=== PATIENT | male | born 1935 | race Caucasian/White ===

== ENCOUNTER 2018-06-04 13:01 | Inpatient (IN) | payer BC, MEDICARE ==
[2018-06-04] MEDS ORDERED: NITROGLYCERIN OINT 1 INCH/GM PACKET TOPICAL STA (13:36)
[2018-06-04] MEDS ORDERED: ASPIRIN 81 MG PO STA (13:36)
--- NOTE | 2018-06-04 13:40 | ED ---
General Adult HPI - General Chief complaint: Shortness of Breath Stated complaint: ANAHI Time Seen by Provider: 06/04/18 13:05 Source: EMS, RN notes reviewed Mode of arrival: EMS Limitations: no limitations - History of Present Illness Initial comments: This is an 83-year-old male who presents to the emergency department with past medical history significant for heart failure. According to the he got up today to go to bathroom and he was in severe respiratory distress at home. She called EMS. Patient is not a very good historian and he states he was having a little bit of shortness of breath. According to EMS he was sent in the low 80s until he put him on oxygen. Patient denied having chest pain away stated he never mentioned anything about chest pain. states he hasn't had any recent fever chills. states when he was short of breath this morning he did start coughing nonstop. Patient currently denies any headache patient denies any abdominal pain there's been no recent history of vomiting or diarrhea. There's been no recent history of trauma. Patient does also have a history of atrial fibrillation is on Coumadin. Patient denies any chest pain - Related Data Home Medications Medication Instructions Recorded Confirmed Aspirin 81 mg PO DAILY 12/09/13 06/04/18 Atenolol [Tenormin] 12.5 mg PO BID 12/09/13 06/04/18 Digoxin [Lanoxin] 125 mcg PO QAM 12/09/13 06/04/18 Finasteride [Proscar] 5 mg PO HS 12/09/13 06/04/18 Furosemide [Lasix] 20 mg PO QAM 12/09/13 06/04/18 Lisinopril [Zestril] 10 mg PO HS 12/09/13 06/04/18 Pravastatin Sodium [Pravachol] 40 mg PO HS 12/09/13 06/04/18 Ranitidine HCl [Zantac] 150 mg PO QAM 12/09/13 06/04/18 Warfarin [Coumadin] 2.5 mg PO SUWESA 12/09/13 06/04/18 Multivitamins, Thera [Multivitamin 1 tab PO DAILY 06/04/18 06/04/18 (formulary)] Warfarin [Coumadin] 1.25 mg PO MOTUTHFR 01/01/19 01/01/19 Allergies Allergy/AdvReac Type Severity Reaction Status Date / Time No Known Allergies Allergy Verified 06/04/18 13:22 Review of Systems ROS Statement: Those systems with pertinent positive or pertinent negative responses have been documented in the HPI. ROS Other: All systems not noted in ROS Statement are negative. Past Medical History Past Medical History: Heart Failure, CVA/TIA, GERD/Reflux, Hyperlipidemia, Hypertension, Osteoarthritis (OA), Prostate Disorder, Sleep Apnea/CPAP/BIPAP Additional Past Medical History / Comment(s): CHF RESOLVED POST VALVE REPLACEMENT. CPAP @ 8 L. HIATAL HERNIA. History of Any Multi-Drug Resistant Organisms: None Reported Past Surgical History: Cardiac Valve Replacement, Coronary Bypass/CABG, Heart Catheterization, Tonsillectomy Additional Past Surgical History / Comment(s): LEFT CATARACT. Past Anesthesia/Blood Transfusion Reactions: No Reported Reaction Past Psychological History: No Psychological Hx Reported Smoking Status: Former smoker Past Alcohol Use History: Occasional Past Drug Use History: None Reported - Past Family History Mother Family Medical History: Cancer General Exam - General Exam Comments Initial Comments: GENERAL: Patient is well-developed and well-nourished. Patient is nontoxic and well- hydrated and is in mild distress. ENT: Neck is soft and supple. No significant lymphadenopathy is noted. Oropharynx is clear. Moist mucous membranes. Neck has full range of motion without eliciting any pain. EYES: The sclera were anicteric and conjunctiva were pink and moist. Extraocular movements were intact and pupils were equal round and reactive to light. Eyelids were unremarkable. PULMONARY: Unlabored respirations. Good breath sounds bilaterally. No audible rales rhonchi or wheezing was noted. CARDIOVASCULAR: Patient is a regular heartbeat. ABDOMEN: Soft and nontender with normal bowel sounds. No palpable organomegaly was noted. There is no palpable pulsatile mass. SKIN: Skin is clear with no lesions or rashes and otherwise unremarkable. NEUROLOGIC: Patient is alert and oriented x3. Cranial nerves II through XII are grossly intact. Motor and sensory are also intact. Normal speech, volume and content. Symmetrical smile. MUSCULOSKELETAL: Normal extremities with adequate strength and full range of motion. 1+ edema bilaterally LYMPHATICS: No significant lymphadenopathy is noted PSYCHIATRIC: Normal psychiatric evaluation. Limitations: no limitations Course Vital Signs 06/04/18 13:03 Temperature 98.0 F Pulse Rate 61 Respiratory 20 Rate Blood Pressure 102/60 O2 Sat by Pulse 89 L Oximetry Medical Decision Making - Medical Decision Making EKG shows atrial fibrillation 73 bpm QRS 114 QT interval 396 QTC is 436 per patient's EKG shows ST segment depression from V2 to V6. No recent old EKG was available. Chest x-ray shows acute pulmonary edema. I gave the patient Lasix. Spoke with Dr. Hankins she agreed to admit the patient admitted the patient I wrote admitting orders I continued the Nitropaste and Lasix on the floor. Patient also had a high potassium I repeated the potassium and mention this to Dr. Hankins. Patient also had some renal insufficiency as well. - Lab Data Result diagrams: 06/04/18 13:29 06/04/18 13:29 Lab Results 06/04/18 06/04/18 06/04/18 Range/Units 13:29 13:29 13:29 WBC 7.3 (3.8-10.6) k/uL RBC 3.77 L (4.30-5.90) m/uL Hgb 12.1 L (13.0-17.5) gm/dL Hct 39.4 (39.0-53.0) % MCV 104.3 H (80.0-100.0) fL MCH 32.0 (25.0-35.0) pg MCHC 30.7 L (31.0-37.0) g/dL RDW 13.7 (11.5-15.5) % Plt Count 181 (150-450) k/uL Neutrophils % 86 % Lymphocytes % 4 % Monocytes % 6 % Eosinophils % 2 % Basophils % 0 % Neutrophils # 6.3 (1.3-7.7) k/uL Lymphocytes # 0.3 L (1.0-4.8) k/uL Monocytes # 0.5 (0-1.0) k/uL Eosinophils # 0.1 (0-0.7) k/uL Basophils # 0.0 (0-0.2) k/uL Macrocytosis Slight PT (9.0-12.0) sec INR (<1.2) APTT (22.0-30.0) sec D-Dimer (<0.60) mg/L FEU Sodium 135 L (137-145) mmol/L Potassium 6.0 H (3.5-5.1) mmol/L Chloride 103 (98-107) mmol/L Carbon Dioxide 20 L (22-30) mmol/L Anion Gap 12 mmol/L BUN 34 H (9-20) mg/dL Creatinine 1.82 H (0.66-1.25) mg/dL Est GFR (CKD-EPI)AfAm 39 (>60 ml/min/1.73 sqM) Est GFR (CKD-EPI)NonAf 33 (>60 ml/min/1.73 sqM) Glucose 176 H (74-99) mg/dL Calcium 9.1 (8.4-10.2) mg/dL Magnesium 2.1 (1.6-2.3) mg/dL Total Bilirubin 1.3 (0.2-1.3) mg/dL AST 35 (17-59) U/L ALT 23 (21-72) U/L Alkaline Phosphatase 99 (38-126) U/L Total Creatine Kinase 45 L (55-170) U/L CK-MB (CK-2) 1.5 (0.0-2.4) ng/mL CK-MB (CK-2) Rel Index 3.3 Troponin I 0.081 H* (0.000-0.034) ng/mL NT-Pro-B Natriuret Pep pg/mL Total Protein 7.1 (6.3-8.2) g/dL Albumin 3.7 (3.5-5.0) g/dL 06/04/18 06/04/18 Range/Units 13:29 13:29 WBC (3.8-10.6) k/uL RBC (4.30-5.90) m/uL Hgb (13.0-17.5) gm/dL Hct (39.0-53.0) % MCV (80.0-100.0) fL MCH (25.0-35.0) pg MCHC (31.0-37.0) g/dL RDW (11.5-15.5) % Plt Count (150-450) k/uL Neutrophils % % Lymphocytes % % Monocytes % % Eosinophils % % Basophils % % Neutrophils # (1.3-7.7) k/uL Lymphocytes # (1.0-4.8) k/uL Monocytes # (0-1.0) k/uL Eosinophils # (0-0.7) k/uL Basophils # (0-0.2) k/uL Macrocytosis PT 38.4 H (9.0-12.0) sec INR 4.0 H (<1.2) APTT 37.4 H (22.0-30.0) sec D-Dimer 1.80 H (<0.60) mg/L FEU Sodium (137-145) mmol/L Potassium (3.5-5.1) mmol/L Chloride (98-107) mmol/L Carbon Dioxide (22-30) mmol/L Anion Gap mmol/L BUN (9-20) mg/dL Creatinine (0.66-1.25) mg/dL Est GFR (CKD-EPI)AfAm (>60 ml/min/1.73 sqM) Est GFR (CKD-EPI)NonAf (>60 ml/min/1.73 sqM) Glucose (74-99) mg/dL Calcium (8.4-10.2) mg/dL Magnesium (1.6-2.3) mg/dL Total Bilirubin (0.2-1.3) mg/dL AST (17-59) U/L ALT (21-72) U/L Alkaline Phosphatase (38-126) U/L Total Creatine Kinase (55-170) U/L CK-MB (CK-2) (0.0-2.4) ng/mL CK-MB (CK-2) Rel Index Troponin I (0.000-0.034) ng/mL NT-Pro-B Natriuret Pep 62735 pg/mL Total Protein (6.3-8.2) g/dL Albumin (3.5-5.0) g/dL Critical Care Time Critical Care Time: Yes Total Critical Care Time: 35 Disposition Clinical Impression: Acute pulmonary edema, Hyperkalemia, Renal insufficiency Disposition: ADMITTED IP TO THIS HOSP Referrals: Vamshi Leiva MD [Primary Care Provider] - 1-2 days Time of Disposition: 15:17
[2018-06-04 13:55] LABS: Albumin 3.7 g/dL (3.5-5.0); Calcium 9.1 mg/dL (8.4-10.2); Magnesium 2.1 mg/dL (1.6-2.3); Total Bilirubin 1.3 mg/dL (0.2-1.3); Total Protein 7.1 g/dL (6.3-8.2)
--- NOTE | 2018-06-04 13:55 | XR ---
EXAMINATION TYPE: XR chest 2V DATE OF EXAM: 06/04/2018 COMPARISON: 07/26/2012 HISTORY: Difficulty breathing TECHNIQUE: Frontal and lateral views of the chest are obtained. FINDINGS: New focal opacities are seen in the left perihilar region, retrocardiac airspace, and righ t costophrenic angle. There is interval enlargement of the cardiac silhouette with postoperative khanna ges of the mediastinum. Mild interstitial prominence is seen throughout. Trace pleural effusions are also noted. Mild multilevel degenerative changes of the spine are seen. No sizable pneumothorax. IMPRESSION: New bilateral multifocal opacities may represent confluent pulmonary edema or multifocal pneumonia. Additionally there is interval increase in size of the cardiac silhouette in comparison t o the prior and echocardiogram should be considered to evaluate for pericardial effusion. Trace pleur al effusions and mild pulmonary vascular prominence suggest an additional degree of decompensated con gestive heart failure.
[2018-06-04 13:56] LABS: Basophils % (A) 0 %; Eosinophils # (A) 0.1 k/uL (0-0.7); Eosinophils % (A) 2 %; HCT 39.4 % (39.0-53.0); HGB 12.1 gm/dL (13.0-17.5); Lymphocytes # (A) 0.3 k/uL (1.0-4.8); Lymphocytes % (A) 4 %; MCHC 30.7 g/dL (31.0-37.0); MCV 104.3 fL (80.0-100.0); Macrocytosis Slight; Monocytes # (A) 0.5 k/uL (0-1.0); Monocytes % (A) 6 %; Neutrophils # (A) 6.3 k/uL (1.3-7.7); Neutrophils % (A) 86 %; Platelet Count 181 k/uL (150-450); RBC 3.77 m/uL (4.30-5.90); RDW 13.7 % (11.5-15.5); WBC 7.3 k/uL (3.8-10.6)
[2018-06-04 14:20] LABS: Creatine Kinase MB 1.5 ng/mL (0.0-2.4)
[2018-06-04 14:28] LABS: Troponin I 0.081 ng/mL (0.000-0.034)
[2018-06-04 14:29] LABS: Partial Thromboplastin Time 37.4 sec (22.0-30.0); Prothrombin Time 38.4 sec (9.0-12.0)
[2018-06-04 14:37] LABS: D-Dimer 1.8 mg/L FEU (<0.60)
[2018-06-04] MEDS ORDERED: FUROSEMIDE 10 MG/ML 4 ML VIAL IV STA (14:42)
[2018-06-04] MEDS ORDERED: ASPIRIN 325 MG TAB PO STA (15:17)
[2018-06-04] MEDS ORDERED: FUROSEMIDE 10 MG/ML 4 ML VIAL IV SCH (15:30)
[2018-06-04] MEDS ORDERED: ACETAMINOPHEN TAB 325 MG TAB PO PRN (16:52)
[2018-06-04] MEDS ORDERED: ONDANSETRON 4 MG/2 ML VIAL IVP PRN (16:52)
[2018-06-04] MEDS ORDERED: NALOXONE 0.4 MG/ML 1 ML VIAL IV PRN (16:52)
[2018-06-04] MEDS ORDERED: HYDROcodone/APAP 5-325MG 1 EACH TAB PO PRN (16:52)
[2018-06-04] MEDS ORDERED: MELATONIN 3 MG TABLET PO PRN (16:52)
--- NOTE | 2018-06-04 16:59 | P.HPIM ---
History of Present Illness H&P Date: 06/04/18 Chief Complaint: constipation and shortness of breath Patient is an 83-year-old male for history hypertension, dyslipidemia , BPH, and mitral valve replacement who presented to the ER with complaints of constipation for 2 days or shortness of breath. In the ER he underwent an extensive evaluation. His initial vital signs were slightly hypoxic with an O2 sat of 89% on room air. Initial laboratory analysis showed a supratherapeutic INR at 4. Hemoglobin 12.1. D-dimer 1.8. Potassium 6. Creatinine of 1.82. Elevated glucose of 176. Elevated troponin of 0.081 with an elevated BNP of 14, 000. Chest x-ray showed bilateral interstitial infiltrates with pleural effusion and enlarged cardiac silhouette. He was given a dose of Lasix in the ER and his potassium was reordered. He was given Nitropaste. Patient seen and examined at bedside in the emergency department. Patient does not want to answer questions and asked his to tell the story. He complains of constipation for the last 2 days. Today he went to get up to try to have a bowel movement. On his way back from the bathroom he became short of breath. They were concerned about her shortness of breath and constipation he proceeded to the ER. It took him quite a long time to recover from shortness of breath. He has a chronic nonproductive cough which has been stable. He does been clearing his throat it seems to produce some phlegm. He denies any chest pain, palpitation, lightheadedness, or dizziness. He has not been having any belly pain. He denies any difficulty starting or stopping his urinary stream. He denies any dysuria or urinary frequency. No recent colds, fevers, flus. He has not missed any medications or had any changes in his medications. He saw Dr. Tsang filling mixer 1 month ago. His last echocardiogram was approximately one year ago at the cardiology office. He has a history of congestive heart failure prior to his mitral valve replacement but has not had any issues since 1990 per his . He also follows with Dr. Cartagena for pulmonary. He has otherwise been in his normal state of health. He denies any recent weakness,numbness, HE, blurry vision, or light headedness. Review of Systems Pertinent positives and negatives as discussed in HPI, a complete review of systems was performed and all other systems are negative. Past Medical History Past Medical History: Heart Failure, CVA/TIA, GERD/Reflux, Hyperlipidemia, Hypertension, Osteoarthritis (OA), Prostate Disorder, Sleep Apnea/CPAP/BIPAP Additional Past Medical History / Comment(s): CHF RESOLVED POST VALVE REPLACEMENT. CPAP @ 8 L. HIATAL HERNIA. Hx of melenoma. BPH. Irregular heart beat. TIA. History of Any Multi-Drug Resistant Organisms: None Reported Past Surgical History: Cardiac Valve Replacement, Coronary Bypass/CABG, Heart Catheterization, Tonsillectomy Additional Past Surgical History / Comment(s): LEFT CATARACT. 2 vessel bypass with mitral valve repair 1990. Melenoma removal. Past Anesthesia/Blood Transfusion Reactions: No Reported Reaction Past Psychological History: No Psychological Hx Reported Smoking Status: Former smoker Past Alcohol Use History: Daily Past Drug Use History: None Reported Additional History: Lives with . Uses a cane. Has 2 drinks daily. - Past Family History Mother Family Medical History: Cancer Additional Family Medical History / Comment(s): from bone cancer, no hx of cardiac disease Father Family Medical History: Cancer Additional Family Medical History / Comment(s): unknown type of cancer Medications and Allergies Home Medications Medication Instructions Recorded Confirmed Type Aspirin 81 mg PO DAILY 12/09/13 06/04/18 History Atenolol [Tenormin] 12.5 mg PO BID 12/09/13 06/04/18 History Digoxin [Lanoxin] 125 mcg PO QAM 12/09/13 06/04/18 History Finasteride [Proscar] 5 mg PO 12/09/13 06/04/18 History Furosemide [Lasix] 20 mg PO QAM 12/09/13 06/04/18 History Lisinopril [Zestril] 10 mg PO 12/09/13 06/04/18 History Pravastatin Sodium [Pravachol] 40 mg PO 12/09/13 06/04/18 History Ranitidine HCl [Zantac] 150 mg PO QAM 12/09/13 06/04/18 History Warfarin [Coumadin] 2.5 mg PO SUWESA 12/09/13 06/04/18 History Multivitamins, Thera [Multivitamin 1 tab PO DAILY 06/04/18 06/04/18 History (formulary)] Warfarin [Coumadin] 1.25 mg PO MOTUTHFR 06/04/18 06/04/18 History Allergies Allergy/AdvReac Type Severity Reaction Status Date / Time No Known Allergies Allergy Verified 06/04/18 13:22 Physical Exam Osteopathic Statement: *. No significant issues noted on an osteopathic structural exam other than those noted in the History and Physical/Consult. Vitals: Vital Signs Temp Pulse Resp BP Pulse Ox 06/04/18 15:30 98.7 F 79 33 H 144/91 98 06/04/18 15:00 102 H 21 132/79 98 06/04/18 14:30 85 19 125/66 99 06/04/18 14:00 76 24 118/51 97 06/04/18 13:03 98.0 F 61 20 102/60 89 L Intake and Output 06/04/18 06/04/18 06/04/18 06:59 14:59 22:59 Other: Weight 83.915 kg General: non toxic, mild distress, appears at stated age, normal weight Derm: no unusual rashes/lesions multiple ecchymoses, warm, dry Head: atraumatic, normocephalic, symmetric Eyes: EOMI, no lid lag, anicteric sclera, pupils equal round reactive to light ENT: Nose and ears atraumatic, no thrush, no pharyngeal erythema Neck: No thyromegaly, no cervical lymphadenopathy, trachea midline, supple Mouth: no lip lesion, mucus membranes dry Cardiovascular: S1S2 reg with murmur, positive posterior tibial pulse bilateral , 3+ edema, capillary refill less than 2 seconds Lungs: rhonchi bilateral bases, no rhonchi, no rales , no accessory muscle use Abdominal: soft, nontender to palpation, no guarding, no appreciable organomegaly, normal bowel sounds Ext: no gross muscle atrophy, muscle strength 5 out of 5 in all 4 extremities grossly, no contractures, Neuro: CN II-XI grossly intact, light touch intact all 4 extremities, finger to nose within normal limits, Psych: Alert, oriented, flat affect Results CBC & Chem 7: 06/04/18 13:29 06/04/18 13:29 Labs: Abnormal Lab Results - Last 24 Hours (Table) 06/04/18 06/04/18 06/04/18 Range/Units 13:29 13:29 13:29 RBC 3.77 L (4.30-5.90) m/uL Hgb 12.1 L (13.0-17.5) gm/dL MCV 104.3 H (80.0-100.0) fL MCHC 30.7 L (31.0-37.0) g/dL Lymphocytes # 0.3 L (1.0-4.8) k/uL PT (9.0-12.0) sec INR (<1.2) APTT (22.0-30.0) sec D-Dimer (<0.60) mg/L FEU Sodium 135 L (137-145) mmol/L Potassium 6.0 H (3.5-5.1) mmol/L Carbon Dioxide 20 L (22-30) mmol/L BUN 34 H (9-20) mg/dL Creatinine 1.82 H (0.66-1.25) mg/dL Glucose 176 H (74-99) mg/dL Total Creatine Kinase 45 L (55-170) U/L Troponin I 0.081 H* (0.000-0.034) ng/mL 06/04/18 Range/Units 13:29 RBC (4.30-5.90) m/uL Hgb (13.0-17.5) gm/dL MCV (80.0-100.0) fL MCHC (31.0-37.0) g/dL Lymphocytes # (1.0-4.8) k/uL PT 38.4 H (9.0-12.0) sec INR 4.0 H (<1.2) APTT 37.4 H (22.0-30.0) sec D-Dimer 1.80 H (<0.60) mg/L FEU Sodium (137-145) mmol/L Potassium (3.5-5.1) mmol/L Carbon Dioxide (22-30) mmol/L BUN (9-20) mg/dL Creatinine (0.66-1.25) mg/dL Glucose (74-99) mg/dL Total Creatine Kinase (55-170) U/L Troponin I (0.000-0.034) ng/mL Chest x-ray: report reviewed, image reviewed (b/l infiltrates greater on left, enlarged heart) Thrombosis Risk Factor Assmnt - DVT/VTE Prophylaxis DVT/VTE Prophylaxis: Pharmacologic Prophylaxis ordered Assessment and Plan Assessment: Acute exacerbation of CHF, unknown EF - Cardio consult - Lasix - Atenolol, hold lisinopril due to ISMAEL - Tele - strict I and O daily weights - echo Hyperkalemia with ISMAEL and non anion gap metabolic acidosis - bladder scan to rule out retention - await repeat stat potassium - hold lisinopril - ? cardiorenal syndrome lasix IVP - Repeat K+ in 2 hours - tele - nephrology consult if no improvement in AM - repeat BMP in AM - Avoid additional nephrotoxic agents - renal ultrasound - bladder scan 330 Elevated troponin - trend troponin, maybe due to ISMAEL - no heparin at this time with possible percardial effusion and no signs of chest pain - ASA - Consult cardio - on BB and nitro Constipation - Enema A fib with supratherapeutic INR - tele, digoxin on hold X 1 check digoxin level - hold coumadin - INR in AM Elevated d-dimer GOld criteria and likely due to ISMAEL and CHF HTN, controlled - hold ACEI due to ISMAEL - resume BB HLD - statin JAGRUTI -CPAP The patient is admitted with an anticipated greater than 2 midnight stay for evaluation of . Surrogate decision-maker: CODE STATUS:Full DVT prophylaxis: INR elevated Discussed with: Patient, nursing, Family, Dr. Mazariegos Anticipated discharge date: 2-[address]: home with home health and tele health A total of 75 minutes was spent on the care of this complex patient more than 50 % of the time was spent in counseling and care coordination.
[2018-06-04 17:27] LABS: Digoxin 0.9 ng/mL; Potassium 5.2 mmol/L (3.5-5.1)
[2018-06-04] MEDS: NITROGLYCERIN OINT 1 INCH/GM PACKET TOPICAL SCH ×2 (19:43→23:05)
[2018-06-04] MEDS ORDERED: ATENOLOL 12.5 MG TAB PO SCH (21:00)
[2018-06-04 22:34] LABS: Glucose,Whole Blood 145 mg/dL (75-99)
[2018-06-04] MEDS: FINASTERIDE 5 MG TAB PO SCH (23:02)
[2018-06-04] MEDS: PRAVASTATIN SODIUM 40 MG TAB PO SCH (23:02)
[2018-06-05 02:31] LABS: HCT 35.6 % (39.0-53.0); HGB 11.7 gm/dL (13.0-17.5); MCH 33.9 pg (25.0-35.0); MCV 102.7 fL (80.0-100.0); Macrocytosis Slight; Mean Platelet Volume 8.6; Platelet Count 156 k/uL (150-450); RBC 3.46 m/uL (4.30-5.90); RDW 13.7 % (11.5-15.5); WBC 16.7 k/uL (3.8-10.6)
[2018-06-05 02:36] LABS: INR 3.2 (<1.2)
[2018-06-05 02:40] LABS: Calcium 8.9 mg/dL (8.4-10.2); Magnesium 2.2 mg/dL (1.6-2.3); Potassium 5.3 mmol/L (3.5-5.1)
[2018-06-05] MEDS: FUROSEMIDE 10 MG/ML 4 ML VIAL IV SCH ×2 (06:01→17:17)
[2018-06-05] MEDS: FAMOTIDINE 20 MG TAB PO SCH (08:50)
[2018-06-05] MEDS: NITROGLYCERIN OINT 1 INCH/GM PACKET TOPICAL SCH ×3 (08:50→21:02)
--- NOTE | 2018-06-05 09:06 | P.CRDCN ---
History of Present Illness History of present illness: This is Dr. Mazariegos dictating a consult on this patient The patient was interviewed and examined by me IMPRESSION / ASSESSMENT: Non-Q wave myocardial infarction Congestive heart failure acute on chronic Valvular heart disease Chronic kidney disease PLAN: 2-D echo and Doppler study Will discuss further management with his primary cardiology is Dr. Rodriguez HPI Patient presenting with shortness of breath or hypoxia Elevated INR of 4.0 Constipation Initial troponin was mildly abnormal BNP was elevated 14,000 he was given Lasix in the ER ROS: No fever chills or rigors, no cough, phlegm or expectoration, no nausea, vomiting or diarrhea, no hematuria, dysuria, no musculoskeletal complaints, no strokes or seizures, no skin lesions. EXAMINATION: Afebrile 98.5F pulse rate 50 blood pressure 105/54 mmHg REVIEW OF LABS, ECG & MEDICAL DATA twelve-lead ECG shows sinus rhythm with ST depression V2-V6 Hyperkalemic Initial INR 4.0 BUN 13 and creatinine 2.04 Troponins 0.08, 6.4 and 6.97 LDL 56 Hemoglobin 11.7 Past Medical History Past Medical History: Heart Failure, CVA/TIA, GERD/Reflux, Hyperlipidemia, Hypertension, Osteoarthritis (OA), Prostate Disorder, Sleep Apnea/CPAP/BIPAP Additional Past Medical History / Comment(s): CHF RESOLVED POST VALVE REPLACEMENT. CPAP @ 8 L. HIATAL HERNIA. Hx of melenoma. BPH. Irregular heart beat. TIA. History of Any Multi-Drug Resistant Organisms: None Reported Past Surgical History: Cardiac Valve Replacement, Coronary Bypass/CABG, Heart Catheterization, Tonsillectomy Additional Past Surgical History / Comment(s): LEFT CATARACT. 2 vessel bypass with mitral valve repair 1990. Melenoma removal. Past Anesthesia/Blood Transfusion Reactions: No Reported Reaction Past Psychological History: No Psychological Hx Reported Smoking Status: Former smoker Past Alcohol Use History: Daily Past Drug Use History: None Reported - Past Family History Mother Family Medical History: Cancer Additional Family Medical History / Comment(s): from bone cancer, no hx of cardiac disease Father Family Medical History: Cancer Additional Family Medical History / Comment(s): unknown type of cancer Medications and Allergies Home Medications Medication Instructions Recorded Confirmed Type Aspirin 81 mg PO DAILY 12/09/13 06/04/18 History Atenolol [Tenormin] 12.5 mg PO BID 12/09/13 06/04/18 History Digoxin [Lanoxin] 125 mcg PO QAM 12/09/13 06/04/18 History Finasteride [Proscar] 5 mg PO HS 12/09/13 06/04/18 History Furosemide [Lasix] 20 mg PO QAM 12/09/13 06/04/18 History Lisinopril [Zestril] 10 mg PO HS 12/09/13 06/04/18 History Pravastatin Sodium [Pravachol] 40 mg PO HS 12/09/13 06/04/18 History Ranitidine HCl [Zantac] 150 mg PO QAM 12/09/13 06/04/18 History Warfarin [Coumadin] 2.5 mg PO SUWESA 12/09/13 06/04/18 History Multivitamins, Thera [Multivitamin 1 tab PO DAILY 06/04/18 06/04/18 History (formulary)] Warfarin [Coumadin] 1.25 mg PO MOTUTHFR 06/04/18 06/04/18 History Allergies Allergy/AdvReac Type Severity Reaction Status Date / Time No Known Allergies Allergy Verified 06/04/18 13:22 Physical Exam Vitals: Vital Signs Temp Pulse Pulse Resp BP BP Pulse Ox 06/05/18 04:00 98.5 F 49 L 15 105/54 92 L 06/05/18 00:00 98.5 F 55 L 15 126/69 94 L 06/04/18 22:05 127/73 06/04/18 22:00 65 20 98/85 95 06/04/18 21:00 71 20 121/62 95 06/04/18 20:30 66 20 125/66 95 06/04/18 20:00 67 24 133/63 93 L 06/04/18 19:30 71 20 139/92 97 06/04/18 19:00 66 20 117/90 06/04/18 18:30 61 21 126/92 06/04/18 17:30 87 20 125/68 97 06/04/18 17:00 75 24 120/65 94 L 06/04/18 16:30 80 22 116/65 93 L 06/04/18 16:00 87 16 125/81 94 L 06/04/18 15:35 98.3 F 125/69 06/04/18 15:30 98.7 F 79 33 H 144/91 98 06/04/18 15:00 102 H 21 132/79 98 06/04/18 14:30 85 19 125/66 99 06/04/18 14:00 76 24 118/51 97 06/04/18 13:03 98.0 F 61 20 102/60 89 L Intake and Output 06/04/18 06/05/18 06/05/18 22:59 06:59 14:59 Intake Total 400 Output Total 600 Balance -200 Intake: Oral 400 Output: Urine 600 Other: Voiding Method Bedpan Weight 78.2 kg Results 06/05/18 02:12 06/05/18 02:12 Cardiac Enzymes 06/04/18 06/04/18 06/04/18 Range/Units 13:29 13:29 22:00 AST 35 (17-59) U/L CK-MB (CK-2) 1.5 (0.0-2.4) ng/mL Troponin I 0.081 H* 6.400 H* (0.000-0.034) ng/mL 06/05/18 Range/Units 02:12 AST (17-59) U/L CK-MB (CK-2) (0.0-2.4) ng/mL Troponin I 6.970 H* (0.000-0.034) ng/mL Coagulation 06/04/18 06/05/18 Range/Units 13:29 02:12 PT 38.4 H 31.0 H (9.0-12.0) sec APTT 37.4 H (22.0-30.0) sec Lipids 06/05/18 Range/Units 02:12 Triglycerides 49 (<150) mg/dL Cholesterol 108 (<200) mg/dL HDL Cholesterol 42 (40-60) mg/dL CBC 06/04/18 06/05/18 Range/Units 13:29 02:12 WBC 7.3 16.7 H (3.8-10.6) k/uL RBC 3.77 L 3.46 L (4.30-5.90) m/uL Hgb 12.1 L 11.7 L (13.0-17.5) gm/dL Hct 39.4 35.6 L (39.0-53.0) % Plt Count 181 156 (150-450) k/uL Comprehensive Metabolic Panel 01/06/2206/04/18 06/05/18 Range/Units 13:29 16:57 02:12 Sodium 135 L 134 L 135 L (137-145) mmol/L Potassium 6.0 H 5.2 H 5.3 H (3.5-5.1) mmol/L Chloride 103 103 102 (98-107) mmol/L Carbon Dioxide 20 L 21 L 23 (22-30) mmol/L BUN 34 H 38 H 39 H (9-20) mg/dL Creatinine 1.82 H 1.93 H 2.04 H (0.66-1.25) mg/dL Glucose 176 H 132 H 140 H (74-99) mg/dL Calcium 9.1 9.0 8.9 (8.4-10.2) mg/dL AST 35 (17-59) U/L ALT 23 (21-72) U/L Alkaline Phosphatase 99 (38-126) U/L Total Protein 7.1 (6.3-8.2) g/dL Albumin 3.7 (3.5-5.0) g/dL Current Medications Generic Name Dose Route Start Last Admin Trade Name Freq PRN Reason Stop Dose Admin Acetaminophen 650 mg 06/04/18 16:52 Tylenol Tab PO Q6HR PRN Mild Pain or Fever > 100.5 Hydrocodone Bitart/Acetaminophen 1 each 06/04/18 16:52 Sunland 5-325 PO Q4HR PRN Moderate Pain Aspirin 325 mg 06/05/18 12:00 Aspirin PO DAILY BRIDGET Atenolol 12.5 mg 06/04/18 21:00 06/04/18 23:02 Tenormin PO 12.5 mg BID BRIDGET Administration Docusate Sodium 100 mg 06/04/18 16:52 Colace PO BID PRN Constipation Famotidine 20 mg 06/05/18 09:00 Pepcid PO QAM BRIDGET Finasteride 5 mg 06/04/18 21:00 06/04/18 23:02 Proscar PO 5 mg HS BRIDGET Administration Furosemide 40 mg 06/05/18 06:00 06/05/18 06:01 Lasix IV 40 mg Q12H BRIDGET Administration Melatonin 3 mg 06/04/18 16:52 Melatonin PO HS PRN Insomnia Naloxone HCl 0.2 mg 06/04/18 16:52 Narcan IV Q2M PRN Opioid Reversal Nitroglycerin 1 inch 06/04/18 18:00 06/04/18 23:05 Nitro-Bid Oint TOPICAL 1 inch QID BRIDGET Administration Ondansetron HCl 4 mg 06/04/18 16:52 Zofran IVP Q8HR PRN Nausea And Vomiting Pravastatin Sodium 40 mg 06/04/18 21:00 06/04/18 23:02 Pravachol PO 40 mg HS BRIDGET Administration Intake and Output 06/04/18 06/05/18 06/05/18 22:59 06:59 14:59 Intake Total 400 Output Total 600 Balance -200 Intake: Oral 400 Output: Urine 600 Other: Voiding Method Bedpan Weight 78.2 kg 06/05/18 02:12 06/05/18 02:12
--- NOTE | 2018-06-05 09:42 | XR ---
EXAMINATION TYPE: XR chest 1V portable DATE OF EXAM: 06/05/2018 COMPARISON: 06/04/2018 HISTORY: Cough TECHNIQUE: Single frontal view of the chest is obtained. FINDINGS: Bilateral consolidation and small effusion. Diffuse interstitial pattern. Cardiomegaly see n. Postsurgical changes. Atherosclerotic change aorta. No pneumothorax. Diffuse osteopenia and arthro sandra of the shoulders. IMPRESSION: 1. Bilateral consolidation and pleural effusion. Underlying CHF and pneumonia in the differential [place] gnosis. No significant interval change.
[2018-06-05] MEDS: AZITHROMYCIN 500 MG in SODIUM CHLORIDE 0.9% 250 ML IVPB SCH (11:02)
--- NOTE | 2018-06-05 11:40 | P.CNPUL ---
History of Present Illness Consult date: 06/05/18 Requesting physician: Anat Hankins Reason for consult: dyspnea Chief complaint: Shortness of breath History of present illness: This is an 83-year-old white male with history of multiple medical problems including chronic atrial fibrillation, systolic congestive heart failure, prior mitral valve replacement, obstructive sleep apnea for which she normally sees Dr. Catragena. Patient presented to the ER yesterday with 2 days history of increased shortness of breath. Cough, nonproductive, no fever no chills no hemoptysis and no chest pain. His chest x-ray was consistent with interstitial edema. His BNP level was elevated. Troponin was elevated and it is on the rise , patient was admitted, started on diuretics, he was also started empirically on antibiotics, and this consult was initiated. Presently the patient denies shortness of breath, he is on few liters nasal cannula. Denies any chest pain, denies palpitations, no headache no blurred vision no dizziness. No nausea no vomiting no abdominal pain. No melena no hematemesis no dysuria and no frequency no urgency. Again his past medical history is most significant for mitral valve replacement, history of melanoma, chronic atrial fibrillation, TIA , hypertension, and obstructive sleep apnea syndrome. Review of Systems 14 point review of systems were obtained, please refer to pertinent positives in HPI, otherwise remaining systems are negative. Past Medical History Past Medical History: Heart Failure, CVA/TIA, GERD/Reflux, Hyperlipidemia, Hypertension, Osteoarthritis (OA), Prostate Disorder, Sleep Apnea/CPAP/BIPAP Additional Past Medical History / Comment(s): CHF RESOLVED POST VALVE REPLACEMENT. CPAP @ 8 L. HIATAL HERNIA. Hx of melenoma. BPH. Irregular heart beat. TIA. History of Any Multi-Drug Resistant Organisms: None Reported Past Surgical History: Cardiac Valve Replacement, Coronary Bypass/CABG, Heart Catheterization, Tonsillectomy Additional Past Surgical History / Comment(s): LEFT CATARACT. 2 vessel bypass with mitral valve repair 1990. Melenoma removal. Past Anesthesia/Blood Transfusion Reactions: No Reported Reaction Past Psychological History: No Psychological Hx Reported Smoking Status: Former smoker Past Alcohol Use History: Daily Past Drug Use History: None Reported - Past Family History Mother Family Medical History: Cancer Additional Family Medical History / Comment(s): from bone cancer, no hx of cardiac disease Father Family Medical History: Cancer Additional Family Medical History / Comment(s): unknown type of cancer Medications and Allergies Home Medications Medication Instructions Recorded Confirmed Type Aspirin 81 mg PO DAILY 12/09/13 06/04/18 History Atenolol [Tenormin] 12.5 mg PO BID 12/09/13 06/04/18 History Digoxin [Lanoxin] 125 mcg PO QAM 12/09/13 06/04/18 History Finasteride [Proscar] 5 mg PO HS 12/09/13 06/04/18 History Furosemide [Lasix] 20 mg PO QAM 12/09/13 06/04/18 History Lisinopril [Zestril] 10 mg PO HS 12/09/13 06/04/18 History Pravastatin Sodium [Pravachol] 40 mg PO HS 12/09/13 06/04/18 History Ranitidine HCl [Zantac] 150 mg PO QAM 12/09/13 06/04/18 History Warfarin [Coumadin] 2.5 mg PO SUWESA 12/09/13 06/04/18 History Multivitamins, Thera [Multivitamin 1 tab PO DAILY 06/04/18 06/04/18 History (formulary)] Warfarin [Coumadin] 1.25 mg PO MOTUTHFR 06/04/18 06/04/18 History Allergies Allergy/AdvReac Type Severity Reaction Status Date / Time No Known Allergies Allergy Verified 06/04/18 13:22 Physical Exam Vitals: Vital Signs Temp Pulse Pulse Resp BP BP Pulse Ox 06/05/18 08:00 97.9 F 60 20 132/74 90 L 06/05/18 04:00 98.5 F 49 L 15 105/54 92 L 06/05/18 00:00 98.5 F 55 L 15 126/69 94 L 06/04/18 22:05 127/73 06/04/18 22:00 65 20 98/85 95 06/04/18 21:00 71 20 121/62 95 06/04/18 20:30 66 20 125/66 95 06/04/18 20:00 67 24 133/63 93 L 06/04/18 19:30 71 20 139/92 97 06/04/18 19:00 66 20 117/90 06/04/18 18:30 61 21 126/92 06/04/18 17:30 87 20 125/68 97 06/04/18 17:00 75 24 120/65 94 L 06/04/18 16:30 80 22 116/65 93 L 06/04/18 16:00 87 16 125/81 94 L 06/04/18 15:35 98.3 F 125/69 06/04/18 15:30 98.7 F 79 33 H 144/91 98 06/04/18 15:00 102 H 21 132/79 98 06/04/18 14:30 85 19 125/66 99 06/04/18 14:00 76 24 118/51 97 06/04/18 13:03 98.0 F 61 20 102/60 89 L Intake and Output 06/04/18 06/05/18 06/05/18 22:59 06:59 14:59 Intake Total 400 Output Total 600 Balance -200 Intake: Oral 400 Output: Urine 600 Other: Voiding Method Bedpan Urinal Weight 78.2 kg Physical Exam: Revealed 83-year-old white male, pleasant, in no distress. Head: Atraumatic, normocephalic. HEENT:[Neck is supple.] [No neck masses.] [No thyromegaly.] [ Positive JVD.] PERRLA, EOMI, no icterus noted. Chest: [Bilateral rhonchi at the bases, no wheezes. Symmetrical chest expansion. No chest wall tenderness..] Cardiac Exam: [Irregular rhythm Normal S1 and S2, no S3 gallop, 2/6 systolic murmur thought the precordium.] Abdomen: [Soft, nontender, no megaly, no rebound, no guarding, normal bowel sounds.] Extremities: [No clubbing, 3+ bipedal edema, no cyanosis.] Neurological Exam: [No focal neurologic deficit.] Alert oriented 3, no gross focal deficit. Lymphatics: No lymphadenopathy. Psychiatric: Normal mood, affect and mental status examination. Results - Laboratory Findings CBC and BMP: 06/05/18 02:12 06/05/18 02:12 PT/INR, D-dimer PT 31.0 sec (9.0-12.0) H 06/05/18 02:12 INR 3.2 (<1.2) H 06/05/18 02:12 D-Dimer 1.80 mg/L FEU (<0.60) H 06/04/18 13:29 Abnormal lab findings: Abnormal Labs 06/04/18 06/04/18 06/04/18 13:29 13:29 13:29 WBC RBC 3.77 L Hgb 12.1 L Hct MCV 104.3 H MCHC 30.7 L Lymphocytes # 0.3 L PT INR APTT D-Dimer Sodium 135 L Potassium 6.0 H Carbon Dioxide 20 L BUN 34 H Creatinine 1.82 H Glucose 176 H POC Glucose (mg/dL) Total Creatine Kinase 45 L Troponin I 0.081 H* 06/04/18 06/04/18 06/04/18 13:29 16:57 22:00 WBC RBC Hgb Hct MCV MCHC Lymphocytes # PT 38.4 H INR 4.0 H APTT 37.4 H D-Dimer 1.80 H Sodium 134 L Potassium 5.2 H Carbon Dioxide 21 L BUN 38 H Creatinine 1.93 H Glucose 132 H POC Glucose (mg/dL) Total Creatine Kinase Troponin I 6.400 H* 06/04/18 06/05/18 06/05/18 22:21 02:12 02:12 WBC 16.7 H RBC 3.46 L Hgb 11.7 L Hct 35.6 L MCV 102.7 H MCHC Lymphocytes # PT INR APTT D-Dimer Sodium Potassium Carbon Dioxide BUN Creatinine Glucose POC Glucose (mg/dL) 145 H Total Creatine Kinase Troponin I 6.970 H* 06/05/18 06/05/18 02:12 02:12 WBC RBC Hgb Hct MCV MCHC Lymphocytes # PT 31.0 H INR 3.2 H APTT D-Dimer Sodium 135 L Potassium 5.3 H Carbon Dioxide BUN 39 H Creatinine 2.04 H Glucose 140 H POC Glucose (mg/dL) Total Creatine Kinase Troponin I - Diagnostic Findings Chest x-ray: image reviewed (Consistent with congestive heart failure/ interstitial edema. Possibility of underlying infiltrates is not entirely ruled out, but felt to be less likely clinically.) Assessment and Plan Assessment: Impression: 1 acute on chronic systolic congestive heart failure. 2 acute non-ST elevation myocardial infarction. 3 acute kidney injury, possibly acute tubular necrosis or cardiorenal in nature. With hyperkalemia. 4 chronic atrial fibrillation and supratherapeutic INR. 5 benign essential hypertension 6 history of obstructive sleep apnea being followed by Dr. Cartagena on outpatient basis. Patient will bring his own CPAP and will be used while inpatient. 7 history of valvular heart disease, previous mitral valve replacement. Recommendation: Reviewed all the present medications, reviewed his chest x-ray, reviewed his EKG, reviewed his elevated troponin, reviewed the cardiology consultation, and I felt at this point not much changed to be added, continue diuretics, continue atenolol, continue aspirin, adjust Coumadin to a therapeutic INR. Patient may require cardiac intervention. However considering his renal status, that may be a major issue. This will be decided upon by cardiology on the case. The possibility of underlying infiltrate on the chest x-ray is not entirely ruled out, but again felt to be less likely based on the clinical presentation. Patient is empirically on antibiotics, those can be discontinued if cultures remain negative, and if the patient improves with diuresis. We'll continue to follow while in the intensive care unit. Time with Patient: Greater than 30
[2018-06-05] MEDS ORDERED: ASPIRIN 325 MG TAB PO SCH (12:00)
--- NOTE | 2018-06-05 12:17 | ECHOF ---
Referral Reason:preform early Pericardial effusion MEASUREMENTS -------- HEIGHT: 170.2 cm WEIGHT: 78.0 kg BP: 105/54 RVIDd: 3.5 cm (< 3.3) IVSd: 1.4 cm (0.6 - 1.1) LVIDd: 6.3 cm (3.9 - 5.3) LVPWd: 2.0 cm (0.6 - 1.1) IVSs: 1.8 cm LVIDs: 5.7 cm LVPWs: 1.7 cm LAESV Index (A-L): 147.88 ml/m Ao Diam: 4.2 cm (2.0 - 3.7) AV Cusp: 2.6 cm (1.5 - 2.6) LA Diam: 7.0 cm (2.7 - 3.8) MV EXCURSION: 12.364 mm (> 18.000) MV EF SLOPE: 26 mm/s (70 - 150) EPSS: 0.4 cm MV E Wes: 2.13 m/s MV DecT: 153 ms MV A Wes: 0.63 m/s MV E/A Ratio: 3.41 RAP: 5.00 mmHg RVSP: 39.29 mmHg FINDINGS -------- Undetermined rhythm. This was a technically adequate study. The left ventricular size is normal. There is mild concentric left ventricular hypertrophy. Overa ll left ventricular systolic function is severely impaired with, an EF < 20%. The right ventricle is normal in size. The left atrium is markedly dilated. LA is severely dilated >40 ml/m2 The right atrium is moderately enlarged. The aortic valve is trileaflet, and appears structurally normal. No aortic stenosis or regurgitation. Mild mitral regurgitation is present. The peak and mean MV gradients are 21.58mmHg 5.09mmHg as coleen sured by doppler. Mechanical MV. [id number] tricuspid regurgitation present. There is mild pulmonary hypertension. The right ventricular systolic pressure, as measured by Doppler, is 39.29mmHg. Trace/mild (physiologic) pulmonic regurgitation. The aortic root size is normal. There is no pericardial effusion. CONCLUSIONS -------- 1. The left ventricular size is normal. 2. There is mild concentric left ventricular hypertrophy. 3. Overall left ventricular systolic function is severely impaired with, an EF < 20%. 4. The right ventricle is normal in size. 5. The left atrium is markedly dilated. 6. LA is severely dilated >40 ml/m2 7. The right atrium is moderately enlarged. 8. The aortic valve is trileaflet, and appears structurally normal. No aortic stenosis or regurgitati on. 9. Mild mitral regurgitation is present. 10. The peak and mean MV gradients are 21.58mmHg 5.09mmHg as measured by doppler. 11. Mechanical MV. 12. Smyo-he-bhboveyk tricuspid regurgitation present. 13. There is mild pulmonary hypertension. 14. The right ventricular systolic pressure, as measured by Doppler, is 39.29mmHg. 15. Trace/mild (physiologic) pulmonic regurgitation. 16. The aortic root size is normal. 17. There is no pericardial effusion. NUT ROASTER HELPER: Sammie Garcia RDCS
--- NOTE | 2018-06-05 13:59 | P.PN ---
Subjective Progress Note Date: 06/05/18 Principal diagnosis: shortness of breath Patient is an 83-year-old male for history hypertension, dyslipidemia , BPH, and mitral valve replacement who presented to the ER with complaints of constipation for 2 days or shortness of breath. In the ER he underwent an extensive evaluation. His initial vital signs were slightly hypoxic with an O2 sat of 89% on room air. Initial laboratory analysis showed a supratherapeutic INR at 4. Hemoglobin 12.1. D-dimer 1.8. Potassium 6. Creatinine of 1.82. Elevated glucose of 176. Elevated troponin of 0.081 with an elevated BNP of 14, 000. Chest x-ray showed bilateral interstitial infiltrates with pleural effusion and enlarged cardiac silhouette. He was given a dose of Lasix in the ER and his potassium was reordered. He was given Nitropaste. Potassium improved with Lasix dosing. His troponin went up consistent with a non-ST segment elevated myocardial infarction. He had a bowel movement after enema. He was not initially placed on heparin drip due to supratherapeutic INR and possibility of pericardial effusion secondary to cardiomegaly detected on chest x-ray. Overnight on 06/04 he did develop some transient hypotension and bradycardia. Patient seen and examined at bedside. He states that his breathing is much improved today. No chest pain. No nausea or vomiting. No abdominal pain. Had several bowel movements. He has discussed with cardiology the fact that he had a heart attack. All questions answered best by ability. Case discussed with nursing at bedside. Objective - Vital Signs Vital signs: Vital Signs Temp 97.9 F 06/05/18 08:00 Pulse 60 06/05/18 08:00 Resp 20 06/05/18 08:00 BP 132/74 06/05/18 08:00 Pulse Ox 90 L 06/05/18 08:00 Intake & Output 06/04/18 06/05/18 06/05/18 18:59 06:59 18:59 Intake Total 400 Output Total 600 Balance -200 Weight 78.2 kg 78.2 kg Intake: Oral 400 Output: Urine 600 Other: Voiding Method Bedpan - Exam General: Appearing, no distress, appears at stated age Derm: warm, dry Head: atraumatic, normocephalic, symmetric Eyes: EOMI, no lid lag, anicteric sclera Mouth: no lip lesion, mucus membranes moist Cardiovascular: S2 with murmur, positive posterior tibial pulse bilateral, Lungs: Crackles bilateral bases, no rhonchi, no rales , no accessory muscle use Abdominal: soft, nontender to palpation, no guarding, no appreciable organomegaly Ext: no gross muscle atrophy, plus edema, no contractures Neuro: CN II-XI grossly intact, no focal neuro deficits Psych: Alert, oriented, appropriate affect - Labs CBC & Chem 7: 06/05/18 02:12 06/05/18 02:12 Labs: Abnormal Lab Results - Last 24 Hours (Table) 06/04/18 06/04/18 06/04/18 Range/Units 13:29 13:29 13:29 WBC (3.8-10.6) k/uL RBC 3.77 L (4.30-5.90) m/uL Hgb 12.1 L (13.0-17.5) gm/dL Hct (39.0-53.0) % MCV 104.3 H (80.0-100.0) fL MCHC 30.7 L (31.0-37.0) g/dL Lymphocytes # 0.3 L (1.0-4.8) k/uL PT (9.0-12.0) sec INR (<1.2) APTT (22.0-30.0) sec D-Dimer (<0.60) mg/L FEU Sodium 135 L (137-145) mmol/L Potassium 6.0 H (3.5-5.1) mmol/L Carbon Dioxide 20 L (22-30) mmol/L BUN 34 H (9-20) mg/dL Creatinine 1.82 H (0.66-1.25) mg/dL Glucose 176 H (74-99) mg/dL POC Glucose (mg/dL) (75-99) mg/dL Total Creatine Kinase 45 L (55-170) U/L Troponin I 0.081 H* (0.000-0.034) ng/mL 06/04/18 06/04/18 06/04/18 Range/Units 13:29 16:57 22:00 WBC (3.8-10.6) k/uL RBC (4.30-5.90) m/uL Hgb (13.0-17.5) gm/dL Hct (39.0-53.0) % MCV (80.0-100.0) fL MCHC (31.0-37.0) g/dL Lymphocytes # (1.0-4.8) k/uL PT 38.4 H (9.0-12.0) sec INR 4.0 H (<1.2) APTT 37.4 H (22.0-30.0) sec D-Dimer 1.80 H (<0.60) mg/L FEU Sodium 134 L (137-145) mmol/L Potassium 5.2 H (3.5-5.1) mmol/L Carbon Dioxide 21 L (22-30) mmol/L BUN 38 H (9-20) mg/dL Creatinine 1.93 H (0.66-1.25) mg/dL Glucose 132 H (74-99) mg/dL POC Glucose (mg/dL) (75-99) mg/dL Total Creatine Kinase (55-170) U/L Troponin I 6.400 H* (0.000-0.034) ng/mL 06/04/18 06/05/18 06/05/18 Range/Units 22:21 02:12 02:12 WBC 16.7 H (3.8-10.6) k/uL RBC 3.46 L (4.30-5.90) m/uL Hgb 11.7 L (13.0-17.5) gm/dL Hct 35.6 L (39.0-53.0) % MCV 102.7 H (80.0-100.0) fL MCHC (31.0-37.0) g/dL Lymphocytes # (1.0-4.8) k/uL PT (9.0-12.0) sec INR (<1.2) APTT (22.0-30.0) sec D-Dimer (<0.60) mg/L FEU Sodium (137-145) mmol/L Potassium (3.5-5.1) mmol/L Carbon Dioxide (22-30) mmol/L BUN (9-20) mg/dL Creatinine (0.66-1.25) mg/dL Glucose (74-99) mg/dL POC Glucose (mg/dL) 145 H (75-99) mg/dL Total Creatine Kinase (55-170) U/L Troponin I 6.970 H* (0.000-0.034) ng/mL 06/05/18 06/05/18 Range/Units 02:12 02:12 WBC (3.8-10.6) k/uL RBC (4.30-5.90) m/uL Hgb (13.0-17.5) gm/dL Hct (39.0-53.0) % MCV (80.0-100.0) fL MCHC (31.0-37.0) g/dL Lymphocytes # (1.0-4.8) k/uL PT 31.0 H (9.0-12.0) sec INR 3.2 H (<1.2) APTT (22.0-30.0) sec D-Dimer (<0.60) mg/L FEU Sodium 135 L (137-145) mmol/L Potassium 5.3 H (3.5-5.1) mmol/L Carbon Dioxide (22-30) mmol/L BUN 39 H (9-20) mg/dL Creatinine 2.04 H (0.66-1.25) mg/dL Glucose 140 H (74-99) mg/dL POC Glucose (mg/dL) (75-99) mg/dL Total Creatine Kinase (55-170) U/L Troponin I (0.000-0.034) ng/mL Assessment and Plan Assessment: Acute exacerbation of CHF, EF less than 20% - Cardio recs appreciated - Lasix - Atenolol held today due to hypotension and bradycardia, hold lisinopril due to ISMAEL - Tele - strict I and O daily weights - echo consistent with systolic cardiomyopathy, mechanical mitral valve, and moderate tricuspid regurgitation - Possible cath in a.m. NSTEMI - ASA -Cardio recs, possible In a.m. -Hold beta lucy secondary to bradycardia and hypotension -Nitro as needed -No heparin drip at this point in time secondary to therapeutic INR which was supratherapeutic yesterday Hyperkalemia with ISMAEL and non anion gap metabolic acidosis - hold lisinopril - ? cardiorenal syndrome lasix IVP - nephrology consult - repeat BMP in AM - Avoid additional nephrotoxic agents - renal ultrasound Possible PNA - infiltrates more likely due to CHF butrocpehin and zithromax empirically - check procalcitonin - sputum culture - pulm consult - repeat CXR A fib with supratherapeutic INR - tele, resume digoxin - hold coumadin - INR in AM Elevated d-dimer - likely due to ISMAEL, NTSEMI and CHF HTN, controlled - hold ACEI due to ISMAEL - resume BB HLD - statin JAGRUTI -CPAP Constipation, resolved DVT prophylaxis: INR elevated Discussed with: Patient, nursing, Dr. Mazariegos Anticipated discharge date: 3-[address]: home with home health and tele health A total of 35 minutes was spent on the care of this complex patient more than 50 % of the time was spent in counseling and care coordination.
[2018-06-05 14:54] LABS: Appearance,Urine Clear (Clear); Bilirubin,Urine Negative (Negative); Blood,Urine Negative (Negative); Color,Urine Yellow; Glucose,Urine (UA) Negative (Negative); Ketones,Urine Negative (Negative); Leukocyte Esterase,Urine Negative (Negative); Nitrite,Urine Negative (Negative); Protein,Urine Negative (Negative); Specific Gravity,Urine 1.008 (1.001-1.035); Urobilinogen,Urine <2.0 mg/dL (<2.0)
[2018-06-05] MEDS ORDERED: PHYTONADIONE ORAL 5 MG/5 ML ORAL.SYRG PO STA (16:17)
[2018-06-05] MEDS: PRAVASTATIN SODIUM 40 MG TAB PO SCH (21:02)
[2018-06-05] MEDS: FINASTERIDE 5 MG TAB PO SCH (21:02)
[2018-06-06] MEDS: FUROSEMIDE 10 MG/ML 4 ML VIAL IV SCH ×2 (05:48→15:28)
[2018-06-06 06:09] LABS: HCT 33.1 % (39.0-53.0); HGB 10.8 gm/dL (13.0-17.5); MCH 33.4 pg (25.0-35.0); MCHC 32.5 g/dL (31.0-37.0); Macrocytosis Slight; Mean Platelet Volume 7.9; Platelet Count 150 k/uL (150-450); RBC 3.22 m/uL (4.30-5.90); RDW 13.6 % (11.5-15.5); WBC 9.4 k/uL (3.8-10.6)
[2018-06-06 06:17] LABS: INR 1.6 (<1.2); Prothrombin Time 16.3 sec (9.0-12.0)
[2018-06-06 06:24] LABS: Calcium 8.5 mg/dL (8.4-10.2); Magnesium 2.2 mg/dL (1.6-2.3); Potassium 4.1 mmol/L (3.5-5.1)
[2018-06-06] MEDS: FAMOTIDINE 20 MG TAB PO SCH (08:44)
[2018-06-06] MEDS: DIGOXIN 125 MCG TAB PO SCH (08:44)
[2018-06-06] MEDS: ASPIRIN 81 MG PO SCH (08:44)
[2018-06-06] MEDS: NITROGLYCERIN OINT 1 INCH/GM PACKET TOPICAL SCH ×3 (08:45→22:20)
[2018-06-06] MEDS: AZITHROMYCIN 500 MG in SODIUM CHLORIDE 0.9% 250 ML IVPB SCH (08:45)
--- NOTE | 2018-06-06 09:15 | XR ---
EXAMINATION TYPE: XR chest 1V portable DATE OF EXAM: 06/06/2018 HISTORY: Shortness of breath. COMPARISON: June 05, 2018 TECHNIQUE: Single view of the chest is submitted. FINDINGS: Demonstrated are scattered senescent parenchymal change. There is cardiomegaly with pulmonary venous congestion and small effusions overall unchanged from genaro or study. Hilar and mediastinal structures are within normal limits. Degenerative changes are seen of the dorsal spine. IMPRESSION: 1. Stable features of congestive failure.
--- NOTE | 2018-06-06 10:36 | P.PN ---
Subjective Progress Note Date: 06/06/18 Principal diagnosis: Acute non-ST elevation myocardial infarction and acute on chronic systolic congestive heart failure This is an 83-year-old white male with history of multiple medical problems including chronic atrial fibrillation, systolic congestive heart failure, prior mitral valve replacement, obstructive sleep apnea for which she normally sees Dr. Cartagena. Patient presented to the ER yesterday with 2 days history of increased shortness of breath. Cough, nonproductive, no fever no chills no hemoptysis and no chest pain. His chest x-ray was consistent with interstitial edema. His BNP level was elevated. Troponin was elevated and it is on the rise , patient was admitted, started on diuretics, he was also started empirically on antibiotics, and this consult was initiated. Presently the patient denies shortness of breath, he is on few liters nasal cannula. Denies any chest pain, denies palpitations, no headache no blurred vision no dizziness. No nausea no vomiting no abdominal pain. No melena no hematemesis no dysuria and no frequency no urgency. Again his past medical history is most significant for mitral valve replacement, history of melanoma, chronic atrial fibrillation, TIA , hypertension, and obstructive sleep apnea syndrome. Patient was reevaluated today on 06/06/2018, patient seems to be doing better, breathing easier, although his chest x-ray continues to show evidence of mild interstitial edema. Denies any chest pain, no cough no wheezing, no fever, no chills, and no palpitations. Still in the ICU, and the weatherization administrator is considering cardiac catheterization on this patient, however because of his renal functioning that seems to be a major issue. Chest x-ray was reviewed, and it shows evidence of mild interstitial edema. Labs normal CBC WBC count is 9.4 hemoglobin is 10.8 INR is 1.6, may have to restart Coumadin or at least placed on heparin for now if cardiac catheterization is being considered to be done tomorrow. However that decision will be made by cardiology when they are round on him today. His INR yesterday was 3.2. Electrolytes are normal, BUN is up to 47 creatinine is slightly down from 2.04 yesterday to 1.91 today. His last troponin yesterday was 6.97. Pro-calcitonin was noted to be a bit elevated , hence the possibility of underlying infiltrate in addition to his interstitial edema is likely, and the patient will be empirically on antibiotics. Has been receiving Zithromax and Rocephin since admission. Objective - Vital Signs Vital signs: Vital Signs Temp 98.2 F 06/06/18 08:00 Pulse 68 06/06/18 08:00 Resp 27 H 06/06/18 09:00 BP 92/66 06/06/18 09:00 Pulse Ox 95 06/06/18 08:00 Intake & Output 06/05/18 06/06/18 06/06/18 18:59 06:59 18:59 Output Total 125 775 300 Balance -125 -775 -300 Weight 77.8 kg Output: Urine 125 775 300 Other: Voiding Method Urinal Urinal Urinal # Voids 1 # Bowel Movements 1 - Exam Physical Exam: Revealed 83-year-old white male asymptomatic, on few liters nasal cannula. In no distress. Head: Atraumatic, normocephalic. HEENT:[Neck is supple.] [No neck masses.] [No thyromegaly.] [No JVD.] Chest: [Minimal crackles at the bases, rhonchi noted, no wheezes, no chest wall tenderness. Cardiac Exam: [Irregular irregular rhythm Normal S1 and S2, no S3 gallop, 2/6 systolic murmur throughout the precordium, Abdomen: [Soft, nontender, no megaly, no rebound, no guarding, normal bowel sounds.] Extremities: [No clubbing, no edema, no cyanosis.] Neurological Exam: [No focal neurologic deficit. Psychiatric: Normal mood affect and mental status examination. Lymphatics: No lymphadenopathy.] - Labs CBC & Chem 7: 06/06/18 05:43 06/06/18 05:43 Labs: Abnormal Lab Results - Last 24 Hours (Table) 06/05/18 06/06/18 06/06/18 Range/Units 15:06 05:43 05:43 RBC 3.22 L (4.30-5.90) m/uL Hgb 10.8 L (13.0-17.5) gm/dL Hct 33.1 L (39.0-53.0) % MCV 103.0 H (80.0-100.0) fL PT 16.3 H (9.0-12.0) sec INR 1.6 H (<1.2) BUN (9-20) mg/dL Creatinine (0.66-1.25) mg/dL Procalcitonin 2.00 H (0.02-0.09) ng/mL 06/06/18 Range/Units 05:43 RBC (4.30-5.90) m/uL Hgb (13.0-17.5) gm/dL Hct (39.0-53.0) % MCV (80.0-100.0) fL PT (9.0-12.0) sec INR (<1.2) BUN 47 H (9-20) mg/dL Creatinine 1.91 H (0.66-1.25) mg/dL Procalcitonin (0.02-0.09) ng/mL Microbiology - Last 24 Hours (Table) 06/04/18 13:29 Blood Culture - Preliminary Blood No Growth after 24 hours Assessment and Plan Assessment: Impression: 1 acute on chronic systolic congestive heart failure. 2 acute non-ST elevation myocardial infarction. 3 acute kidney injury, possibly acute tubular necrosis or cardiorenal in nature. With hyperkalemia. 4 chronic atrial fibrillation and supratherapeutic INR. 5 benign essential hypertension 6 history of obstructive sleep apnea being followed by Dr. Cartagena on outpatient basis. Patient will bring his own CPAP and will be used while inpatient. 7 history of valvular heart disease, previous mitral valve replacement. 8 elevated pro calcitonin, and abnormal chest x-ray consistent with congestive heart failure, however considering the elevated pro calcitonin, it is best to continue empiric antibiotics, as there may be a component of community-acquired pneumonia. The clinical presentation is mostly a clear-cut cardiac presentation. Recommendation: Continue present treatment plan including antibiotics, diuretics , bronchodilators, anticoagulation therapy and that is to be decided upon by cardiology whether to switch the patient to heparin. Continue to monitor his renal profile daily, daily chest x-rays, at this point in time, I believe the patient could be transferred to a monitor bed on selective, continue CPAP, patient is to use his device at night because of his underlying obstructive sleep apnea syndrome. Prognosis remains poor and guarded, patient has many complex issues as noted above, and all are being addressed accordingly. We'll continue to follow. Time with Patient: Less than 30
[2018-06-06] MEDS ORDERED: HEPARIN SODIUM,PORCINE 5,000 UNIT/ML 1 ML VIAL IV ONE (12:06)
[2018-06-06] MEDS ORDERED: HEPARIN SODIUM,PORCINE 5,000 UNIT/ML 1 ML VIAL IV PRN (12:06)
[2018-06-06] MEDS: HEPARIN SOD,PORK IN 0.45% NACL 25,000 UNIT in 0.45% NACL 1 250ML.BAG IV SCH (13:20)
--- NOTE | 2018-06-06 13:25 | P.NPCON ---
History of Present Illness - Reason for Consult acute renal failure - History of Present Illness Reason for consultation: Acute kidney injury History of present illness: Patient is a 83-year-old male seen in consultation for acute kidney injury. Patient's creatinine in June 2015 was 1.17. This admission his creatinine has been in the range of 1.8-2. Patient presented to the hospital with dyspnea. Chest x-ray was suggestive of fluid overload. Patient has history of systolic CHF with ejection fraction of less than 20% with mild to moderate tricuspid regurgitation. He is currently maintained on Lasix 40 mg IV twice daily. He is nonoliguric. Urine output 125 mL per hour. No hematuria or dysuria. Potential cardiac catheterization tomorrow. No history of diabetes. Denies use of NSAIDs. Urinalysis is benign. 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 Dyspnea improved since admission. Hemodynamically stable. Vital signs are stable. General: The patient appeared well nourished and normally developed. HEENT: Head exam is unremarkable. Neck is without jugular venous distension. LUNGS: Breath sounds decreased. HEART: Rate and Rhythm are regular. First and second heart sounds normal. No murmurs, rubs or gallops. ABDOMEN: Abdominal exam reveals normal bowel sounds. Non-tender and non- distended. No evidence of peritonitis. EXTREMITITES: No clubbing, cyanosis, or edema. Past Medical History Past Medical History: Heart Failure, CVA/TIA, GERD/Reflux, Hyperlipidemia, Hypertension, Osteoarthritis (OA), Prostate Disorder, Sleep Apnea/CPAP/BIPAP Additional Past Medical History / Comment(s): CHF RESOLVED POST VALVE REPLACEMENT. CPAP @ 8 L. HIATAL HERNIA. Hx of melenoma. BPH. Irregular heart beat. TIA. History of Any Multi-Drug Resistant Organisms: None Reported Past Surgical History: Cardiac Valve Replacement, Coronary Bypass/CABG, Heart Catheterization, Tonsillectomy Additional Past Surgical History / Comment(s): LEFT CATARACT. 2 vessel bypass with mitral valve repair 1990. Melenoma removal. Past Anesthesia/Blood Transfusion Reactions: No Reported Reaction Past Psychological History: No Psychological Hx Reported Smoking Status: Former smoker Past Alcohol Use History: Daily Past Drug Use History: None Reported - Past Family History Mother Family Medical History: Cancer Additional Family Medical History / Comment(s): from bone cancer, no hx of cardiac disease Father Family Medical History: Cancer Additional Family Medical History / Comment(s): unknown type of cancer Medications and Allergies Home Medications Medication Instructions Recorded Confirmed Type Aspirin 81 mg PO DAILY 12/09/13 06/04/18 History Atenolol [Tenormin] 12.5 mg PO BID 12/09/13 06/04/18 History Digoxin [Lanoxin] 125 mcg PO QAM 12/09/13 06/04/18 History Finasteride [Proscar] 5 mg PO HS 12/09/13 06/04/18 History Furosemide [Lasix] 20 mg PO QAM 12/09/13 06/04/18 History Lisinopril [Zestril] 10 mg PO HS 12/09/13 06/04/18 History Pravastatin Sodium [Pravachol] 40 mg PO HS 12/09/13 06/04/18 History Ranitidine HCl [Zantac] 150 mg PO QAM 12/09/13 06/04/18 History Warfarin [Coumadin] 2.5 mg PO SUWESA 12/09/13 06/04/18 History Multivitamins, Thera [Multivitamin 1 tab PO DAILY 06/04/18 06/04/18 History (formulary)] Warfarin [Coumadin] 1.25 mg PO MOTUTHFR 06/04/18 06/04/18 History Allergies Allergy/AdvReac Type Severity Reaction Status Date / Time No Known Allergies Allergy Verified 06/04/18 13:22 Physical Exam Vitals: Vital Signs Temp Pulse Pulse Pulse Resp BP BP 06/06/18 11:24 97.8 F 60 15 06/06/18 09:00 27 H 92/66 06/06/18 08:00 98.2 F 86 68 16 92/66 06/06/18 07:00 70 22 110/60 06/06/18 04:00 98.2 F 55 L 12 110/60 06/06/18 00:00 98.2 F 79 18 140/88 06/05/18 20:00 97.4 F L 56 L 16 121/66 06/05/18 15:27 98.1 F 56 L 20 96/47 Pulse Ox 06/06/18 11:24 97 06/06/18 09:00 06/06/18 08:00 95 06/06/18 07:00 06/06/18 04:00 95 06/06/18 00:00 92 L 06/05/18 20:00 06/05/18 15:27 93 L Intake and Output 06/05/18 06/06/18 06/06/18 22:59 06:59 14:59 Output Total 400 375 300 Balance -400 -375 -300 Output: Urine 400 375 300 Other: Voiding Method Urinal Urinal Urinal # Voids 1 # Bowel Movements 1 Weight 77.8 kg 77.8 kg Results - Lab Results Most recent lab results Calcium 8.5 mg/dL (8.4-10.2) 06/06/18 05:43 Magnesium 2.2 mg/dL (1.6-2.3) 06/06/18 05:43 06/06/18 05:43 06/06/18 05:43 Assessment and Plan Plan: Assessment: 1. Nonoliguric acute kidney injury mostly prerenal secondary to cardiorenal syndrome. Renal function better today with creatinine of 1.91. Urinalysis is benign. 2. Systolic CHF with ejection fraction of less than 20% with mild to moderate tricuspid regurgitation. 3. Acute hypoxic respiratory failure secondary to volume overload. Plan: Maintain Lasix 40 mg IV twice daily. Check renal ultrasound. Avoid nephrotoxins. Potential cardiac catheterization tomorrow. I discussed with the patient at risk of developing contrast-induced nephropathy postcatheterization and worsening renal failure. Patient understands. Avoid aggressive IV hydration as patient is hypervolemic. Continue to monitor renal function and urine output closely. Thank you for the consultation. I will continue to follow the patient with you during his hospital stay.
[2018-06-06] MEDS ORDERED: ALPRAZolam 0.5 MG TAB PO PRN (13:54)
[2018-06-06] MEDS ORDERED: ASPIRIN 325 MG TAB PO STA (13:54)
[2018-06-06] MEDS ORDERED: ATORVASTATIN 80 MG TAB PO STA (13:54)
[2018-06-06] MEDS ORDERED: SODIUM CHLORIDE 0.9% 1,000 ML in EMPTY BAG 1 BAG IV ONE (13:54)
[2018-06-06] MEDS ORDERED: NITROGLYCERIN SL TABS 0.4 MG TAB SUBLINGUAL PRN (13:54)
[2018-06-06] MEDS ORDERED: ALPRAZolam 0.25 MG TAB PO PRN (13:54)
--- NOTE | 2018-06-06 14:29 | US ---
EXAMINATION TYPE: US kidneys/renal and bladder DATE OF EXAM: 06/06/2018 COMPARISON: NONE CLINICAL HISTORY: bertram. ICU patient EXAM MEASUREMENTS: Right Kidney: 10.4 x 4.2 x 5.1 cm Left Kidney: 10.2 x 5.6 x 5.2 cm Right Kidney: No hydronephrosis or masses seen. Loss of corticomedullary differentiation Left Kidney: No hydronephrosis or masses seen. Loss of corticomedullary differentiation Bladder: wnl as visualized Bilateral Jets seen: No There is no evidence for hydronephrosis at this point in time. No nephrolithiasis is seen. No meliza s are identified. The urinary bladder is anechoic. IMPRESSION: 1. No hydronephrosis nor nephrolithiasis. There is decrease in cortical medullary differentiation sug gesting early sonographic sequela of medical renal disease. 2. Nodular prostate gland creates impression upon the urinary bladder.
--- NOTE | 2018-06-06 16:29 | P.PN ---
Subjective Mr. Madsen's resting comfortably in bed. No chest discomfort no breathing trouble Vitals are stable Respirations 14-16, pulse rate 62 Blood pressure 9206 6 mmHg afebrile Breath sounds are reduced bilaterally Heart sounds systolic murmur mechanical S1 Severe LV dysfunction ejection fraction less than 20% severe left atrial enlargement Mechanical mitral valve with a peak gradient of 20 mmHg and mean gradient of 5 mmHg Right ventricular systolic pressure between 35 and 40 mmHg The patient has had abnormal cardiac enzymes consistent with non-Q-wave myocardial infarction Suggest IV heparin Coronary angiography tomorrow Final impression Mechanical mitral valve prosthesis, valvular heart disease Severe LV dysfunction Congestive heart failure acute and chronic Non-Q-wave myocardial infarction Objective - Vital Signs Vital signs: Vital Signs Temp 97.8 F 06/06/18 12:00 Pulse 62 06/06/18 13:00 Resp 15 06/06/18 13:00 BP 92/66 06/06/18 12:00 Pulse Ox 96 06/06/18 13:00 Intake & Output 06/05/18 06/06/18 06/06/18 18:59 06:59 18:59 Output Total 125 775 525 Balance -125 -775 -525 Weight 77.8 kg 77.8 kg Output: Urine 125 775 525 Other: Voiding Method Urinal Urinal Urinal # Voids 1 # Bowel Movements 1 - Labs CBC & Chem 7: 06/06/18 05:43 06/06/18 05:43 Labs: Abnormal Lab Results - Last 24 Hours (Table) 06/05/18 06/06/18 06/06/18 Range/Units 15:06 05:43 05:43 RBC 3.22 L (4.30-5.90) m/uL Hgb 10.8 L (13.0-17.5) gm/dL Hct 33.1 L (39.0-53.0) % MCV 103.0 H (80.0-100.0) fL PT 16.3 H (9.0-12.0) sec INR 1.6 H (<1.2) BUN (9-20) mg/dL Creatinine (0.66-1.25) mg/dL Procalcitonin 2.00 H (0.02-0.09) ng/mL 06/06/18 Range/Units 05:43 RBC (4.30-5.90) m/uL Hgb (13.0-17.5) gm/dL Hct (39.0-53.0) % MCV (80.0-100.0) fL PT (9.0-12.0) sec INR (<1.2) BUN 47 H (9-20) mg/dL Creatinine 1.91 H (0.66-1.25) mg/dL Procalcitonin (0.02-0.09) ng/mL Microbiology - Last 24 Hours (Table) 06/04/18 13:29 Blood Culture - Preliminary Blood No Growth after 48 hours
--- NOTE | 2018-06-06 17:20 | P.PN ---
Subjective Progress Note Date: 06/06/18 (delayed charting seen at 0815) Principal diagnosis: shortness of breath Patient is an 83-year-old male for history hypertension, dyslipidemia , BPH, and mitral valve replacement who presented to the ER with complaints of constipation for 2 days or shortness of breath. In the ER he underwent an extensive evaluation. His initial vital signs were slightly hypoxic with an O2 sat of 89% on room air. Initial laboratory analysis showed a supratherapeutic INR at 4. Hemoglobin 12.1. D-dimer 1.8. Potassium 6. Creatinine of 1.82. Elevated glucose of 176. Elevated troponin of 0.081 with an elevated BNP of 14, 000. Chest x-ray showed bilateral interstitial infiltrates with pleural effusion and enlarged cardiac silhouette. He was given a dose of Lasix in the ER and his potassium was reordered. He was given Nitropaste. Potassium improved with Lasix dosing. His troponin went up consistent with a non-ST segment elevated myocardial infarction. He had a bowel movement after enema. He was not initially placed on heparin drip due to supratherapeutic INR and possibility of pericardial effusion secondary to cardiomegaly detected on chest x-ray. Overnight on 06/04 he did develop some transient hypotension and bradycardia. Echocardiogram gram obtained which showed an ejection fraction of less than 20%. Patient seen and examined at bedside. Feeling better. Breathing is improving every day. No chest pain. No nausea, vomiting, or diarrhea. Discussed at length results of his echocardiogram, additional medications needed, and continued follow-up with cardiology as well as recommendations for cardiac catheterization. Offered to call family however patient declined. Objective - Vital Signs Vital signs: Vital Signs Temp 97.8 F 06/06/18 12:00 Pulse 62 06/06/18 13:00 Resp 15 06/06/18 13:00 BP 92/66 06/06/18 12:00 Pulse Ox 96 06/06/18 13:00 Intake & Output 06/05/18 06/06/18 06/06/18 18:59 06:59 18:59 Output Total 125 775 525 Balance -125 -775 -525 Weight 77.8 kg 77.8 kg Output: Urine 125 775 525 Other: Voiding Method Urinal Urinal Urinal # Voids 1 # Bowel Movements 1 - Exam General: Non toxic appearing, no distress, appears at stated age Derm: warm, dry Head: atraumatic, normocephalic, symmetric Eyes: EOMI, no lid lag, anicteric sclera Mouth: no lip lesion, mucus membranes moist Cardiovascular: S1S2 with murmur, positive posterior tibial pulse bilateral, Lungs: decreased bs bilateral bases, no rhonchi, no rales , no accessory muscle use Abdominal: soft, nontender to palpation, no guarding, no appreciable organomegaly Ext: no gross muscle atrophy, 1+ plus edema, no contractures Neuro: CN II-XI grossly intact, no focal neuro deficits Psych: Alert, oriented, appropriate affect - Labs CBC & Chem 7: 06/06/18 05:43 06/06/18 05:43 Labs: Abnormal Lab Results - Last 24 Hours (Table) 06/05/18 06/06/18 06/06/18 Range/Units 15:06 05:43 05:43 RBC 3.22 L (4.30-5.90) m/uL Hgb 10.8 L (13.0-17.5) gm/dL Hct 33.1 L (39.0-53.0) % MCV 103.0 H (80.0-100.0) fL PT 16.3 H (9.0-12.0) sec INR 1.6 H (<1.2) BUN (9-20) mg/dL Creatinine (0.66-1.25) mg/dL Procalcitonin 2.00 H (0.02-0.09) ng/mL 06/06/18 Range/Units 05:43 RBC (4.30-5.90) m/uL Hgb (13.0-17.5) gm/dL Hct (39.0-53.0) % MCV (80.0-100.0) fL PT (9.0-12.0) sec INR (<1.2) BUN 47 H (9-20) mg/dL Creatinine 1.91 H (0.66-1.25) mg/dL Procalcitonin (0.02-0.09) ng/mL Microbiology - Last 24 Hours (Table) 06/04/18 13:29 Blood Culture - Preliminary Blood No Growth after 48 hours Assessment and Plan Assessment: Acute exacerbation of CHF, EF less than 20% - Cardio recs appreciated - Lasix - Atenolol held again today due to hypotension and bradycardia, hold lisinopril due to ISMAEL - Tele - strict I and O daily weights - echo consistent with systolic cardiomyopathy, mechanical mitral valve, and moderate tricuspid regurgitation - Possible cath in a.m., ? need for AICD NSTEMI - ASA, statin -Cardio recs appreciated Cath in AM -Hold beta lucy secondary to bradycardia and hypotension -Nitro as needed - cardio recs regarding heparin with INR now less than 2 ISMAEL - hold lisinopril - ? cardiorenal syndrome lasix IVP - nephrology recs appreciated, awaiting renal US - repeat BMP in AM - Avoid additional nephrotoxic agents Possible PNA - infiltrates more likely due to CHF but rocpehin and zithromax empirically -Pro calcitonin is at 2. Typically a true infection procalcitonin is greater than 2. This is borderline and will continue Rocephin and Zithromax for a total of 5 days for possible community-acquired pneumonia. - sputum culture- unable to obtain - pulm recs appreciated - repeat CXR A fib with subtherapeutic INR - tele, digoxin - hold coumadin - INR in AM Elevated d-dimer - likely due to ISMAEL, NTSEMI and CHF HTN, controlled - hold ACEI due to ISMAEL - resume BB Macrocytic anemia - check B12 Folate - follow CBC HLD - statin JAGRUTI -CPAP Constipation, resolved Hyperkalemia, resolved non anion gap metabolic acidosis, resolved DVT prophylaxis: INR elevated Discussed with: Patient, nursing, Dr. Mazariegos Anticipated discharge date: 2-[address]: home with home health and tele health A total of 35 minutes was spent on the care of this complex patient more than 50 % of the time was spent in counseling and care coordination.
[2018-06-06] MEDS ORDERED: SODIUM CHLORIDE 0.9% 1,000 ML IV SCH (18:00)
[2018-06-06 20:47] LABS: Glucose,Whole Blood 130 mg/dL (75-99)
[2018-06-06] MEDS: PRAVASTATIN SODIUM 40 MG TAB PO SCH (22:19)
[2018-06-06] MEDS: FINASTERIDE 5 MG TAB PO SCH (22:19)
[2018-06-07 05:20] LABS: Basophils % (A) 0 %; Eosinophils # (A) 0.4 k/uL (0-0.7); Eosinophils % (A) 5 %; HCT 35.7 % (39.0-53.0); HGB 11.4 gm/dL (13.0-17.5); Lymphocytes # (A) 0.5 k/uL (1.0-4.8); Lymphocytes % (A) 7 %; MCH 33.5 pg (25.0-35.0); MCV 104.9 fL (80.0-100.0); Macrocytosis Slight; Mean Platelet Volume 7.7; Monocytes # (A) 0.7 k/uL (0-1.0); Monocytes % (A) 10 %; Neutrophils # (A) 5.3 k/uL (1.3-7.7); Neutrophils % (A) 74 %; Platelet Count 166 k/uL (150-450); RDW 13.7 % (11.5-15.5); WBC 7.1 k/uL (3.8-10.6)
[2018-06-07] MEDS: FUROSEMIDE 10 MG/ML 4 ML VIAL IV SCH ×2 (05:20→17:18)
[2018-06-07 05:29] LABS: Calcium 8.6 mg/dL (8.4-10.2); Potassium 4.4 mmol/L (3.5-5.1)
[2018-06-07 05:37] LABS: INR 1.1 (<1.2); Partial Thromboplastin Time 48.5 sec (22.0-30.0)
[2018-06-07 07:05] LABS: Glucose,Whole Blood 93 mg/dL (75-99)
[2018-06-07] MEDS: ASPIRIN 81 MG PO SCH (08:24)
[2018-06-07] MEDS: DIGOXIN 125 MCG TAB PO SCH (08:24)
[2018-06-07] MEDS: NITROGLYCERIN OINT 1 INCH/GM PACKET TOPICAL SCH ×3 (08:24→21:00)
[2018-06-07] MEDS: FAMOTIDINE 20 MG TAB PO SCH (08:24)
[2018-06-07] MEDS: AZITHROMYCIN 500 MG TAB PO SCH (08:24)
--- NOTE | 2018-06-07 10:27 | P.PN ---
Subjective Patient is seen in follow-up for acute kidney injury. Creatinine was 1.91 yesterday and is down to 1.49 today. Patient presented to the hospital with dyspnea and hypoxic respiratory failure. He is making a Lasix 40 mg IV twice daily and is diuresing well. He has systolic CHF with ejection fraction of less than 20%. He is scheduled for cardiac catheterization today. He was started on IV fluids last night. Vital signs are stable. General: The patient appeared well nourished and normally developed. HEENT: Head exam is unremarkable. Neck is without jugular venous distension. LUNGS: Lungs are clear to auscultation and percussion. Breath sounds decreased. HEART: Rate and Rhythm are regular. First and second heart sounds normal. No murmurs, rubs or gallops. ABDOMEN: Abdominal exam reveals normal bowel sounds. Non-tender and non- distended. No evidence of peritonitis. EXTREMITITES: No clubbing, cyanosis, or edema. Objective - Vital Signs Vital signs: Vital Signs Temp 98.1 F 06/07/18 04:00 Pulse 70 06/07/18 04:00 Resp 13 06/07/18 04:00 BP 116/77 06/07/18 04:00 Pulse Ox 96 06/07/18 04:00 Intake & Output 06/06/18 06/07/18 06/07/18 18:59 06:59 18:59 Intake Total 150 164.83 Output Total 525 100 Balance -525 50 164.83 Weight 77.8 kg 76.7 kg Intake: IV 150 Sodium Chloride 0.9% 1, 150 000 ml @ 50 mls/hr IV . Q20H [facility] Rx#:[id number] Intake, IV Titration 164.83 Amount Heparin Sod,Pork in 0.45% 164.83 NaCl 25,000 unit In 0.45 % NaCl 1 250ml.bag @ 12 UNITS/KG/HR 9.33 mls/hr IV .Q24H [facility] Rx#: [id number] Output: Urine 525 100 Other: Voiding Method Urinal Urinal # Voids 3 - Labs CBC & Chem 7: 06/07/18 04:41 06/07/18 04:41 Labs: Abnormal Lab Results - Last 24 Hours (Table) 06/06/18 06/06/18 06/07/18 Range/Units 20:02 20:35 04:41 RBC (4.30-5.90) m/uL Hgb (13.0-17.5) gm/dL Hct (39.0-53.0) % MCV (80.0-100.0) fL Lymphocytes # (1.0-4.8) k/uL APTT 51.8 H 48.5 H (22.0-30.0) sec Chloride (98-107) mmol/L BUN (9-20) mg/dL Creatinine (0.66-1.25) mg/dL Glucose (74-99) mg/dL POC Glucose (mg/dL) 130 H (75-99) mg/dL 06/07/18 06/07/18 Range/Units 04:41 04:41 RBC 3.40 L (4.30-5.90) m/uL Hgb 11.4 L (13.0-17.5) gm/dL Hct 35.7 L (39.0-53.0) % MCV 104.9 H (80.0-100.0) fL Lymphocytes # 0.5 L (1.0-4.8) k/uL APTT (22.0-30.0) sec Chloride 109 H (98-107) mmol/L BUN 40 H (9-20) mg/dL Creatinine 1.49 H (0.66-1.25) mg/dL Glucose 108 H (74-99) mg/dL POC Glucose (mg/dL) (75-99) mg/dL Microbiology - Last 24 Hours (Table) 06/04/18 13:29 Blood Culture - Preliminary Blood No Growth after 48 hours Assessment and Plan Plan: Assessment: 1. Nonoliguric acute kidney injury mostly prerenal secondary to cardiorenal syndrome. Renal function better today with creatinine at 1.49. Urinalysis is benign. No hydronephrosis noted on renal ultrasound. 2. Systolic CHF with ejection fraction of less than 20% with mild to moderate tricuspid regurgitation. 3. Acute hypoxic respiratory failure secondary to volume overload. Plan: Maintain Lasix 40 mg IV twice daily. Dose was held this morning due to cardiac catheterization. Hep-Lock IV fluids 6 hours after cardiac catheterization. Avoid nephrotoxins. Cardiac catheterization today. I discussed with the patient at risk of developing contrast-induced nephropathy postcatheterization and worsening renal failure. Patient understands. Avoid aggressive IV hydration as patient is hypervolemic. Continue to monitor renal function and urine output closely.
[2018-06-07] MEDS ORDERED: fentaNYL (PF) 50 MCG/ML 2 ML AMP IVP ONE (11:41)
[2018-06-07] MEDS ORDERED: MIDAZOLAM 2 MG/2 ML VIAL IVP ONE (11:41)
[2018-06-07] MEDS ORDERED: IV FLUID CONTINUATION 700 ML IV ONE (11:42)
--- NOTE | 2018-06-07 11:44 | P.PN ---
Subjective Progress Note Date: 06/07/18 Principal diagnosis: Acute non-ST elevation myocardial infarction and acute on chronic systolic congestive heart failure This is an 83-year-old white male with history of multiple medical problems including chronic atrial fibrillation, systolic congestive heart failure, prior mitral valve replacement, obstructive sleep apnea for which she normally sees Dr. Cartagena. Patient presented to the ER yesterday with 2 days history of increased shortness of breath. Cough, nonproductive, no fever no chills no hemoptysis and no chest pain. His chest x-ray was consistent with interstitial edema. His BNP level was elevated. Troponin was elevated and it is on the rise , patient was admitted, started on diuretics, he was also started empirically on antibiotics, and this consult was initiated. Presently the patient denies shortness of breath, he is on few liters nasal cannula. Denies any chest pain, denies palpitations, no headache no blurred vision no dizziness. No nausea no vomiting no abdominal pain. No melena no hematemesis no dysuria and no frequency no urgency. Again his past medical history is most significant for mitral valve replacement, history of melanoma, chronic atrial fibrillation, TIA , hypertension, and obstructive sleep apnea syndrome. Patient was reevaluated today on 06/06/2018, patient seems to be doing better, breathing easier, although his chest x-ray continues to show evidence of mild interstitial edema. Denies any chest pain, no cough no wheezing, no fever, no chills, and no palpitations. Still in the ICU, and the emergency communications dispatcher is considering cardiac catheterization on this patient, however because of his renal functioning that seems to be a major issue. Chest x-ray was reviewed, and it shows evidence of mild interstitial edema. Labs normal CBC WBC count is 9.4 hemoglobin is 10.8 INR is 1.6, may have to restart Coumadin or at least placed on heparin for now if cardiac catheterization is being considered to be done tomorrow. However that decision will be made by cardiology when they are round on him today. His INR yesterday was 3.2. Electrolytes are normal, BUN is up to 47 creatinine is slightly down from 2.04 yesterday to 1.91 today. His last troponin yesterday was 6.97. Pro-calcitonin was noted to be a bit elevated , hence the possibility of underlying infiltrate in addition to his interstitial edema is likely, and the patient will be empirically on antibiotics. Has been receiving Zithromax and Rocephin since admission. Reevaluated today on , continues to do relatively well, renal functioning seems to be improving, it was 1.91 yesterday, and it is 1.49 today. Patient denies any cough no wheezing no shortness of breath, feeling better, continues to receive Lasix daily for what seems to be interstitial edema and congestive heart failure. Patient was noted to have very poor LV function, ejection fraction was noted to be 20%. Supposedly his scheduled for cardiac catheterization today. Pulmonary-hernandez the patient is doing better than expected considering his presentation with pulmonary edema. Chest x-ray was not done today. But it was reviewed from yesterday Objective - Vital Signs Vital signs: Vital Signs Temp 97.6 F 06/07/18 08:00 Pulse 67 06/07/18 10:00 Resp 14 06/07/18 10:00 BP 106/62 06/07/18 10:00 Pulse Ox 93 L 06/07/18 10:00 Intake & Output 06/06/18 06/07/18 06/07/18 18:59 06:59 18:59 Intake Total 150 664.83 Output Total 525 100 250 Balance -525 50 414.83 Weight 77.8 kg 76.7 kg Intake: IV 150 200 Sodium Chloride 0.9% 1, 150 200 000 ml @ 50 mls/hr IV . Q20H [facility] Rx#:[id number] Intake, IV Titration 164.83 Amount Heparin Sod,Pork in 0.45% 164.83 NaCl 25,000 unit In 0.45 % NaCl 1 250ml.bag @ 12 UNITS/KG/HR 9.33 mls/hr IV .Q24H [facility] Rx#: [id number] Oral 300 Output: Urine 525 100 250 Other: Voiding Method Urinal Urinal Urinal # Voids 3 - Exam Physical Exam: Revealed 83-year-old white male asymptomatic, on 2 L nasal cannula Head: Atraumatic, normocephalic. HEENT:[Neck is supple.] [No neck masses.] [No thyromegaly.] [No JVD.] No icterus, moist mucous membranes noted. Chest: [Minimal crackles at the bases, rhonchi noted, no wheezes, no chest wall tenderness. Cardiac Exam: [Irregular irregular rhythm Normal S1 and S2, no S3 gallop, 2/6 systolic murmur throughout the precordium, Abdomen: [Soft, nontender, no megaly, no rebound, no guarding, normal bowel sounds.] Extremities: [No clubbing, no edema, no cyanosis.] Neurological Exam: [No focal neurologic deficit. Psychiatric: Normal mood affect and mental status examination. Lymphatics: No lymphadenopathy.] - Labs CBC & Chem 7: 06/07/18 04:41 06/07/18 04:41 Labs: Abnormal Lab Results - Last 24 Hours (Table) 06/06/18 06/06/18 06/07/18 Range/Units 20:02 20:35 04:41 RBC (4.30-5.90) m/uL Hgb (13.0-17.5) gm/dL Hct (39.0-53.0) % MCV (80.0-100.0) fL Lymphocytes # (1.0-4.8) k/uL APTT 51.8 H 48.5 H (22.0-30.0) sec Chloride (98-107) mmol/L BUN (9-20) mg/dL Creatinine (0.66-1.25) mg/dL Glucose (74-99) mg/dL POC Glucose (mg/dL) 130 H (75-99) mg/dL 06/07/18 06/07/18 Range/Units 04:41 04:41 RBC 3.40 L (4.30-5.90) m/uL Hgb 11.4 L (13.0-17.5) gm/dL Hct 35.7 L (39.0-53.0) % MCV 104.9 H (80.0-100.0) fL Lymphocytes # 0.5 L (1.0-4.8) k/uL APTT (22.0-30.0) sec Chloride 109 H (98-107) mmol/L BUN 40 H (9-20) mg/dL Creatinine 1.49 H (0.66-1.25) mg/dL Glucose 108 H (74-99) mg/dL POC Glucose (mg/dL) (75-99) mg/dL Microbiology - Last 24 Hours (Table) 06/04/18 13:29 Blood Culture - Preliminary Blood No Growth after 48 hours Assessment and Plan Assessment: Impression: 1 acute on chronic systolic congestive heart failure. 2 acute non-ST elevation myocardial infarction. 3 acute kidney injury, possibly acute tubular necrosis or cardiorenal in nature. With hyperkalemia. Improving, his creatinine today is significantly improved compared to the last few days. 4 chronic atrial fibrillation and supratherapeutic INR. 5 benign essential hypertension 6 history of obstructive sleep apnea being followed by Dr. Cartagena on outpatient basis. Patient will bring his own CPAP and will be used while inpatient. 7 history of valvular heart disease, previous mitral valve replacement. 8 elevated pro calcitonin, and abnormal chest x-ray consistent with congestive heart failure, however considering the elevated pro calcitonin, it is best to continue empiric antibiotics, as there may be a component of community-acquired pneumonia. The clinical presentation is mostly a clear-cut cardiac presentation. Recommendation: Continue antibiotics, diuretics, bronchodilators, anticoagulation therapy is presently on hold, patient is going for cardiac catheterization possibly today. No chest x-ray was done, but will repeat chest x-ray in a.m. Continue CPAP for obstructive sleep apnea, based on the findings on the cardiac catheterization today, further recommendations will follow. In the meantime patient remains as an overflow from selective. Once a bed becomes available on the cardiac floor, patient could be transferred back to the bed. Patient was updated on his labs, updated on his overall clinical status, continues to have multiple complex issues as noted above. Time with Patient: Less than 30
[2018-06-07 11:47] LABS: Folate, Serum >24.0 ng/mL
[2018-06-07] MEDS ORDERED: IOPAMIDOL-370 125ML BTL INJ ONE (12:02)
[2018-06-07] MEDS ORDERED: IOPAMIDOL-370 50ML BTL INJ ONE (12:16)
--- NOTE | 2018-06-07 13:01 | CC ---
CARDIAC CATHETERIZATION REPORT Mr. Madsen is an 83-year-old gentleman who is status post mitral valve replacement, coronary artery bypass surgery. The patient came to the hospital with acute respiratory distress. Patient was in heart failure. Patient's troponin went up to 6 and the patient had an non-Q-wave CA. Patient had severely impaired left ventricular systolic function. The patient was diuresed and his creatinine had remained stable in the range of 1.49 and 1.8 and in view of that, the patient was advised cardiac catheterization for definitive diagnosis. PROCEDURE: The right groin was prepped and draped in the usual manner and the right femoral artery was entered using Seldinger technique and the micropuncture needle. Selective coronary angiography and selective injection of the venous graft and the PATEL was made. The left ventricular pressures were obtained. The sheath was removed and good hemostasis was achieved with the use of manual compression. HEMODYNAMICS: The left ventricular end-diastolic pressure is 14 to 16 mmHg prior to angiography. No significant gradient is noted across the aortic valve. [facility]IVE CORONARY ANGIOGRAPHY: Left main coronary artery is mildly diseased. Right at the ostial LAD has an 80% lesion and subsequently mid LAD is 100% occluded. There are 2 good size diagonal branches which are proximally diffusely diseased with long diffuse stenosis of about 80% to 90%. There is ostial stenosis of circumflex coronary artery and there is a long segment of diffuse disease with multiple areas of 70% to 80% stenosis. The graft to the obtuse marginal branch is blocked. Right coronary artery is also calcified and mid RCA has 80% to 85% stenosis. Saphenous vein graft to the obtuse marginal branch is occluded. PATEL graft to the LAD is patent with good filling of the distal LAD noted. IMPRESSION: The above films were reviewed with Dr. Mariscal. We will consider doing a stent to the RCA. The patient has diffuse disease in the diagonal branch and as well as the circumflex coronary artery there is a long diffuse stenosis which are not amenable which is very high risk for any kind of intervention. Patient's overall long-term prognosis is guarded. MMODL / IJN: [id number] /
[2018-06-07] MEDS ORDERED: RX INFO: IV CONTRAST WAS GIVEN 1 EACH MISC MISCELLANE PRN (13:23)
[2018-06-07] MEDS: MULTIVITAMINS, THERA 1 EACH TAB PO SCH (13:47)
[2018-06-07] MEDS: HEPARIN SOD,PORK IN 0.45% NACL 25,000 UNIT in 0.45% NACL 1 250ML.BAG IV SCH (13:47)
[2018-06-07] MEDS: SODIUM CHLORIDE 0.9% 1,000 ML IV SCH (13:55)
[2018-06-07] MEDS ORDERED: HEPARIN SOD,PORK IN 0.45% NACL 25,000 UNIT in 0.45% NACL 1 250ML.BAG IV SCH (14:00)
--- NOTE | 2018-06-07 16:10 | P.PN ---
Subjective Progress Note Date: 06/07/18 (delayed charting patient seen at 0800 ) Principal diagnosis: shortness of breath Patient is an 83-year-old male for history hypertension, dyslipidemia , BPH, and mitral valve replacement who presented to the ER with complaints of constipation for 2 days or shortness of breath. In the ER he underwent an extensive evaluation. His initial vital signs were slightly hypoxic with an O2 sat of 89% on room air. Initial laboratory analysis showed a supratherapeutic INR at 4. Hemoglobin 12.1. D-dimer 1.8. Potassium 6. Creatinine of 1.82. Elevated glucose of 176. Elevated troponin of 0.081 with an elevated BNP of 14, 000. Chest x-ray showed bilateral interstitial infiltrates with pleural effusion and enlarged cardiac silhouette. He was given a dose of Lasix in the ER and his potassium was reordered. He was given Nitropaste. Potassium improved with Lasix dosing. His troponin went up consistent with a non-ST segment elevated myocardial infarction. He had a bowel movement after enema. He was not initially placed on heparin drip due to supratherapeutic INR and possibility of pericardial effusion secondary to cardiomegaly detected on chest x-ray. Overnight on 06/04 he did develop some transient hypotension and bradycardia. Echocardiogram gram obtained which showed an ejection fraction of less than 20%. Plan is for cath today. Patient seen and examined at bedside. No shortness of breath. No chest pain. Feeling tired. No nausea, no vomiting, no constipation. Objective - Vital Signs Vital signs: Vital Signs Temp 97.6 F 06/07/18 08:00 Pulse 67 06/07/18 10:00 Resp 16 06/07/18 13:23 BP 106/62 06/07/18 10:00 Pulse Ox 93 L 06/07/18 10:00 Intake & Output 06/06/18 06/07/18 06/07/18 18:59 06:59 18:59 Intake Total 150 764.83 Output Total 525 100 250 Balance -525 50 514.83 Weight 77.8 kg 76.7 kg Intake: IV 150 300 Sodium Chloride 0.9% 1, 150 200 000 ml @ 50 mls/hr IV . Q20H [facility] Rx#:[id number] Intake, IV Titration 164.83 Amount Heparin Sod,Pork in 0.45% 164.83 NaCl 25,000 unit In 0.45 % NaCl 1 250ml.bag @ 12 UNITS/KG/HR 9.33 mls/hr IV .Q24H [facility] Rx#: [id number] Oral 300 Output: Urine 525 100 250 Other: Voiding Method Urinal Urinal Urinal # Voids 3 - Exam General: Non toxic appearing, no distress, appears at stated age Derm: warm, dry Head: atraumatic, normocephalic, symmetric Eyes: EOMI, no lid lag, anicteric sclera Mouth: no lip lesion, mucus membranes moist Cardiovascular: S1S2 with murmur with mid systolic click, positive posterior tibial pulse bilateral, Lungs: decreased bs bilateral bases, no rhonchi, no rales , no accessory muscle use Abdominal: soft, nontender to palpation, no guarding, no appreciable organomegaly Ext: no gross muscle atrophy, trace plus edema, no contractures Neuro: CN II-XI grossly intact, no focal neuro deficits Psych: Alert, oriented, appropriate affect - Labs CBC & Chem 7: 06/07/18 04:41 06/07/18 04:41 Labs: Abnormal Lab Results - Last 24 Hours (Table) 06/06/18 06/06/18 06/07/18 Range/Units 20:02 20:35 04:41 RBC (4.30-5.90) m/uL Hgb (13.0-17.5) gm/dL Hct (39.0-53.0) % MCV (80.0-100.0) fL Lymphocytes # (1.0-4.8) k/uL APTT 51.8 H 48.5 H (22.0-30.0) sec Chloride (98-107) mmol/L BUN (9-20) mg/dL Creatinine (0.66-1.25) mg/dL Glucose (74-99) mg/dL POC Glucose (mg/dL) 130 H (75-99) mg/dL 06/07/18 06/07/18 Range/Units 04:41 04:41 RBC 3.40 L (4.30-5.90) m/uL Hgb 11.4 L (13.0-17.5) gm/dL Hct 35.7 L (39.0-53.0) % MCV 104.9 H (80.0-100.0) fL Lymphocytes # 0.5 L (1.0-4.8) k/uL APTT (22.0-30.0) sec Chloride 109 H (98-107) mmol/L BUN 40 H (9-20) mg/dL Creatinine 1.49 H (0.66-1.25) mg/dL Glucose 108 H (74-99) mg/dL POC Glucose (mg/dL) (75-99) mg/dL Microbiology - Last 24 Hours (Table) 06/04/18 13:29 Blood Culture - Preliminary Blood No Growth after 48 hours Assessment and Plan Assessment: Acute exacerbation of CHF, EF less than 20% - Cardio recs appreciated - Lasix - Atenolol held again today due to hypotension and bradycardia, hold lisinopril due to ISMAEL and cath today if Cr stable in AM will resume - Tele - strict I and O daily weights - echo consistent with systolic cardiomyopathy, mechanical mitral valve, and moderate tricuspid regurgitation -Cath today ? need for AICD NSTEMI - ASA, statin -Cardio recs appreciated cath today -Hold beta lucy secondary to bradycardia and hypotension -Nitro as needed -Heparin gtt on hold for cath, resume coumadin when okay with cardio ISMAEL - hold lisinopril - IVP lasix - nephrology recs appreciated, renal US with medical renal disease - repeat BMP in AM - Avoid additional nephrotoxic agents- no lisnopril today with recent cath Possible PNA - infiltrates more likely due to CHF but rocpehin and zithromax empirically X 5 days - Procalcitonin is at 2. Typically a true infection procalcitonin is greater than 2. This is borderline and will continue Rocephin and Zithromax for a total of 5 days for possible community-acquired pneumonia. - sputum culture- unable to obtain - pulm recs appreciated - repeat CXR A fib with subtherapeutic INR - tele, digoxin - hold coumadin - INR in AM, heparin gtt Elevated d-dimer - likely due to ISMAEL, NTSEMI and CHF HTN, controlled - hold ACEI due to ISMAEL - resume BB Macrocytic anemia - B12 Folate normal, TSH as out patient will be inaccurate due to acute stress. - follow CBC HLD - statin JAGRUTI -CPAP Constipation, resolved Hyperkalemia, resolved non anion gap metabolic acidosis, resolved DVT prophylaxis: INR elevated Discussed with: Patient, nursing Anticipated discharge date: 2-[address]: home with home health A total of 25 minutes was spent on the care of this complex patient more than 50 % of the time was spent in counseling and care coordination.
[2018-06-07 16:54] LABS: Glucose,Whole Blood 107 mg/dL (75-99)
[2018-06-07] MEDS: PRAVASTATIN SODIUM 40 MG TAB PO SCH (21:00)
[2018-06-07] MEDS ORDERED: LISINOPRIL 10 MG TAB PO SCH (21:00)
[2018-06-07] MEDS: FINASTERIDE 5 MG TAB PO SCH (21:00)
[2018-06-08] MEDS: HEPARIN SODIUM,PORCINE 5,000 UNIT/ML 1 ML VIAL IV PRN ×2 (00:46→08:24)
[2018-06-08 07:17] LABS: Basophils % (A) 1 %; Eosinophils # (A) 0.4 k/uL (0-0.7); Eosinophils % (A) 6 %; HCT 39.2 % (39.0-53.0); HGB 11.9 gm/dL (13.0-17.5); Hypochromasia Slight; Lymphocytes # (A) 0.8 k/uL (1.0-4.8); Lymphocytes % (A) 12 %; MCH 32.2 pg (25.0-35.0); MCHC 30.3 g/dL (31.0-37.0); MCV 106.4 fL (80.0-100.0); Macrocytosis Moderate; Mean Platelet Volume 7.2; Monocytes # (A) 0.6 k/uL (0-1.0); Monocytes % (A) 10 %; Neutrophils # (A) 4.1 k/uL (1.3-7.7); Neutrophils % (A) 67 %; Platelet Count 177 k/uL (150-450); RBC 3.68 m/uL (4.30-5.90); RDW 13.7 % (11.5-15.5); WBC 6.1 k/uL (3.8-10.6)
[2018-06-08 07:29] LABS: Calcium 8.8 mg/dL (8.4-10.2); Potassium 4.6 mmol/L (3.5-5.1)
[2018-06-08 07:33] LABS: INR 1.1 (<1.2); Partial Thromboplastin Time 29.1 sec (22.0-30.0); Prothrombin Time 11.3 sec (9.0-12.0)
[2018-06-08] MEDS: HEPARIN SOD,PORK IN 0.45% NACL 25,000 UNIT in 0.45% NACL 1 250ML.BAG IV SCH ×2 (08:14→17:43)
[2018-06-08] MEDS: DIGOXIN 125 MCG TAB PO SCH (08:24)
[2018-06-08] MEDS: FAMOTIDINE 20 MG TAB PO SCH (08:24)
[2018-06-08] MEDS: NITROGLYCERIN OINT 1 INCH/GM PACKET TOPICAL SCH ×3 (08:24→21:10)
[2018-06-08] MEDS: ASPIRIN 81 MG PO SCH (08:24)
[2018-06-08] MEDS: AZITHROMYCIN 500 MG TAB PO SCH (08:24)
[2018-06-08] MEDS: SODIUM CHLORIDE 0.9% 1,000 ML IV SCH (08:26)
[2018-06-08] MEDS ORDERED: FUROSEMIDE 20 MG TAB PO SCH (09:00)
--- NOTE | 2018-06-08 11:19 | P.PN ---
Subjective Progress Note Date: 06/08/18 Principal diagnosis: This is an 83-year-old male seen in consultation because of acute kidney injury secondary to congestive heart failure. He is being diuresed and is feeling better his creatinine is improving his shortness of breath is better. He is in atrial fibrillation. He is known with prior mitral valve replacement, obstructive sleep apnea congestive heart failure, ejection fraction of 20%.. He is being treated for possible pneumonia Objective - Vital Signs Vital signs: Vital Signs Temp 98.2 F 06/08/18 04:00 Pulse 67 06/08/18 04:00 Resp 13 06/08/18 04:00 BP 135/76 06/08/18 04:00 Pulse Ox 96 06/08/18 04:00 Intake & Output 06/07/18 06/08/18 06/08/18 18:59 06:59 18:59 Intake Total 1264.83 539.867 Output Total 450 975 Balance 814.83 -435.133 Weight 76 kg Intake: IV 500 Sodium Chloride 0.9% 1, 400 000 ml @ 50 mls/hr IV . Q20H [facility] Rx#:[id number] Intake, IV Titration 164.83 59.867 Amount Heparin Sod,Pork in 0.45% 164.83 NaCl 25,000 unit In 0.45 % NaCl 1 250ml.bag @ 12 UNITS/KG/HR 9.33 mls/hr IV .Q24H [facility] Rx#: [id number] Heparin Sod,Pork in 0.45% 59.867 NaCl 25,000 unit In 0.45 % NaCl 1 250ml.bag @ 800 UNIT/HR 8 mls/hr IV .Q24H [facility] Rx#:[id number] Oral 600 480 Output: Urine 450 975 Other: Voiding Method Urinal Urinal # Voids 4 On examination he is feeling somewhat cold otherwise awake alert oriented. HEENT exam no JVP neck is supple no facial asymmetry Lungs are clear to auscultation with some occasional coarse crackle at bases. Good air entry bilaterally Heart sounds are unremarkable except for atrial fibrillation confirmed on the monitor Abdomen soft nontender Extremity exam was trace edema Neurologically awake alert oriented but generalized weakness. - Labs CBC & Chem 7: 06/08/18 07:01 06/08/18 07:01 Labs: Abnormal Lab Results - Last 24 Hours (Table) 06/07/18 06/07/18 06/07/18 Range/Units 16:42 19:23 23:55 RBC (4.30-5.90) m/uL Hgb (13.0-17.5) gm/dL MCV (80.0-100.0) fL MCHC (31.0-37.0) g/dL Lymphocytes # (1.0-4.8) k/uL APTT 33.3 H 39.5 H (22.0-30.0) sec BUN (9-20) mg/dL Creatinine (0.66-1.25) mg/dL POC Glucose (mg/dL) 107 H (75-99) mg/dL 06/08/18 06/08/18 Range/Units 07:01 07:01 RBC 3.68 L (4.30-5.90) m/uL Hgb 11.9 L (13.0-17.5) gm/dL MCV 106.4 H (80.0-100.0) fL MCHC 30.3 L (31.0-37.0) g/dL Lymphocytes # 0.8 L (1.0-4.8) k/uL APTT (22.0-30.0) sec BUN 31 H (9-20) mg/dL Creatinine 1.27 H (0.66-1.25) mg/dL POC Glucose (mg/dL) (75-99) mg/dL Microbiology - Last 24 Hours (Table) 06/04/18 13:29 Blood Culture - Preliminary Blood No Growth after 72 hours Assessment and Plan Assessment: Impression 1. Acute kidney injury secondary to prerenal from cardiorenal syndrome and improving with Lasix. Creatinine peaked at 2.04 and is down to 1.27 this morning. 2. Status post cardiac catheterization 06/07/2018, 80% lesion ostial LAD and 100% mid LAD, may need a stent 3. History of obstructive sleep apnea and possible COPD. 3. Cardiomyopathy ejection fraction 20%. 4. Pneumonia being treated with antibiotics. Recommendation. 1. Discontinue IV fluid as he is 24 hours post cardiac catheterization. 2. We will watch him off of diuretics for right now as there may be a repeat cardiac cath for stent placement. 3. Monitor labs.
[2018-06-08] MEDS: MULTIVITAMINS, THERA 1 EACH TAB PO SCH (12:40)
--- NOTE | 2018-06-08 15:23 | P.PN ---
Subjective Progress Note Date: 06/08/18 (delayed charting seen at 0810) Principal diagnosis: shortness of breath Patient is an 83-year-old male for history hypertension, dyslipidemia , BPH, and mitral valve replacement who presented to the ER with complaints of constipation for 2 days or shortness of breath. In the ER he underwent an extensive evaluation. His initial vital signs were slightly hypoxic with an O2 sat of 89% on room air. Initial laboratory analysis showed a supratherapeutic INR at 4. Hemoglobin 12.1. D-dimer 1.8. Potassium 6. Creatinine of 1.82. Elevated glucose of 176. Elevated troponin of 0.081 with an elevated BNP of 14, 000. Chest x-ray showed bilateral interstitial infiltrates with pleural effusion and enlarged cardiac silhouette. He was given a dose of Lasix in the ER and his potassium was reordered. He was given Nitropaste. Potassium improved with Lasix dosing. His troponin went up consistent with a non-ST segment elevated myocardial infarction. He had a bowel movement after enema. He was not initially placed on heparin drip due to supratherapeutic INR and possibility of pericardial effusion secondary to cardiomegaly detected on chest x-ray. Overnight on 06/04 he did develop some transient hypotension and bradycardia. Echocardiogram gram obtained which showed an ejection fraction of less than 20%. Cath was performed on 06/07 and showed patent bypass grafts but occlusion of the RCA. Plan is for staged intervention. His renal function did improve throughout hospitalization with optimization of his volume status. Patient seen and examined at bedside. States he feels well. Has been getting out of bed. No groin pain. No chest pain or shortness of breath. Eating well. No constipation. Objective - Vital Signs Vital signs: Vital Signs Temp 98.7 F 06/08/18 12:00 Pulse 65 06/08/18 12:00 Resp 18 06/08/18 12:00 BP 138/63 06/08/18 12:00 Pulse Ox 97 06/08/18 12:00 Intake & Output 06/07/18 06/08/18 06/08/18 18:59 06:59 18:59 Intake Total 1264.83 539.867 Output Total 450 975 Balance 814.83 -435.133 Weight 76 kg Intake: IV 500 Sodium Chloride 0.9% 1, 400 000 ml @ 50 mls/hr IV . Q20H [facility] Rx#:[id number] Intake, IV Titration 164.83 59.867 Amount Heparin Sod,Pork in 0.45% 164.83 NaCl 25,000 unit In 0.45 % NaCl 1 250ml.bag @ 12 UNITS/KG/HR 9.33 mls/hr IV .Q24H [facility] Rx#: [id number] Heparin Sod,Pork in 0.45% 59.867 NaCl 25,000 unit In 0.45 % NaCl 1 250ml.bag @ 800 UNIT/HR 8 mls/hr IV .Q24H [facility] Rx#:[id number] Oral 600 480 Output: Urine 450 975 Other: Voiding Method Urinal Urinal Urinal # Voids 4 3 - Exam General: Non toxic appearing, no distress, appears at stated age Derm: warm, dry Head: atraumatic, normocephalic, symmetric Eyes: EOMI, no lid lag, anicteric sclera Mouth: no lip lesion, mucus membranes moist Cardiovascular: S1S2 with murmur with mid systolic click, positive posterior tibial pulse bilateral, Lungs: decreased bs bilateral bases, no rhonchi, no rales , no accessory muscle use Abdominal: soft, nontender to palpation, no guarding, no appreciable organomegaly Ext: no gross muscle atrophy, trace edema, no contractures Neuro: CN II-XI grossly intact, no focal neuro deficits Psych: Alert, oriented, appropriate affect - Labs CBC & Chem 7: 06/08/18 07:01 06/08/18 07:01 Labs: Abnormal Lab Results - Last 24 Hours (Table) 06/07/18 06/07/18 06/07/18 Range/Units 16:42 19:23 23:55 RBC (4.30-5.90) m/uL Hgb (13.0-17.5) gm/dL MCV (80.0-100.0) fL MCHC (31.0-37.0) g/dL Lymphocytes # (1.0-4.8) k/uL APTT 33.3 H 39.5 H (22.0-30.0) sec BUN (9-20) mg/dL Creatinine (0.66-1.25) mg/dL POC Glucose (mg/dL) 107 H (75-99) mg/dL 0106/08/18 06/08/18 Range/Units 07:01 07:01 14:13 RBC 3.68 L (4.30-5.90) m/uL Hgb 11.9 L (13.0-17.5) gm/dL MCV 106.4 H (80.0-100.0) fL MCHC 30.3 L (31.0-37.0) g/dL Lymphocytes # 0.8 L (1.0-4.8) k/uL APTT 65.1 H (22.0-30.0) sec BUN 31 H (9-20) mg/dL Creatinine 1.27 H (0.66-1.25) mg/dL POC Glucose (mg/dL) (75-99) mg/dL Microbiology - Last 24 Hours (Table) 06/04/18 13:29 Blood Culture - Preliminary Blood No Growth after 72 hours Assessment and Plan Assessment: Acute exacerbation of CHF, EF less than 20% - Cardio recs appreciated - Lasix PO - No betablocker due to bradycardia, hold lisinopril due to ISMAEL and repeat cath planned for intervention - Tele - strict I and O daily weights - echo consistent with systolic cardiomyopathy, mechanical mitral valve, and moderate tricuspid regurgitation - ? need for AICD NSTEMI - ASA, statin -Cardio recs appreciated -Hold beta lucy secondary to bradycardia and hypotension -Nitro as needed -Heparin gtt, will need to bridge coumadin with mechanical mitral valve, plan is for cath for stent in near future will not resume Coumadin at this time. ISMAEL - hold lisinopril - Lasix PO - nephrology recs appreciated, renal US with medical renal disease - repeat BMP in AM - Avoid additional nephrotoxic agents Possible PNA - infiltrates more likely due to CHF but rocpehin and zithromax empirically X 5 days will complete 06/09 - Procalcitonin is at 2. Typically a true infection procalcitonin is greater than 2. This is borderline and will continue Rocephin and Zithromax for a total of 5 days for possible community-acquired pneumonia. - sputum culture- unable to obtain - pulm recs appreciated - repeat CXR A fib with subtherapeutic INR - tele, digoxin - hold coumadin - heparin gtt with repeat cath HTN, controlled - hold ACEI due to ISMAEL - resume BB Macrocytic anemia - B12 Folate normal, TSH as out patient will be inaccurate due to acute stress. - follow CBC HLD - statin JAGRUTI -CPAP Constipation, resolved Hyperkalemia, resolved non anion gap metabolic acidosis, resolved DVT prophylaxis: INR elevated Discussed with: Patient, nursing Anticipated discharge date: 2-[address]: home with home health A total of 25 minutes was spent on the care of this complex patient more than 50 % of the time was spent in counseling and care coordination.
[2018-06-08] MEDS: FINASTERIDE 5 MG TAB PO SCH (21:10)
[2018-06-08] MEDS: PRAVASTATIN SODIUM 40 MG TAB PO SCH (21:10)
[2018-06-09 05:15] LABS: Basophils % (A) 1 %; Eosinophils # (A) 0.3 k/uL (0-0.7); Eosinophils % (A) 7 %; HCT 35.5 % (39.0-53.0); HGB 11.2 gm/dL (13.0-17.5); Hypochromasia Slight; Lymphocytes # (A) 0.7 k/uL (1.0-4.8); Lymphocytes % (A) 13 %; MCH 32.8 pg (25.0-35.0); MCHC 31.5 g/dL (31.0-37.0); Macrocytosis Slight; Mean Platelet Volume 7.7; Monocytes # (A) 0.6 k/uL (0-1.0); Monocytes % (A) 12 %; Neutrophils # (A) 3.3 k/uL (1.3-7.7); Neutrophils % (A) 63 %; Platelet Count 149 k/uL (150-450); RBC 3.41 m/uL (4.30-5.90); RDW 13.4 % (11.5-15.5); WBC 5.2 k/uL (3.8-10.6)
[2018-06-09 05:24] LABS: Calcium 8.5 mg/dL (8.4-10.2); Potassium 4.3 mmol/L (3.5-5.1)
--- NOTE | 2018-06-09 07:02 | XR ---
EXAMINATION TYPE: XR chest 1V DATE OF EXAM: 06/09/2018 HISTORY: CHF. REFERENCE: Previous study dated 06/06/2018. FINDINGS: There is multichamber cardiac enlargement. There is vascular congestion and pulmonary edema . There are small, bilateral effusions. There is confluent bibasilar airspace disease which may repre sent confluent edema or atelectasis. IMPRESSION: WORSENING CHANGES OF CONGESTIVE HEART FAILURE.
[2018-06-09] MEDS ORDERED: FUROSEMIDE 10 MG/ML 4 ML VIAL IV STA (07:56)
--- NOTE | 2018-06-09 08:20 | P.PN ---
Subjective Progress Note Date: 06/09/18 Principal diagnosis: This is an 83-year-old male seen in consultation because of acute kidney injury secondary to congestive heart failure. He is being diuresed and is feeling better his creatinine is improving as well as his shortness of breath is better. He is in atrial fibrillation. He denies any fever chills he has a mild cough denies any shortness of breath. No nausea vomiting diarrhea. Good appetite He is known with prior mitral valve replacement, obstructive sleep apnea congestive heart failure, ejection fraction of 20%.. He is being treated for possible pneumonia Objective - Vital Signs Vital signs: Vital Signs Temp 98.7 F 06/09/18 04:00 Pulse 71 06/09/18 04:00 Resp 22 06/09/18 04:00 BP 127/76 06/09/18 04:00 Pulse Ox 97 06/09/18 04:00 Intake & Output 06/08/18 06/09/18 06/09/18 18:59 06:59 18:59 Intake Total 236.488 Output Total 125 125 Balance 111.488 -125 Weight 78.7 kg Intake: Intake, IV Titration 86.488 Amount Heparin Sod,Pork in 0.45% 86.488 NaCl 25,000 unit In 0.45 % NaCl 1 250ml.bag @ 12 UNIT/KG/HR 9.12 mls/hr IV .Q24H [facility] Rx#:[id number] Oral 150 Output: Urine 125 125 Other: Voiding Method Urinal Urinal # Voids 3 1 On examination he is feeling somewhat cold otherwise awake alert oriented. HEENT exam no JVP neck is supple no facial asymmetry Lungs are clear to auscultation with some occasional coarse crackle at bases, improved since yesterday. Good air entry bilaterally Heart sounds are unremarkable except for atrial fibrillation confirmed on the monitor Abdomen soft nontender Extremity exam was trace edema Neurologically awake alert oriented but generalized weakness. - Labs CBC & Chem 7: 06/09/18 04:34 06/09/18 04:34 Labs: Abnormal Lab Results - Last 24 Hours (Table) 06/08/18 06/09/18 06/09/18 Range/Units 14:13 04:34 04:34 RBC 3.41 L (4.30-5.90) m/uL Hgb 11.2 L (13.0-17.5) gm/dL Hct 35.5 L (39.0-53.0) % MCV 104.0 H (80.0-100.0) fL Plt Count 149 L (150-450) k/uL Lymphocytes # 0.7 L (1.0-4.8) k/uL APTT 65.1 H (22.0-30.0) sec Chloride 108 H (98-107) mmol/L BUN 30 H (9-20) mg/dL Creatinine 1.27 H (0.66-1.25) mg/dL 06/09/18 Range/Units 05:01 RBC (4.30-5.90) m/uL Hgb (13.0-17.5) gm/dL Hct (39.0-53.0) % MCV (80.0-100.0) fL Plt Count (150-450) k/uL Lymphocytes # (1.0-4.8) k/uL APTT 55.4 H (22.0-30.0) sec Chloride (98-107) mmol/L BUN (9-20) mg/dL Creatinine (0.66-1.25) mg/dL Microbiology - Last 24 Hours (Table) 06/08/18 03:30 Gram Stain - Preliminary Sputum 06/04/18 13:29 Blood Culture - Preliminary Blood No Growth after 96 hours Assessment and Plan Assessment: Impression 1. Acute kidney injury secondary to prerenal from cardiorenal syndrome and improving with Lasix. Creatinine peaked at 2.04 and is down to 1.27 this morning. 2. Status post cardiac catheterization 06/07/2018, 80% lesion ostial LAD and 100% mid LAD, may need a stent 3. History of obstructive sleep apnea and possible COPD. 3. Cardiomyopathy ejection fraction 20%. 4. Pneumonia being treated with antibiotics. Chest x-ray shows some improvement Recommendation. 1. Resume Lasix, 20 mg by mouth daily 2. If he is going for repeat cardiac cath for stenting we will resume his IV fluids and hold his Lasix. 3. Monitor labs.
[2018-06-09] MEDS: DIGOXIN 125 MCG TAB PO SCH (08:47)
[2018-06-09] MEDS: AZITHROMYCIN 500 MG TAB PO SCH (08:47)
[2018-06-09] MEDS: NITROGLYCERIN OINT 1 INCH/GM PACKET TOPICAL SCH ×3 (08:47→23:11)
[2018-06-09] MEDS: FAMOTIDINE 20 MG TAB PO SCH (08:47)
[2018-06-09] MEDS ORDERED: FUROSEMIDE 40 MG TAB PO SCH (09:00)
[2018-06-09] MEDS: ASPIRIN 81 MG PO SCH (09:02)
[2018-06-09] MEDS: CARVEDILOL 3.125 MG TAB PO SCH ×2 (09:02→16:58)
[2018-06-09] MEDS: DOCUSATE 100 MG CAP PO PRN (09:07)
--- NOTE | 2018-06-09 13:03 | P.PN ---
Subjective Progress Note Date: 06/09/18 Principal diagnosis: shortness of breath Patient is an 83-year-old male for history hypertension, dyslipidemia , BPH, and mitral valve replacement who presented to the ER with complaints of constipation for 2 days or shortness of breath. In the ER he underwent an extensive evaluation. His initial vital signs were slightly hypoxic with an O2 sat of 89% on room air. Initial laboratory analysis showed a supratherapeutic INR at 4. Hemoglobin 12.1. D-dimer 1.8. Potassium 6. Creatinine of 1.82. Elevated glucose of 176. Elevated troponin of 0.081 with an elevated BNP of 14, 000. Chest x-ray showed bilateral interstitial infiltrates with pleural effusion and enlarged cardiac silhouette. He was given a dose of Lasix in the ER and his potassium was reordered. He was given Nitropaste. Potassium improved with Lasix dosing. His troponin went up consistent with a non-ST segment elevated myocardial infarction. He had a bowel movement after enema. He was not initially placed on heparin drip due to supratherapeutic INR and possibility of pericardial effusion secondary to cardiomegaly detected on chest x-ray. Overnight on 06/04 he did develop some transient hypotension and bradycardia. Echocardiogram gram obtained which showed an ejection fraction of less than 20%. Cath was performed on 06/07 and showed patent bypass grafts but occlusion of the RCA. Plan is for staged intervention. His renal function did improve throughout hospitalization with optimization of his volume status. On the morning of 06/09 his chest x-ray showed worsening fluid. His BP was stable and HR had remained greater than 60. His was given 1 additional dose of IV lasix and was started on coreg. Anticipate cath on 06/10. Patient seen and examined at bedside. + constipation no BM yesterday, no chest pain, no shortness of breath, no nausea, no abd pain. All questions answered. Objective - Vital Signs Vital signs: Vital Signs Temp 98.3 F 06/09/18 08:00 Pulse 70 06/09/18 08:00 Resp 14 06/09/18 08:00 BP 116/78 06/09/18 08:00 Pulse Ox 95 06/09/18 08:00 Intake & Output 06/08/18 06/09/18 06/09/18 18:59 06:59 18:59 Intake Total 236.488 Output Total 125 125 175 Balance 111.488 -125 -175 Weight 78.7 kg Intake: Intake, IV Titration 86.488 Amount Heparin Sod,Pork in 0.45% 86.488 NaCl 25,000 unit In 0.45 % NaCl 1 250ml.bag @ 12 UNIT/KG/HR 9.12 mls/hr IV .Q24H [facility] Rx#:[id number] Oral 150 Output: Urine 125 125 175 Other: Voiding Method Urinal Urinal # Voids 3 1 - Exam General: Non toxic appearing, no distress, appears at stated age Derm: warm, dry Head: atraumatic, normocephalic, symmetric Eyes: EOMI, no lid lag, anicteric sclera Mouth: no lip lesion, mucus membranes moist Cardiovascular: S1S2 with murmur with mid systolic click, positive posterior tibial pulse bilateral, Lungs: crackels bilateral bases, no rhonchi, no rales , no accessory muscle use Abdominal: soft, nontender to palpation, no guarding, no appreciable organomegaly Ext: no gross muscle atrophy, trace edema, no contractures Neuro: CN II-XI grossly intact, no focal neuro deficits Psych: Alert, oriented, appropriate affect - Labs CBC & Chem 7: 06/09/18 04:34 06/09/18 04:34 Labs: Abnormal Lab Results - Last 24 Hours (Table) 06/08/18 06/09/18 06/09/18 Range/Units 14:13 04:34 04:34 RBC 3.41 L (4.30-5.90) m/uL Hgb 11.2 L (13.0-17.5) gm/dL Hct 35.5 L (39.0-53.0) % MCV 104.0 H (80.0-100.0) fL Plt Count 149 L (150-450) k/uL Lymphocytes # 0.7 L (1.0-4.8) k/uL APTT 65.1 H (22.0-30.0) sec Chloride 108 H (98-107) mmol/L BUN 30 H (9-20) mg/dL Creatinine 1.27 H (0.66-1.25) mg/dL 06/09/18 Range/Units 05:01 RBC (4.30-5.90) m/uL Hgb (13.0-17.5) gm/dL Hct (39.0-53.0) % MCV (80.0-100.0) fL Plt Count (150-450) k/uL Lymphocytes # (1.0-4.8) k/uL APTT 55.4 H (22.0-30.0) sec Chloride (98-107) mmol/L BUN (9-20) mg/dL Creatinine (0.66-1.25) mg/dL Microbiology - Last 24 Hours (Table) 06/08/18 03:30 Gram Stain - Preliminary Sputum 06/04/18 13:29 Blood Culture - Preliminary Blood No Growth after 96 hours Assessment and Plan Assessment: Acute exacerbation of CHF, EF less than 20% - Cardio recs appreciated - Lasix IVP X 1 today, hold tomorrow with possible cath - coreg today, hold lisinopril due to ISMAEL and repeat cath planned for intervention - Tele - strict I and O daily weights - echo consistent with systolic cardiomyopathy, mechanical mitral valve, and moderate tricuspid regurgitation - ? need for AICD NSTEMI - blockage to RCA - ASA, statin -Cardio recs appreciated -Hold beta lucy secondary to bradycardia and hypotension -Nitro as needed -Heparin gtt, will need to bridge coumadin with mechanical mitral valve, plan is for cath for stent in near future will not resume Coumadin at this time. ISMAEL - hold lisinopril - Lasix ICP X 1 today - nephrology recs appreciated, renal US with medical renal disease - repeat BMP in AM - Avoid additional nephrotoxic agents A fib with subtherapeutic INR - tele, digoxin - hold coumadin - heparin gtt with repeat cath, will need to bridge coumadin with mechanical mitral valve HTN, controlled - hold ACEI due to ISMEAL - resume BB Macrocytic anemia - B12 Folate normal, TSH as out patient will be inaccurate due to acute stress. - follow CBC HLD - statin JAGRUTI -CPAP Possible PNA, improved - infiltrates more likely due to CHF but rocpehin and zithromax empirically X 5 days will completed 06/09 - Procalcitonin is at 2. Typically a true infection procalcitonin is greater than 2. This is borderline and will continue Rocephin and Zithromax for a total of 5 days for possible community-acquired pneumonia. - sputum culture- unable to obtain - pulm recs appreciated Constipation, resolved Hyperkalemia, resolved non anion gap metabolic acidosis, resolved DVT prophylaxis: INR elevated Discussed with: Patient, nursing Anticipated discharge date: 1-[address]: home with home health A total of 25 minutes was spent on the care of this complex patient more than 50 % of the time was spent in counseling and care coordination.
[2018-06-09] MEDS: MULTIVITAMINS, THERA 1 EACH TAB PO SCH (16:54)
[2018-06-09] MEDS: PRAVASTATIN SODIUM 40 MG TAB PO SCH (23:11)
[2018-06-09] MEDS: FINASTERIDE 5 MG TAB PO SCH (23:11)
[2018-06-10 04:49] LABS: Basophils % (A) 1 %; Eosinophils # (A) 0.4 k/uL (0-0.7); Eosinophils % (A) 8 %; HCT 37.9 % (39.0-53.0); HGB 11.8 gm/dL (13.0-17.5); Hypochromasia Slight; Lymphocytes # (A) 0.8 k/uL (1.0-4.8); Lymphocytes % (A) 14 %; MCH 32.9 pg (25.0-35.0); MCHC 31.1 g/dL (31.0-37.0); MCV 105.7 fL (80.0-100.0); Macrocytosis Moderate; Mean Platelet Volume 7.7; Monocytes # (A) 0.6 k/uL (0-1.0); Monocytes % (A) 11 %; Neutrophils # (A) 3.5 k/uL (1.3-7.7); Neutrophils % (A) 63 %; Platelet Count 157 k/uL (150-450); RBC 3.58 m/uL (4.30-5.90); RDW 13.5 % (11.5-15.5); WBC 5.5 k/uL (3.8-10.6)
[2018-06-10 07:46] LABS: Calcium 8.8 mg/dL (8.4-10.2); Potassium 4.5 mmol/L (3.5-5.1)
[2018-06-10] MEDS: CARVEDILOL 3.125 MG TAB PO SCH ×2 (08:10→18:25)
[2018-06-10] MEDS: FUROSEMIDE 20 MG TAB PO SCH (08:10)
[2018-06-10] MEDS: FAMOTIDINE 20 MG TAB PO SCH (08:10)
[2018-06-10] MEDS: NITROGLYCERIN OINT 1 INCH/GM PACKET TOPICAL SCH ×3 (08:10→21:36)
[2018-06-10] MEDS: DIGOXIN 125 MCG TAB PO SCH (08:10)
[2018-06-10] MEDS: ASPIRIN 81 MG PO SCH (08:15)
[2018-06-10] MEDS ORDERED: ASPIRIN 325 MG TAB PO STA (08:19)
[2018-06-10] MEDS ORDERED: ALPRAZolam 0.5 MG TAB PO PRN (08:19)
[2018-06-10] MEDS ORDERED: ALPRAZolam 0.25 MG TAB PO PRN (08:19)
[2018-06-10] MEDS ORDERED: ATORVASTATIN 80 MG TAB PO STA (08:19)
[2018-06-10] MEDS ORDERED: SODIUM CHLORIDE 0.9% 1,000 ML in EMPTY BAG 1 BAG IV ONE (08:19)
[2018-06-10] MEDS ORDERED: NITROGLYCERIN SL TABS 0.4 MG TAB SUBLINGUAL PRN (08:19)
--- NOTE | 2018-06-10 08:20 | XR ---
EXAMINATION TYPE: XR chest 1V portable DATE OF EXAM: 06/10/2018 COMPARISON: Prior chest x-ray 06/09/2018 HISTORY: Abnormal chest x-ray TECHNIQUE: Single frontal view of the chest is obtained. FINDINGS: Patient is rotated. Patient is post median sternotomy and there are overlying cardiac lead s. Heart remains enlarged. Interstitium is increased, central vascularity is prominent. Hemidiaphragm s are obscured. Bilateral perihilar airspace disease noted. No evident pneumothorax. Aorta is dense. IMPRESSION: Correlate for congestive heart failure. Pneumonia not excluded. Follow-up recommended.
[2018-06-10] MEDS: MULTIVITAMINS, THERA 1 EACH TAB PO SCH (12:30)
[2018-06-10] MEDS: HEPARIN SOD,PORK IN 0.45% NACL 25,000 UNIT in 0.45% NACL 1 250ML.BAG IV SCH (13:55)
--- NOTE | 2018-06-10 16:07 | PN ---
PROGRESS NOTE DATE OF SERVICE: 06/08/2018 This patient is admitted with non-Q-wave myocardial infarction, congestive heart failure, possible pneumonia. Patient underwent cardiac catheterization yesterday which showed significant triple-vessel disease. Saphenous vein graft to the obtuse marginal branch was blocked. The patient has a significant disease in the right coronary artery. In view of the patient's underlying renal condition, the patient will be continued on hydration and we will consider stent to the RCA on Sunday. Patient is stable. Denies any respiratory distress. The patient's blood pressure is 116/73 mmHg. First and second heart sounds are heard. Lungs are fairly clear to auscultation and percussion. Abdomen is soft. The patient's creatinine remains 1.32. Chest x-ray does not show any evidence of significant failure. The patient will be continued on IV heparin and would be scheduled for a stent to the RCA on Sunday. MMODL / ROMINAN: [id number] /
--- NOTE | 2018-06-10 16:07 | PN ---
PROGRESS NOTE DATE OF SERVICE: 06/09/2018 This patient is status post recent cardiac catheterization. Patient is sitting comfortably in the chair. Denies any orthopnea or PND. The patient's vital signs and lab tests reviewed. Creatinine is 1.27. First and second heart sounds are heard. Lungs are clear to auscultation and percussion. The patient is scheduled to undergo stent tomorrow. Heparin will be discontinued tomorrow morning. We will continue IV fluids at 50 mL/hour. The patient is taking Lasix 20 mg daily. MMODL / IJN: [id number] /
--- NOTE | 2018-06-10 16:52 | PN ---
PROGRESS NOTE Patient is seen for followup for acute kidney injury. His renal function has improved significantly. Creatinine is down to 1.18 from 1.9 and 2 mg/dL previously. Patient denies any significant complaints. He is maintained on a small dose of oral Lasix. Patient has had a [id number] MO. He is status post cardiac catheterization on 06/07/2018. He is scheduled for stent placement today. He has had good urine output. On examination, blood pressure this morning was 134/76. He is afebrile. EXAMINATION OF THE HEART: S1, S2. EXAMINATION OF LUNGS: Bilateral breath sounds are heard. ABDOMEN: Soft, non-tender. Examination of lower extremities shows no significant edema. Labs show sodium 138, potassium 4.5, chloride 108, BUN 27, serum creatinine 1.18, hemoglobin 11.8 g/dL. ASSESSMENT: 1. Acute kidney injury, nonoliguric, mainly cardiorenal and associated with congestive heart failure, currently improved. Continue with the small dose of loop diuretics. 2. Status post [id number] myocardial infarction, scheduled for repeat cardiac catheterization and stent placement today. 3. History of obstructive sleep apnea. 4. Congestive heart failure, ejection fraction about 20%, acute on top of chronic, mainly systolic. 5. Cardiomyopathy, discomfort 20%. 6. Pneumonia, maintained on antibiotics. PLAN: Continue with current dose of Lasix. Repeat labs in a.m. Avoid nephrotoxic agents post cardiac catheterization. MMODL / IJN: [id number] /
[2018-06-10] MEDS: FINASTERIDE 5 MG TAB PO SCH (20:38)
[2018-06-10] MEDS: PRAVASTATIN SODIUM 40 MG TAB PO SCH (20:38)
--- NOTE | 2018-06-10 23:41 | PN ---
PROGRESS NOTE DATE OF SERVICE: 06/10/2018. PRESENTING COMPLAINT: Tired. INTERVAL HISTORY: The patient remains in the ICU, presented with shortness of breath. The patient was hypoxic on presentation. The patient ruled in for myocardial infarction. The 2D echo did show EF of less than 20%. Cardiac cath done on June 07 showed occlusion of RCA. Plan is for staged intervention. The patient does feel weak and tired, has been on IV Lasix. Does feel tired and run down, lying in bed. REVIEW OF SYSTEMS: Done for constitutional, cardiovascular, GI, pulmonary; relevant findings as above. CURRENT MEDICATIONS: Reviewed, that include: 1. Aspirin. 2. Coreg 3.125 twice a day. 3. Digoxin. 4. Pepcid. 5. Proscar. 6. Switched to p.o. Lasix today. 7. IV heparin. 8. Nitroglycerin paste. 9. Pravachol. PHYSICAL EXAMINATION: Temperature 97.8, pulse 54, respiratory rate 18, blood pressure 134/85, pulse ox 95% on 4 L. GENERAL APPEARANCE: Lying in bed, tired, awake. EYES: Pupils equal. Conjunctivae pale. HEENT: External appearance of nose and ears normal. Oral cavity normal. NECK: JVD unable to assess. Mass not palpable. Respiratory effort normal. LUNGS: Decreased breath sounds. CARDIOVASCULAR: 1st and 2nd heart sounds normal. No edema. ABDOMEN: Soft, nontender. Liver and spleen not palpable. PSYCHIATRY: Alert and oriented x3. Mood and affect normal. INVESTIGATIONS: White count 5.5, hemoglobin 11.8, potassium 4.5, BUN 27, creatinine 1.18. Cardiac cath results noted. Abdominal ultrasound suggestive of medical renal disease. The 2D echocardiogram showed EF less than 20%. ASSESSMENT: 1. Acute on chronic congestive heart failure exacerbation from systolic dysfunction from underlying coronary artery disease. 2. Acute non-ST elevation myocardial infarction. 3. Coronary artery disease with significant blockage to right coronary artery. 4. Acute kidney injury, possibly combination of acute tubular necrosis and prerenal, with significant improvement. 5. Possibly chronic kidney disease, stage 2, probably nephrosclerosis. 6. Atrial fibrillation. 7. Essential hypertension. 8. Hyperlipidemia. 9. Obstructive sleep apnea, uses CPAP machine. PLAN: Continue medication and treatment plan. Remains on IV heparin. Awaiting a cardiac catheterization tomorrow. Care was discussed with the patient. Questions were answered. MMODL / IJN: [id number] /
[2018-06-11 05:15] LABS: Basophils % (A) 1 %; Eosinophils # (A) 0.4 k/uL (0-0.7); Eosinophils % (A) 7 %; Hypochromasia Slight; Lymphocytes # (A) 0.7 k/uL (1.0-4.8); Lymphocytes % (A) 12 %; MCH 33.3 pg (25.0-35.0); MCHC 31.6 g/dL (31.0-37.0); MCV 105.1 fL (80.0-100.0); Macrocytosis Moderate; Mean Platelet Volume 7.5; Monocytes # (A) 0.7 k/uL (0-1.0); Monocytes % (A) 11 %; Neutrophils # (A) 4.2 k/uL (1.3-7.7); Neutrophils % (A) 68 %; Platelet Count 140 k/uL (150-450); RBC 3.62 m/uL (4.30-5.90); RDW 13.5 % (11.5-15.5); WBC 6.1 k/uL (3.8-10.6)
[2018-06-11 05:22] LABS: INR 1.1 (<1.2); Partial Thromboplastin Time 24.2 sec (22.0-30.0); Prothrombin Time 11.4 sec (9.0-12.0)
[2018-06-11 05:32] LABS: Calcium 8.8 mg/dL (8.4-10.2)
[2018-06-11] MEDS ORDERED: ATORVASTATIN 80 MG TAB PO STA (07:55)
[2018-06-11] MEDS: DIGOXIN 125 MCG TAB PO SCH (08:03)
[2018-06-11] MEDS: CARVEDILOL 3.125 MG TAB PO SCH ×2 (08:04→17:03)
[2018-06-11] MEDS: NITROGLYCERIN OINT 1 INCH/GM PACKET TOPICAL SCH ×3 (08:04→21:02)
[2018-06-11] MEDS: FAMOTIDINE 20 MG TAB PO SCH (08:04)
[2018-06-11] MEDS: ASPIRIN 81 MG PO SCH (08:04)
--- NOTE | 2018-06-11 08:16 | XR ---
EXAMINATION TYPE: XR chest 1V portable DATE OF EXAM: 06/11/2018 COMPARISON: Prior chest x-ray 06/10/2018 HISTORY: Abnormal chest x-ray, ICU management TECHNIQUE: Single frontal view of the chest is obtained. FINDINGS: Interval obscured left hemidiaphragm. Heart remains enlarged, bilateral airspace disease i s again noted. There is blunting of the costophrenic angles. Aorta is dense. Patient is post median s ternotomy. IMPRESSION: Correlate for congestive heart failure with pleural effusions. Pneumonia not excluded.
[2018-06-11] MEDS ORDERED: LIDOCAINE 1% INJ 10MG/ML (20 ML MDV) ONE (08:41)
[2018-06-11] MEDS ORDERED: SODIUM CHLORIDE 0.9% 1,000 ML IV ONE (08:50)
[2018-06-11] MEDS ORDERED: MIDAZOLAM 2 MG/2 ML VIAL IV ONE (08:50)
[2018-06-11] MEDS ORDERED: LIDOCAINE 1% INJ 10MG/ML (20 ML MDV) SQ ONE (08:55)
[2018-06-11] MEDS ORDERED: fentaNYL (PF) 50 MCG/ML 2 ML AMP IV ONE (08:56)
[2018-06-11] MEDS ORDERED: BIVALIRUDIN BOLUS 250 MG/50 ML IV ONE (09:00)
[2018-06-11] MEDS ORDERED: BIVALIRUDIN 250 MG in SODIUM CHLORIDE 0.9% 50 ML IV ONE (09:01)
[2018-06-11] MEDS ORDERED: fentaNYL (PF) 50 MCG/ML 2 ML AMP ONE (09:03)
[2018-06-11] MEDS ORDERED: FUROSEMIDE 10 MG/ML 4 ML VIAL ONE (09:05)
[2018-06-11] MEDS ORDERED: FUROSEMIDE 10 MG/ML 4 ML VIAL IV ONE (09:08)
[2018-06-11] MEDS ORDERED: NITROGLYCERIN 1000MCG/10ML SYRINGE IV ONE (09:18)
[2018-06-11] MEDS ORDERED: niCARdipine Syringe (1,000 mcg/10 mL) IV ONE (09:18)
[2018-06-11] MEDS ORDERED: CLOPIDOGREL 75 MG TAB ONE (09:21)
[2018-06-11] MEDS ORDERED: CLOPIDOGREL 75 MG TAB PO ONE (09:26)
[2018-06-11] MEDS ORDERED: RX INFO: IV CONTRAST WAS GIVEN 1 EACH MISC MISCELLANE PRN (09:37)
[2018-06-11] MEDS ORDERED: ZOLPIDEM 5 MG TAB PO PRN (09:37)
[2018-06-11] MEDS ORDERED: MAG HYDROX/AL HYDROX/SIMETH 30 ML CUP PO PRN (09:37)
[2018-06-11] MEDS ORDERED: NITROGLYCERIN SL TABS 0.4 MG TAB SUBLINGUAL PRN (09:37)
[2018-06-11] MEDS ORDERED: ATROPINE SULFATE 0.1 MG/ML 10ML SYRINGE IV PRN (09:37)
[2018-06-11] MEDS ORDERED: IOPAMIDOL-370 125ML BTL INJ ONE (09:39)
[2018-06-11] MEDS ORDERED: SODIUM CHLORIDE 0.9% 1,000 ML IV SCH (09:45)
--- NOTE | 2018-06-11 10:51 | PTCA ---
PERCUTANEOUSTRANS CORORONARY ANGIOGRAPHY DATE OF SERVICE: June 11, 2018 PERFORMING PHYSICIAN: Delano Mariscal MD, press operator printing. PROCEDURE PERFORMED: 1. Placement of a transvenous temporary pacemaker from the right groin approach. 2. An atherectomy of the mid right coronary artery using the orbital atherectomy device from [facility] 3. Successful stenting of the mid right coronary artery using 3.5 x 28 mm Xience drug- eluting stent with an excellent angiographic result and reduction of stenosis from 80% to 0%. INDICATION: This is a pleasant 83-year-old gentleman who presented to the hospital a few days ago with chest discomfort and ruled out for acute non ST elevation myocardial infarction. He underwent heart catheterization by Dr. Rodriguez and was found to have critical disease involving the mid right coronary artery. The LAD was protected by . The RCA was unprotected. Because of that, he was scheduled to undergo an atherectomy and stenting of the right coronary artery. The RCA was extremely calcified. APPROACH: Right common femoral artery and right common femoral vein. COMPLICATION: None. LEVEL OF SEDATION: Moderate with sedation length of 40 minutes. PROCEDURE DESCRIPTION: After obtaining informed consent, the patient was brought to the cardiac labor specialist. After that, I did access the right common femoral vein using micropuncture technique and a micropuncture wire passed easily then I placed a 6-Wolof sheath in the right common femoral vein. After that, I did place a transvenous temporary pacemaker under fluoroscopy guidance in the apex of the left ventricle where I did a backup heart rate of 60 and amp of 5. After that anticoagulation was initiated using Angiomax. Subsequently I did engage the RCA using JR4 guide. I did wire the RCA using the ViperWire. After that I did atherectomy of the RCA using the orbital atherectomy device from [facility] where I did 2 runs of low speed. After that I did balloon angioplasty using 3.5 x 12 mm balloon before I deployed a 3.5 x 28 mm Xience drug-eluting stent where the stent was positioned under fluoroscopy guidance and deployed under 14 atmospheres for 20 seconds. The following angiogram showed good angiographic results with reduction of stenosis from 80% to 0% and the procedure was completed without any complication. POSTPROCEDURE MANAGEMENT: 1. Dual antiplatelet therapy. 2. Risk factor modification. 3. Follow up with the patient. MMODL / IJN: [id number] /
--- NOTE | 2018-06-11 11:14 | LTR ---
DATE OF SERVICE: 06/11/2018 RE: Krish Madsen. Dear / Cali: Mr. Krish Madsen underwent successful stenting of the right coronary artery with good angiographic results and without any complication. Thank you for allowing us to participate in his care and please do not hesitate to call if you have any question or concern. Sincerely, Izzy Kaur. KODY / SUSAN: [id number] /
[2018-06-11] MEDS: FUROSEMIDE 20 MG TAB PO SCH (13:37)
[2018-06-11] MEDS: HEPARIN SOD,PORK IN 0.45% NACL 25,000 UNIT in 0.45% NACL 1 250ML.BAG IV SCH ×2 (13:42→17:29)
--- NOTE | 2018-06-11 15:39 | PN ---
PROGRESS NOTE The patient is seen for followup for acute kidney injury. His renal function is stable. Patient is status post cardiac catheterization and stenting of the RCA. The patient also had a temporary pacemaker placed. He continues to have good urine output. His serum creatinine is at 1.2 from 1.1 yesterday. The patient is maintained on IV fluids. PHYSICAL EXAMINATION: This morning, blood pressure was 123/70, heart rate of 62 per minute patient is afebrile. Examination of the heart S1, S2. Examination of the lungs bilateral breath sounds are heard. Abdomen is soft, nontender. Examination of lower extremity shows no edema. LOCKSTITCH FRONT EDGE TAPE SEWER exam is grossly intact. LABS: Show sodium 137, potassium 5.0, chloride 108, BUN 26, serum creatinine 1.2, hemoglobin 12.0 g/dL. ASSESSMENT: 1. Acute kidney injury, nonoliguric, mainly cardiorenal improved since admission. Serum creatinine is slightly higher today. We will continue to monitor. Continue with IV fluids. 2. Status post non ST elevation myocardial infarction status post repeat cardiac catheterization yesterday and coronary stent placement in the RCA. 3. Cardiomyopathy, ejection fraction 20%. 4. Pneumonia maintained on antibiotics. 5. Congestive heart failure, systolic, acute on top of chronic. PLAN: Continue with IV fluids. Repeat labs in a.m. and avoid nephrotoxic agents. MMODL / IJN: [id number] /
[2018-06-11] MEDS ORDERED: HEPARIN SODIUM,PORCINE 5,000 UNIT/ML 1 ML VIAL IV PRN (16:39)
[2018-06-11] MEDS: MULTIVITAMINS, THERA 1 EACH TAB PO SCH (17:02)
[2018-06-11] MEDS: WARFARIN 5 MG TAB PO SCH (17:14)
[2018-06-11 17:59] LABS: INR 1.2 (<1.2); Partial Thromboplastin Time 40.5 sec (22.0-30.0); Prothrombin Time 12.2 sec (9.0-12.0)
[2018-06-11 18:15] LABS: Basophils % (A) 0 %; Eosinophils # (A) 0.3 k/uL (0-0.7); Eosinophils % (A) 6 %; HCT 37.6 % (39.0-53.0); HGB 11.9 gm/dL (13.0-17.5); Hypochromasia Slight; Lymphocytes # (A) 0.7 k/uL (1.0-4.8); Lymphocytes % (A) 13 %; MCH 33.1 pg (25.0-35.0); MCHC 31.6 g/dL (31.0-37.0); MCV 104.5 fL (80.0-100.0); Macrocytosis Slight; Mean Platelet Volume 8.2; Monocytes # (A) 0.6 k/uL (0-1.0); Monocytes % (A) 11 %; Neutrophils # (A) 3.5 k/uL (1.3-7.7); Neutrophils % (A) 67 %; Platelet Count 142 k/uL (150-450); RDW 13.5 % (11.5-15.5); WBC 5.2 k/uL (3.8-10.6)
[2018-06-11] MEDS: FINASTERIDE 5 MG TAB PO SCH (20:17)
[2018-06-11] MEDS: PRAVASTATIN SODIUM 40 MG TAB PO SCH (20:17)
--- NOTE | 2018-06-12 03:13 | PN ---
PROGRESS NOTE DATE OF SERVICE: June 11, 2018. PRESENTING COMPLAINT: Tired. INTERVAL HISTORY: The patient in the ICU was hypoxic on presentation ruled in for an acute HI ,showed an EF less than 20%. Initial catheterization was done on June 07, 2018. Today patient underwent a cardiac catheterization atherectomy followed by stent placement into the RCA. Sitting up in a chair, stable. No new issues. REVIEW OF SYSTEMS: Done for constitutional, cardiovascular, GI, pulmonary and relevant findings as above. CURRENT MEDICATIONS: Reviewed that include IV heparin. PHYSICAL EXAMINATION: VITAL SIGNS: Temperature 98.1, pulse 64, respirations 16, blood pressure 139/80, pulse ox 97% on 3 L. GENERAL APPEARANCE: Sitting up in a chair, awake. EYES: Pupils equal. Conjunctivae normal. NECK: JVD not raised. Mass not palpable. RESPIRATORY: Effort normal. LUNGS: Decreased breath sounds. CARDIOVASCULAR: 1st and 2nd sounds normal. No edema. ABDOMEN: Soft, nontender. Liver and spleen not palpable. PSYCHIATRY: Alert and oriented x3. Mood and affect normal. INVESTIGATIONS: White count 5.2, hemoglobin 11.9. ASSESSMENT: 1. Acute on chronic congestive heart failure exacerbation from systolic dysfunction, ejection fraction 20% from underlying coronary artery disease, now stabilized. 2. Acute non-ST elevation myocardial infarction, POA. 3. Coronary artery disease with successful atherectomy and stenting to the RCA today. 4. Acute kidney injury, possibly combination of acute tubular necrosis and prerenal with improvement. 5. Chronic kidney disease stage 2 probably nephrosclerosis. 6. Atrial fibrillation. 7. Essential hypertension. 8. Hyperlipidemia. 9. Obstructive sleep apnea uses CPAP machine. 10.IV heparin monitoring. PLAN: Continue current medication and treatment plan. Patient will be switched over to no anticoagulations when okay with Cardiology. Follow closely. MMODL / IJN: [id number] /
[2018-06-12 05:42] LABS: Basophils % (A) 1 %; Eosinophils # (A) 0.4 k/uL (0-0.7); Eosinophils % (A) 6 %; HCT 35.2 % (39.0-53.0); HGB 11.5 gm/dL (13.0-17.5); Hypochromasia Slight; Lymphocytes # (A) 0.9 k/uL (1.0-4.8); Lymphocytes % (A) 13 %; MCH 34.4 pg (25.0-35.0); MCHC 32.6 g/dL (31.0-37.0); MCV 105.4 fL (80.0-100.0); Macrocytosis Moderate; Monocytes # (A) 0.7 k/uL (0-1.0); Monocytes % (A) 10 %; Neutrophils # (A) 4.6 k/uL (1.3-7.7); Neutrophils % (A) 68 %; Platelet Count 153 k/uL (150-450); RBC 3.34 m/uL (4.30-5.90); RDW 13.4 % (11.5-15.5); WBC 6.8 k/uL (3.8-10.6)
[2018-06-12 05:45] LABS: INR 1.2 (<1.2); Prothrombin Time 12.1 sec (9.0-12.0)
[2018-06-12 06:25] LABS: Calcium 9.1 mg/dL (8.4-10.2)
[2018-06-12] MEDS: CARVEDILOL 3.125 MG TAB PO SCH ×2 (06:49→17:38)
--- NOTE | 2018-06-12 08:38 | XR ---
EXAMINATION TYPE: XR chest 1V portable DATE OF EXAM: 06/12/2018 COMPARISON: 06/11/2018 HISTORY: Shortness of breath TECHNIQUE: Single frontal view of the chest is obtained. FINDINGS: Diffuse bilateral airspace disease and pleural effusion noted. Cardiomegaly stable. Postsu rgical changes and atherosclerotic change aorta. Shoulders. IMPRESSION: Diffuse pleural-parenchymal changes are stable correlate for diffuse pneumonia or CHF wi th pulmonary edema.
[2018-06-12] MEDS: FUROSEMIDE 20 MG TAB PO SCH (09:21)
[2018-06-12] MEDS: NITROGLYCERIN OINT 1 INCH/GM PACKET TOPICAL SCH ×3 (09:21→21:38)
[2018-06-12] MEDS: FAMOTIDINE 20 MG TAB PO SCH (09:21)
[2018-06-12] MEDS: ASPIRIN 81 MG PO SCH (09:21)
[2018-06-12] MEDS: DIGOXIN 125 MCG TAB PO SCH (09:22)
--- NOTE | 2018-06-12 10:44 | P.PN ---
Subjective Progress Note Date: 06/12/18 Principal diagnosis: Acute non-ST elevated myocardial infarction, and acute on chronic systolic congestive heart failure This is an 83-year-old white male with history of multiple medical problems including chronic atrial fibrillation, systolic congestive heart failure, prior mitral valve replacement, obstructive sleep apnea for which she normally sees Dr. Cartagena. Patient presented to the ER yesterday with 2 days history of increased shortness of breath. Cough, nonproductive, no fever no chills no hemoptysis and no chest pain. His chest x-ray was consistent with interstitial edema. His BNP level was elevated. Troponin was elevated and it is on the rise , patient was admitted, started on diuretics, he was also started empirically on antibiotics, and this consult was initiated. Presently the patient denies shortness of breath, he is on few liters nasal cannula. Denies any chest pain, denies palpitations, no headache no blurred vision no dizziness. No nausea no vomiting no abdominal pain. No melena no hematemesis no dysuria and no frequency no urgency. Again his past medical history is most significant for mitral valve replacement, history of melanoma, chronic atrial fibrillation, TIA , hypertension, and obstructive sleep apnea syndrome. Patient was reevaluated today on 06/06/2018, patient seems to be doing better, breathing easier, although his chest x-ray continues to show evidence of mild interstitial edema. Denies any chest pain, no cough no wheezing, no fever, no chills, and no palpitations. Still in the ICU, and the housing management officer is considering cardiac catheterization on this patient, however because of his renal functioning that seems to be a major issue. Chest x-ray was reviewed, and it shows evidence of mild interstitial edema. Labs normal CBC WBC count is 9.4 hemoglobin is 10.8 INR is 1.6, may have to restart Coumadin or at least placed on heparin for now if cardiac catheterization is being considered to be done tomorrow. However that decision will be made by cardiology when they are round on him today. His INR yesterday was 3.2. Electrolytes are normal, BUN is up to 47 creatinine is slightly down from 2.04 yesterday to 1.91 today. His last troponin yesterday was 6.97. Pro-calcitonin was noted to be a bit elevated , hence the possibility of underlying infiltrate in addition to his interstitial edema is likely, and the patient will be empirically on antibiotics. Has been receiving Zithromax and Rocephin since admission. Reevaluated today on , continues to do relatively well, renal functioning seems to be improving, it was 1.91 yesterday, and it is 1.49 today. Patient denies any cough no wheezing no shortness of breath, feeling better, continues to receive Lasix daily for what seems to be interstitial edema and congestive heart failure. Patient was noted to have very poor LV function, ejection fraction was noted to be 20%. Supposedly his scheduled for cardiac catheterization today. Pulmonary-hernandez the patient is doing better than expected considering his presentation with pulmonary edema. Chest x-ray was not done today. But it was reviewed from yesterday On 06/12/2018 patient seen in follow-up in the intensive care unit, he is resting comfortably in bed, in no acute distress, no difficulty breathing, no chest pain, patient is status post PCI with placement of 2 stents to the RCA on 06/11/2018. Currently on 4 L per nasal cannula, the pulse ox of 97%, afebrile, hemodynamically stable, in A. fib with a controlled rate, he is on heparin drip per weight-based protocol, 0.9 normal saline at a rate of 20 ML per hour, microbiology is negative, no cough or phlegm production, lung sounds are positive for some bibasilar crackles, no rhonchi or wheezing. Patient is wearing the CPAP at night with a pressure of 8 cm of water and FiO2 of 30%, today's chest x-ray was reviewed with Dr. Kamara, shows diffuse pleural parenchymal changes consistent with congestive heart failure, pulmonary edema, possible infiltrate in the left upper lobe. No fever or chills. Objective - Vital Signs Vital signs: Vital Signs Temp 98.1 F 06/12/18 08:00 Pulse 84 06/12/18 08:00 Resp 12 06/12/18 08:00 BP 136/75 06/12/18 08:00 Pulse Ox 97 06/12/18 08:00 Intake & Output 06/11/18 06/12/18 06/12/18 18:59 06:59 18:59 Intake Total 393 133.333 Output Total 525 450 Balance -132 -316.667 Weight 80.4 kg 78.5 kg Intake: IV 131 40 0.9 40 Intake, IV Titration 262 93.333 Amount Heparin Sod,Pork in 0.45% 93.333 NaCl 25,000 unit In 0.45 % NaCl 1 250ml.bag @ 800 UNIT/HR 8 mls/hr IV .Q24H [facility] Rx#:[id number] Sodium Chloride 0.9% 1, 262 000 ml @ 75 mls/hr IV . [id number] [facility] Rx#:[id number] Output: Urine 525 450 Other: Voiding Method Urinal Urinal ABP, PAP, CO, CI - Last Documented Arterial Blood Pressure 127/41 - Exam GENERAL EXAM: Alert, pleasant, 83-year-old white male on 4 L per nasal cannula , comfortable in no apparent distress. HEAD: Normocephalic/atraumatic. EYES: Normal reaction of pupils, equal size. Conjunctiva pink, sclera white. NOSE: Clear with pink turbinates. THROAT: No erythema or exudates. NECK: No masses, no JVD, no thyroid enlargement, no adenopathy. CHEST: No chest wall deformity. Symmetrical expansion. LUNGS: Equal air entry with bibasilar rales CVS: Regular rate and rhythm, normal S1 and S2, no gallops, no murmurs, no rubs ABDOMEN: Soft, nontender. No hepatosplenomegaly, normal bowel sounds, no guarding or rigidity. EXTREMITIES: No clubbing, no edema, no cyanosis, 2+ pulses and upper and lower extremities. MUSCULOSKELETAL: Muscle strength and tone normal. SPINE: No scoliosis or deformity SKIN: No rashes CENTRAL NERVOUS SYSTEM: Alert and oriented -3. No focal deficits, tone is normal in all 4 extremities. PSYCHIATRIC: Alert and oriented -3. Appropriate affect. Intact judgment and insight. - Labs CBC & Chem 7: 06/12/18 04:54 06/12/18 04:54 Labs: Abnormal Lab Results - Last 24 Hours (Table) 06/11/18 06/11/18 06/11/18 Range/Units 16:59 16:59 23:35 RBC 3.60 L (4.30-5.90) m/uL Hgb 11.9 L (13.0-17.5) gm/dL Hct 37.6 L (39.0-53.0) % MCV 104.5 H (80.0-100.0) fL Plt Count 142 L (150-450) k/uL Lymphocytes # 0.7 L (1.0-4.8) k/uL PT 12.2 H (9.0-12.0) sec INR 1.2 H (<1.2) APTT 40.5 H 41.8 H (22.0-30.0) sec BUN (9-20) mg/dL Creatinine (0.66-1.25) mg/dL 06/12/18 06/12/18 06/12/18 Range/Units 04:54 04:54 04:54 RBC 3.34 L (4.30-5.90) m/uL Hgb 11.5 L (13.0-17.5) gm/dL Hct 35.2 L (39.0-53.0) % MCV 105.4 H (80.0-100.0) fL Plt Count (150-450) k/uL Lymphocytes # 0.9 L (1.0-4.8) k/uL PT 12.1 H (9.0-12.0) sec INR 1.2 H (<1.2) APTT (22.0-30.0) sec BUN 35 H (9-20) mg/dL Creatinine 1.27 H (0.66-1.25) mg/dL Assessment and Plan Plan: Assessment: 1 acute on chronic systolic congestive heart failure. 2 acute non-ST elevation myocardial infarction. 3 acute kidney injury, possibly acute tubular necrosis or cardiorenal in nature. With hyperkalemia. Improving, his creatinine today is significantly improved compared to the last few days. 4 chronic atrial fibrillation and supratherapeutic INR. 5 benign essential hypertension 6 history of obstructive sleep apnea being followed by Dr. Cartagena on outpatient basis. Patient will bring his own CPAP and will be used while inpatient. 7 history of valvular heart disease, previous mitral valve replacement. 8 elevated pro calcitonin, and abnormal chest x-ray consistent with congestive heart failure, however considering the elevated pro calcitonin, it is best to continue empiric antibiotics, as there may be a component of community-acquired pneumonia. The clinical presentation is mostly a clear-cut cardiac presentation. Plan: Patient remains stable, no difficulty breathing, fever or chills, medical oncology is negative, Zithromax has been discontinued, today's chest x-ray has been reviewed with Dr. Kamara, shows mostly CHF, possible left upper lobe infiltrate, clinically patient has no cough, no difficulty breathing, no chest congestion, no fever or chills. Continue with oral diuretics, nephrology is following. Clinically stable, anticipate transfer out of the intensive care unit today to [facility] care. I performed a history & physical examination of the patient and discussed their management with my nurse practitioner, Nicole Cardenas. I reviewed the nurse practitioner's note and agree with the documented findings and plan of care. Lung sounds are positive for bibasilar rales. The findings and the impression was discussed with the patient. I attest to the documentation by the nurse practitioner. Time with Patient: Less than 30
--- NOTE | 2018-06-12 11:37 | PN ---
PROGRESS NOTE Norm is a an 83-year-old gentleman who is admitted to hospital with non ST-segment elevation SD. Underwent cardiac catheterization and subsequently had angioplasty of right coronary artery. This morning he is feeling better. Denies chest pain or difficulty in breathing. PHYSICAL EXAMINATION: On exam, afebrile, heart rate is 80 beats per minute, blood pressure is 136/75, respiratory rate is 18. Chest exam reveals good air entry bilaterally. Heart exam reveals first and second heart sounds. Ejection systolic murmur in the aortic area. Abdomen is soft. Exam of extremities did not reveal any edema. Peripheral pulses are felt. LABS: Labs show a hemoglobin of 11.5. Potassium is 5. Creatinine is 1.2. Patient is currently on Coreg 3.125 b.i.d., Plavix 75 q. daily, Lanoxin 0.125, and IV heparin. The patient is receiving Coumadin. ASSESSMENT: 1. Acute non ST-segment elevation myocardial infarction, status post catheterization and angioplasty. 2. Chronic atrial fibrillation. PLAN: The patient is in the ICU as an overflow. He will continue the heparin until INR becomes therapeutic, then he can be discharged home. MMODL / IJN: [id number] /
--- NOTE | 2018-06-12 11:58 | PN ---
PROGRESS NOTE Patient is seen for followup for acute kidney injury. His renal function is stable. Patient has been maintained on IV fluids, which are now discontinued. Patient denies any chest pains or shortness of breath. He is status post PTCA and stent placement in the right coronary artery done yesterday by Dr. Mariscal. PHYSICAL EXAMINATION: On examination today, patient is comfortable, awake. He is not in any acute distress. Blood pressure this morning was 136/75, heart rate 84 per minute. He is afebrile. EXAMINATION OF THE HEART: S1, S2. EXAMINATION OF THE LUNGS: Bilateral breath sounds are heard. Abdomen is soft, nontender. Examination of lower extremities shows no significant edema. HYDRAULIC PLUMBER exam is grossly intact. LAB: Labs show sodium 139, potassium 5.0, BUN 35, serum creatinine 1.27, hemoglobin 11.5 g/dL. ASSESSMENT: 1. Acute kidney injury, cardiorenal, as well as from contrast nephropathy. Renal function currently stable. Continued to encourage increased oral intake. Avoid nephrotoxic medications. Continue the Lasix at the current dose. 2. Status post acute myocardial infarction, status post cardiac catheterization x2 with recent stenting of RCA. 3. Congestive heart failure, currently compensated, acute mainly systolic. 4. Cardiomyopathy, ejection fraction about 20%. MMODL / IJN: [id number] /
[2018-06-12] MEDS: CLOPIDOGREL 75 MG TAB PO SCH (12:54)
[2018-06-12] MEDS: MULTIVITAMINS, THERA 1 EACH TAB PO SCH (12:54)
[2018-06-12] MEDS: HEPARIN SOD,PORK IN 0.45% NACL 25,000 UNIT in 0.45% NACL 1 250ML.BAG IV SCH (14:19)
[2018-06-12] MEDS: HEPARIN SODIUM,PORCINE 5,000 UNIT/ML 1 ML VIAL IV PRN (14:33)
--- NOTE | 2018-06-12 16:34 | PN ---
PROGRESS NOTE DATE OF SERVICE: June 12, 2018. PRESENTING COMPLAINT: Tired. INTERVAL HISTORY: The patient is in the ICU, ruled in for acute CT, has an EF less than 20%. Had initial cardiac cath on June 07, 2018. Had a repeat catheterization on June 11, 2018 with a stent to the RCA. The patient remains on IV heparin. Slow, tired, did tolerate some diet. No chest pain. REVIEW OF SYSTEMS: Done for constitutional, cardiovascular, GI, pulmonary; relevant findings as above. CURRENT MEDICATIONS: Reviewed that include IV heparin. PHYSICAL EXAMINATION: VITAL SIGNS: Temperature 98.1, pulse 84, respirations 12, blood pressure 132/75. Pulse ox 97% on 4 L. GENERAL APPEARANCE: Lying in bed, tired, awake. EYES: Pupils equal. Conjunctivae normal. NECK: JVD unable to assess. Mass not palpable. RESPIRATORY: Effort normal. LUNGS: Decreased breath sounds. CARDIOVASCULAR: 1st and 2nd sounds with a click. No edema. ABDOMEN: Soft, nontender. Liver and spleen not palpable. PSYCHIATRY: Alert and oriented x3. Mood and affect normal. INVESTIGATIONS: White count 6.8, hemoglobin 11.5, INR 1.2, potassium 5.0, BUN 35, creatinine 1.27. ProBNP 05854. ASSESSMENT: 1. Acute on chronic congestive heart failure exacerbation from systolic dysfunction, ejection fraction 40% from underlying coronary artery disease, euvolemic. 2. Acute non-ST elevation myocardial infarction, present on admission. 3. Coronary artery disease with successful atherectomy and stenting to the RCA on June 11, 2018. 4. Acute kidney injury, possibly combination of acute tubular necrosis and prerenal with improvement. 5. 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 6. Persistent atrial fibrillation. 7. Essential hypertension. 8. Hyperlipidemia. 9. Obstructive sleep apnea uses CPAP machine. 10.Mechanical mitral valve. 11.IV heparin monitoring. 12.Coumadin monitoring. PLAN: Continue current medication and treatment plan. The patient is already on Coumadin with overlap with IV heparin till INR is therapeutic. Follow with Cardiology. Overall prognosis is guarded. MMODL / IJN: [id number] /
[2018-06-12] MEDS: WARFARIN 5 MG TAB PO SCH (16:55)
[2018-06-12] MEDS: FINASTERIDE 5 MG TAB PO SCH (21:38)
[2018-06-12] MEDS: PRAVASTATIN SODIUM 40 MG TAB PO SCH (21:38)
[2018-06-13 05:27] LABS: Basophils % (A) 1 %; Eosinophils # (A) 0.3 k/uL (0-0.7); Eosinophils % (A) 4 %; HCT 31.7 % (39.0-53.0); Hypochromasia Marked; Lymphocytes # (A) 0.9 k/uL (1.0-4.8); Lymphocytes % (A) 13 %; MCHC 31.3 g/dL (31.0-37.0); MCV 108.6 fL (80.0-100.0); Macrocytosis Marked; Mean Platelet Volume 8.5; Monocytes # (A) 0.7 k/uL (0-1.0); Monocytes % (A) 9 %; Neutrophils # (A) 4.9 k/uL (1.3-7.7); Neutrophils % (A) 70 %; Platelet Count 151 k/uL (150-450); RBC 2.92 m/uL (4.30-5.90); RDW 13.5 % (11.5-15.5); WBC 6.9 k/uL (3.8-10.6)
[2018-06-13 05:31] LABS: HGB 9.9 gm/dL (13.0-17.5)
[2018-06-13 05:37] LABS: INR 1.7 (<1.2); Prothrombin Time 16.6 sec (9.0-12.0)
[2018-06-13 06:01] LABS: Calcium 8.8 mg/dL (8.4-10.2); Potassium 4.6 mmol/L (3.5-5.1)
[2018-06-13] MEDS ORDERED: FUROSEMIDE 10 MG/ML 4 ML VIAL IV STA (07:02)
[2018-06-13] MEDS: CARVEDILOL 3.125 MG TAB PO SCH ×3 (07:10→18:26)
--- NOTE | 2018-06-13 08:16 | PN ---
PROGRESS NOTE DATE OF SERVICE: June 13, 2018. This is an 83-year-old male with a history of acute on chronic systolic heart failure, acute non ST-segment elevation myocardial infarction, acute kidney injury, chronic atrial fibrillation, benign essential hypertension, sleep apnea, currently on CPAP at 8 cm of water and 30%, valvular heart disease with previous mitral valve replacement and a chest x-ray which suggest fluid overload. The patient is currently on 4 L nasal cannula and heparin drip via weight based protocol. The patient is receiving saline at 20 mL an hour. I had seen him today and decided based on his chest x-ray to give him Lasix 40 mg IV push. He is chronically in atrial fibrillation. The patient looks pretty stable and was doing relatively well. I asked the nurse to change the situation to the fact that the patient could be transferred out to the cardiac floor with telemetry. Unfortunately, the patient had a bloody bowel movement. The IV heparin was discontinued and a repeat hemoglobin was ordered. The patient will stay here in the unit. He otherwise is doing reasonably well. Current vital signs are reviewed. Temperature is 98.1, heart rate 66, respiratory rate 17, blood pressure 114/70, mean 84 and 4 L saturation 96%. Appears in no acute distress. Mildly tachypneic. HEENT examination is grossly unremarkable. Nasal O2 in place. NECK: Supple. Full range of motion. No adenopathy, thyromegaly or neck vein distention. Cardiovascular examination reveals irregular rhythm and rate. Heart rate is anywhere from 66 up to 83 beats per minute. No distinct murmur noted. Lungs reveal relatively clear breath sounds. A few scattered rhonchi and crackles. Breath sounds equal bilaterally. Abdomen is soft. Bowel sounds are heard. Extremities are intact. No cyanosis, clubbing, or edema. Skin without rash. Neurologic examination is brief but nonfocal. Microbiologic studies are negative. Labs are reviewed. White count 6.9. This morning, his hemoglobin was 9.9, hematocrit 31.7, platelet count 151,000. Because of the recent bloody bowel movement, a repeat hemoglobin will be done. PT, INR was 16.6 and 1.7, PTT was 56.9. Sodium and potassium normal. Chloride 108, CO2 of 24. Anion gap normal and BUN and creatinine were 54 and 1.16. His N-terminal proBNP was 17,200. He got Lasix yesterday and Lasix this morning. His medications are reviewed. As I mentioned, his IV heparin was discontinued for the time being. The rest of the medications look appropriate. He was started on Coumadin, but that will be held for the time being. A GI consult will be ordered. ASSESSMENT: 1. Acute gastrointestinal bleed. 2. Acute on chronic systolic heart failure. 3. Acute non ST-segment elevation myocardial infarction. 4. Acute kidney injury, somewhat improved. 5. Chronic atrial fibrillation. 6. Benign essential hypertension. 7. Sleep apnea, maintained on CPAP at 8 cm of water and 30%. 8. Valvular heart disease, status post mitral valve replacement. PLAN: The patient will have a repeat hemoglobin. We will have a GI consultation ordered. The heparin is held. We will repeat the hemoglobin. We will give him Lasix 40 mg IV push. Additional recommendations and suggestions forthcoming. The patient will stay here in the ICU for further observation. CRITICAL CARE TIME: 33 minutes. KODY / SUSAN: [id number] /
[2018-06-13] MEDS: CLOPIDOGREL 75 MG TAB PO SCH (09:39)
[2018-06-13] MEDS: ASPIRIN 81 MG PO SCH (09:39)
--- NOTE | 2018-06-13 09:40 | P.CONS ---
History of Present Illness - Reason for Consult Consult date: 06/13/18 GI bleeding Requesting physician: Burt Kamara - Chief Complaint Shortness of breath - History of Present Illness 83-year-old male with a past medical history of heart failure, mechanical valve maintained on warfarin, GERD, hypertension, hyperlipidemia admitted with acute shortness of breath 9 days ago secondary to acute on chronic systolic heart failure and non-ST elevated CO. Patient underwent heart catheterization 2 days ago with atherectomy of the mid right coronary artery and stent RCA. Patient has been maintained on intravenous heparin aspirin Plavix and this morning passed a painless dark black-colored bowel movement with drop in hemoglobin 9.9 previously 11.5. Patient INR this morning was 1.7. BUN increased at 54. Creatinine 1.1. He denies epigastric pain nausea vomiting or indigestion. Denies abdominal pain. History of GI bleed. Colonoscopy 2013 reported sigmoid diverticulosis. No recent EGD. IV heparin placed on hold. Review of Systems Constitutional: Denies fever, chills, sweats, weight gain, or loss. HEENT: Negative for migraines, blurred vision or loss, earaches, drainage, tinnitus, oral mucosal lesions, dysphagia, or odynophagia. Cardiac: Negative for chest pain, arrhythmias, or palpitation. Respiratory: Admitted with shortness of breath denies, hemoptysis, cough, or sputum production. Gastrointestinal: See HPI for pertinent findings. Genitourinary: Negative for hematuria, urgency, frequency, polyuria, dysuria, or penile discharge. Musculoskeletal: Negative for muscle aches, swelling, arthritis, and arthralgias. Neurologic: Negative for stroke or TIA. Endocrine: Negative for thyroid problems. Skin: Negative for rash or itching. Psychiatric: Negative history for depression and anxiety Past Medical History Past Medical History: Heart Failure, CVA/TIA, GERD/Reflux, Hyperlipidemia, Hypertension, Osteoarthritis (OA), Prostate Disorder, Sleep Apnea/CPAP/BIPAP Additional Past Medical History / Comment(s): CHF RESOLVED POST VALVE REPLACEMENT. CPAP @ 8 L. HIATAL HERNIA. Hx of melenoma. BPH. Irregular heart beat. TIA. History of Any Multi-Drug Resistant Organisms: None Reported Past Surgical History: Cardiac Valve Replacement, Coronary Bypass/CABG, Heart Catheterization, Tonsillectomy Additional Past Surgical History / Comment(s): LEFT CATARACT. 2 vessel bypass with mitral valve repair 1990. Melenoma removal. Past Anesthesia/Blood Transfusion Reactions: No Reported Reaction Past Psychological History: No Psychological Hx Reported Smoking Status: Former smoker Past Alcohol Use History: Daily Past Drug Use History: None Reported - Past Family History Mother Family Medical History: Cancer Additional Family Medical History / Comment(s): from bone cancer, no hx of cardiac disease Father Family Medical History: Cancer Additional Family Medical History / Comment(s): unknown type of cancer Medications and Allergies Home Medications Medication Instructions Recorded Confirmed Type Aspirin 81 mg PO DAILY 12/09/13 06/04/18 History Atenolol [Tenormin] 12.5 mg PO BID 12/09/13 06/04/18 History Digoxin [Lanoxin] 125 mcg PO QAM 12/09/13 06/04/18 History Finasteride [Proscar] 5 mg PO HS 12/09/13 06/04/18 History Furosemide [Lasix] 20 mg PO QAM 12/09/13 06/04/18 History Lisinopril [Zestril] 10 mg PO HS 12/09/13 06/04/18 History Pravastatin Sodium [Pravachol] 40 mg PO HS 12/09/13 06/04/18 History Ranitidine HCl [Zantac] 150 mg PO QAM 12/09/13 06/04/18 History Warfarin [Coumadin] 2.5 mg PO SUWESA 12/09/13 06/04/18 History Multivitamins, Thera [Multivitamin 1 tab PO DAILY 06/04/18 06/04/18 History (formulary)] Warfarin [Coumadin] 1.25 mg PO MOTUTHFR 06/04/18 06/04/18 History Allergies Allergy/AdvReac Type Severity Reaction Status Date / Time No Known Allergies Allergy Verified 06/04/18 13:22 Physical Exam Vitals: Vital Signs Temp Pulse Pulse Resp BP BP Pulse Ox 06/13/18 09:00 77 18 134/75 93 L 06/13/18 08:00 98.0 F 85 14 114/70 94 L 06/13/18 07:00 79 06/13/18 05:00 66 17 114/70 06/13/18 04:00 98.1 F 83 21 146/74 96 06/13/18 03:00 76 24 146/74 06/13/18 02:00 75 21 06/13/18 01:00 69 24 146/74 06/13/18 00:00 98.4 F 67 18 146/74 06/12/18 22:03 95 06/12/18 22:00 95 06/12/18 20:00 97.6 F 76 16 141/94 06/12/18 16:00 98.1 F 66 17 127/81 98 06/12/18 14:00 76 15 06/12/18 12:00 61 13 123/74 100 06/12/18 10:00 60 23 126/84 87 L Intake and Output 06/12/18 06/13/18 06/13/18 22:59 06:59 14:59 Intake Total 120 160 Output Total 350 375 800 Balance -230 -215 -800 Intake: IV 120 160 0.9 120 160 Output: Urine 350 375 800 Other: Voiding Method Urinal Urinal # Voids 1 # Bowel Movements 1 Weight 75.7 kg General appearance: The patient is alert, oriented, in no acute distress. HET: Head is normocephalic and atraumatic. Pupils are equal and reactive. Oropharynx is clear without lesions. Neck: Supple without lymphadenopathy. Trachea midline. Heart: S1 S2. Lungs: Mild bibasilar crackles. Abdomen: Soft, nontender, nondistended with bowel sounds. No peritoneal signs. No palpable organomegaly or masses. Extremities: Normal skin color and turgor. No cyanosis, rash, ulceration, clubbing, or edema. Radial and pedal pulses are 2/4 bilaterally. Neurological: No focal deficits. Strength and sensation are grossly intact. Results CBC & Chem 7: 06/13/18 04:44 06/13/18 04:44 Labs: Abnormal Lab Results - Last 24 Hours (Table) 06/12/18 06/13/18 06/13/18 Range/Units 19:53 04:44 04:44 RBC 2.92 L (4.30-5.90) m/uL Hgb 9.9 L D (13.0-17.5) gm/dL Hct 31.7 L (39.0-53.0) % MCV 108.6 H (80.0-100.0) fL Lymphocytes # 0.9 L (1.0-4.8) k/uL PT 16.6 H (9.0-12.0) sec INR 1.7 H (<1.2) APTT 56.9 H (22.0-30.0) sec Chloride (98-107) mmol/L BUN (9-20) mg/dL Glucose (74-99) mg/dL 06/13/18 06/13/18 Range/Units 04:44 04:44 RBC (4.30-5.90) m/uL Hgb (13.0-17.5) gm/dL Hct (39.0-53.0) % MCV (80.0-100.0) fL Lymphocytes # (1.0-4.8) k/uL PT (9.0-12.0) sec INR (<1.2) APTT 71.9 H (22.0-30.0) sec Chloride 108 H (98-107) mmol/L BUN 54 H (9-20) mg/dL Glucose 110 H (74-99) mg/dL Assessment and Plan (1) Acute GI bleeding Narrative/Plan: 83-year-old male admitted with acute CHF exacerbation non-ST elevated CO status post heart catheterization with stent RCA underlying history of mechanical mitral valve maintained on intravenous heparin dual antiplatelet therapy past painless black-colored bowel movement this morning with drop in hemoglobin and elevated BUN suggestive of acute upper GI bleed possible peptic ulcer disease possible gastritis esophagitis duodenitis possible bleeding AVM within the differential. Current Visit: Yes Status: Acute Code(s): K92.2 - GASTROINTESTINAL HEMORRHAGE, UNSPECIFIED SNOMED Code(s): 16869734 (2) Melena Current Visit: Yes Status: Acute Code(s): K92.1 - MELENA SNOMED Code(s): 9245394 (3) Elevated BUN Current Visit: Yes Status: Acute Code(s): R79.9 - ABNORMAL FINDING OF BLOOD CHEMISTRY, UNSPECIFIED SNOMED Code(s): 174020313 (4) Acute blood loss anemia Current Visit: Yes Status: Acute Code(s): D62 - ACUTE POSTHEMORRHAGIC ANEMIA SNOMED Code(s): 815774307 (5) Acute CHF Current Visit: Yes Status: Acute Code(s): I50.9 - HEART FAILURE, UNSPECIFIED SNOMED Code(s): 24713796 (6) Acute non-ST elevation myocardial infarction (NSTEMI) Current Visit: Yes Status: Acute Code(s): I21.4 - NON-ST ELEVATION (NSTEMI) MYOCARDIAL INFARCTION SNOMED Code(s): 970154547 (7) History of mitral valve replacement with mechanical valve Current Visit: Yes Status: Acute Code(s): Z95.2 - PRESENCE OF PROSTHETIC HEART VALVE SNOMED Code(s): 71902316001903 (8) Chronic a-fib Current Visit: Yes Status: Acute Code(s): I48.2 - CHRONIC ATRIAL FIBRILLATION SNOMED Code(s): 012454389 (9) Warfarin-induced coagulopathy Current Visit: Yes Status: Acute Code(s): D68.32 - HEMORRHAGIC DISORD D/T EXTRINSIC CIRCULATING ANTICOAGULANTS; T45.515A - ADVERSE EFFECT OF ANTICOAGULANTS, INITIAL ENCOUNTER SNOMED Code(s): 73934935 Plan: 1. IV heparin discontinued continue a dual antiplatelet therapy. CBC PT/INR at noon. EGD 0700 tomorrow. Clear liquid today NPO after midnight. Will add Protonix 40 mg IV daily. The case planner has discussed the risks, benefits and alternative therapies for the above-mentioned procedure and for both sedation/analgesia as well as necessary blood product administration, if indicated, as they pertain to this patient. The patient has indicated understanding and acceptance of the risks and procedures discussed. Thank you for this kind referral and the opportunity to participate in the care of your patient. This consultation was discussed with Dr. Francis. The impression and plan of care have been directed as dictated.
[2018-06-13] MEDS: FAMOTIDINE 20 MG TAB PO SCH (09:44)
[2018-06-13] MEDS: FUROSEMIDE 20 MG TAB PO SCH (09:44)
[2018-06-13] MEDS: DIGOXIN 125 MCG TAB PO SCH (09:46)
--- NOTE | 2018-06-13 09:56 | XR ---
EXAMINATION TYPE: XR chest 1V portable DATE OF EXAM: 06/13/2018 COMPARISON: Prior chest x-ray 06/12/2018 HISTORY: Abnormal chest x-ray, intensive care unit management TECHNIQUE: Single frontal view of the chest is obtained. FINDINGS: Heart remains enlarged and there are overlying cardiac leads, patient is post median serna otomy. Bilateral airspace disease, bibasilar increased density persists. No evident pneumothorax. IMPRESSION: Correlate for congestive heart failure, pneumonia, ARDS not excluded. Probable right ple ural effusion.
[2018-06-13] MEDS: NITROGLYCERIN OINT 1 INCH/GM PACKET TOPICAL SCH ×3 (11:43→20:53)
[2018-06-13] MEDS: PANTOPRAZOLE 40 MG/10 ML VIAL IVP SCH (11:45)
--- NOTE | 2018-06-13 12:01 | PN ---
PROGRESS NOTE Patient is seen for followup for acute kidney injury. He is currently doing well. This morning patient had a bloody bowel movement. His heparin is currently on hold. He denies any chest pains or shortness of breath. PHYSICAL EXAMINATION: This morning, blood pressure was 134/75, heart rate 77 per minute. He is afebrile. Examination of the heart, S1, S2. Examination of the lungs, bilateral breath sounds are heard. Abdomen is soft, nontender. Examination of the lower extremities shows no significant edema. COFFEE SHOP AIDE exam is grossly intact. LABS: Show sodium 137, potassium 4.6, chloride 108, BUN 54, serum creatinine 1.16, hemoglobin 9.9 g/dL. ASSESSMENT: 1. Acute kidney injury secondary to contrast nephropathy and cardiorenal syndrome, currently improved. Patient is off of IV fluids. He received a dose of IV Lasix this morning. Will continue to monitor the renal function. 2. Gastrointestinal bleed. Hemoglobin is down to 9.9 from 11.5. Heparin is currently on hold. Gastroenterology has been consulted. 3. Congestive heart failure, acute on top of chronic, systolic. 4. Cardiomyopathy, ejection fraction 20%-25%. 5. Status post myocardial infarction, status post cardiac catheterization x2 with recent right coronary artery stent placement. PLAN: To continue with loop diuretics. Repeat labs in a.m. MMODL / IJN: [id number] /
[2018-06-13 12:16] LABS: Basophils % (A) 1 %; Eosinophils # (A) 0.1 k/uL (0-0.7); Eosinophils % (A) 2 %; HCT 30.5 % (39.0-53.0); HGB 9.9 gm/dL (13.0-17.5); Lymphocytes # (A) 0.8 k/uL (1.0-4.8); Lymphocytes % (A) 12 %; MCH 33.7 pg (25.0-35.0); MCHC 32.5 g/dL (31.0-37.0); MCV 103.7 fL (80.0-100.0); Macrocytosis Slight; Mean Platelet Volume 8.1; Monocytes # (A) 0.4 k/uL (0-1.0); Monocytes % (A) 7 %; Neutrophils # (A) 4.9 k/uL (1.3-7.7); Neutrophils % (A) 77 %; Platelet Count 161 k/uL (150-450); RBC 2.94 m/uL (4.30-5.90); RDW 13.4 % (11.5-15.5); WBC 6.4 k/uL (3.8-10.6)
--- NOTE | 2018-06-13 12:28 | PN ---
PROGRESS NOTE Krish is an 83-year-old gentleman with known coronary artery disease, recent myocardial infarction, cath and angioplasty. The patient has chronic atrial fibrillation and has a mechanical valve. He was started back on heparin and Coumadin. He had black tarry stools with a drop in the hemoglobin. The patient started out with a hemoglobin of 11.5 and dropped it to 9.9. INR today is 1.7. Heparin is currently on hold. Aspirin and Plavix are also being held. The patient is going to have an EGD. If the EGD does not reveal significant source of blood loss we should resume aspirin and Plavix and we probably have to resume the heparin also. PHYSICAL EXAMINATION: On exam, patient appears comfortable at rest. Heart rate is 77 beats per minute, blood pressure is 134/75, respiratory rate 18. Chest exam reveals diminished air entry at the bases. Heart exam reveals first and second heart sounds. Systolic murmur at the apex. Mechanical sound is heard. Abdomen is soft. Examination of extremities did not reveal edema. Peripheral pulses are palpable. ASSESSMENT: 1. Non ST-segment elevation myocardial infarction, status post catheterization and angioplasty. 2. Gastrointestinal bleed. 3. History of coronary artery disease, status post coronary artery bypass grafting. 4. History of mitral valve replacement. PLAN: Will resume the antiplatelets and anticoagulants when okay with GI. MMODL / IJN: [id number] /
[2018-06-13 12:37] LABS: INR 1.8 (<1.2); Prothrombin Time 17.4 sec (9.0-12.0)
[2018-06-13] MEDS: MULTIVITAMINS, THERA 1 EACH TAB PO SCH (17:05)
[2018-06-13 18:20] LABS: Basophils % (A) 1 %; Eosinophils # (A) 0.2 k/uL (0-0.7); Eosinophils % (A) 2 %; HCT 31.2 % (39.0-53.0); HGB 9.9 gm/dL (13.0-17.5); Lymphocytes % (A) 13 %; MCH 33.2 pg (25.0-35.0); MCHC 31.6 g/dL (31.0-37.0); Macrocytosis Slight; Mean Platelet Volume 7.7; Monocytes # (A) 0.5 k/uL (0-1.0); Monocytes % (A) 7 %; Neutrophils # (A) 5.5 k/uL (1.3-7.7); Neutrophils % (A) 74 %; Platelet Count 170 k/uL (150-450); RBC 2.97 m/uL (4.30-5.90); RDW 13.6 % (11.5-15.5); WBC 7.5 k/uL (3.8-10.6)
[2018-06-13] MEDS: WARFARIN 5 MG TAB PO SCH (18:30)
[2018-06-13] MEDS ORDERED: CLOPIDOGREL 75 MG TAB PO STA (18:31)
[2018-06-13] MEDS ORDERED: ASPIRIN 81 MG PO STA (18:32)
[2018-06-13] MEDS: PRAVASTATIN SODIUM 40 MG TAB PO SCH (20:53)
[2018-06-13] MEDS: FINASTERIDE 5 MG TAB PO SCH (20:53)
[2018-06-13] MEDS: HEPARIN SOD,PORK IN 0.45% NACL 25,000 UNIT in 0.45% NACL 1 250ML.BAG IV SCH (20:55)
--- NOTE | 2018-06-13 21:55 | PN ---
PROGRESS NOTE DATE OF SERVICE: 06/13/2018 PRESENTING COMPLAINT: Dark stools. INTERVAL HISTORY: This patient remains in the ICU. Admitted with acute AL, has an EF less than 20%. He had initial cardiac cath on June 07 and had a repeat cardiac cath on June 11 with a stent to the RCA. He was on IV heparin and Coumadin for a mechanical mitral valve. Today he had a dark stool. IV heparin was discontinued. Cardiology was consulted. Lying in bed, tired. REVIEW OF SYSTEMS: Done for constitutional, cardiovascular, GI, pulmonary; relevant findings as above. CURRENT MEDICATIONS: IV heparin discontinued. PHYSICAL EXAMINATION: Temperature 98.1, pulse 68, respiration 19, blood pressure 128/89, pulse ox 97% on 5 L. GENERAL APPEARANCE: Lying in bed. Tired-appearing. EYES: Pupils equal. Conjunctivae pale. NECK: JVD unable to assess. Mass not palpable. RESPIRATORY: Effort normal. LUNGS: Decreased breath sounds. CARDIOVASCULAR: First and second sounds normal. No edema. ABDOMEN: Soft, nontender. Liver and spleen not palpable. PSYCHIATRY: Awake, answering simple questions. INVESTIGATIONS: White count 7.5, hemoglobin 9.9, INR 1.8. ASSESSMENT: 1. Acute on chronic congestive heart failure exacerbation from systolic dysfunction, ejection fraction 40%, with underlying coronary artery disease. 2. Acute [id number] myocardial infarction, POA. 3. Coronary artery disease with successful atherectomy and stenting of the right coronary artery June 11, 2018. 4. Acute kidney injury, possibly a combination of acute tubular necrosis and prerenal, with improvement. 5. 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 6. Persistent atrial fibrillation. 7. Essential hypertension. 8. Hyperlipidemia. 9. Obstructive sleep apnea. Uses CPAP machine. 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 11.Coumadin monitoring. 12.Acute gastrointestinal bleed in a patient who is on IV heparin. PLAN: IV heparin was discontinued. GI was consulted. Prognosis remains guarded. Continue other medication and treatment plan. of course will be held. VIVIANAL / IJN: [id number] /
[2018-06-14 05:01] LABS: Basophils # (A) 0.1 k/uL (0-0.2); Basophils % (A) 1 %; Eosinophils # (A) 0.3 k/uL (0-0.7); Eosinophils % (A) 4 %; HCT 31.5 % (39.0-53.0); HGB 9.1 gm/dL (13.0-17.5); Hypochromasia Slight; Lymphocytes % (A) 13 %; MCH 30.2 pg (25.0-35.0); MCV 104.2 fL (80.0-100.0); Macrocytosis Slight; Mean Platelet Volume 8.3; Monocytes # (A) 0.7 k/uL (0-1.0); Monocytes % (A) 9 %; Neutrophils # (A) 5.9 k/uL (1.3-7.7); Neutrophils % (A) 71 %; Platelet Count 189 k/uL (150-450); RBC 3.02 m/uL (4.30-5.90); RDW 13.6 % (11.5-15.5); WBC 8.3 k/uL (3.8-10.6)
[2018-06-14 05:06] LABS: INR 2.8 (<1.2); Prothrombin Time 26.8 sec (9.0-12.0)
[2018-06-14 05:35] LABS: Calcium 8.9 mg/dL (8.4-10.2); Potassium 4.4 mmol/L (3.5-5.1)
[2018-06-14] MEDS ORDERED: KETAMINE 10 MG/ML 20 ML VIAL ONE (07:02)
[2018-06-14] MEDS ORDERED: ETOMIDATE 2 MG/ML 10 ML VIAL ONE (07:02)
[2018-06-14] MEDS ORDERED: LIDOCAINE 1% INJ 10MG/ML (20 ML MDV) ONE (07:02)
[2018-06-14] MEDS ORDERED: IV FLUID CONTINUATION 1,000 ML IV ONE (07:07)
[2018-06-14] MEDS ORDERED: SODIUM CHLORIDE 0.9% 500 ML 500 ML IV ONE (07:31)
--- NOTE | 2018-06-14 07:47 | P.PCN ---
Date of Procedure: 06/14/18 Description of Procedure: BRIEF HISTORY: 83-year-old male with a past medical history of heart failure, mechanical valve maintained on warfarin, GERD, hypertension, hyperlipidemia admitted with acute shortness of breath 9 days ago secondary to acute on chronic systolic heart failure and non-ST elevated [place]. Patient underwent heart catheterization 2 days ago with atherectomy of the mid right coronary artery and stent RCA. Patient has been maintained on intravenous heparin aspirin Plavix and this morning passed a painless dark black-colored bowel movement with drop in hemoglobin 9.9 previously 11.5. Patient INR this morning was 1.7. BUN increased at 54. Creatinine 1.1. He denies epigastric pain nausea vomiting or indigestion. Denies abdominal pain.. PROCEDURE PERFORMED: Esophagogastroduodenoscopy with argon plasma coagulation. PREOPERATIVE DIAGNOSIS: Melena, anemia of acute blood loss. ESTIMATED BLOOD LOSS: Minimal. IV sedation per anesthesia. PROCEDURE: After informed consent was obtained, the patient was brought into the endoscopy unit. IV sedation was administered by Anesthesia under continuous monitoring. Initially the Olympus GIF-190 video endoscope was inserted into the mouth. Esophagus intubated without any difficulty. It was gradually advanced into the stomach and duodenum and carefully examined. The bulb and the second part of the duodenum were significant for blood tinged bile. A small oozing arteriovenous malformation was seen in the second portion of the duodenum. Argon plasma coagulation was used for hemostasis. The scope at this time was withdrawn to the stomach, adequately insufflated with air, and upon careful examination, mucosa of the antrum, body, cardia and the fundus appeared normal. The scope was then withdrawn into the esophagus. The GE junction appeared. The esophagus appeared normal. There were no erosions or ulcerations seen and the patient tolerated the procedure well. IMPRESSION: 1. 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 RECOMMENDATIONS: The findings of this examination were discussed with the patient and his . Keep patient nothing by mouth except for ice chips and medications. Continue to monitor hemoglobin, with recheck of CBC at noon. Continue twice daily PPI therapy. Okay to resume anticoagulation if patient remains symptomatically stable and hemodynamically stable. We'll continue to monitor.
--- NOTE | 2018-06-14 08:17 | PN ---
PROGRESS NOTE DATE OF SERVICE: 06/14/2018 This is an 83-year-old gentleman with a history of acute on chronic systolic heart failure, acute non ST-segment elevation myocardial infarction, acute kidney injury, chronic atrial fibrillation, benign essential hypertension, sleep apnea, valvular heart disease with previous mitral valve replacement and a chest x-ray suggesting fluid overload. Yesterday, he was going to be transferred out of the ICU, but before he was transferred, he had a bloody bowel movement. The patient is going for a scope today. The patient was maintained in the ICU. Heparin was finally turned off at 4 o' clock in the morning. He had no additional bloody bowel movements and his hemoglobin this morning was 9.1. He remains on O2 at 4 L by nasal cannula and a saline IV at 20 mL an hour. The patient is very short of breath off oxygen. As I mentioned, he has had no additional GI bleeding. He has been seen by Gastroenterology and an EGD is planned for today. The patient otherwise had a pretty uneventful night according to the nurses. Current vital signs are reviewed. Temperature 98.4, heart rate 18, blood pressure 133/67, mean 89, and a 4 L saturations between 90% and 92%. He drops down into the low 80s off the oxygen. He appears in no acute distress. HEENT examination is grossly unremarkable. Nasal O2 in place. Mucous membranes are moist. NECK: Supple. Full range of motion. No adenopathy, thyromegaly or neck vein distention. Cardiovascular examination reveals an irregular rhythm and rate. Heart rate in mid 70s. S1, S2 normal. No distinct murmur noted. Lungs reveal relatively clear breath sounds. There is a few scattered basilar crackles. No rhonchi or wheezes. Abdomen is soft. Bowel sounds are heard. No masses or tenderness. Extremities are intact. No cyanosis, clubbing, or edema. Skin without rash. Neurologic examination is brief but nonfocal. Lab data is reviewed. White count 8.3, hemoglobin 9.1, hematocrit 31.5, platelet count 189,000. Hemoglobin yesterday was 9.9. PT, INR were 26.8 and 2.8 respectively. Sodium 138, potassium 4.4, chloride 107, CO2 of 24, anion gap is normal. BUN and creatinine were 57 and 1.11. No chest x-ray is done. Medications are reviewed. ASSESSMENT: 1. Acute possible upper gastrointestinal bleed, to be evaluated by EGD today. 2. Acute on chronic systolic congestive heart failure. 3. Acute non ST-segment elevation myocardial infarction. 4. Acute kidney injury, improved. 5. Chronic atrial fibrillation, on anticoagulation. 6. Benign essential hypertension. 7. Sleep apnea, maintained on CPAP at 8 cm of water pressure and 30% FiO2. 8. Valvular heart disease, status post mitral valve replacement. PLAN: The patient will be going to the endoscopy suite today for an EGD. This will help us evaluate his possible GI bleed. The patient's hemoglobin has been relatively stable. Hemodynamics have been stable. The patient will come back to the unit. The heparin has been held since 4 o'clock in the morning. Additional recommendations and suggestions are forthcoming. Prognosis is guarded. He is very oxygen- dependent at this time. We will likely maintain him in the unit for the next 24 hours. Addendum: An AVM was seen on endoscopy and treated. See report. MMODL / IJN: [id number] / STEPHANIE
[2018-06-14] MEDS: PANTOPRAZOLE 40 MG/10 ML VIAL IVP SCH (10:03)
[2018-06-14] MEDS: NITROGLYCERIN OINT 1 INCH/GM PACKET TOPICAL SCH (10:04)
[2018-06-14] MEDS: DIGOXIN 125 MCG TAB PO SCH (10:05)
[2018-06-14] MEDS: CLOPIDOGREL 75 MG TAB PO SCH (10:05)
[2018-06-14] MEDS: CARVEDILOL 3.125 MG TAB PO SCH ×2 (10:05→18:07)
[2018-06-14] MEDS: MULTIVITAMINS, THERA 1 EACH TAB PO SCH (10:05)
[2018-06-14] MEDS: ASPIRIN 81 MG PO SCH (10:05)
[2018-06-14] MEDS: FUROSEMIDE 20 MG TAB PO SCH (10:05)
[2018-06-14] MEDS: FAMOTIDINE 20 MG TAB PO SCH (10:05)
--- NOTE | 2018-06-14 12:44 | PN ---
PROGRESS NOTE Krish is an 83-year-old gentleman who is admitted to hospital with non ST-segment elevation [place] and underwent cardiac catheterization and angioplasty. He developed lower GI bleed yesterday. Patient has a mechanical mitral valve and had been on Coumadin. The patient was on heparin, Coumadin, aspirin and Plavix. For GI bleed underwent therapeutic endoscopy and is going to resume his heparin and Coumadin later today. PHYSICAL EXAMINATION: On exam this morning, he appears comfortable at rest. Vital signs are stable. Chest exam reveals good air entry bilaterally. Heart exam reveals first and second heart sounds. Irregular rhythm. Mechanical sound is heard. Examination of extremities reveals trace edema. Peripheral pulses are felt. LABS: Labs show that the hemoglobin is 9.1, platelet count is 189, INR is 2.8. ASSESSMENT: 1. Non ST-segment elevation myocardial infarction, status post catheterization and angioplasty. 2. Status post mitral valve replacement. 3. Chronic atrial fibrillation. PLAN: The patient will resume aspirin and Plavix. We do not have to restart heparin as INR is already therapeutic at 2.8. MMODL / IJN: [id number] /
[2018-06-14 14:57] LABS: INR 2.9 (<1.2); Prothrombin Time 28.2 sec (9.0-12.0)
[2018-06-14 14:58] LABS: Basophils % (A) 1 %; Eosinophils # (A) 0.1 k/uL (0-0.7); Eosinophils % (A) 1 %; HCT 27.4 % (39.0-53.0); HGB 8.8 gm/dL (13.0-17.5); Hypochromasia Slight; Lymphocytes % (A) 13 %; MCH 33.8 pg (25.0-35.0); MCV 105.4 fL (80.0-100.0); Macrocytosis Moderate; Mean Platelet Volume 8.5; Monocytes # (A) 0.6 k/uL (0-1.0); Monocytes % (A) 8 %; Neutrophils # (A) 5.6 k/uL (1.3-7.7); Neutrophils % (A) 75 %; Platelet Count 155 k/uL (150-450); RDW 13.8 % (11.5-15.5); WBC 7.5 k/uL (3.8-10.6)
[2018-06-14] MEDS: WARFARIN 5 MG TAB PO SCH (15:08)
--- NOTE | 2018-06-14 16:14 | PN ---
PROGRESS NOTE Patient is seen for followup for acute kidney injury. His renal function has improved significantly. 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 Patient had argon plasma coagulation and he is currently doing fairly well. PHYSICAL EXAMINATION: Blood pressure this morning was 114/62, heart rate of 68 per minute. He is afebrile. EXAMINATION OF THE HEART: S1, S2. EXAMINATION OF LUNGS: Bilateral breath sounds are heard. ABDOMEN: Soft, non-tender. Examination of lower extremities shows no significant edema. [employer] exam is grossly intact. LABS: Hemoglobin 8.8, sodium 138, potassium 4.4, BUN 57, serum creatinine 1.1. ASSESSMENT: 1. Acute kidney injury, currently improved. The BUN is disproportionately elevated secondary to GI bleed. 2. Acute gastrointestinal bleed, status post esophagogastroduodenoscopy which showed bleeding arteriovenous malformation. Patient had argon coagulation done. 3. Status post acute myocardial infarction, status post cardiac catheterization x2 with stenting, status post coronary artery stent and angioplasty. 4. Mitral valve disease, status post mitral valve replacement with mechanical valve. 5. Chronic atrial fibrillation with controlled ventricular response. PLAN: Maintain patient on oral diuretics and continue to monitor renal profile periodically. MMODL / IJN: [id number] /
[2018-06-14] MEDS: HEPARIN SOD,PORK IN 0.45% NACL 25,000 UNIT in 0.45% NACL 1 250ML.BAG IV SCH (18:03)
[2018-06-14] MEDS: FINASTERIDE 5 MG TAB PO SCH (20:09)
[2018-06-14] MEDS: PRAVASTATIN SODIUM 40 MG TAB PO SCH (20:09)
--- NOTE | 2018-06-15 02:53 | PN ---
PROGRESS NOTE DATE OF SERVICE: 06/14/2018 PRESENTING COMPLAINT: Bloody stools. INTERVAL HISTORY: This patient is in the ICU, admitted with acute DE and EF less than 20% and a cardiac cath on June 07 and repeat cardiac cath on June 11 with a stent to the RCA. Was on IV heparin and Coumadin for a mechanical mitral valve. The patient again had a bloody stool this morning. EGD was carried out. 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 The patient feels tired, weak, lying in bed. REVIEW OF SYSTEMS: Done for constitutional, cardiovascular, GI, pulmonary; relevant findings as above. CURRENT MEDICATIONS: Reviewed. The patient is on aspirin and Plavix. PHYSICAL EXAMINATION: Temperature 98.2 pulse 73, respiratory 14, blood pressure 117/66, pulse ox 94 percent. GENERAL APPEARANCE: Lying in bed, tired appearing. EYES: Pupils equal. Conjunctivae pale. NECK: JVD unable to assess. Mass not palpable. Respiratory effort normal. LUNGS: Decreased breath sounds. CARDIOVASCULAR: Mechanical heart sounds. No edema. ABDOMEN: Soft, nontender. Liver and spleen not palpable. PSYCHIATRY: Alert and oriented x3. INVESTIGATIONS: White count 7.5, hemoglobin 8.8, INR 2.9. ASSESSMENT: 1. Acute on chronic congestive heart failure exacerbation from systolic dysfunction, ejection fraction 40%, underlying coronary artery disease. 2. Acute non-ST elevation myocardial infarction, POA. 3. Coronary artery disease with successful atherectomy and stenting of the RCA, June 11. 4. Acute kidney injury, possibly combination of acute tubular necrosis and prerenal with improvement. 5. 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 6. Persistent atrial fibrillation on Coumadin. 7. Essential hypertension. 8. Hyperlipidemia. 9. Obstructive sleep apnea, uses CPAP machine. 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 11.Coumadin monitoring. 12.Acute gastrointestinal bleed in a patient from AV malformation, status post plasma argon coagulation. PLAN: Prognosis remains guarded. Continue current medication and treatment plan. Keep the patient on aspirin, Plavix, and Coumadin. Keep a close eye on patient's hemoglobin. MMODL / IJN: [id number] /
[2018-06-15 06:17] LABS: Basophils % (A) 1 %; Eosinophils # (A) 0.1 k/uL (0-0.7); Eosinophils % (A) 1 %; HCT 29.1 % (39.0-53.0); Hypochromasia Slight; Lymphocytes # (A) 0.9 k/uL (1.0-4.8); Lymphocytes % (A) 11 %; MCH 32.5 pg (25.0-35.0); MCHC 30.9 g/dL (31.0-37.0); MCV 105.3 fL (80.0-100.0); Macrocytosis Moderate; Mean Platelet Volume 8.3; Monocytes # (A) 0.6 k/uL (0-1.0); Monocytes % (A) 8 %; Neutrophils # (A) 6.3 k/uL (1.3-7.7); Neutrophils % (A) 78 %; Platelet Count 175 k/uL (150-450); RBC 2.76 m/uL (4.30-5.90); RDW 13.9 % (11.5-15.5); WBC 8.1 k/uL (3.8-10.6)
[2018-06-15 06:21] LABS: INR 3.3 (<1.2); Prothrombin Time 31.4 sec (9.0-12.0)
[2018-06-15] MEDS: DIGOXIN 125 MCG TAB PO SCH (09:00)
[2018-06-15] MEDS: ASPIRIN 81 MG PO SCH (09:00)
[2018-06-15] MEDS: CARVEDILOL 3.125 MG TAB PO SCH ×2 (09:00→18:23)
[2018-06-15] MEDS: FUROSEMIDE 20 MG TAB PO SCH (09:00)
[2018-06-15] MEDS: FAMOTIDINE 20 MG TAB PO SCH (09:00)
[2018-06-15] MEDS: CLOPIDOGREL 75 MG TAB PO SCH (09:00)
[2018-06-15] MEDS: PANTOPRAZOLE 40 MG/10 ML VIAL IVP SCH (09:00)
--- NOTE | 2018-06-15 09:59 | P.PN ---
Subjective Patient is seen in follow-up for acute kidney injury. Renal function improved. Patient had an acute [place] this admission for which he underwent cardiac catheterization and a stent placement. Ejection fraction is less than 20%. Currently maintained on Lasix 20 mg once daily. Good urine output. 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 Hemoglobin stable today. Vital signs are stable. General: The patient appeared well nourished and normally developed. HEENT: Head exam is unremarkable. Neck is without jugular venous distension. LUNGS: Lungs are clear to auscultation and percussion. Breath sounds decreased. HEART: Rate and Rhythm are regular. First and second heart sounds normal. No murmurs, rubs or gallops. ABDOMEN: Abdominal exam reveals normal bowel sounds. Non-tender and non- distended. No evidence of peritonitis. EXTREMITITES: No clubbing, cyanosis, or edema. Objective - Vital Signs Vital signs: Vital Signs Temp 98.8 F 06/15/18 05:00 Pulse 72 06/15/18 09:00 Resp 19 06/15/18 09:00 BP 122/66 06/15/18 09:00 Pulse Ox 96 06/15/18 09:00 Intake & Output 06/14/18 06/15/18 06/15/18 18:59 06:59 18:59 Intake Total 120 40 Output Total 500 Balance -380 40 Weight 71.4 kg Intake: IV 120 40 0.9 40 Oral 0 Output: Stool 500 Other: Voiding Method Urinal Urinal Urinal # Voids 4 ABP, PAP, CO, CI - Last Documented Arterial Blood Pressure 127/41 - Labs CBC & Chem 7: 06/15/18 05:30 06/14/18 04:23 Labs: Abnormal Lab Results - Last 24 Hours (Table) 06/14/18 06/14/18 06/15/18 Range/Units 14:22 14:22 05:30 RBC 2.60 L 2.76 L (4.30-5.90) m/uL Hgb 8.8 L 9.0 L (13.0-17.5) gm/dL Hct 27.4 L 29.1 L (39.0-53.0) % MCV 105.4 H 105.3 H (80.0-100.0) fL MCHC 30.9 L (31.0-37.0) g/dL Lymphocytes # 0.9 L (1.0-4.8) k/uL PT 28.2 H (9.0-12.0) sec INR 2.9 H (<1.2) APTT (22.0-30.0) sec 06/15/18 06/15/18 Range/Units 05:30 05:30 RBC (4.30-5.90) m/uL Hgb (13.0-17.5) gm/dL Hct (39.0-53.0) % MCV (80.0-100.0) fL MCHC (31.0-37.0) g/dL Lymphocytes # (1.0-4.8) k/uL PT 31.4 H (9.0-12.0) sec INR 3.3 H (<1.2) APTT 32.2 H (22.0-30.0) sec Assessment and Plan Plan: Assessment: 1. Acute kidney injury secondary to cardiorenal syndrome. Improved. 2. 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 Hemoglobin stable. 3. Systolic CHF with ejection fraction of less than 20%. 4. Acute myocardial infarction status post cardiac catheterization with stent placement. 5. Chronic active fibrillation. Rate controlled. 6. History of mitral valve placement. Plan: Maintain Lasix 20 mg once daily. Encouraged oral intake. Avoid nephrotoxins.
[2018-06-15] MEDS: WARFARIN 5 MG TAB PO SCH (10:10)
[2018-06-15 10:41] LABS: Calcium 9.3 mg/dL (8.4-10.2); Potassium 4.8 mmol/L (3.5-5.1)
--- NOTE | 2018-06-15 12:17 | PN ---
PROGRESS NOTE Patient has known CAD, status post cath and angioplasty for non ST-segment elevation [place]. Subsequent course was complicated by GI bleed. She had an EGD and therapeutic endoscopy. This morning, he is feeling better, free of symptoms, bleeding has resolved, stable hemodynamically. Patient is currently on aspirin, Lanoxin, Lasix, Pravachol, Coumadin. PHYSICAL EXAM: Patient is comfortable at rest. Vital signs are stable. Chest exam reveals good air entry bilaterally. Heart exam reveals first and second heart sounds. Mechanical heart sound is heard. Abdomen is soft. Exam of the extremities did not reveal any edema. Peripheral pulses are felt. LABS: Show that the hemoglobin is 9, platelet count is 175, INR is 3.3, potassium is 4.4. ASSESSMENT: 1. Acute non ST-segment elevation myocardial infarction, status post mitral valve replacement. 2. Gastrointestinal bleed. PLAN: Patient is feeling better. He will be transferred to Med Surg. KODY / SUSAN: [id number] /
--- NOTE | 2018-06-15 16:23 | P.PN ---
Subjective Progress Note Date: 06/15/18 Principal diagnosis: Anemia, melena Patient has done well since EGD yesterday. Denies any abdominal pain. No GI bleeding reported. Hemoglobin has remained stable. He has tolerated his diet. Objective - Vital Signs Vital signs: Vital Signs Temp 98.8 F 06/15/18 05:00 Pulse 54 L 06/15/18 12:00 Resp 16 06/15/18 10:00 BP 107/43 06/15/18 12:00 Pulse Ox 94 L 06/15/18 10:00 Intake & Output 06/14/18 06/15/18 06/15/18 18:59 06:59 18:59 Intake Total 120 40 600 Output Total 500 Balance -380 40 600 Weight 71.4 kg Intake: IV 120 40 0.9 40 Oral 0 600 Output: Stool 500 Other: Voiding Method Urinal Urinal Urinal # Voids 4 4 ABP, PAP, CO, CI - Last Documented Arterial Blood Pressure 127/41 - Exam On physical examination, patient appears comfortable in no apparent distress. HEAD: Normocephalic, atraumatic. EYES: No scleral icterus. No conjunctival injection. MOUTH: No lesions, tongue midline. NECK: Trachea midline, no gross abnormalities. CHEST: Clear to auscultation with no wheezing or rhonchi appreciated. ABDOMEN: Soft. Bowel sounds are positive. No organomegaly. No guarding or rigidity. EXTREMITIES: No pedal edema. SKIN: No rashes, no jaundice. NEUROLOGIC: Alert and oriented. No focal deficits. - Labs CBC & Chem 7: 06/15/18 05:30 06/15/18 05:30 Labs: Abnormal Lab Results - Last 24 Hours (Table) 06/15/18 06/15/18 06/15/18 Range/Units 05:30 05:30 05:30 RBC 2.76 L (4.30-5.90) m/uL Hgb 9.0 L (13.0-17.5) gm/dL Hct 29.1 L (39.0-53.0) % MCV 105.3 H (80.0-100.0) fL MCHC 30.9 L (31.0-37.0) g/dL Lymphocytes # 0.9 L (1.0-4.8) k/uL PT 31.4 H (9.0-12.0) sec INR 3.3 H (<1.2) APTT 32.2 H (22.0-30.0) sec Chloride (98-107) mmol/L BUN (9-20) mg/dL Glucose (74-99) mg/dL 06/15/18 Range/Units 05:30 RBC (4.30-5.90) m/uL Hgb (13.0-17.5) gm/dL Hct (39.0-53.0) % MCV (80.0-100.0) fL MCHC (31.0-37.0) g/dL Lymphocytes # (1.0-4.8) k/uL PT (9.0-12.0) sec INR (<1.2) APTT (22.0-30.0) sec Chloride 110 H (98-107) mmol/L BUN 49 H (9-20) mg/dL Glucose 109 H (74-99) mg/dL Assessment and Plan (1) Acute GI bleeding Narrative/Plan: EGD performed yesterday in significant for duodenal AVM with successful argon plasma coagulation ablation and hemostasis. The patient denies any further signs or symptoms of GI bleeding. Current Visit: Yes Status: Acute Code(s): K92.2 - GASTROINTESTINAL HEMORRHAGE, UNSPECIFIED SNOMED Code(s): 04334794 (2) Acute blood loss anemia Current Visit: Yes Status: Acute Code(s): D62 - ACUTE POSTHEMORRHAGIC ANEMIA SNOMED Code(s): 084396808 Plan: Supportive care Monitor hemoglobin and transfuse as needed Okay for full liquid diet today Okay to resume anticoagulation/antiplatelet therapy per cardiology service Continue to monitor for signs and symptoms of GI bleeding Thank you for allowing us to participate in the care of this patient we will continue to follow
[2018-06-15] MEDS: MULTIVITAMINS, THERA 1 EACH TAB PO SCH (18:23)
[2018-06-15] MEDS: FINASTERIDE 5 MG TAB PO SCH (20:13)
[2018-06-15] MEDS: PRAVASTATIN SODIUM 40 MG TAB PO SCH (20:13)
[2018-06-16 04:54] LABS: Basophils % (A) 0 %; Eosinophils % (A) 0 %; HCT 26.3 % (39.0-53.0); HGB 8.7 gm/dL (13.0-17.5); Lymphocytes # (A) 0.7 k/uL (1.0-4.8); Lymphocytes % (A) 7 %; MCH 34.3 pg (25.0-35.0); MCHC 33.2 g/dL (31.0-37.0); MCV 103.5 fL (80.0-100.0); Macrocytosis Slight; Mean Platelet Volume 8.8; Monocytes # (A) 0.7 k/uL (0-1.0); Monocytes % (A) 6 %; Neutrophils # (A) 8.7 k/uL (1.3-7.7); Neutrophils % (A) 85 %; Platelet Count 173 k/uL (150-450); RBC 2.54 m/uL (4.30-5.90); RDW 14.2 % (11.5-15.5); WBC 10.3 k/uL (3.8-10.6)
[2018-06-16 05:05] LABS: Calcium 9.1 mg/dL (8.4-10.2); Magnesium 2.1 mg/dL (1.6-2.3); Potassium 4.9 mmol/L (3.5-5.1)
--- NOTE | 2018-06-16 07:37 | PN ---
PROGRESS NOTE DATE OF SERVICE: 06/15/2018 PRESENTING COMPLAINT: Tired. INTERVAL HISTORY: Patient admitted to the ICU, admitted with acute [place], has EF of less than 20%. Had a cardiac cath on June 07 and repeat cardiac cath on June 11 with stent to the RCA. Was on IV heparin and Coumadin for mechanical mitral valve. Had bloody stools. EGD showed AV malformation and had argon plasma coagulation. No bleeding today. Lying in bed. Did tolerate some diet. REVIEW OF SYSTEMS: Done for constitutional, cardiovascular, GI, pulmonary and findings as above. CURRENT MEDICATIONS: Reviewed that include antiplatelet agents. EXAMINATION: Afebrile, pulse54, respirations 16, blood pressure 107/43, pulse ox 94 percent 4 L. GENERAL APPEARANCE: Lying in bed, tired-appearing. EYES: Pupils equal. Conjunctivae normal. NECK: JVD not raised. Mass not palpable. Respiratory effort normal. LUNGS: Decreased breath sounds. CARDIOVASCULAR: Mechanical heart sounds. No edema. ABDOMEN: Soft, nontender. Liver and spleen not palpable. PSYCHIATRY: Alert and oriented x3. Mood and affect normal. INVESTIGATIONS: Hemoglobin 9. INR 3.3. ASSESSMENT: 1. Acute on chronic congestive heart failure exacerbation from systolic dysfunction, ejection fraction 40% from underlying coronary artery disease. 2. Acute non-ST elevation myocardial infarction, POA. 3. Coronary artery disease with successful atherectomy and stenting of the RCA. 4. Acute kidney injury, possibly combination of acute tubular necrosis and prerenal with improvement. 5. 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 6. Persistent atrial fibrillation on Coumadin. 7. Essential hypertension. 8. Hyperlipidemia. 9. Obstructive sleep apnea uses CPAP machine. 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 11.Coumadin monitoring. 12.Acute gastrointestinal bleed in a patient with AV malformation. Patient is status post plasma collection. PLAN: Overall prognosis remains guarded. Continue current medication and treatment plan. The patient is on antiplatelet agents. [place]icho. Coumadin has been held. His INR is therapeutic. MMODL / IJN: [id number] /
[2018-06-16] MEDS: ASPIRIN 81 MG PO SCH (08:15)
[2018-06-16] MEDS: DIGOXIN 125 MCG TAB PO SCH (08:15)
[2018-06-16] MEDS: CARVEDILOL 3.125 MG TAB PO SCH ×2 (08:15→18:13)
[2018-06-16] MEDS: FAMOTIDINE 20 MG TAB PO SCH ×2 (08:15→20:47)
[2018-06-16] MEDS: CLOPIDOGREL 75 MG TAB PO SCH (08:15)
[2018-06-16] MEDS: MULTIVITAMINS, THERA 1 EACH TAB PO SCH (08:16)
[2018-06-16] MEDS: FUROSEMIDE 20 MG TAB PO SCH (08:16)
--- NOTE | 2018-06-16 09:52 | P.PN ---
Subjective Patient is seen in follow-up for acute kidney injury. Renal function improved since admission. Patient had an acute [place] this admission for which he underwent cardiac catheterization and a stent placement. Ejection fraction is less than 20%. Currently maintained on Lasix 20 mg once daily. Good urine output. 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 Hemoglobin stable today. Renal function is worse today with creatinine up to 1.6. Blood pressures have been stable. Vital signs are stable. General: The patient appeared well nourished and normally developed. HEENT: Head exam is unremarkable. Neck is without jugular venous distension. LUNGS: Breath sounds decreased. HEART: Rate and Rhythm are regular. First and second heart sounds normal. No murmurs, rubs or gallops. ABDOMEN: Abdominal exam reveals normal bowel sounds. Non-tender and non- distended. No evidence of peritonitis. EXTREMITITES: No clubbing, cyanosis, or edema. Objective - Vital Signs Vital signs: Vital Signs Temp 98.2 F 06/16/18 07:00 Pulse 67 06/16/18 07:39 Resp 18 06/16/18 07:39 BP 113/62 06/16/18 07:39 Pulse Ox 94 L 06/16/18 07:39 Intake & Output 06/15/18 06/16/18 06/16/18 18:59 06:59 18:59 Intake Total 600 150 Output Total 125 100 Balance 600 -125 50 Weight 76.6 kg Intake: Oral 600 150 Output: Urine 125 100 Other: Voiding Method Urinal Urinal Urinal # Voids 4 ABP, PAP, CO, CI - Last Documented Arterial Blood Pressure 127/41 - Labs CBC & Chem 7: 06/16/18 04:09 06/16/18 04:09 Labs: Abnormal Lab Results - Last 24 Hours (Table) 06/15/18 06/16/18 06/16/18 Range/Units 05:30 04:09 04:09 RBC 2.54 L (4.30-5.90) m/uL Hgb 8.7 L (13.0-17.5) gm/dL Hct 26.3 L (39.0-53.0) % MCV 103.5 H (80.0-100.0) fL Neutrophils # 8.7 H (1.3-7.7) k/uL Lymphocytes # 0.7 L (1.0-4.8) k/uL Chloride 110 H (98-107) mmol/L BUN 49 H 51 H (9-20) mg/dL Creatinine 1.61 H (0.66-1.25) mg/dL Glucose 109 H 189 H (74-99) mg/dL Assessment and Plan Plan: Assessment: 1. Acute kidney injury secondary to cardiorenal syndrome. Improved. Renal function worsening the last 2 days with creatinine up to 1.6 today. Rule out urinary retention. 2. 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 Hemoglobin stable. 3. Systolic CHF with ejection fraction of less than 20%. 4. Acute myocardial infarction status post cardiac catheterization with stent placement. 5. Chronic active fibrillation. Rate controlled. 6. History of mitral valve placement. Plan: Maintain Lasix 20 mg once daily. Encouraged oral intake. Avoid nephrotoxins. Check postvoid residuals. Repeat chest x-ray tomorrow.
[2018-06-16 10:36] LABS: INR 3.1 (<1.2); Prothrombin Time 30.3 sec (9.0-12.0)
[2018-06-16] MEDS: WARFARIN 5 MG TAB PO SCH (10:39)
--- NOTE | 2018-06-16 12:37 | PN ---
PROGRESS NOTE Krish is an 83-year-old gentleman who was admitted to the hospital for acute non ST- segment elevation [place] has chronic atrial fibrillation and mechanical mitral valve. He underwent catheterization and angioplasty. His hospital course was complicated by GI bleed requiring therapeutic endoscopy. This morning, he appears comfortable at rest and is free of symptoms. His hemoglobin is 8.7, platelet count is 173. INR is 3.1. The last dose of Coumadin he received was more than 3 days ago. I am going to hold off on giving him any Coumadin today. We will resume Coumadin tomorrow. EXAM: Comfortable at rest. Heart rate is 61 beats per minute. Blood pressure 130/82, respiratory rate 18, chest exam did not reveal any crackles or rhonchi. Heart exam reveals first and second heart sounds. Systolic murmur at the apex and mechanical heart sounds at rest. Abdomen is soft. Exam of extremities did not reveal any edema. Peripheral pulses are felt. ASSESSMENT: 1. Acute non ST-segment elevation myocardial infarction. 2. Gastrointestinal bleed status post therapeutic endoscopy. 3. History of mechanical valve. PLAN: We will continue aspirin Plavix, and Coumadin and hopefully we can resume Coumadin tomorrow. MMODL / IJN: [id number] /
--- NOTE | 2018-06-16 17:10 | P.PN ---
Subjective Progress Note Date: 06/16/18 Principal diagnosis: Anemia, melena Patient tolerating full liquid diet. No abdominal pain, nausea or vomiting reported. He did pass a small amount of dark stool today. Objective - Vital Signs Vital signs: Vital Signs Temp 98.2 F 06/16/18 07:00 Pulse 56 L 06/16/18 16:00 Resp 16 06/16/18 16:00 BP 115/64 06/16/18 16:00 Pulse Ox 96 06/16/18 16:00 Intake & Output 06/15/18 06/16/18 06/16/18 18:59 06:59 18:59 Intake Total 600 550 Output Total 125 100 Balance 600 -125 450 Weight 76.6 kg Intake: IV 400 0.9 400 Oral 600 150 Output: Urine 125 100 Other: Voiding Method Urinal Urinal Urinal # Voids 4 300 ABP, PAP, CO, CI - Last Documented Arterial Blood Pressure 127/41 - Exam On physical examination, patient appears comfortable in no apparent distress. HEAD: Normocephalic, atraumatic. EYES: No scleral icterus. No conjunctival injection. MOUTH: No lesions, tongue midline. NECK: Trachea midline, no gross abnormalities. CHEST: Clear to auscultation with no wheezing or rhonchi appreciated. ABDOMEN: Soft. Bowel sounds are positive. No organomegaly. No guarding or rigidity. EXTREMITIES: No pedal edema. SKIN: No rashes, no jaundice. NEUROLOGIC: Alert and oriented. No focal deficits. - Labs CBC & Chem 7: 06/16/18 04:09 06/16/18 04:09 Labs: Abnormal Lab Results - Last 24 Hours (Table) 06/16/18 06/16/18 06/16/18 Range/Units 04:09 04:09 04:09 RBC 2.54 L (4.30-5.90) m/uL Hgb 8.7 L (13.0-17.5) gm/dL Hct 26.3 L (39.0-53.0) % MCV 103.5 H (80.0-100.0) fL Neutrophils # 8.7 H (1.3-7.7) k/uL Lymphocytes # 0.7 L (1.0-4.8) k/uL PT 30.3 H (9.0-12.0) sec INR 3.1 H (<1.2) BUN 51 H (9-20) mg/dL Creatinine 1.61 H (0.66-1.25) mg/dL Glucose 189 H (74-99) mg/dL Assessment and Plan (1) Acute GI bleeding Narrative/Plan: EGD performed yesterday in significant for duodenal AVM with successful argon plasma coagulation ablation and hemostasis. Current Visit: Yes Status: Acute Code(s): K92.2 - GASTROINTESTINAL HEMORRHAGE, UNSPECIFIED SNOMED Code(s): 74123102 (2) Acute blood loss anemia Current Visit: Yes Status: Acute Code(s): D62 - ACUTE POSTHEMORRHAGIC ANEMIA SNOMED Code(s): 027693782 Plan: Supportive care Monitor hemoglobin and transfuse as needed Okay for full liquid diet today Okay to resume anticoagulation/antiplatelet therapy per cardiology service Continue to monitor for signs and symptoms of GI bleeding Thank you for allowing us to participate in the care of this patient we will continue to follow
[2018-06-16] MEDS: PRAVASTATIN SODIUM 40 MG TAB PO SCH (20:46)
[2018-06-16] MEDS: FINASTERIDE 5 MG TAB PO SCH (20:46)
--- NOTE | 2018-06-17 01:07 | PN ---
PROGRESS NOTE DATE OF SERVICE: June 16, 2018. PRESENTING COMPLAINT: Tired. INTERVAL HISTORY: Patient admitted to the ICU intubated with acute MA, EF less than 20%. Had a cardiac cath in June further repeat cardiac cath in June, with stent to the RCA. The patient has been on Coumadin for mechanical mitral valve. Did have a GI bleed. EGD showed AV malfunction that was coagulated. Remains stable. Did tolerate some diet. No further bleeding. REVIEW OF SYSTEMS: Done for constitutional, cardiovascular, GI, pulmonary; relevant findings as above. CURRENT MEDICATIONS: Reviewed including aspirin and Plavix. PHYSICAL EXAMINATION: VITAL SIGNS: Temperature 98.2. Pulse 56, respiration 22, blood pressure 114/87, pulse ox 98% on 4 L. GENERAL APPEARANCE: Lying in bed. Tired-appearing. Awake. EYES: Pupils equal. Conjunctivae pale. NECK: JVD not raised. Mass not palpable. RESPIRATORY: Effort normal. LUNGS: Decreased breath sounds. CARDIOVASCULAR: Mechanical heart sounds. No edema. ABDOMEN: Soft. Nontender. Liver and spleen not palpable. PSYCHIATRY: Alert and oriented x3. Mood and affect normal. INVESTIGATIONS: Hemoglobin 8.7, INR 3.1, potassium 4.9, BUN 51, creatinine 1.61. ASSESSMENT: 1. Acute on chronic congestive heart failure exacerbation from systolic dysfunction, ejection fraction 40% from underlying coronary artery disease. 2. Acute non-ST elevation myocardial infarction, POA. 3. Coronary artery disease with successful atherectomy and stenting of the RCA. 4. Acute kidney injury, combination of acute tubular necrosis and prerenal. 5. 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 6. Persistent atrial fibrillation on Coumadin. 7. Essential hypertension. 8. Hyperlipidemia. 9. Obstructive sleep apnea uses CPAP machine. 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 11.Coumadin monitoring. 12.Acute gastrointestinal bleed in a patient with AV malformation for which patient had argon plasma coagulation. PLAN: Relatively stable. The prognosis remains guarded. The patient should be able to go back to the ECF tomorrow. Anticoagulants and antiplatelet agents have been okayed by both Gastroenterology and Cardiology to be resumed. MMODL / IJN: [id number] /
[2018-06-17 06:31] LABS: Basophils % (A) 0 %; Eosinophils # (A) 0.2 k/uL (0-0.7); Eosinophils % (A) 2 %; HCT 26.5 % (39.0-53.0); HGB 8.7 gm/dL (13.0-17.5); Hypochromasia Slight; Lymphocytes # (A) 0.8 k/uL (1.0-4.8); Lymphocytes % (A) 7 %; MCH 34.6 pg (25.0-35.0); MCV 104.7 fL (80.0-100.0); Macrocytosis Moderate; Mean Platelet Volume 8.7; Monocytes # (A) 0.9 k/uL (0-1.0); Monocytes % (A) 8 %; Neutrophils # (A) 9.5 k/uL (1.3-7.7); Neutrophils % (A) 81 %; Platelet Count 178 k/uL (150-450); RBC 2.53 m/uL (4.30-5.90); RDW 14.5 % (11.5-15.5); WBC 11.7 k/uL (3.8-10.6)
[2018-06-17 06:38] LABS: INR 1.9 (<1.2); Prothrombin Time 18.7 sec (9.0-12.0)
[2018-06-17 06:50] LABS: Calcium 9.1 mg/dL (8.4-10.2); Magnesium 2.1 mg/dL (1.6-2.3); Potassium 5.4 mmol/L (3.5-5.1)
[2018-06-17] MEDS: FAMOTIDINE 20 MG TAB PO SCH (07:33)
[2018-06-17] MEDS: CLOPIDOGREL 75 MG TAB PO SCH (07:33)
[2018-06-17] MEDS: CARVEDILOL 3.125 MG TAB PO SCH ×2 (07:33→18:10)
[2018-06-17] MEDS: FUROSEMIDE 20 MG TAB PO SCH (07:34)
[2018-06-17] MEDS: ASPIRIN 81 MG PO SCH (07:34)
[2018-06-17] MEDS: DIGOXIN 125 MCG TAB PO SCH (07:34)
[2018-06-17] MEDS ORDERED: WARFARIN 2 MG TAB PO ONE (09:00)
--- NOTE | 2018-06-17 09:13 | P.PN ---
Subjective This is an 83-year-old male admitted to the hospital for acute non-ST elevated myocardial infarction underwent angioplasty and arthrectomy of the mid RCA in June 11 with history of bypass grafting in the past with an SVG to the OM occluded, PATEL to LAD patent, left main mildly disease, ostial LAD with an 80% lesion and subsequently mid LAD is 100% occluded, 2 diagonal branches which are approximately diffusely diseased with long diffuse stenosis of 89% and ostial stenosis of the circumflex artery with multiple areas of 70-80% stenosis. 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 Okay to resume anticoagulation if he remains symptomatically stable and hemodynamically stable per GI. He also has a history of mechanical mitral valve repair on long-term anticoagulation with Coumadin. Echocardiogram obtained on this admission reveals severely impaired left ventricular systolic function with ejection fraction less than 20%, severely dilated left atrium, mild mitral regurgitation with a mean gradient across the mitral valve 5 mmHg, mechanical mitral valve in place, mild to moderate tricuspid regurgitation and mild pulmonary hypertension with an RVSP of 39 mmHg. He is seen and examined resting comfortably in bed on the surgical unit. He denies chest pain, significant shortness of breath, dizziness or palpitations. Blood pressure 119/ 67 heart rate 58 afebrile maintaining oxygen saturation on nasal cannula. Laboratory data reviewed, WBC 11.7, hemoglobin 8.7, platelets 178, INR 1.9, sodium 138, potassium 5.4, creatinine 1.47, magnesium 2.1. Coumadin last dose was 06/12. No active bleeding currently per the patient. Currently maintained on aspirin 81 mg daily, carvedilol 3.125 mg twice a day, Plavix 75 mg daily, digoxin 125 g daily, Lasix 20 mg daily and pravastatin 40 mg daily. GENERAL: Well-appearing, well-nourished and in no acute distress. NECK: Supple without JVD or thyromegaly. LUNGS: Right basilar rales, no rhonchi or wheezes. Respiration equal and unlabored. HEART: Irregular rate and rhythm with systolic murmur at the apex mechanical click noted, no rubs or gallops. S1 and S2 heard. EXTREMITIES: Normal range of motion, no edema. No clubbing or cyanosis. Peripheral pulses intact. ASSESSMENT Acute non-ST elevated myocardial infarction status post angioplasty and atherectomy of the mid RCA History of mechanical mitral valve replacement, [facility] Curt valve 1990 Acute GI bleeding status post therapeutic endoscopy Acute blood loss anemia, stable hemoglobin Pulmonary hypertension, RVSP 39 mmHg Acute on chronic systolic heart failure History of coronary artery disease s/p 2-vessel bypass grafting 1990 Ischemic cardiomyopathy, EF less than 20% Chronic persistent atrial fibrillation with controlled ventricular response on jail anti-coagulation PLAN Resume coumadin today with 2 mg. Check PT/INR and CBC in the morning. Obtain chest xray for rales noted on exam. Further recommendations to follow based on clinical course. Nurse Practitioner note has been reviewed, I agree with a documented findings and plan of care. Patient was seen and examined. Objective - Vital Signs Vital signs: Vital Signs Temp 97.3 F L 06/17/18 07:15 Pulse 58 L 06/17/18 07:15 Resp 20 06/17/18 07:15 BP 119/67 06/17/18 07:15 Pulse Ox 95 06/17/18 07:15 Intake & Output 06/16/18 06/17/18 06/17/18 18:59 06:59 18:59 Intake Total 550 440 Output Total 100 Balance 450 440 Intake: IV 400 0.9 400 Oral 150 40 Tube Feeding 400 Output: Urine 100 Other: Voiding Method Urinal Urinal # Voids 300 ABP, PAP, CO, CI - Last Documented Arterial Blood Pressure 127/41 - Labs CBC & Chem 7: 06/17/18 06:05 06/17/18 06:05 Labs: Abnormal Lab Results - Last 24 Hours (Table) 06/16/18 06/17/18 06/17/18 Range/Units 04:09 06:05 06:05 WBC 11.7 H (3.8-10.6) k/uL RBC 2.53 L (4.30-5.90) m/uL Hgb 8.7 L (13.0-17.5) gm/dL Hct 26.5 L (39.0-53.0) % MCV 104.7 H (80.0-100.0) fL Neutrophils # 9.5 H (1.3-7.7) k/uL Lymphocytes # 0.8 L (1.0-4.8) k/uL PT 30.3 H (9.0-12.0) sec INR 3.1 H (<1.2) Potassium 5.4 H (3.5-5.1) mmol/L BUN 53 H (9-20) mg/dL Creatinine 1.47 H (0.66-1.25) mg/dL Glucose 129 H (74-99) mg/dL 06/17/18 Range/Units 06:05 WBC (3.8-10.6) k/uL RBC (4.30-5.90) m/uL Hgb (13.0-17.5) gm/dL Hct (39.0-53.0) % MCV (80.0-100.0) fL Neutrophils # (1.3-7.7) k/uL Lymphocytes # (1.0-4.8) k/uL PT 18.7 H (9.0-12.0) sec INR 1.9 H (<1.2) Potassium (3.5-5.1) mmol/L BUN (9-20) mg/dL Creatinine (0.66-1.25) mg/dL Glucose (74-99) mg/dL
--- NOTE | 2018-06-17 10:40 | XR ---
EXAMINATION TYPE: XR chest 2V DATE OF EXAM: 06/17/2018 COMPARISON: 06/13/2018 HISTORY: Shortness of breath FINDINGS: Two views are submitted. There are bilateral pleural effusions with cardiomegaly and bibasilar infilt rate. There is a diffuse interstitial pattern. Atherosclerotic change aorta. Postsurgical changes are seen. More confluent density in the left upper lobe again noted. This may been the basis of pulmonary edema or superimposed pneumonia. Underlying n eoplastic process not entirely excluded. Follow to resolution. IMPRESSION: 1. Stable x-ray demonstrating bilateral consolidation and diffuse interstitial pattern with pleural e ffusion. Correlate for CHF with pulmonary edema. 2. More confluent density in the left upper lobe may be secondary to pulmonary edema. Superimposed pn eumonia or other etiologies not excluded correlate clinically. Follow to resolution.
--- NOTE | 2018-06-17 14:56 | PN ---
PROGRESS NOTE Patient is seen for followup for acute kidney injury. His renal function has deteriorated slightly over the past 2 days. However, the serum creatinine is improved today to 1.4 from 1.6 yesterday. The acute rise is most likely related to the drop in his hemoglobin associated with the acute GI bleed. PHYSICAL EXAMINATION: Patient is comfortable. Blood pressure 119/67, heart rate 58 per minute. He is afebrile. Examination of the heart, S1, S2. Examination of the lungs, bilateral breath sounds are heard. Abdomen is soft, nontender. Examination of the lower extremities shows no significant edema. 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 LABS: Show sodium 138, potassium 5.4, BUN 53, serum creatinine 1.47, hemoglobin 8.7 g/dL. ASSESSMENT: 1. Acute kidney injury, initially secondary to contrast nephropathy, which had improved. Creatinine increased again yesterday secondary to acute anemia and drop in hemoglobin. This is now improved to creatinine of 1.47. Patient has had good urine output. 2. Acute gastrointestinal bleed, status post EGD and patient was found to have a bleeding AVM which was cauterized. 3. Cardiomyopathy, ejection fraction 20%. 4. Acute on top of chronic congestive heart failure, currently stable. 5. Pulmonary hypertension. 6. Chronic persistent atrial fibrillation maintained on anticoagulation. PLAN: Mild hyperkalemia associated with recent GI bleed and some degree of acute kidney injury. Patient is not on any SHRUTHI inhibitors. He is maintained on oral Lasix which we can continue and this will help with the potassium as well. Repeat labs in a.m.. MMODL / IJN: [id number] /
[2018-06-17] MEDS: MULTIVITAMINS, THERA 1 EACH TAB PO SCH (15:15)
--- NOTE | 2018-06-17 20:17 | P.PN ---
Subjective Progress Note Date: 06/17/18 Principal diagnosis: Anemia, melena Patient tolerating full liquid diet. No abdominal pain, nausea or vomiting reported. No reports of GI bleeding. Objective - Vital Signs Vital signs: Vital Signs Temp 98.0 F 06/17/18 15:00 Pulse 62 06/17/18 15:00 Resp 20 06/17/18 15:00 BP 125/61 06/17/18 15:00 Pulse Ox 91 L 06/17/18 15:00 Intake & Output 06/17/18 06/17/18 06/18/18 06:59 18:59 06:59 Intake Total 440 Balance 440 Intake: Oral 40 Tube Feeding 400 Other: Voiding Method Urinal # Voids 2 ABP, PAP, CO, CI - Last Documented Arterial Blood Pressure 127/41 - Exam On physical examination, patient appears comfortable in no apparent distress. HEAD: Normocephalic, atraumatic. EYES: No scleral icterus. No conjunctival injection. MOUTH: No lesions, tongue midline. NECK: Trachea midline, no gross abnormalities. CHEST: Clear to auscultation with no wheezing or rhonchi appreciated. ABDOMEN: Soft. Bowel sounds are positive. No organomegaly. No guarding or rigidity. EXTREMITIES: No pedal edema. SKIN: No rashes, no jaundice. NEUROLOGIC: Alert and oriented. No focal deficits. 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 Current Visit: Yes Status: Acute Code(s): K92.2 - GASTROINTESTINAL HEMORRHAGE, UNSPECIFIED SNOMED Code(s): 04016622 (2) Acute blood loss anemia Current Visit: Yes Status: Acute Code(s): D62 - ACUTE POSTHEMORRHAGIC ANEMIA SNOMED Code(s): 564636513 Plan: Supportive care Monitor hemoglobin and transfuse as needed Diet advance to a heart healthy chopped today Okay to resume anticoagulation/antiplatelet therapy per cardiology service Continue to monitor for signs and symptoms of GI bleeding Thank you for allowing us to participate in the care of this patient we will continue to follow
[2018-06-17] MEDS: FINASTERIDE 5 MG TAB PO SCH (21:37)
[2018-06-17] MEDS: PRAVASTATIN SODIUM 40 MG TAB PO SCH (21:37)
--- NOTE | 2018-06-17 23:55 | PN ---
PROGRESS NOTE DATE OF SERVICE: 06/17/2018. PRESENTING COMPLAINT: Tired. INTERVAL HISTORY: Patient was initially admitted with acute SD, EF less than 20% and had a cardiac cath and had a repeat catheterization with a stent to the RCA. The patient is on Coumadin for mechanical mitral valve. Did have a GI bleed with AV malformation that was coagulated. Remained weak and tired, though remains in bed. No further bleeding. REVIEW OF SYSTEMS: Done for constitutional, cardiovascular, GI, pulmonary and relevant findings as above. CURRENT MEDICATIONS: Reviewed that include antiplatelet agents. PHYSICAL EXAMINATION: VITAL SIGNS: Temperature 98, pulse 62, respiration 20, blood pressure 125/61, pulse ox 91 percent on 4 L. GENERAL APPEARANCE: Lying in bed, tired-appearing, awake. EYES: Pupil equal. Conjunctivae pale. NECK: JVD not raised. Mass not palpable. RESPIRATORY: Effort increased Decreased breath sounds. CARDIOVASCULAR: Mechanical sounds. No edema. ABDOMEN: Soft, nontender. Liver and spleen not palpable. PSYCHIATRY: Awake, answering questions. INVESTIGATIONS: White count 11.7, hemoglobin 8.7, INR 1.9, potassium 5.4, BUN 53, creatinine 1.47. ASSESSMENT: 1. Acute on chronic congestive heart failure exacerbation from systolic dysfunction EF less than 20% from underlying coronary artery disease. 2. Acute non ST elevation myocardial infarction, POA. 3. Coronary artery disease with successful atherectomy and stenting of the RCA. 4. Acute kidney injury, combination of acute tubular necrosis and prerenal. 5. 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 6. Persistent atrial fibrillation on Coumadin. 7. Essential hypertension. 8. Hyperlipidemia. 9. Obstructive sleep apnea uses CPAP machine. 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 11.Coumadin monitoring. 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 PLAN: social worker psychiatric is looking into the patient going back to the [facility]. Shows is being worked out. I did briefly address the patient's code status. Code Status at this point patient remains to be FULL CODE. Resume patient's Coumadin. MMODL / IJN: [id number] /
[2018-06-18 08:06] LABS: HCT 27.1 % (39.0-53.0); HGB 8.8 gm/dL (13.0-17.5); Hypochromasia Slight; MCH 34.4 pg (25.0-35.0); MCHC 32.3 g/dL (31.0-37.0); MCV 106.4 fL (80.0-100.0); Macrocytosis Moderate; Mean Platelet Volume 8.7; Platelet Count 207 k/uL (150-450); RBC 2.55 m/uL (4.30-5.90); RDW 14.5 % (11.5-15.5); WBC 11.1 k/uL (3.8-10.6)
[2018-06-18 08:10] LABS: INR 1.7 (<1.2); Prothrombin Time 16.5 sec (9.0-12.0)
[2018-06-18] MEDS ORDERED: FUROSEMIDE 10 MG/ML 10 ML VIAL IV STA (08:25)
[2018-06-18 08:27] LABS: Calcium 9.2 mg/dL (8.4-10.2); Magnesium 2.2 mg/dL (1.6-2.3); Potassium 5.4 mmol/L (3.5-5.1)
[2018-06-18] MEDS ORDERED: ENOXAPARIN 80 MG/0.8 ML SYRINGE SQ STA (10:25)
[2018-06-18] MEDS: CARVEDILOL 3.125 MG TAB PO SCH ×2 (10:55→17:27)
[2018-06-18] MEDS: DIGOXIN 125 MCG TAB PO SCH (10:55)
[2018-06-18] MEDS: FUROSEMIDE 20 MG TAB PO SCH (10:55)
[2018-06-18] MEDS: FAMOTIDINE 20 MG TAB PO SCH (10:55)
[2018-06-18] MEDS: CLOPIDOGREL 75 MG TAB PO SCH (11:00)
[2018-06-18] MEDS: ASPIRIN 81 MG PO SCH (11:01)
[2018-06-18] MEDS: MULTIVITAMINS, THERA 1 EACH TAB PO SCH (12:38)
--- NOTE | 2018-06-18 13:19 | P.PN ---
Subjective This is an 83-year-old male admitted to the hospital for acute non-ST elevated myocardial infarction underwent angioplasty and arthrectomy of the mid RCA in June 11 with history of bypass grafting in the past with an SVG to the OM occluded, PATEL to LAD patent, left main mildly disease, ostial LAD with an 80% lesion and subsequently mid LAD is 100% occluded, 2 diagonal branches which are approximately diffusely diseased with long diffuse stenosis of 89% and ostial stenosis of the circumflex artery with multiple areas of 70-80% stenosis. 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 Okay to resume anticoagulation if he remains symptomatically stable and hemodynamically stable per GI. He also has a history of mechanical mitral valve repair on long-term anticoagulation with Coumadin. Echocardiogram obtained on this admission reveals severely impaired left ventricular systolic function with ejection fraction less than 20%, severely dilated left atrium, mild mitral regurgitation with a mean gradient across the mitral valve 5 mmHg, mechanical mitral valve in place, mild to moderate tricuspid regurgitation and mild pulmonary hypertension with an RVSP of 39 mmHg. He is seen and examined this morning in mild respiratory distress. He is complaining of shortness of breath and feeling tired. Denies chest pain, palpitations or dizziness. Hemoglobin is stable, INR continues to be sub-therapeutic. Blood pressure 116/ 73 heart rate 73 afebrile and maintaining oxygen saturation on nasal cannula. GENERAL: Well-appearing, well-nourished and in no acute distress. NECK: Supple without JVD or thyromegaly. LUNGS: Bibasilar rales, no rhonchi or wheezes. Respiration equal and unlabored. HEART: Irregular rate and rhythm with systolic murmur at the apex mechanical click noted, no rubs or gallops. S1 and S2 heard. EXTREMITIES: Normal range of motion, no edema. No clubbing or cyanosis. Peripheral pulses intact. ASSESSMENT Acute non-ST elevated myocardial infarction status post angioplasty and atherectomy of the mid RCA History of mechanical mitral valve replacement, [facility] Curt valve 1990 Acute GI bleeding status post therapeutic endoscopy Acute blood loss anemia, stable hemoglobin Pulmonary hypertension, RVSP 39 mmHg Acute on chronic systolic heart failure History of coronary artery disease s/p 2-vessel bypass grafting 1990 Ischemic cardiomyopathy, EF less than 20% Chronic persistent atrial fibrillation with controlled ventricular response on lobsterman anti-coagulation PLAN Given lovenox 80 mg x1 now. Coumadin dose today 3 mg. Check PT/INR and CBC in the morning. We will dose the coumadin daily, not pharmacy. Further recommendations to follow based on clinical course. Nurse Practitioner note has been reviewed, I agree with a documented findings and plan of care. Patient was seen and examined. Objective - Vital Signs Vital signs: Vital Signs Temp 97.5 F L 06/18/18 08:38 Pulse 73 06/18/18 08:38 Resp 16 06/18/18 08:38 BP 116/73 06/18/18 08:38 Pulse Ox 92 L 06/18/18 08:38 Intake & Output 06/17/18 06/18/18 06/18/18 18:59 06:59 18:59 Output Total 500 Balance -500 Output: Urine 500 Other: Voiding Method Toilet Urinal Diaper # Voids 2 # Bowel Movements 1 ABP, PAP, CO, CI - Last Documented Arterial Blood Pressure 127/41 - Labs CBC & Chem 7: 06/18/18 06:57 06/18/18 06:57 Labs: Abnormal Lab Results - Last 24 Hours (Table) 06/18/18 06/18/18 06/18/18 Range/Units 06:57 06:57 06:57 WBC 11.1 H (3.8-10.6) k/uL RBC 2.55 L (4.30-5.90) m/uL Hgb 8.8 L (13.0-17.5) gm/dL Hct 27.1 L (39.0-53.0) % MCV 106.4 H (80.0-100.0) fL PT 16.5 H (9.0-12.0) sec INR 1.7 H (<1.2) Potassium 5.4 H (3.5-5.1) mmol/L BUN 55 H (9-20) mg/dL Creatinine 1.64 H (0.66-1.25) mg/dL Glucose 122 H (74-99) mg/dL
--- NOTE | 2018-06-18 13:23 | P.PN ---
Subjective Patient is seen in follow-up for acute kidney injury. Renal function improved since admission. Patient had an acute [place] this admission for which he underwent cardiac catheterization and a stent placement. Ejection fraction is less than 20%. Currently maintained on Lasix 20 mg once daily. Good urine output. 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 Hemoglobin stable today. Blood pressures have been stable. Oral intake is gradually improving. Vital signs are stable. General: The patient appeared well nourished and normally developed. HEENT: Head exam is unremarkable. Neck is without jugular venous distension. LUNGS: Breath sounds decreased. HEART: Rate and Rhythm are regular. First and second heart sounds normal. No murmurs, rubs or gallops. ABDOMEN: Abdominal exam reveals normal bowel sounds. Non-tender and non- distended. No evidence of peritonitis. EXTREMITITES: No clubbing, cyanosis, or edema. Objective - Vital Signs Vital signs: Vital Signs Temp 97.5 F L 06/18/18 08:38 Pulse 73 06/18/18 08:38 Resp 16 06/18/18 08:38 BP 116/73 06/18/18 08:38 Pulse Ox 92 L 06/18/18 08:38 Intake & Output 06/17/18 06/18/18 06/18/18 18:59 06:59 18:59 Output Total 500 Balance -500 Output: Urine 500 Other: Voiding Method Toilet Urinal Diaper # Voids 2 # Bowel Movements 1 ABP, PAP, CO, CI - Last Documented Arterial Blood Pressure 127/41 - Labs CBC & Chem 7: 06/18/18 06:57 06/18/18 06:57 Labs: Abnormal Lab Results - Last 24 Hours (Table) 06/18/18 06/18/18 06/18/18 Range/Units 06:57 06:57 06:57 WBC 11.1 H (3.8-10.6) k/uL RBC 2.55 L (4.30-5.90) m/uL Hgb 8.8 L (13.0-17.5) gm/dL Hct 27.1 L (39.0-53.0) % MCV 106.4 H (80.0-100.0) fL PT 16.5 H (9.0-12.0) sec INR 1.7 H (<1.2) Potassium 5.4 H (3.5-5.1) mmol/L BUN 55 H (9-20) mg/dL Creatinine 1.64 H (0.66-1.25) mg/dL Glucose 122 H (74-99) mg/dL Assessment and Plan Plan: Assessment: 1. Acute kidney injury secondary to cardiorenal syndrome. Improved since admission. Creatinine has been staying around 1.4-1.6 the last 3 days. 2. 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 Hemoglobin stable. 3. Systolic CHF with ejection fraction of less than 20%. 4. Acute myocardial infarction status post cardiac catheterization with stent placement. 5. Chronic active fibrillation. Rate controlled. 6. History of mitral valve placement. Plan: Maintain Lasix 20 mg once daily. Encouraged oral intake. Avoid nephrotoxins.
[2018-06-18 14:50] VITALS: BMI 26.4
--- NOTE | 2018-06-18 17:36 | PN ---
PROGRESS NOTE DATE OF SERVICE: 06/18/2018 PRESENTING COMPLAINT: Tired. INTERVAL HISTORY: Patient admitted with acute [place]. Also has EF less than 20%. Had initial cardiac cath followed by repeat catheterization and stent of the RCA. The patient is on Coumadin for mechanical mitral valve. Had a GI bleed with AV malformation, coagulated. Remains stable, weak and tired, pending transfer to the [facility]. REVIEW OF SYSTEMS: Done for constitutional, cardiovascular, GI, pulmonary; relevant findings as above. The patient is eating small amounts. CURRENT MEDICATIONS: Reviewed that include aspirin, Coumadin and Plavix. PHYSICAL EXAMINATION: VITAL SIGNS: Temperature 97.5, pulse 73, respiratory rate 16, blood pressure 116/73, pulse ox 92 percent on 4 L. GENERAL APPEARANCE: Propped up in bed, tired-appearing. EYES: Pupils equal. Conjunctivae pale. NECK: JVD not raised. Mass not palpable. RESPIRATORY: Effort increased Decreased breath sounds. CARDIOVASCULAR: Mechanical heart sounds. No edema. ABDOMEN: Soft, nontender. Liver and spleen not palpable. PSYCHIATRY: Patient is able answer questions. INVESTIGATIONS: White count 11.1, hemoglobin 8.8, potassium 5.4, BUN 55, creatinine 1.64. INR 1.7. ASSESSMENT: 1. Acute on chronic congestive heart failure exacerbation from systolic dysfunction, ejection fraction less than 20% from underlying coronary artery disease. 2. Acute non-ST elevation myocardial infarction, POA. 3. Coronary artery disease with successful atherectomy and stenting of the RCA. 4. Acute kidney injury, combination of acute tubular necrosis and prerenal. 5. Chronic kidney disease stage 3 from nephrosclerosis. 6. Persistent atrial fibrillation on Coumadin. 7. Essential hypertension. 8. Hyperlipidemia. 9. Obstructive sleep apnea uses CPAP machine. 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 11.Coumadin monitoring. 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 13.Medical debility. PLAN: Prognosis is guarded. Overall health is not good. Continue current medication and treatment plan. fabric worker foreman is working on the insurance so the patient can go to rehab. MMODL / IJN: [id number] /
[2018-06-18] MEDS ORDERED: WARFARIN 3 MG TAB PO ONE (18:00)
[2018-06-18] MEDS ORDERED: WARFARIN 2.5 MG TAB PO SCH (18:00)
[2018-06-18] MEDS: PRAVASTATIN SODIUM 40 MG TAB PO SCH (22:32)
[2018-06-18] MEDS: FINASTERIDE 5 MG TAB PO SCH (22:32)
[2018-06-19] MEDS: FAMOTIDINE 20 MG TAB PO SCH (08:34)
[2018-06-19] MEDS: CARVEDILOL 3.125 MG TAB PO SCH ×2 (08:34→18:18)
[2018-06-19] MEDS: FUROSEMIDE 20 MG TAB PO SCH (08:34)
[2018-06-19] MEDS: DIGOXIN 125 MCG TAB PO SCH (08:34)
[2018-06-19] MEDS: ASPIRIN 81 MG PO SCH (08:34)
[2018-06-19] MEDS: CLOPIDOGREL 75 MG TAB PO SCH (08:34)
[2018-06-19 08:39] LABS: INR 1.7 (<1.2); Prothrombin Time 17.3 sec (9.0-12.0)
[2018-06-19 09:17] LABS: Potassium 5.4 mmol/L (3.5-5.1)
[2018-06-19 09:18] LABS: Calcium 8.8 mg/dL (8.4-10.2); Magnesium 2.3 mg/dL (1.6-2.3)
--- NOTE | 2018-06-19 10:15 | P.PN ---
Subjective Patient is seen in follow-up for acute kidney injury. Renal function improved since admission. Patient had an acute [place] this admission for which he underwent cardiac catheterization and a stent placement. Ejection fraction is less than 20%. Currently maintained on Lasix 20 mg once daily. Good urine output. 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 Hemoglobin stable as of yesterday. Blood pressures have been stable. Oral intake is gradually improving. Patient' s last night. He is quite distressed. Vital signs are stable. General: The patient appeared well nourished and normally developed. HEENT: Head exam is unremarkable. Neck is without jugular venous distension. LUNGS: Breath sounds decreased. HEART: Rate and Rhythm are regular. First and second heart sounds normal. No murmurs, rubs or gallops. ABDOMEN: Abdominal exam reveals normal bowel sounds. Non-tender and non- distended. No evidence of peritonitis. EXTREMITITES: No clubbing, cyanosis, or edema. Objective - Vital Signs Vital signs: Vital Signs Temp 98.2 F 06/19/18 07:29 Pulse 54 L 06/19/18 07:29 Resp 19 06/19/18 07:29 BP 125/60 06/19/18 07:29 Pulse Ox 94 L 06/19/18 07:29 Intake & Output 06/18/18 06/19/18 06/19/18 18:59 06:59 18:59 Output Total 400 Balance -400 Weight 76.6 kg Output: Urine 400 Other: Voiding Method Toilet Urinal Diaper # Voids 4 2 # Bowel Movements 1 ABP, PAP, CO, CI - Last Documented Arterial Blood Pressure 127/41 - Labs CBC & Chem 7: 06/18/18 06:57 06/19/18 08:11 Labs: Abnormal Lab Results - Last 24 Hours (Table) 06/19/18 06/19/18 Range/Units 08:11 08:11 PT 17.3 H (9.0-12.0) sec INR 1.7 H (<1.2) Sodium 136 L (137-145) mmol/L Potassium 5.4 H (3.5-5.1) mmol/L BUN 65 H (9-20) mg/dL Creatinine 1.82 H (0.66-1.25) mg/dL Glucose 158 H (74-99) mg/dL Assessment and Plan Plan: Assessment: 1. Acute kidney injury secondary to cardiorenal syndrome. Improved since admission. Creatinine has been staying around 1.4-1.6 the last 3 days. It is 1.82 today. 2. 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 Hemoglobin stable. 3. Systolic CHF with ejection fraction of less than 20%. 4. Acute myocardial infarction status post cardiac catheterization with stent placement. 5. Chronic active fibrillation. Rate controlled. 6. History of mitral valve placement. Plan: Maintain Lasix 20 mg once daily. Encouraged oral intake. Avoid nephrotoxins. Check digoxin level.
[2018-06-19] MEDS ORDERED: ENOXAPARIN 80 MG/0.8 ML SYRINGE SQ STA (11:04)
[2018-06-19] MEDS ORDERED: WARFARIN 2 MG TAB PO ONE (11:15)
--- NOTE | 2018-06-19 12:10 | P.PN ---
Subjective Progress Note Date: 06/19/18 Principal diagnosis: GI bleed anemia Tolerating advance diet. Denies abdominal pain. No bleeding. Patient's spouse last night unexpectedly. Hemoglobin yesterday 8.8. Receiving anticoagulation INR today 1.7. Discharge planning in progress. Objective - Vital Signs Vital signs: Vital Signs Temp 98.2 F 06/19/18 07:29 Pulse 54 L 06/19/18 07:29 Resp 19 06/19/18 07:29 BP 125/60 06/19/18 07:29 Pulse Ox 94 L 06/19/18 07:29 Intake & Output 06/18/18 06/19/18 06/19/18 18:59 06:59 18:59 Output Total 400 Balance -400 Weight 76.6 kg Output: Urine 400 Other: Voiding Method Toilet Urinal Diaper # Voids 4 2 # Bowel Movements 1 ABP, PAP, CO, CI - Last Documented Arterial Blood Pressure 127/41 - Exam General appearance: The patient is alert, oriented, in no acute distress. HET: Head is normocephalic and atraumatic. Pupils are equal and reactive. Oropharynx is clear without lesions. Neck: Supple without lymphadenopathy. Trachea midline. Heart: S1 S2. Lungs: No crackles or wheezes are heard. Abdomen: Soft, nontender, nondistended with bowel sounds. No peritoneal signs. No palpable organomegaly or masses. Extremities: Normal skin color and turgor. No cyanosis, rash, ulceration, clubbing, or edema. Radial and pedal pulses are 2/4 bilaterally. Neurological: No focal deficits. Strength and sensation are grossly intact. - Labs CBC & Chem 7: 06/18/18 06:57 06/19/18 08:11 Labs: Abnormal Lab Results - Last 24 Hours (Table) 06/19/18 06/19/18 Range/Units 08:11 08:11 PT 17.3 H (9.0-12.0) sec INR 1.7 H (<1.2) Sodium 136 L (137-145) mmol/L Potassium 5.4 H (3.5-5.1) mmol/L BUN 65 H (9-20) mg/dL Creatinine 1.82 H (0.66-1.25) mg/dL Glucose 158 H (74-99) mg/dL Assessment and Plan (1) Acute GI bleeding Narrative/Plan: Secondary to bleeding duodenal AVM status post EGD APC Current Visit: Yes Status: Acute Code(s): K92.2 - GASTROINTESTINAL HEMORRHAGE, UNSPECIFIED SNOMED Code(s): 23010452 (2) Melena Current Visit: Yes Status: Acute Code(s): K92.1 - MELENA SNOMED Code(s): 4778423 (3) Elevated BUN Current Visit: Yes Status: Acute Code(s): R79.9 - ABNORMAL FINDING OF BLOOD CHEMISTRY, UNSPECIFIED SNOMED Code(s): 944209824 (4) Acute blood loss anemia Current Visit: Yes Status: Acute Code(s): D62 - ACUTE POSTHEMORRHAGIC ANEMIA SNOMED Code(s): 925804291 (5) Acute CHF Current Visit: Yes Status: Acute Code(s): I50.9 - HEART FAILURE, UNSPECIFIED SNOMED Code(s): 21900734 (6) Acute non-ST elevation myocardial infarction (NSTEMI) Current Visit: Yes Status: Acute Code(s): I21.4 - NON-ST ELEVATION (NSTEMI) MYOCARDIAL INFARCTION SNOMED Code(s): 476219419 (7) History of mitral valve replacement with mechanical valve Current Visit: Yes Status: Acute Code(s): Z95.2 - PRESENCE OF PROSTHETIC HEART VALVE SNOMED Code(s): 50473000919671 (8) Chronic a-fib Current Visit: Yes Status: Acute Code(s): I48.2 - CHRONIC ATRIAL FIBRILLATION SNOMED Code(s): 294775608 (9) Warfarin-induced coagulopathy Current Visit: Yes Status: Acute Code(s): D68.32 - HEMORRHAGIC DISORD D/T EXTRINSIC CIRCULATING ANTICOAGULANTS; T45.515A - ADVERSE EFFECT OF ANTICOAGULANTS, INITIAL ENCOUNTER SNOMED Code(s): 41298925 Plan: 1. Agreeable for discharge. Continue Zantac 150 mg on discharge. Diet as tolerated. CBC monitoring in the outpatient setting. We'll follow as needed. Assessment and plan a care discussed with Dr. Francis
--- NOTE | 2018-06-19 13:19 | P.PN ---
Subjective This is an 83-year-old male admitted to the hospital for acute non-ST elevated myocardial infarction underwent angioplasty and arthrectomy of the mid RCA in June 11 with history of bypass grafting in the past with an SVG to the OM occluded, PATEL to LAD patent, left main mildly disease, ostial LAD with an 80% lesion and subsequently mid LAD is 100% occluded, 2 diagonal branches which are approximately diffusely diseased with long diffuse stenosis of 89% and ostial stenosis of the circumflex artery with multiple areas of 70-80% stenosis. 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 Okay to resume anticoagulation if he remains symptomatically stable and hemodynamically stable per GI. He also has a history of mechanical mitral valve repair on long-term anticoagulation with Coumadin. Echocardiogram obtained on this admission reveals severely impaired left ventricular systolic function with ejection fraction less than 20%, severely dilated left atrium, mild mitral regurgitation with a mean gradient across the mitral valve 5 mmHg, mechanical mitral valve in place, mild to moderate tricuspid regurgitation and mild pulmonary hypertension with an RVSP of 39 mmHg. Blood pressure 125/60 heart rate 54 afebrile and maintaining oxygen saturation on nasal cannula. Sodium 136, potassium 5.4, creatinine 1.82, digoxin level 1.5. He is seen and examined sitting up in the chair. He is quite emotional due to the loss of his last night. He denies chest pain, increased shortness of breath, dizziness or palpitations. GENERAL: Well-appearing, well-nourished and in no acute distress. NECK: Supple without JVD or thyromegaly. LUNGS: Faint bibasilar rales, no rhonchi or wheezes. Respiration equal and unlabored. HEART: Irregular rate and rhythm with systolic murmur at the apex mechanical click noted, no rubs or gallops. S1 and S2 heard. EXTREMITIES: Normal range of motion, no edema. No clubbing or cyanosis. Peripheral pulses intact. ASSESSMENT Acute non-ST elevated myocardial infarction status post angioplasty and atherectomy of the mid RCA History of mechanical mitral valve replacement, [facility] Curt valve 1990 Acute GI bleeding status post therapeutic endoscopy Acute blood loss anemia, stable hemoglobin Pulmonary hypertension, RVSP 39 mmHg Acute on chronic systolic heart failure History of coronary artery disease s/p 2-vessel bypass grafting 1990 Ischemic cardiomyopathy, EF less than 20% Chronic persistent atrial fibrillation with controlled ventricular response on intermediate accountant anti-coagulation PLAN Given lovenox 80 mg x1 now. Coumadin dose today 4 mg now. May be discharged if appropriate per primary team. PT/INR lab draw at Sunday. [place] INR 2.5-3.5 in this patient with mechanical valve replacement. Discharge coumadin dose should be the same as was prior to arrival. Follow up appointment with Dr. Rodriguez in the office in 7-10 days. Nurse Practitioner note has been reviewed, I agree with a documented findings and plan of care. Patient was seen and examined. Objective - Vital Signs Vital signs: Vital Signs Temp 98.2 F 06/19/18 07:29 Pulse 54 L 06/19/18 07:29 Resp 19 06/19/18 07:29 BP 125/60 06/19/18 07:29 Pulse Ox 94 L 06/19/18 07:29 Intake & Output 06/18/18 06/19/18 06/19/18 18:59 06:59 18:59 Output Total 400 Balance -400 Weight 76.6 kg Output: Urine 400 Other: Voiding Method Toilet Urinal Diaper # Voids 4 2 # Bowel Movements 1 ABP, PAP, CO, CI - Last Documented Arterial Blood Pressure 127/41 - Labs CBC & Chem 7: 06/18/18 06:57 06/19/18 08:11 Labs: Abnormal Lab Results - Last 24 Hours (Table) 06/19/18 06/19/18 Range/Units 08:11 08:11 PT 17.3 H (9.0-12.0) sec INR 1.7 H (<1.2) Sodium 136 L (137-145) mmol/L Potassium 5.4 H (3.5-5.1) mmol/L BUN 65 H (9-20) mg/dL Creatinine 1.82 H (0.66-1.25) mg/dL Glucose 158 H (74-99) mg/dL
[2018-06-19] MEDS ORDERED: MD COMMUNICATION TO PHARMACY 1 EACH MISC PO PRN (14:39)
[2018-06-19] MEDS ORDERED: WARFARIN 2.5 MG TAB PO SCH (18:00)
[2018-06-19] MEDS: MULTIVITAMINS, THERA 1 EACH TAB PO SCH (18:18)
[2018-06-19] MEDS: FINASTERIDE 5 MG TAB PO SCH (20:49)
[2018-06-19] MEDS: PRAVASTATIN SODIUM 40 MG TAB PO SCH (20:49)
[2018-06-19] MEDS ORDERED: SODIUM POLYSTYRENE SULFONATE 15 GM/60 ML BOTTLE PO STA (22:56)
--- NOTE | 2018-06-20 00:04 | PN ---
PROGRESS NOTE DATE OF SERVICE: 06/19/2018. PRESENTING COMPLAINT: Tired. INTERVAL HISTORY: This patient was admitted with acute MA with EF less than 20%. Had initial cardiac cath followed by a repeat catheterization with stent to the RCA. Patient also on Coumadin for a mechanical mitral valve. Had a GI bleed with AV malfunction that was coagulated. Remains weak and tired. Unfortunately, his in the hospital yesterday evening. Apparently he is pending insurance clarification for transfer to the [facility]. REVIEW OF SYSTEMS: Done for constitutional, cardiovascular, GI, pulmonary; relevant findings as above. The patient is eating some food, feeling rather low because of his . Does feel tired and rundown. CURRENT MEDICATIONS: Reviewed. PHYSICAL EXAMINATION: VITAL SIGNS: Temperature 97.9, pulse 91, respiratory 18, blood pressure 106/61, pulse 94 percent on 4 L. GENERAL: Sitting up on a chair, tired-appearing. EYES: Pupils equal. Conjunctivae pale. NECK: JVD not raised. Mass not palpable. RESPIRATORY: Effort increased. LUNGS: Decreased breath sounds. CARDIOVASCULAR: Mechanical heart sounds. No edema. ABDOMEN: Soft, nontender. Liver and spleen not palpable. PSYCHIATRY: Answering questions. Mood affect low. INVESTIGATIONS: INR is 1.7, potassium 5.4, BUN 65, creatinine 1.82. ASSESSMENT: 1. Acute on chronic congestive heart failure exacerbation from systolic dysfunction, ejection fraction less than 20% from underlying coronary artery disease. 2. Acute non-ST elevation myocardial infarction, present on admission. 3. Coronary artery disease, successful atherectomy and stent of the RCA. 4. Acute kidney injury, combination of acute tubular necrosis, prerenal. 5. Chronic kidney stage III from nephrosclerosis. 6. Persistent atrial fibrillation on Coumadin. 7. Hyperkalemia in the setting of chronic kidney disease. 8. Essential hypertension. 9. Hyperlipidemia. 10.Obstructive sleep apnea uses CPAP machine. 11.Mechanical mitral valve, chronically on Coumadin. 12.Coumadin monitoring. 13.Acute gastrointestinal bleed from AV malformation, that is argon plasma coagulation. 14.Medical debility. 15.Hyperkalemia in a setting of renal failure. PLAN: Pending transfer to the [facility], we will give a dose of Kayexalate. Prognosis is guarded. I did talk to the patient about the code status. He wishes to remain FULL CODE. I did call patient's daughter in the morning, left a message. I was waiting for her to come up, by the time I left the floor the family was not here. MMDAMIAN / SUSAN: [id number] /
[2018-06-20 08:09] LABS: INR 2.1 (<1.2); Prothrombin Time 20.7 sec (9.0-12.0)
[2018-06-20 08:22] LABS: Calcium 8.6 mg/dL (8.4-10.2); Potassium 5.2 mmol/L (3.5-5.1)
[2018-06-20] MEDS: FAMOTIDINE 20 MG TAB PO SCH (08:50)
[2018-06-20] MEDS: DOCUSATE 100 MG CAP PO PRN (08:51)
[2018-06-20] MEDS: MULTIVITAMINS, THERA 1 EACH TAB PO SCH (08:51)
[2018-06-20] MEDS: FUROSEMIDE 20 MG TAB PO SCH (08:51)
[2018-06-20] MEDS: CARVEDILOL 3.125 MG TAB PO SCH ×2 (08:51→17:24)
[2018-06-20] MEDS: CLOPIDOGREL 75 MG TAB PO SCH (08:51)
[2018-06-20] MEDS: ASPIRIN 81 MG PO SCH (09:00)
[2018-06-20] MEDS: DIGOXIN 125 MCG TAB PO SCH (09:26)
--- NOTE | 2018-06-20 10:42 | P.PN ---
Subjective Patient is seen in follow-up for acute kidney injury. Renal function improved since admission. Patient had an acute MD this admission for which he underwent cardiac catheterization and a stent placement. Ejection fraction is less than 20%. Currently maintained on Lasix 20 mg once daily. Good urine output. 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 Blood pressures have been stable. Oral intake is gradually improving. Vital signs are stable. General: The patient appeared well nourished and normally developed. HEENT: Head exam is unremarkable. Neck is without jugular venous distension. LUNGS: Breath sounds decreased. HEART: Rate and Rhythm are regular. First and second heart sounds normal. No murmurs, rubs or gallops. ABDOMEN: Abdominal exam reveals normal bowel sounds. Non-tender and non- distended. No evidence of peritonitis. EXTREMITITES: No clubbing, cyanosis, or edema. Objective - Vital Signs Vital signs: Vital Signs Temp 98.7 F 06/19/18 23:57 Pulse 70 06/19/18 23:57 Resp 18 06/19/18 23:57 BP 112/62 06/19/18 23:57 Pulse Ox 92 L 06/19/18 23:57 Intake & Output 06/19/18 06/20/18 06/20/18 18:59 06:59 18:59 Intake Total 680 Output Total 200 Balance -200 680 Intake: Oral 680 Output: Urine 200 Other: # Voids 1 ABP, PAP, CO, CI - Last Documented Arterial Blood Pressure 127/41 - Labs CBC & Chem 7: 06/18/18 06:57 06/20/18 06:52 Labs: Abnormal Lab Results - Last 24 Hours (Table) 06/20/18 06/20/18 Range/Units 06:52 06:52 PT 20.7 H (9.0-12.0) sec INR 2.1 H (<1.2) Potassium 5.2 H (3.5-5.1) mmol/L BUN 66 H (9-20) mg/dL Creatinine 1.78 H (0.66-1.25) mg/dL Glucose 107 H (74-99) mg/dL Assessment and Plan Plan: Assessment: 1. Acute kidney injury secondary to cardiorenal syndrome. Improved since admission. Creatinine has been staying around 1.4-1.6 the last 3 days. It is 1.78 today. 2. 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 Hemoglobin stable. 3. Systolic CHF with ejection fraction of less than 20%. 4. Acute myocardial infarction status post cardiac catheterization with stent placement. 5. Chronic active fibrillation. Rate controlled. 6. History of mitral valve placement. Plan: Maintain Lasix 20 mg once daily. Encouraged oral intake. Avoid nephrotoxins. Digoxin level therapeutic. Potential discharge tomorrow today. Follow up outpatient in the next 1-2 weeks.
[2018-06-20] MEDS ORDERED: WARFARIN 2 MG TAB PO SCH (11:00)
--- NOTE | 2018-06-20 13:40 | XR ---
EXAMINATION TYPE: XR chest 2V DATE OF EXAM: 06/20/2018 COMPARISON: 06/17/2018 HISTORY: Abnormal physical exam. Shortness of breath. Rales. Elevated BNP. TECHNIQUE: Frontal and lateral views of the chest are obtained. FINDINGS: There is redemonstration of bibasilar opacities although there is slight improvement of th e left midlung opacity in comparison the prior. New intrafissural fluid is seen within the right nancy r fissure. The patient's chin obscures the lung apices. There are small pleural effusions blunting th e costophrenic angles. Postsurgical changes of the mediastinum are noted with enlarged cardiac silhou ette. There also remains mild diffuse interstitial pulmonary edema. IMPRESSION: Improving left midlung opacity that may represent confluent pulmonary edema or pneumonia . Persistent small pleural effusions and bibasilar opacities with new right intrafissural fluid and p ersistent mild pulmonary vascular congestion on the basis of congestive heart failure.
[2018-06-20] MEDS ORDERED: FUROSEMIDE 10 MG/ML 4 ML VIAL IV STA (13:41)
--- NOTE | 2018-06-20 14:44 | P.PN ---
Subjective This is an 83-year-old male past medical history significant for coronary artery disease s/p bypass grafting, mitral valve replacement with mechanical valve, ischemic cardiomyopathy, chronic systolic heart failure, pulmonary hypertension, chronic persistent atrial fibrillation on ocean transportation intermediary anticoagulation and is admitted to the hospital for acute non-ST elevated myocardial infarction underwent angioplasty and arthrectomy of the mid RCA on June 11. Subsequently thereafter he had acute GI bleeding. He is seen and examined today resting comfortably in bed. He states overall he is not feeling well. He describes feeling weak, fatigued and mildly short of breath. He denies symptoms of chest pain, dizziness or palpitations. He is awaiting transfer to [facility]. Repeat chest xray obtained reveals improving left midlung up a 30, persistent small pleural effusions and bibasilar opacities noted, persistent mild pulmonary vascular congestion. Laboratory data reviewed, INR 2.1, sodium 138, potassium 5.2, creatinine 1.78. Blood pressure 120/69 heart rate 88 afebrile maintaining oxygen saturation on nasal cannula. GENERAL: Well-appearing, well-nourished and in no acute distress. NECK: Supple without JVD or thyromegaly. LUNGS: Bibasilar rales, no rhonchi or wheezes. Respiration equal and unlabored. HEART: Irregular rate and rhythm with systolic murmur at the apex mechanical click noted, no rubs or gallops. S1 and S2 heard. EXTREMITIES: Normal range of motion, no edema. No clubbing or cyanosis. Peripheral pulses intact. ASSESSMENT Acute non-ST elevated myocardial infarction status post angioplasty and atherectomy of the mid RCA History of mechanical mitral valve replacement, [facility] Curt valve 1990 Acute GI bleeding status post therapeutic endoscopy Acute blood loss anemia, stable hemoglobin Pulmonary hypertension, RVSP 39 mmHg Acute on chronic systolic heart failure History of coronary artery disease s/p 2-vessel bypass grafting 1990 Ischemic cardiomyopathy, EF less than 20% Chronic persistent atrial fibrillation with controlled ventricular response on ocean transportation intermediary anti-coagulation PLAN Give coumadin 2 mg. Home doses to be resumed upon discharge. Target INR 2.5-3.5 secondary to his mechanical valve. Give lasix 40 mg IV x1 now. Repeat PT/INR on Sunday. Follow up appointment with Dr. Rodriguez in the office has been made. Nurse Practitioner note has been reviewed, I agree with a documented findings and plan of care. Patient was seen and examined. Objective - Vital Signs Vital signs: Vital Signs Temp 98.0 F 06/20/18 07:00 Pulse 80 06/20/18 07:00 Resp 20 06/20/18 08:00 BP 120/69 06/20/18 07:00 Pulse Ox 92 L 06/20/18 07:00 Intake & Output 06/19/18 06/20/18 06/20/18 18:59 06:59 18:59 Intake Total 680 Output Total 200 200 Balance -200 680 -200 Intake: Oral 680 Output: Urine 200 200 Other: Voiding Method Urinal Diaper # Voids 1 ABP, PAP, CO, CI - Last Documented Arterial Blood Pressure 127/41 - Labs CBC & Chem 7: 06/18/18 06:57 06/20/18 06:52 Labs: Abnormal Lab Results - Last 24 Hours (Table) 06/20/18 06/20/18 Range/Units 06:52 06:52 PT 20.7 H (9.0-12.0) sec INR 2.1 H (<1.2) Potassium 5.2 H (3.5-5.1) mmol/L BUN 66 H (9-20) mg/dL Creatinine 1.78 H (0.66-1.25) mg/dL Glucose 107 H (74-99) mg/dL
[2018-06-20] MEDS ORDERED: FUROSEMIDE 10 MG/ML 10 ML VIAL IV STA (18:31)
[2018-06-20] MEDS: PRAVASTATIN SODIUM 40 MG TAB PO SCH (21:29)
[2018-06-20] MEDS: FINASTERIDE 5 MG TAB PO SCH (21:30)
--- NOTE | 2018-06-20 23:58 | PN ---
PROGRESS NOTE DATE OF SERVICE: 06/20/2018 PRESENTING COMPLAINT: Tired. INTERVAL HISTORY: This patient was admitted with acute NH with EF less than 20%. He had initial cardiac cath followed by a stent to the RCA. Patient is also on Coumadin for mechanical mitral valve. He had a GI bleed with AV malformation that was coagulated. Patient is short of breath, eating a little bit. Does feel tired. REVIEW OF SYSTEMS: Done for constitutional, cardiovascular, GI, pulmonary; relevant findings as above. CURRENT MEDICATIONS: Reviewed. PHYSICAL EXAMINATION: Temperature 97.5, pulse 69, respiration 22, blood pressure 134/77, pulse ox 92% on 4 L. GENERAL: Sitting up, tired-appearing, short of breath. EYES: Pupils equal. Conjunctivae pale. NECK: JVD raised. Mass not palpable. RESPIRATORY: Effort increased. LUNGS: Bilateral crackles. CARDIOVASCULAR: Mechanical heart sounds. No edema. ABDOMEN: Soft, nontender. Liver and spleen not palpable. PSYCHIATRY: Awake, answering questions. INVESTIGATION: Chest x-ray personally reviewed by me shows evidence of pulmonary edema, fluid. INR is 2.1. BUN 66, creatinine 1.78. ASSESSMENT: 1. Acute on chronic congestive heart failure exacerbation from systolic dysfunction, ejection fraction less than 20%, with underlying coronary artery disease with recurrence of flareup. 2. Acute [id number] myocardial infarction, present on admission. 3. Coronary artery disease with successful atherectomy and stent of the right coronary artery. 4. Acute kidney injury, combination of acute tubular necrosis, prerenal. 5. Chronic kidney disease, stage III, from nephrosclerosis. 6. Persistent atrial fibrillation, on Coumadin. 7. Hyperkalemia in the setting of chronic kidney disease. 8. Essential hypertension. 9. Hyperlipidemia. 10.Obstructive sleep apnea. Uses CPAP machine. 11.Mechanical mitral valve, chronically on Coumadin. 12.Coumadin monitoring. 13.Acute gastrointestinal bleed from AV malformation, status post argon plasma coagulation. 14.Medical debility. PLAN: Patient earlier was given some Lasix. I will repeat a dose of Lasix later this evening. Patient remains FULL CODE. I am hoping patient can be then transferred back to the [facility]. Prognosis guarded. MMODL / IJN: [id number] /
[2018-06-21 07:07] LABS: INR 2.4 (<1.2); Prothrombin Time 23.7 sec (9.0-12.0)
[2018-06-21 08:02] VITALS: RESP 16
--- NOTE | 2018-06-21 08:25 | P.PN ---
Subjective This is an 83-year-old male past medical history significant for coronary artery disease s/p bypass grafting, mitral valve replacement with mechanical valve, ischemic cardiomyopathy, chronic systolic heart failure, pulmonary hypertension, chronic persistent atrial fibrillation on terminal manager anticoagulation and is admitted to the hospital for acute non-ST elevated myocardial infarction underwent angioplasty and arthrectomy of the mid RCA on June 11. Subsequently thereafter he had acute GI bleeding. He is seen and examined today resting comfortably in bed. He continues to feel tired and weak. Denies any increase in shortness of breath, no chest pain, palpitations or dizziness. IV lasix was given yesterday due to increase feeling of shortness of breath. No output documented. Blood pressure 124/71 heart rate 52 afebrile and maintaining oxygen saturation on nasal cannula. INR 2.4. GENERAL: Well-appearing, well-nourished and in no acute distress. NECK: Supple without JVD or thyromegaly. LUNGS: Faint bibasilar rales, no rhonchi or wheezes. Respiration equal and unlabored. HEART: Irregular rate and rhythm with systolic murmur at the apex mechanical click noted, no rubs or gallops. S1 and S2 heard. EXTREMITIES: Normal range of motion, no edema. No clubbing or cyanosis. Peripheral pulses intact. ASSESSMENT Acute non-ST elevated myocardial infarction status post angioplasty and atherectomy of the mid RCA History of mechanical mitral valve replacement, St Curt valve 1990 Acute GI bleeding status post therapeutic endoscopy Acute blood loss anemia, stable hemoglobin Pulmonary hypertension, RVSP 39 mmHg Acute on chronic systolic heart failure History of coronary artery disease s/p 2-vessel bypass grafting 1990 Ischemic cardiomyopathy, EF less than 20% Chronic persistent atrial fibrillation with controlled ventricular response on fpc anti-coagulation PLAN Give Coumadin 2 mg now. Home doses to be resumed upon discharge. Target INR 2.5- 3.5 secondary to his mechanical valve. Stable for discharge from a cardiac perspective. Repeat PT/INR on Sunday. Follow up appointment with Dr. Rodriguez in the office has been made. Nurse Practitioner note has been reviewed, I agree with a documented findings and plan of care. Patient was seen and examined. Objective - Vital Signs Vital signs: Vital Signs Temp 97.4 F L 06/21/18 08:01 Pulse 52 L 06/21/18 08:01 Resp 16 06/21/18 08:01 BP 124/71 06/21/18 08:01 Pulse Ox 92 L 06/21/18 08:01 Intake & Output 06/20/18 06/21/18 06/21/18 18:59 06:59 18:59 Intake Total 600 200 Output Total 200 Balance 400 200 Intake: Oral 600 200 Output: Urine 200 Other: Voiding Method Urinal Diaper # Voids 3 2 ABP, PAP, CO, CI - Last Documented Arterial Blood Pressure 127/41 - Labs CBC & Chem 7: 06/18/18 06:57 06/20/18 06:52 Labs: Abnormal Lab Results - Last 24 Hours (Table) 06/20/18 06/21/18 Range/Units 06:52 06:33 PT 23.7 H (9.0-12.0) sec INR 2.4 H (<1.2) Potassium 5.2 H (3.5-5.1) mmol/L BUN 66 H (9-20) mg/dL Creatinine 1.78 H (0.66-1.25) mg/dL Glucose 107 H (74-99) mg/dL
[2018-06-21] MEDS ORDERED: FUROSEMIDE 20 MG TAB PO SCH (09:00)
[2018-06-21] MEDS ORDERED: WARFARIN 2 MG TAB PO SCH (09:00)
[2018-06-21] MEDS: ASPIRIN 81 MG PO SCH (09:27)
[2018-06-21] MEDS: CLOPIDOGREL 75 MG TAB PO SCH (09:27)
[2018-06-21] MEDS: FAMOTIDINE 20 MG TAB PO SCH (09:27)
[2018-06-21] MEDS: CARVEDILOL 3.125 MG TAB PO SCH (09:28)
[2018-06-21] MEDS: MULTIVITAMINS, THERA 1 EACH TAB PO SCH (09:28)
[2018-06-21] MEDS: DIGOXIN 125 MCG TAB PO SCH (09:29)
--- NOTE | 2018-06-21 14:10 | P.PN ---
Subjective Patient is seen in follow-up for acute kidney injury. Renal function improved since admission. Patient had an acute OH this admission for which he underwent cardiac catheterization and a stent placement. Ejection fraction is less than 20%. Currently maintained on Lasix 20 mg once daily. Good urine output. 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 Blood pressures have been stable. Oral intake is gradually improving. Vital signs are stable. General: The patient appeared well nourished and normally developed. HEENT: Head exam is unremarkable. Neck is without jugular venous distension. LUNGS: Breath sounds decreased. HEART: Rate and Rhythm are regular. First and second heart sounds normal. No murmurs, rubs or gallops. ABDOMEN: Abdominal exam reveals normal bowel sounds. Non-tender and non- distended. No evidence of peritonitis. EXTREMITITES: No clubbing, cyanosis, or edema. Objective - Vital Signs Vital signs: Vital Signs Temp 97.4 F L 06/21/18 08:01 Pulse 52 L 06/21/18 08:01 Resp 16 06/21/18 08:01 BP 124/71 06/21/18 08:01 Pulse Ox 92 L 06/21/18 08:01 Intake & Output 06/20/18 06/21/18 06/21/18 18:59 06:59 18:59 Intake Total 600 200 Output Total 200 Balance 400 200 Intake: Oral 600 200 Output: Urine 200 Other: Voiding Method Urinal Diaper # Voids 3 2 ABP, PAP, CO, CI - Last Documented Arterial Blood Pressure 127/41 - Labs CBC & Chem 7: 06/18/18 06:57 06/20/18 06:52 Labs: Abnormal Lab Results - Last 24 Hours (Table) 06/21/18 Range/Units 06:33 PT 23.7 H (9.0-12.0) sec INR 2.4 H (<1.2) Assessment and Plan Plan: Assessment: 1. Acute kidney injury secondary to cardiorenal syndrome. Improved since admission. Creatinine has been staying around 1.4-1.6 the last 3 days. 1.78 of yesterday. 2. 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 Hemoglobin stable. 3. Systolic CHF with ejection fraction of less than 20%. 4. Acute myocardial infarction status post cardiac catheterization with stent placement. 5. Chronic active fibrillation. Rate controlled. 6. History of mitral valve placement. Plan: Maintain Lasix 20 mg once daily. Encouraged oral intake. Avoid nephrotoxins. Digoxin level therapeutic. Potential discharge today. Follow up outpatient in the next 1-2 weeks.
[2018-06-21 14:26] VITALS: BP 117/61; PULSE 66; TEMP 97.8
--- NOTE | 2018-06-21 15:35 | DS ---
DISCHARGE SUMMARY DATE OF ADMISSION: 06/04/2018 DATE OF DISCHARGE: 06/21/2018 FINAL DIAGNOSES: 1. Acute tzu-RM-fhysyqhin myocardial infarction, POA. 2. Acute kidney injury, combination of acute tubular necrosis and prerenal. 3. Chronic kidney disease, stage III, from nephrosclerosis. 4. Acute on chronic congestive heart failure exacerbation from systolic dysfunction, ejection fraction less than 20%, from underlying coronary artery disease with recurrence. 5. Persistent atrial fibrillation, on Coumadin. 6. Hyperkalemia in a setting of chronic kidney disease. 7. Essential hypertension. 8. Hyperlipidemia. 9. Obstructive sleep apnea. Uses CPAP machine. 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 11.Coumadin monitoring. 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 13.Medical debility. 14.Acute hypoxic respiratory failure from above. HOSPITAL COURSE: This patient presented with shortness of breath, was found to have had an acute MS. Patient had two-stage cardiac catheterization and stent to the RCA was done. The patient also was in congestive heart failure; did respond to Lasix. Ejection fraction is less than 20%. Patient at baseline is tired, eating small amounts. Most unfortunately, patient's during the hospital stay, as she was also admitted. CODE STATUS was discussed with the patient on 2 occasions. He wishes to remain FULL CODE. PHYSICAL EXAMINATION: Afebrile. Pulse 52, respiration 16, blood pressure 124/71, pulse ox 92% on 4 L. LUNGS: Decreased breath sounds. CARDIOVASCULAR: Heart sounds irregular. ABDOMEN: Soft, nontender. Answering simple questions. INVESTIGATIONS: INR is 2.4. BUN 66, creatinine 1.78. CONSULTATIONS: 1. Dr. Hadley and colleagues from Nephrology. 2. Dr. Valadez and colleagues from Cardiology. 3. Dr. Francis from GI. 4. Dr. Kamara from Pulmonary. Patient's functional status and prognosis are guarded. DISCHARGE MEDICATIONS: 1. Aspirin 81 mg a day. 2. Digoxin 125 mcg a day. 3. Proscar 5 mg p.o. at bedtime. 4. Pravachol 40 mg at bedtime. 5. Zantac 150 mg p.o. daily. 6. Coumadin 2.5 mg on Sunday, Sunday, Sunday. 7. Multivitamin 1 tablet p.o. daily. 8. Coumadin 1.25 mg on Sunday, Sunday, , Sunday. 9. Coreg 3.125 p.o. b.i.d. 10.Plavix 75 mg a day. 11.Lasix 40 mg b.i.d. 12.Melatonin 3 mg at bedtime p.r.n. 13.Nitroglycerin 0.4 sublingually q.5 p.r.n. DISPOSITION: [facility]. CODE STATUS: FULL Oxygen at 3 to 4 L. Keep pulse ox more than 90% to 92%. Follow up with Dr. Leiva after discharge from the [facility]. Follow up with Dr. Neto Rodriguez on 06/27/2018. Follow up with Dr. Nair at [facility]. KODY / ROMINAN: [id number] /
== END 2018-06-21 16:19 | DRG 246 ==
LOC: EC 13:01 → 3SCARD 15:17 → 2SICU 21:09 → 4SSUR 06-17 03:17
PROVIDERS: ADMIT Hospitalist; ATTEND Hospitalist
PROC: 5A09557 Assistance with Respiratory Ventilation, Greater than 96 Consecutive Hours, Continuous Positive Airway Pressure (ICD-10-PCS; 2018-06-04)
PROC: 4A023N7 Measurement of Cardiac Sampling and Pressure, Left Heart, Percutaneous Approach (ICD-10-PCS; 2018-06-07)
PROC: B2111ZZ Fluoroscopy of Multiple Coronary Arteries using Low Osmolar Contrast (ICD-10-PCS; 2018-06-07)
PROC: B2131ZZ Fluoroscopy of Multiple Coronary Artery Bypass Grafts using Low Osmolar Contrast (ICD-10-PCS; 2018-06-07)
PROC: X2C0361 Extirpation of Matter from Coronary Artery, One Artery using Orbital Atherectomy Technology, Percutaneous Approach, New Technology Group 1 (ICD-10-PCS; 2018-06-11)
PROC: 027034Z Dilation of Coronary Artery, One Artery with Drug-eluting Intraluminal Device, Percutaneous Approach (ICD-10-PCS; principal; 2018-06-11 08:35)
PROC: 0W3P8ZZ Control Bleeding in Gastrointestinal Tract, Via Natural or Artificial Opening Endoscopic (ICD-10-PCS; 2018-06-14)
DX: I21.4 Non-ST elevation (NSTEMI) myocardial infarction (principal); I50.23 Acute on chronic systolic (congestive) heart failure; J18.9 Pneumonia, unspecified organism; J96.01 Acute respiratory failure with hypoxia; K31.811 Angiodysplasia of stomach and duodenum with bleeding; N17.0 Acute kidney failure with tubular necrosis; D62 Acute posthemorrhagic anemia; E87.2 Acidosis; I13.0 Hypertensive heart and chronic kidney disease with heart failure and stage 1 through stage 4 chronic kidney disease, or unspecified chronic kidney disease; I48.1 Persistent atrial fibrillation; I25.5 Ischemic cardiomyopathy; I95.9 Hypotension, unspecified; E87.5 Hyperkalemia; I27.20 Pulmonary hypertension, unspecified; I08.1 Rheumatic disorders of both mitral and tricuspid valves; R00.1 Bradycardia, unspecified; D53.9 Nutritional anemia, unspecified; N14.1 Nephropathy induced by other drugs, medicaments and biological substances; N18.3 Chronic kidney disease, stage 3 (moderate); E78.5 Hyperlipidemia, unspecified; G47.33 Obstructive sleep apnea (adult) (pediatric); I25.10 Atherosclerotic heart disease of native coronary artery without angina pectoris; I25.2 Old myocardial infarction; K21.9 Gastro-esophageal reflux disease without esophagitis; K57.30 Diverticulosis of large intestine without perforation or abscess without bleeding; K59.00 Constipation, unspecified; N40.0 Benign prostatic hyperplasia without lower urinary tract symptoms; R79.1 Abnormal coagulation profile; T50.8X5A Adverse effect of diagnostic agents, initial encounter; K44.9 Diaphragmatic hernia without obstruction or gangrene; M19.90 Unspecified osteoarthritis, unspecified site; R73.9 Hyperglycemia, unspecified; Z79.01 Long term (current) use of anticoagulants; Z79.82 Long term (current) use of aspirin; Z79.899 Other long term (current) drug therapy; Z85.820 Personal history of malignant melanoma of skin; Z87.891 Personal history of nicotine dependence; Z95.1 Presence of aortocoronary bypass graft; Z95.2 Presence of prosthetic heart valve; Z86.73 Personal history of transient ischemic attack (TIA), and cerebral infarction without residual deficits; Z98.42 Cataract extraction status, left eye; Z96.1 Presence of intraocular lens; Z80.8 Family history of malignant neoplasm of other organs or systems; Z80.9 Family history of malignant neoplasm, unspecified
CPT/HCPCS: 36415; 43255; 71045; 71046; 76770; 80048; 80053; 80061; 80162; 81003; 82272; 82550; 82553; 82607; 82746; 83735; 83880; 84145; 84484; 85025; 85027; 85379; 85610; 85730; 86850; 86900; 86901; 87040; 87070; 87205; 93005; 93306; 93459; 94660; 96374; 99291; C1874

== ENCOUNTER 2018-07-11 11:44 | Inpatient (IN) | payer MEDICARE ==
[2018-07-11] MEDS ORDERED: SODIUM CHLORIDE 0.9% 1,000 ML IV STA (11:49)
[2018-07-11] MEDS ORDERED: SODIUM CHLORIDE 0.9% 500 ML 500 ML IV STA (11:49)
[2018-07-11 12:22] LABS: Anisocytosis Slight; Basophils % (A) 1 %; Eosinophils # (A) 0.2 k/uL (0-0.7); Eosinophils % (A) 4 %; HCT 33.6 % (39.0-53.0); HGB 10.4 gm/dL (13.0-17.5); Hypochromasia Marked; Lymphocytes # (A) 0.7 k/uL (1.0-4.8); Lymphocytes % (A) 12 %; MCH 31.3 pg (25.0-35.0); MCHC 30.9 g/dL (31.0-37.0); MCV 101.3 fL (80.0-100.0); Macrocytosis Moderate; Mean Platelet Volume 7.8; Monocytes # (A) 0.7 k/uL (0-1.0); Monocytes % (A) 11 %; Neutrophils # (A) 4.5 k/uL (1.3-7.7); Neutrophils % (A) 72 %; Platelet Count 129 k/uL (150-450); Poikilocytosis Slight; RBC 3.31 m/uL (4.30-5.90); RDW 17.6 % (11.5-15.5); WBC 6.3 k/uL (3.8-10.6)
--- NOTE | 2018-07-11 12:23 | ED ---
Dizziness HPI - General Chief Complaint: Dizziness Stated Complaint: Dizzy Time Seen by Provider: 07/11/18 11:46 Source: EMS Mode of arrival: EMS Limitations: physical limitation - History of Present Illness Initial Comments: This is an 83-year-old male to the ER for evaluation. Patient has a for evaluation regarding weakness and dizziness. Patient a fluid dizziness while doing rehabilitation today. Patient has no recent change in medication positive recent medical history and underlying CHF. Patient denies any specific complaints currently. States today's is improved but it seems to wax and wane. MD Complaint: dizziness, lightheadedness -: hour(s) Timing: sudden onset, awoke with symptoms Description: sense of movement, "room spinning", difficulty walking History of Same: No History of Trauma: No Severity: mild Improves With: remaining still Worsens With: movement Associated Symptoms: chest pain, weakness - Related Data Home Medications Medication Instructions Recorded Confirmed Aspirin 81 mg PO DAILY@169912/09/13 07/11/18 Digoxin [Lanoxin] 125 mcg PO DAILY@59912/09/13 07/11/18 Finasteride [Proscar] 5 mg PO HS@209912/09/13 07/11/18 Pravastatin Sodium [Pravachol] 40 mg PO HS@209912/09/13 07/11/18 Ranitidine HCl [Zantac] 150 mg PO DAILY@59912/09/13 07/11/18 Warfarin [Coumadin] 2.5 mg PO SUWESA@169912/09/13 07/11/18 Multivitamins, Thera [Multivitamin 1 tab PO DAILY@169906/04/18 07/11/18 (formulary)] Warfarin [Coumadin] 1.25 mg PO MOTUTHFR@169906/04/18 07/11/18 Bisacodyl [Dulcolax] 10 mg RECTAL DAILY PRN 07/11/18 07/11/18 Carvedilol [Coreg] 3.125 mg PO BID@0800,169907/11/18 07/11/18 Clopidogrel [Plavix] 75 mg PO DAILY@0800 07/11/18 07/11/18 Ferrous Sulfate [Feosol] 325 mg PO BID@0800,1700 07/11/18 07/11/18 Furosemide [Lasix] 40 mg PO BID@0600,1400 07/11/18 07/11/18 Lactose-Reduced Food [Ensure Plus] 120 ml PO TID@0800,1200,1700 07/11/18 Lactulose 10 gm PO BID@0800,2100 07/11/18 07/11/18 Magnesium Hydroxide [Milk of 2,400 mg PO DAILY PRN 07/11/18 07/11/18 Magnesia] Na Phos,M-B/Na Phos,Di-Ba [Fleet 133 ml RECTAL DAILY PRN 07/11/18 07/11/18 Adult] Previous Rx's Medication Instructions Recorded Melatonin 3 mg PO HS PRN tablet 06/21/18 Nitroglycerin Sl Tabs [Nitrostat] 0.4 mg SUBLINGUAL Q5M PRN tab 06/21/18 Allergies Allergy/AdvReac Type Severity Reaction Status Date / Time No Known Allergies Allergy Verified 07/11/18 12:04 Review of Systems ROS Statement: Those systems with pertinent positive or pertinent negative responses have been documented in the HPI. ROS Other: All systems not noted in ROS Statement are negative. Past Medical History Past Medical History: Heart Failure, CVA/TIA, GERD/Reflux, Hyperlipidemia, Hypertension, Osteoarthritis (OA), Prostate Disorder, Sleep Apnea/CPAP/BIPAP Additional Past Medical History / Comment(s): CHF RESOLVED POST VALVE REPLACEMENT. CPAP @ 8 L. HIATAL HERNIA. Hx of melenoma. BPH. Irregular heart beat. TIA. History of Any Multi-Drug Resistant Organisms: None Reported Past Surgical History: Cardiac Valve Replacement, Coronary Bypass/CABG, Heart Catheterization, Tonsillectomy Additional Past Surgical History / Comment(s): LEFT CATARACT. 2 vessel bypass with mitral valve repair 1990. Melenoma removal. Past Anesthesia/Blood Transfusion Reactions: No Reported Reaction Past Psychological History: No Psychological Hx Reported Smoking Status: Former smoker Past Alcohol Use History: Daily Past Drug Use History: None Reported - Past Family History Mother Family Medical History: Cancer Additional Family Medical History / Comment(s): from bone cancer, no hx of cardiac disease Father Family Medical History: Cancer Additional Family Medical History / Comment(s): unknown type of cancer General Exam Limitations: physical limitation General appearance: alert, in no apparent distress Head exam: Present: atraumatic, normocephalic, normal inspection Eye exam: Present: normal appearance, PERRL, EOMI. Absent: scleral icterus, conjunctival injection, periorbital swelling ENT exam: Present: normal exam, mucous membranes moist Neck exam: Present: normal inspection. Absent: tenderness, meningismus, lymphadenopathy Respiratory exam: Present: normal lung sounds bilaterally. Absent: respiratory distress, wheezes, rales, rhonchi, stridor Cardiovascular Exam: Present: tachycardia, irregular rhythm, normal heart sounds. Absent: systolic murmur, diastolic murmur, rubs, gallop, clicks GI/Abdominal exam: Present: soft, normal bowel sounds. Absent: distended, tenderness, guarding, rebound, rigid Extremities exam: Present: normal inspection, full ROM, normal capillary refill. Absent: tenderness, pedal edema, joint swelling, calf tenderness Back exam: Present: normal inspection Neurological exam: Present: alert, oriented X3, CN II-XII intact Psychiatric exam: Present: normal affect, normal mood Skin exam: Present: warm, dry, intact, normal color. Absent: rash Course Vital Signs 07/11/18 07/11/18 11:46 13:07 Temperature 97.5 F L Pulse Rate 70 61 Respiratory 24 18 Rate Blood Pressure 123/74 106/57 O2 Sat by Pulse 92 L 92 L Oximetry - Reevaluation(s) Reevaluation #1: 07/11/18 15:05 Medical record Prior hospitalization or reviewed Reevaluation #2: 07/11/18 15:05 Patient with no real improvement in symptoms, dizziness does come and go, seems to be occurring when. Patient appears to be bradycardic EKG Findings - EKG Comments: EKG Findings:: EKG shows A. fib rate of 74, QRS 160, QTc 457 Medical Decision Making - Medical Decision Making 83 male the ER for evaluation positive bradycardia. Patient will be admitted for dizziness, evaluation of bradycardia, patient also with CHF ARF will need diuresis - Lab Data Result diagrams: 07/11/18 11:57 07/11/18 11:57 Lab Results 07/11/18 07/11/18 07/11/18 Range/Units 11:57 11:57 11:57 WBC 6.3 (3.8-10.6) k/uL RBC 3.31 L (4.30-5.90) m/uL Hgb 10.4 L (13.0-17.5) gm/dL Hct 33.6 L (39.0-53.0) % MCV 101.3 H (80.0-100.0) fL MCH 31.3 (25.0-35.0) pg MCHC 30.9 L (31.0-37.0) g/dL RDW 17.6 H (11.5-15.5) % Plt Count 129 L (150-450) k/uL Neutrophils % 72 % Lymphocytes % 12 % Monocytes % 11 % Eosinophils % 4 % Basophils % 1 % Neutrophils # 4.5 (1.3-7.7) k/uL Lymphocytes # 0.7 L (1.0-4.8) k/uL Monocytes # 0.7 (0-1.0) k/uL Eosinophils # 0.2 (0-0.7) k/uL Basophils # 0.0 (0-0.2) k/uL Hypochromasia Marked Poikilocytosis Slight Anisocytosis Slight Macrocytosis Moderate PT (9.0-12.0) sec INR (<1.2) APTT (22.0-30.0) sec Sodium 139 (137-145) mmol/L Potassium 4.1 (3.5-5.1) mmol/L Chloride 100 (98-107) mmol/L Carbon Dioxide 31 H (22-30) mmol/L Anion Gap 8 mmol/L BUN 29 H (9-20) mg/dL Creatinine 1.55 H (0.66-1.25) mg/dL Est GFR (CKD-EPI)AfAm 47 (>60 ml/min/1.73 sqM) Est GFR (CKD-EPI)NonAf 41 (>60 ml/min/1.73 sqM) Glucose 113 H (74-99) mg/dL Plasma Lactic Acid Josemanuel (0.7-2.0) mmol/L Calcium 8.6 (8.4-10.2) mg/dL Phosphorus 3.6 (2.5-4.5) mg/dL Magnesium 2.6 H (1.6-2.3) mg/dL Total Bilirubin 1.2 (0.2-1.3) mg/dL AST 25 (17-59) U/L ALT 19 L (21-72) U/L Alkaline Phosphatase 81 (38-126) U/L Total Creatine Kinase <20 L (55-170) U/L CK-MB (CK-2) 0.6 (0.0-2.4) ng/mL CK-MB (CK-2) Rel Index Troponin I 0.053 H* (0.000-0.034) ng/mL Total Protein 6.8 (6.3-8.2) g/dL Albumin 3.4 L (3.5-5.0) g/dL Blood Type Blood Type Recheck Antibody Screen Spec Expiration Date 07/11/18 07/11/18 07/11/18 Range/Units 11:57 11:57 11:57 WBC (3.8-10.6) k/uL RBC (4.30-5.90) m/uL Hgb (13.0-17.5) gm/dL Hct (39.0-53.0) % MCV (80.0-100.0) fL MCH (25.0-35.0) pg MCHC (31.0-37.0) g/dL RDW (11.5-15.5) % Plt Count (150-450) k/uL Neutrophils % % Lymphocytes % % Monocytes % % Eosinophils % % Basophils % % Neutrophils # (1.3-7.7) k/uL Lymphocytes # (1.0-4.8) k/uL Monocytes # (0-1.0) k/uL Eosinophils # (0-0.7) k/uL Basophils # (0-0.2) k/uL Hypochromasia Poikilocytosis Anisocytosis Macrocytosis PT 16.5 H (9.0-12.0) sec INR 1.7 H (<1.2) APTT 31.8 H (22.0-30.0) sec Sodium (137-145) mmol/L Potassium (3.5-5.1) mmol/L Chloride (98-107) mmol/L Carbon Dioxide (22-30) mmol/L Anion Gap mmol/L BUN (9-20) mg/dL Creatinine (0.66-1.25) mg/dL Est GFR (CKD-EPI)AfAm (>60 ml/min/1.73 sqM) Est GFR (CKD-EPI)NonAf (>60 ml/min/1.73 sqM) Glucose (74-99) mg/dL Plasma Lactic Acid Josemanuel 1.8 (0.7-2.0) mmol/L Calcium (8.4-10.2) mg/dL Phosphorus (2.5-4.5) mg/dL Magnesium (1.6-2.3) mg/dL Total Bilirubin (0.2-1.3) mg/dL AST (17-59) U/L ALT (21-72) U/L Alkaline Phosphatase (38-126) U/L Total Creatine Kinase (55-170) U/L CK-MB (CK-2) (0.0-2.4) ng/mL CK-MB (CK-2) Rel Index Troponin I (0.000-0.034) ng/mL Total Protein (6.3-8.2) g/dL Albumin (3.5-5.0) g/dL Blood Type O Negative Blood Type Recheck No Antibody Screen NEGATIVE Spec Expiration Date 07/14/2018 - 9127 - Radiology Data Radiology results: report reviewed (CT brain chest x-ray show positive CHF), image reviewed Disposition Clinical Impression: Renal insufficiency, Acute pulmonary edema, Dizziness, Bradycardia Disposition: ADMITTED IP TO THIS [facility] Condition: Good Referrals: Vamshi Leiva MD [Primary Care Provider] - 1-2 days
[2018-07-11 12:34] LABS: Albumin 3.4 g/dL (3.5-5.0); Calcium 8.6 mg/dL (8.4-10.2); Magnesium 2.6 mg/dL (1.6-2.3); Phosphorus 3.6 mg/dL (2.5-4.5); Potassium 4.1 mmol/L (3.5-5.1); Total Bilirubin 1.2 mg/dL (0.2-1.3); Total Protein 6.8 g/dL (6.3-8.2)
[2018-07-11 12:36] LABS: INR 1.7 (<1.2); Partial Thromboplastin Time 31.8 sec (22.0-30.0); Prothrombin Time 16.5 sec (9.0-12.0)
[2018-07-11 12:44] LABS: Creatine Kinase <20 U/L (55-170)
[2018-07-11 12:57] LABS: Creatine Kinase MB 0.6 ng/mL (0.0-2.4)
[2018-07-11 13:24] LABS: Troponin I 0.053 ng/mL (0.000-0.034)
--- NOTE | 2018-07-11 13:32 | XR ---
EXAMINATION TYPE: XR chest 2V DATE OF EXAM: 07/11/2018 COMPARISON: 06/20/2018 TECHNIQUE: PA and lateral views submitted. HISTORY: Shortness of breath FINDINGS: Heart is enlarged and there is atherosclerotic change aorta and postsurgical changes. Bilateral conso lidation and pleural effusion pneumothorax. Question previous coronary stent. Hypertrophic changes of the vertebral column. IMPRESSION: 1. Bilateral consolidation and pleural effusion. Correlate for CHF. More localized area of consolidat ion in the left upper lobe on the previous exam is stable. May represent confluent pulmonary edema or pneumonia. Follow to resolution to exclude underlying neoplasm
--- NOTE | 2018-07-11 13:41 | CT ---
EXAMINATION TYPE: CT brain wo con DATE OF EXAM: 07/11/2018 COMPARISON: HISTORY: dizziness. [facility] [address] DLP: 1070.4 mGycm Automated exposure control for dose reduction was used. Helical acquisition through the brain. FINDINGS: There is extensive cortical atrophy. The ventricles are enlarged. Periventricular white matter as wel l as subcortical juxtacortical hypointensity is diffuse within the brain. Possible lacunar infarct le ft basal ganglia. Cerebral vascular calcifications are present. No evident hemorrhage. Calvarium is i ntact. Air density within the muscles of mastication on the right likely introduced during IV placeme nt. IMPRESSION: CORTICAL ATROPHY AND NONSPECIFIC WHITE MATTER DEMYELINATION. FINDINGS COULD BE DUE TO AGE-RELATED KERWIN NGE, CHRONIC SMALL VESSEL ISCHEMIA. CONSIDER NORMAL PRESSURE HYDROCEPHALUS, MRI FOR BETTER EVALUATION .
[2018-07-11] MEDS ORDERED: FUROSEMIDE 10 MG/ML 4 ML VIAL IV SCH (15:30)
[2018-07-11 15:46] LABS: Appearance,Urine Clear (Clear); Bilirubin,Urine Negative (Negative); Blood,Urine Negative (Negative); Color,Urine Yellow; Glucose,Urine (UA) Negative (Negative); Ketones,Urine Negative (Negative); Leukocyte Esterase,Urine Negative (Negative); Nitrite,Urine Negative (Negative); Protein,Urine Negative (Negative); Specific Gravity,Urine 1.011 (1.001-1.035); Urobilinogen,Urine <2.0 mg/dL (<2.0)
[2018-07-11] MEDS ORDERED: MELATONIN 3 MG TABLET PO PRN (16:50)
[2018-07-11] MEDS ORDERED: NITROGLYCERIN SL TABS 0.4 MG TAB SUBLINGUAL PRN (16:50)
[2018-07-11] MEDS ORDERED: BISACODYL 10 MG SUPP RECTAL PRN (16:50)
[2018-07-11] MEDS ORDERED: NA PHOS,M-B/NA PHOS,DI-BA 133 ML ENEMA RECTAL PRN (16:50)
[2018-07-11] MEDS ORDERED: ACETAMINOPHEN TAB 325 MG TAB PO PRN (16:52)
[2018-07-11] MEDS ORDERED: NALOXONE 0.4 MG/ML 1 ML VIAL IV PRN (16:52)
[2018-07-11] MEDS ORDERED: CALCIUM CARBONATE 500 MG CHEWABLE PO PRN (16:52)
[2018-07-11] MEDS ORDERED: ONDANSETRON 4 MG/2 ML VIAL IVP PRN (16:52)
[2018-07-11] MEDS ORDERED: ALPRAZolam 0.25 MG TAB PO PRN (16:52)
[2018-07-11] MEDS ORDERED: NON-FORMULARY DRUG (Lactose-Reduced Food [Ensure Plus] 120 ML) PO SCH (17:00)
[2018-07-11] MEDS ORDERED: WARFARIN 1.25 MG TAB PO SCH (17:00)
[2018-07-11] MEDS ORDERED: WARFARIN 2.5 MG TAB PO SCH (17:02)
[2018-07-11] MEDS: FERROUS SULFATE 325 MG TAB PO SCH (17:47)
[2018-07-11] MEDS: MULTIVITAMINS, THERA 1 EACH TAB PO SCH (17:47)
[2018-07-11] MEDS: ASPIRIN 81 MG PO SCH (17:47)
[2018-07-11] MEDS: CARVEDILOL 3.125 MG TAB PO SCH (17:47)
--- NOTE | 2018-07-11 17:48 | HP ---
HISTORY AND PHYSICAL DATE OF ADMISSION: 07/11/2018 DATE OF SERVICE: 07/11/2018 PRESENTING COMPLAINT: Tired, short of breath, dizzy. HISTORY OF PRESENTING COMPLAINT: This is a pleasant 83-year-old patient of Dr. Vamshi Leiva. The patient was in the hospital and was discharged on June. The patient has a rather extensive medical history. Last admission, patient was admitted with acute non ST elevation myocardial infarction. Also has known congestive heart failure with EF less than 20%, and also has got persistent atrial fibrillation for which patient is on Coumadin and also has got chronic kidney disease and also was on Coumadin for a mechanical mitral valve. Last admission patient did have a GI bleed from AV malformation, had argon plasma coagulation carried out. The patient is currently in the ECF, presents with primarily feeling feeling dizzy, tired, some shortness of breath, edema present. No chest pain. Pretty much has been on the wheelchair. Does not really walk. Appetite is okay. Bowels are okay. He was transferred here from rehab. Denies any chest pain. Chest x-ray did show pleural effusion, some pulmonary edema, was given IV Lasix in the ER. REVIEW OF SYSTEMS: CONSTITUTIONAL: Tired. HEENT: Decreased hearing. RESPIRATORY as above. CARDIOVASCULAR: No chest pain, edema present. ABDOMEN none. GENITOURINARY none. MUSCULOSKELETAL: Arthritic pain in joints. DERMATOLOGICAL: None. HEMATOLOGICAL: None. LYMPHATICS: None. PSYCHIATRY: Slightly forgetful. NEUROLOGICAL: Generalized weakness. PAST MEDICAL HISTORY: GI bleed from AV malformation, mechanical mitral valve, obstructive sleep apnea, hyperlipidemia, hypertension, atrial fibrillation, congestive heart failure, EF less than 20%. Chronic kidney disease stage 3, stroke, primary osteoarthritis, history of melanoma, BPH. PAST SURGICAL HISTORY: Mitral valve repair, coronary artery bypass, tonsillectomy, left cataract surgery, melanoma removed. SOCIAL HISTORY: The patient is a . Lives at [facility]. Pretty much uses a wheelchair. Too weak or dizzy to use otherwise. Before going to rehab was drinking about 3 times a week. Did smoke in the past. FAMILY HISTORY: Of bone cancer. HOME MEDICATIONS: 1. Coumadin 1.25 mg Sunday, Sunday, , Sunday and 2.5 on Sunday, Sunday, Saturday. 2. Zantac 150 mg a day. 3. Pravachol 40 mg q.h.s. 4. Nitrostat 0.4 sublingual q.5 p.r.n. 5. Adult Fleet 133 mL daily p.r.n. 6. Multivitamin 1 tablet p.o. daily. 7. Melatonin 3 mg q.h.s. p.r.n. 8. Milk of magnesia 2400 mg p.o. daily p.r.n. 9. Lactulose 10 grams p.o. b.i.d. 10.Ensure Plus 120 mL p.o. t.i.d. 11.Lasix 40 mg b.i.d. 12.Proscar 5 mg p.o. at bedtime. 13.Iron 325 p.o. b.i.d. 14.Digoxin 125 mcg a day. 15.Plavix 75 mg a day. 16.Coreg 3.125 p.o. b.i.d. 17.Dulcolax 10 mg rectally daily p.r.n. 18.Aspirin 81 mg daily. ALLERGIES: None. PHYSICAL EXAMINATION: VITAL SIGNS: Temperature 97.5, pulse 72, respiration 20, blood pressure 123/74, pulse ox 92 percent on 6 L. GENERAL APPEARANCE: Average built, sitting up, propped up in bed, tired appearing. Eyes: Pupils equal. Conjunctivae pale. HEENT: External appearance of nose and ears normal. Oral cavity a bit dry. JVD possibly raised. Mass not palpable. RESPIRATORY: Effort increased. LUNGS: Decreased breath sounds at the bases. CARDIOVASCULAR: Heart sounds irregular. Edema present. ABDOMEN: Soft, nontender. Liver and spleen not palpable. LYMPHATICS: No lymph nodes palpable in the neck and axilla. PSYCHIATRY: Alert and oriented x3. Mood and affect normal. NEUROLOGICAL: Pupils equal. Cranial nerves grossly intact. Power and sensation grossly intact. MUSCULOSKELETAL: Evidence of osteoarthritis, especially in the hands and knees. INVESTIGATIONS: White count 6.3, hemoglobin 10.4, INR 1.7, potassium 4.1, BUN 29, creatinine 1.55. The patient's BUN and creatinine 3 weeks ago was 66/1.78. Chest x-ray film personally reviewed by me shows venous prominence, pleural effusion. EKG tracing personally reviewed by me shows atrial fibrillation, rate controlled with some ST-segment changes. ASSESSMENT: 1. Acute on chronic congestive heart failure exacerbation from systolic dysfunction ejection fraction less than 20%, underlying coronary artery disease. 2. Coronary artery disease with recent myocardial infarction. 3. Chronic kidney disease stage 3 from nephrosclerosis. 4. Persistent atrial fibrillation, rate control, chronically on Coumadin. 5. Essential hypertension with chronic kidney disease. 6. Hyperlipidemia. 7. Obstructive sleep apnea uses CPAP. 8. Mechanical mitral valve, chronically on Coumadin. 9. Coumadin monitoring. 10.Chronic medical debility, uses a wheelchair. 11.Acute hypoxic respiratory failure, requiring 6 L of oxygen from congestive heart failure. 12.Acute pleural effusion on chronic pleural effusion from congestive heart failure. PLAN: Home medications will be resumed. INR will be closely followed. We will put the patient on Lasix drip for 12-24 hours. Keep a close eye on patient's blood pressure, electrolytes, given his multiple comorbidities, prognosis is guarded. Care was discussed with the patient. We will also have Physical therapy see the patient. Copy to Dr. Vamshi Leiva. MMDAMIAN / ROMINAN: [id number] /
[2018-07-11] MEDS: FUROSEMIDE 100 MG in SODIUM CHLORIDE 0.9% 90 ML IV SCH (19:10)
[2018-07-11] MEDS: PRAVASTATIN SODIUM 40 MG TAB PO SCH (20:38)
[2018-07-11] MEDS: FINASTERIDE 5 MG TAB PO SCH (20:38)
[2018-07-11] MEDS: LACTULOSE 20 GM/30 ML CUP PO SCH (20:38)
[2018-07-12] MEDS: FUROSEMIDE 100 MG in SODIUM CHLORIDE 0.9% 90 ML IV SCH ×3 (03:15→23:31)
[2018-07-12 04:47] LABS: INR 1.6 (<1.2); Prothrombin Time 15.6 sec (9.0-12.0)
[2018-07-12 04:49] LABS: Calcium 8.3 mg/dL (8.4-10.2); Potassium 3.8 mmol/L (3.5-5.1)
[2018-07-12] MEDS: DIGOXIN 125 MCG TAB PO SCH (06:07)
[2018-07-12] MEDS: FAMOTIDINE 20 MG TAB PO SCH (06:08)
[2018-07-12] MEDS: CARVEDILOL 3.125 MG TAB PO SCH ×2 (08:11→16:59)
[2018-07-12] MEDS: FERROUS SULFATE 325 MG TAB PO SCH ×2 (08:11→16:59)
[2018-07-12] MEDS: CLOPIDOGREL 75 MG TAB PO SCH (08:11)
[2018-07-12] MEDS: LACTULOSE 20 GM/30 ML CUP PO SCH ×2 (08:11→21:51)
--- NOTE | 2018-07-12 08:30 | P.CRDCN ---
History of Present Illness Consult date: 07/12/18 Requesting physician: Javy Hall Reason for Consult (text): bradycardia Chief complaint: dizziness History of present illness: This is a pleasant 83-year-old gentleman who follows with Dr. VC Rodriguez in the office. He has a known history of chronic atrial fibrillation, severe MR and severe MR, status post mechanical mitral valve replacement in 1990, CABG, chronic atrial fibrillation, on Coumadin, chronic systolic congestive heart failure with most recent echo showing an ejection fraction of less than 20%, recent non-ST elevation IN in June of this year at which time he underwent cardiac catheterization which revealed 80% lesion of the ostial LAD, 100% occlusion of the mid LAD, 2 good-sized diagonal branches which are proximally diffusely diseased with long diffuse stenosis of about 80% to 90%, ostial stenosis of the circumflex with a long segment of diffuse disease with multiple areas of 70-80% stenosis, graft to the obtuse marginal branch is occluded, and RCA calcified with stenosis of 80-85% in the mid RCA, and patent PATEL to the LAD with good filling of the distal LAD. He subsequently underwent arthrectomy of the mid RCA as well as stenting of the RCA. 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 Mr. Madsen presents this admission for complaints of dizziness. He resides at [facility] for rehab. He apparently got up into a wheelchair for therapy and after about a half an hour in a wheelchair he developed some dizziness. No syncope or near syncope. He's also been complaining of some lower extremity edema that is somewhat worsened since previous discharge as well as some dyspnea on exertion. He does have a loose cough which he is unable to expectorate sputum. Denies orthopnea or PND. No further signs of GI bleed. EKG on admission showed atrial fibrillation with occasional PVCs and marked ST abnormalities similar to previous EKG. Chest x-ray on admission showed bilateral consolidation and pleural effusion, correlate for CHF, more localized area of consolidation in the left upper lobe on previous exam is stable, may represent confluent pulmonary edema or pneumonia. Recommended to follow to resolution to exclude underlying neoplasm. He has been afebrile. Vital signs are relatively stable. Does have a drop in O2 saturation with activity from about 94 at rest to 87 with standing. Orthostatic vital signs showed a supine blood pressure of around 125/60 and a standing blood pressure of around 105/50 and increase in heart rate from 58 to 90 with complaints of dizziness with each position change. Laboratory values show a hemoglobin of 10.4, INR 1.6, BUN 29, creatinine 1.39, and troponins of 0.053, 0.052 and 0.055 with last troponin on June 05 of 6.. NT proBNP is not available. Most recent echocardiogram in June of this year showed severely impaired LV systolic function with an ejection fraction less than 20%, markedly dilated left atrium, moderately enlarged right atrium, mild mitral regurgitation with a mechanical mitral valve, mild to moderate tricuspid regurgitation and mild pulmonary hypertension. Past Medical History Past Medical History: Atrial Fibrillation, Heart Failure, CVA/TIA, GERD/Reflux, GI Bleed, Hyperlipidemia, Hypertension, Memory Impairment, Osteoarthritis (OA), Prostate Disorder, Renal Disease, Sleep Apnea/CPAP/BIPAP Additional Past Medical History / Comment(s): CHF RESOLVED POST VALVE REPLACEMENT. CPAP @ 8 L. HIATAL HERNIA. Hx of melenoma. BPH. Irregular heart beat. TIA.nstemi History of Any Multi-Drug Resistant Organisms: None Reported Past Surgical History: Cardiac Valve Replacement, Coronary Bypass/CABG, Heart Catheterization, Tonsillectomy Additional Past Surgical History / Comment(s): LEFT CATARACT. 2 vessel bypass with mitral valve repair 1990. Melenoma removal. egd Past Anesthesia/Blood Transfusion Reactions: No Reported Reaction Smoking Status: Former smoker - Past Family History Mother Family Medical History: Cancer Additional Family Medical History / Comment(s): from bone cancer, no hx of cardiac disease Father Family Medical History: Cancer Additional Family Medical History / Comment(s): unknown type of cancer Medications and Allergies Home Medications Medication Instructions Recorded Confirmed Type Aspirin 81 mg PO DAILY@1700 12/09/13 07/11/18 History Digoxin [Lanoxin] 125 mcg PO DAILY@59912/09/13 07/11/18 History Finasteride [Proscar] 5 mg PO HS@209912/09/13 07/11/18 History Pravastatin Sodium [Pravachol] 40 mg PO HS@209912/09/13 07/11/18 History Ranitidine HCl [Zantac] 150 mg PO DAILY@59912/09/13 07/11/18 History Warfarin [Coumadin] 2.5 mg PO SUWESA@1700 12/09/13 07/11/18 History Multivitamins, Thera [Multivitamin 1 tab PO DAILY@1700 06/04/18 07/11/18 History (formulary)] Warfarin [Coumadin] 1.25 mg PO MOTUTHFR@1700 06/04/18 07/11/18 History Melatonin 3 mg PO HS PRN tablet 06/21/18 07/11/18 Rx Nitroglycerin Sl Tabs [Nitrostat] 0.4 mg SUBLINGUAL Q5M PRN tab 06/21/18 Rx Bisacodyl [Dulcolax] 10 mg RECTAL DAILY PRN 07/11/18 07/11/18 History Carvedilol [Coreg] 3.125 mg PO BID@0800,1700 07/11/18 07/11/18 History Clopidogrel [Plavix] 75 mg PO DAILY@0800 07/11/18 07/11/18 History Ferrous Sulfate [Feosol] 325 mg PO BID@0800,1700 07/11/18 07/11/18 History Furosemide [Lasix] 40 mg PO BID@0600,1400 07/11/18 07/11/18 History Lactose-Reduced Food [Ensure Plus] 120 ml PO TID@0800,1200,1700 07/11/18 History Lactulose 10 gm PO BID@0800,2100 07/11/18 07/11/18 History Magnesium Hydroxide [Milk of 2,400 mg PO DAILY PRN 07/11/18 07/11/18 History Magnesia] Na Phos,M-B/Na Phos,Di-Ba [Fleet 133 ml RECTAL DAILY PRN 07/11/18 07/11/18 History Adult] Allergies Allergy/AdvReac Type Severity Reaction Status Date / Time No Known Allergies Allergy Verified 07/11/18 12:04 Physical Exam Vitals: Vital Signs Temp Pulse Pulse Resp BP BP Pulse Ox 07/12/18 03:46 98.3 F 66 22 109/58 92 L 07/12/18 00:00 98.2 F 63 18 114/60 93 L 07/11/18 20:00 97.8 F 66 20 112/65 91 L 07/11/18 16:15 97.8 F 74 18 115/63 95 07/11/18 16:00 54 L 18 130/67 92 L 07/11/18 15:38 62 18 119/58 96 07/11/18 14:26 61 20 116/74 95 07/11/18 13:07 61 18 106/57 92 L 07/11/18 11:46 97.5 F L 70 24 123/74 92 L Intake and Output 07/11/18 07/12/18 07/12/18 22:59 06:59 14:59 Intake Total 120 80.833 Output Total 150 300 Balance -30 80.833 -300 Intake: Intake, IV Titration 80.833 Amount Furosemide 100 mg In 80.833 Sodium Chloride 0.9% 90 ml @ 10 MG/HR 10 mls/hr IV .Q10H [facility] Rx#: [id number] Oral 120 Output: Urine 150 300 Other: # Voids 1 1 Weight 80.5 kg 80.4 kg PHYSICAL EXAMINATION: HEENT: Head is atraumatic, normocephalic. Pupils equal, round. Neck is supple. There is elevated jugular venous pressure. HEART EXAMINATION: Heart sounds irregularly irregular, S1 and S2 with a systolic murmur. CHEST EXAMINATION: Lungs reveal diminished air entry to the bilateral lower lobes with crackles. No chest wall tenderness is noted on palpation or with deep breathing. ABDOMEN: Distended, nontender. Bowel sounds are heard. No organomegaly noted. EXTREMITIES: 1+ peripheral pulses with evidence of trace to 1+ right ankle and pedal edema and 2+ left ankle and pedal edema and no calf tenderness noted. NEUROLOGIC patient is awake, alert and oriented x3. . Results 07/11/18 11:57 07/12/18 03:48 Cardiac Enzymes 07/11/18 07/11/18 07/11/18 Range/Units 11:57 11:57 21:11 AST 25 (17-59) U/L CK-MB (CK-2) 0.6 (0.0-2.4) ng/mL Troponin I 0.053 H* 0.052 H* (0.000-0.034) ng/mL 07/12/18 Range/Units 03:48 AST (17-59) U/L CK-MB (CK-2) (0.0-2.4) ng/mL Troponin I 0.055 H* (0.000-0.034) ng/mL Coagulation 07/11/18 07/12/18 Range/Units 11:57 03:48 PT 16.5 H 15.6 H (9.0-12.0) sec APTT 31.8 H (22.0-30.0) sec CBC 07/11/18 Range/Units 11:57 WBC 6.3 (3.8-10.6) k/uL RBC 3.31 L (4.30-5.90) m/uL Hgb 10.4 L (13.0-17.5) gm/dL Hct 33.6 L (39.0-53.0) % Plt Count 129 L (150-450) k/uL Comprehensive Metabolic Panel 07/11/18 07/12/18 Range/Units 11:57 03:48 Sodium 139 138 (137-145) mmol/L Potassium 4.1 3.8 (3.5-5.1) mmol/L Chloride 100 100 (98-107) mmol/L Carbon Dioxide 31 H 31 H (22-30) mmol/L BUN 29 H 29 H (9-20) mg/dL Creatinine 1.55 H 1.39 H (0.66-1.25) mg/dL Glucose 113 H 104 H (74-99) mg/dL Calcium 8.6 8.3 L (8.4-10.2) mg/dL AST 25 (17-59) U/L ALT 19 L (21-72) U/L Alkaline Phosphatase 81 (38-126) U/L Total Protein 6.8 (6.3-8.2) g/dL Albumin 3.4 L (3.5-5.0) g/dL Current Medications Generic Name Dose Route Start Last Admin Trade Name Freq PRN Reason Stop Dose Admin Acetaminophen 650 mg 07/11/18 16:52 Tylenol Tab PO Q6HR PRN Mild Pain or Fever > 100.5 Alprazolam 0.25 mg 07/11/18 16:52 Xanax PO Q6HR PRN Anxiety Aspirin 81 mg 07/11/18 17:00 07/11/18 17:47 Aspirin PO 81 mg DAILY@1700 [facility] Administration Bisacodyl 10 mg 07/11/18 16:50 Dulcolax RECTAL DAILY PRN Constipation Calcium Carbonate/Glycine 1,000 mg 07/11/18 16:52 Tums PO Q4HR PRN Dyspepsia Carvedilol 3.125 mg 07/11/18 17:00 07/11/18 17:47 Coreg PO 3.125 mg BID@0800,1700 [facility] Administration Clopidogrel Bisulfate 75 mg 07/12/18 08:00 Plavix PO DAILY@0800 [facility] Digoxin 125 mcg 07/12/18 06:00 07/12/18 06:07 Lanoxin PO 125 mcg DAILY@0600 [facility] Administration Famotidine 20 mg 07/12/18 06:00 07/12/18 06:08 Pepcid PO 20 mg DAILY@0600 [facility] Administration Ferrous Sulfate 325 mg 07/11/18 17:00 07/11/18 17:47 Feosol PO 325 mg BID@0800,1700 [facility] Administration Finasteride 5 mg 07/11/18 21:00 07/11/18 20:38 Proscar PO 5 mg HS@2100 [facility] Administration Furosemide 100 mg/ Sodium 100 mls @ 10 mls/hr 07/11/18 17:00 07/12/18 03:15 Chloride IV 10 mg/hr .Q10H [facility] 10 mls/hr Administration 10 MG/HR Lactulose 10 gm 07/11/18 21:00 07/11/18 20:38 Cephulac PO 10 gm BID@0800,2100 [facility] Administration Magnesium Hydroxide 2,400 mg 07/11/18 16:50 Milk Of Magnesia PO DAILY PRN Constipation Melatonin 3 mg 07/11/18 16:50 Melatonin PO HS PRN Insomnia Multivitamins 1 each 07/11/18 17:00 07/11/18 17:47 Theragran PO 1 each DAILY@1700 [facility] Administration Naloxone HCl 0.2 mg 07/11/18 16:52 Narcan IV Q2M PRN Opioid Reversal Nitroglycerin 0.4 mg 07/11/18 16:50 Nitrostat SUBLINGUAL Q5M PRN Chest Pain Ondansetron HCl 4 mg 07/11/18 16:52 Zofran IVP Q8HR PRN Nausea And Vomiting Pravastatin Sodium 40 mg 07/11/18 21:00 07/11/18 20:38 Pravachol PO 40 mg HS@2100 [facility] Administration Sodium Biphosphate/Sodium Phosphate 133 ml 07/11/18 16:50 Fleet Adult RECTAL DAILY PRN Constipation Warfarin Sodium 2.5 mg 07/13/18 17:00 Coumadin PO SUWESA@1700 [facility] Warfarin Sodium 1.25 mg 07/12/18 17:00 Coumadin PO MOTUTHFR@1700 [facility] Intake and Output 07/11/18 07/12/18 07/12/18 22:59 06:59 14:59 Intake Total 120 80.833 Output Total 150 300 Balance -30 80.833 -300 Intake: Intake, IV Titration 80.833 Amount Furosemide 100 mg In 80.833 Sodium Chloride 0.9% 90 ml @ 10 MG/HR 10 mls/hr IV .Q10H [facility] Rx#: [id number] Oral 120 Output: Urine 150 300 Other: # Voids 1 1 Weight 80.5 kg 80.4 kg 07/11/18 11:57 07/12/18 03:48 Assessment and Plan Assessment: #1 acute and chronic systolic congestive heart failure #2 symptoms of dizziness, likely secondary to both mild orthostatic hypotension and decreased oxygen saturation with activity #3 chronic atrial fibrillation, on Coumadin #4 recent non-ST elevation IN with stenting of the RCA #5 history of mitral valve replacement #6 history of CABG #7 recent GI bleed with AV formation with argon plasma coagulation #8 chronic kidney disease #9 hypertension #10 hyperlipidemia Plan: From cardiology's perspective, we will continue Lasix drip. Continue to monitor renal function, electrolytes and daily weights. Patient has some incontinence therefore monitoring output may be difficult. We will check an NT proBNP. We will continue to follow the patient provide further recommendations accordingly. BOILER ERECTOR note has been reviewed, I agree with a documented findings and plan of care. Patient was seen and examined.
[2018-07-12 10:55] VITALS: BMI 27.5
[2018-07-12] MEDS: MULTIVITAMINS, THERA 1 EACH TAB PO SCH (16:59)
[2018-07-12] MEDS: ASPIRIN 81 MG PO SCH (16:59)
[2018-07-12] MEDS: MAGNESIUM HYDROXIDE 2,400 MG/10 ML CUP PO PRN (17:31)
[2018-07-12] MEDS ORDERED: WARFARIN 5 MG TAB PO ONE (18:00)
--- NOTE | 2018-07-12 21:46 | PN ---
PROGRESS NOTE DATE OF SERVICE: 07/12/2018 PRESENTING COMPLAINT: Short of breath, tired. INTERVAL HISTORY: This patient was admitted with CHF exacerbation. He also has a mechanical mitral valve, on Coumadin, and acute hypoxic respiratory failure. The patient remains on a Lasix drip, making good urine, though I&O were not well documented. He does feel tired. Breathing is a shade better. Did tolerate some diet. REVIEW OF SYSTEMS: Done for constitutional, cardiovascular, GI, pulmonary; relevant findings as above. CURRENT MEDICATIONS: Reviewed. They include Lasix drip. PHYSICAL EXAMINATION: Temperature 97.5, pulse 55, respiration 20, blood pressure 123/70, pulse ox 95% on 6 L. GENERAL APPEARANCE: Sitting up, tired-appearing. EYES: Pupils equal. Conjunctivae pale. NECK: JVD unable to assess. Mass not palpable. RESPIRATORY: Effort increased. LUNGS: Decreased breath sounds. CARDIOVASCULAR: Heart rate sounds irregular. Edema present. ABDOMEN: Soft, nontender. Liver and spleen not palpable. PSYCHIATRY: Alert and oriented x3. Mood and affect normal. INVESTIGATIONS: INR 1.6, potassium 3.8, BUN 29, creatinine 1.39. ProBNP 27,800. ASSESSMENT: 1. Acute on chronic congestive heart failure exacerbation from systolic dysfunction, ejection fraction less than 20%, with underlying coronary artery disease, slow to respond. 2. Coronary artery disease with recent myocardial infarction. 3. Chronic kidney disease, stage III, from nephrosclerosis. 4. Persistent atrial fibrillation, chronically on Coumadin. 5. Essential hypertension with chronic kidney disease. 6. Hyperlipidemia. 7. Obstructive sleep apnea. Using CPAP. 8. Mechanical mitral valve, chronically on Coumadin. 9. Coumadin monitoring. 10.Chronic medical debility. Uses a wheelchair. 11.Acute hypoxic respiratory failure, requiring 6 L oxygen. 12.Acute on chronic pleural effusion from congestive heart failure. PLAN: Keep the patient on Lasix drip. Will have the nurse try to do closer I&O. Repeat a chest x-ray in the morning. Prognosis is guarded. MMODL / IJN: [id number] /
[2018-07-12] MEDS: PRAVASTATIN SODIUM 40 MG TAB PO SCH (21:51)
[2018-07-12] MEDS: FINASTERIDE 5 MG TAB PO SCH (21:51)
[2018-07-13] MEDS: DIGOXIN 125 MCG TAB PO SCH (06:15)
[2018-07-13] MEDS: FAMOTIDINE 20 MG TAB PO SCH (06:15)
[2018-07-13 07:57] LABS: INR 1.9 (<1.2); Prothrombin Time 19.2 sec (9.0-12.0)
[2018-07-13 07:59] LABS: Calcium 8.2 mg/dL (8.4-10.2); Magnesium 2.4 mg/dL (1.6-2.3); Potassium 3.5 mmol/L (3.5-5.1)
[2018-07-13] MEDS: CARVEDILOL 3.125 MG TAB PO SCH ×2 (09:02→17:36)
[2018-07-13] MEDS: CLOPIDOGREL 75 MG TAB PO SCH (09:02)
[2018-07-13] MEDS: FERROUS SULFATE 325 MG TAB PO SCH ×2 (09:03→17:36)
[2018-07-13] MEDS: LACTULOSE 20 GM/30 ML CUP PO SCH ×3 (09:03→20:46)
[2018-07-13] MEDS: MAGNESIUM HYDROXIDE 2,400 MG/10 ML CUP PO PRN (09:08)
--- NOTE | 2018-07-13 09:56 | XR ---
EXAMINATION TYPE: XR chest 2V DATE OF EXAM: 07/13/2018 COMPARISON: Chest radiograph 07/11/2018 HISTORY: Cough, chest pain TECHNIQUE: Frontal and lateral views of the chest are obtained. FINDINGS: The cardiomediastinal silhouette remains unchanged. The heart is again enlarged. There is extensive c alcification of the thoracic aorta. Bilateral pleural effusions persist with subsegmental atelectasis . Left midlung opacity appears slightly worse in the interval. No pneumothorax. Osseous structures ar e unchanged. IMPRESSION: 1. Stable bilateral pleural effusions with atelectasis and cardiomegaly. Findings are favored to be r elated to CHF. 2. Worsening left upper lung consolidative process. Serial radiographs are recommended to ensure reso lution.
[2018-07-13] MEDS: FUROSEMIDE 100 MG in SODIUM CHLORIDE 0.9% 90 ML IV SCH ×2 (10:34→18:21)
[2018-07-13] MEDS: WARFARIN 2.5 MG TAB PO SCH (14:39)
--- NOTE | 2018-07-13 15:36 | P.PN ---
Subjective Progress Note Date: 07/13/18 This is a pleasant 83-year-old gentleman who follows with Dr. VC Rodriguez in the office. He has a known history of chronic atrial fibrillation, severe MR and severe MR, status post mechanical mitral valve replacement in 1990, CABG, chronic atrial fibrillation, on Coumadin, chronic systolic congestive heart failure with most recent echo showing an ejection fraction of less than 20%, recent non-ST elevation PA in June of this year at which time he underwent cardiac catheterization which revealed 80% lesion of the ostial LAD, 100% occlusion of the mid LAD, 2 good-sized diagonal branches which are proximally diffusely diseased with long diffuse stenosis of about 80% to 90%, ostial stenosis of the circumflex with a long segment of diffuse disease with multiple areas of 70-80% stenosis, graft to the obtuse marginal branch is occluded, and RCA calcified with stenosis of 80-85% in the mid RCA, and patent PATEL to the LAD with good filling of the distal LAD. He subsequently underwent arthrectomy of the mid RCA as well as stenting of the RCA. 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 Mr. Madsen presents this admission for complaints of dizziness. He resides at [facility] for rehab. He apparently got up into a wheelchair for therapy and after about a half an hour in a wheelchair he developed some dizziness. No syncope or near syncope. He's also been complaining of some lower extremity edema that is somewhat worsened since previous discharge as well as some dyspnea on exertion. He does have a loose cough which he is unable to expectorate sputum. Denies orthopnea or PND. No further signs of GI bleed. EKG on admission showed atrial fibrillation with occasional PVCs and marked ST abnormalities similar to previous EKG. Chest x-ray on admission showed bilateral consolidation and pleural effusion, correlate for CHF, more localized area of consolidation in the left upper lobe on previous exam is stable, may represent confluent pulmonary edema or pneumonia. Recommended to follow to resolution to exclude underlying neoplasm. He has been afebrile. Vital signs are relatively stable. Does have a drop in O2 saturation with activity from about 94 at rest to 87 with standing. Orthostatic vital signs showed a supine blood pressure of around 125/60 and a standing blood pressure of around 105/50 and increase in heart rate from 58 to 90 with complaints of dizziness with each position change. Laboratory values show a hemoglobin of 10.4, INR 1.6, BUN 29, creatinine 1.39, and troponins of 0.053, 0.052 and 0.055 with last troponin on June 05. NT proBNP is not available. Most recent echocardiogram in June of this year showed severely impaired LV systolic function with an ejection fraction less than 20%, markedly dilated left atrium, moderately enlarged right atrium, mild mitral regurgitation with a mechanical mitral valve, mild to moderate tricuspid regurgitation and mild pulmonary hypertension. 07/13/18 Laboratory values were reviewed today. Potassium 3.5, BUN 26 and creatinine 1.37. Patient's INR is 1.9 he did receive 5 mg of Coumadin yesterday. NT proBNP did come back to be elevated at 27,800. This is the highest NT proBNP patient has had compared to previous admissions. Patient's vital signs are stable with a heart rate of 61 and blood pressure 119/67. Oxygen saturation of 96% on 5 L via nasal cannula. Overall the patient is feeling a bit better today. Feels that he is breathing better. Objective - Vital Signs Vital signs: Vital Signs Temp 97.5 F L 07/13/18 11:00 Pulse 60 07/13/18 11:00 Resp 18 07/13/18 11:00 BP 112/58 07/13/18 11:00 Pulse Ox 96 07/13/18 11:00 Intake & Output 07/12/18 07/13/18 07/13/18 18:59 06:59 18:59 Intake Total 760 84.333 580 Output Total 700 500 Balance 60 -415.667 580 Weight 79.8 kg 79.9 kg Intake: Intake, IV Titration 100 84.333 100 Amount Furosemide 100 mg In 100 84.333 100 Sodium Chloride 0.9% 90 ml @ 10 MG/HR 10 mls/hr IV .Q10H [facility] Rx#: [id number] Oral 660 480 Output: Urine 700 500 Other: Voiding Method Urinal # Voids 1 2 - Exam HEENT: Head is atraumatic, normocephalic. Pupils equal, round. Neck is supple. There is elevated jugular venous pressure. HEART EXAMINATION: Heart sounds irregularly irregular, S1 and S2 with a systolic murmur. CHEST EXAMINATION: Lungs reveal faint crackles the bilateral bases. No chest wall tenderness is noted on palpation or with deep breathing. ABDOMEN: Distended, nontender. Bowel sounds are heard. No organomegaly noted. EXTREMITIES: 1+ peripheral pulses with evidence of trace right ankle and pedal edema and 1+ left ankle and pedal edema and no calf tenderness noted. NEUROLOGIC patient is awake, alert and oriented x3. - Labs CBC & Chem 7: 07/11/18 11:57 07/13/18 06:59 Labs: Abnormal Lab Results - Last 24 Hours (Table) 07/13/18 07/13/18 Range/Units 06:59 06:59 PT 19.2 H (9.0-12.0) sec INR 1.9 H (<1.2) Carbon Dioxide 33 H (22-30) mmol/L BUN 26 H (9-20) mg/dL Creatinine 1.37 H (0.66-1.25) mg/dL Glucose 101 H (74-99) mg/dL Calcium 8.2 L (8.4-10.2) mg/dL Magnesium 2.4 H (1.6-2.3) mg/dL Microbiology - Last 24 Hours (Table) 07/11/18 15:30 Urine Culture - Preliminary Urine,Voided Group D Enterococcus Assessment and Plan Assessment: #1 acute and chronic systolic congestive heart failure #2 symptoms of dizziness, likely secondary to both mild orthostatic hypotension and decreased oxygen saturation with activity #3 chronic atrial fibrillation, on Coumadin #4 recent non-ST elevation PA with stenting of the RCA #5 history of mitral valve replacement #6 history of CABG #7 recent GI bleed with AV formation with argon plasma coagulation #8 chronic kidney disease #9 hypertension #10 hyperlipidemia Plan: From cardiology's perspective, we will continue Lasix drip for another 24 hours. Continue to monitor renal function, electrolytes and daily weights. Patient has some incontinence therefore monitoring output may be difficult. 5 mg of Coumadin today and continue to monitor INR. We will continue to follow the patient provide further recommendations accordingly. BOTANY TEACHER note has been reviewed, I agree with a documented findings and plan of care. Patient was seen and examined.
[2018-07-13] MEDS: MULTIVITAMINS, THERA 1 EACH TAB PO SCH (17:36)
[2018-07-13] MEDS: ASPIRIN 81 MG PO SCH (17:37)
[2018-07-13] MEDS ORDERED: WARFARIN 5 MG TAB PO ONE (18:00)
[2018-07-13] MEDS: PRAVASTATIN SODIUM 40 MG TAB PO SCH (20:46)
[2018-07-13] MEDS: FINASTERIDE 5 MG TAB PO SCH (20:46)
--- NOTE | 2018-07-13 22:16 | PN ---
PROGRESS NOTE DATE OF SERVICE: 07/13/2018. PRESENTING COMPLAINT: Short of breath, tired. INTERVAL HISTORY: Patient admitted with CHF exacerbation. Also has mechanical mitral valve on Coumadin, acute hypoxic respiratory failure, remains on Lasix drip. The patient's output is difficult to monitor because of incontinence. Does feel tired and run down. Ate a small amount. REVIEW OF SYSTEMS: Done for constitutional, cardiovascular, GI, pulmonary; relevant findings as above. CURRENT MEDICATIONS: Reviewed, include Lasix drip. PHYSICAL EXAMINATION: VITAL SIGNS: Temperature 97.5, pulse 50, respiratory rate 18, blood pressure 102/58, pulse ox 96% on 5 L. GENERAL: Sitting up on a chair, very tired appearing, awake. EYES: Pupils equal. Conjunctivae pale neck. JVD unable to assess. Mass not palpable. Respiratory effort increased. LUNGS: Diminished breath sounds. CARDIOVASCULAR: Heart sounds irregular. Edema present. ABDOMEN: Soft, nontender. Liver and spleen palpable. PSYCHIATRY: Awake, tired-appearing. INVESTIGATIONS: INR 1.9, potassium 3.5, BUN 26, creatinine 1.37. ProBNP was 27,000 yesterday. Chest x- ray film personally reviewed by me shows large pleural effusion on the right side, pulmonary edema. ASSESSMENT: 1. Acute on chronic congestive heart failure exacerbation from systolic dysfunction, EF less than 20% from underlying coronary artery disease, slow to respond. 2. Coronary artery disease with recent myocardial infarction. 3. Chronic kidney disease stage 3 from nephrosclerosis. 4. Persistent atrial fibrillation chronically on Coumadin. 5. Essential hypertension with chronic kidney disease. 6. Hyperlipidemia. 7. Obstructive sleep apnea uses CPAP. 8. Mechanical mitral valve, chronically on insulin. 9. Coumadin monitoring. 10.Chronic medical debility, uses a wheelchair. 11.Acute hypoxic respiratory failure, requiring 6 L of oxygen, slow to respond. 12.Acute on chronic pleural effusion from congestive heart failure, right greater than left. PLAN: Patient is slow to respond. Continue with Lasix drip. Follow electrolytes closely. I did speak to the patient. The patient wishes to remain FULL CODE. Follow up with Cardiology. MMODL / IJN: [id number] /
[2018-07-14] MEDS: FUROSEMIDE 100 MG in SODIUM CHLORIDE 0.9% 90 ML IV SCH ×2 (00:49→09:42)
[2018-07-14] MEDS: FAMOTIDINE 20 MG TAB PO SCH (06:20)
[2018-07-14] MEDS: DIGOXIN 125 MCG TAB PO SCH (06:20)
[2018-07-14 07:05] LABS: INR 2.8 (<1.2); Prothrombin Time 26.8 sec (9.0-12.0)
[2018-07-14 07:09] LABS: Calcium 8.3 mg/dL (8.4-10.2); Potassium 3.6 mmol/L (3.5-5.1)
[2018-07-14] MEDS: CARVEDILOL 3.125 MG TAB PO SCH ×2 (08:33→17:26)
[2018-07-14] MEDS: CLOPIDOGREL 75 MG TAB PO SCH (08:33)
[2018-07-14] MEDS: FERROUS SULFATE 325 MG TAB PO SCH ×2 (08:33→17:26)
[2018-07-14] MEDS: LACTULOSE 20 GM/30 ML CUP PO SCH ×2 (08:33→20:20)
--- NOTE | 2018-07-14 13:44 | P.PN ---
Subjective Progress Note Date: 07/14/18 This is a pleasant 83-year-old gentleman who follows with Dr. VC Rodriguez in the office. He has a known history of chronic atrial fibrillation, severe MR and severe MR, status post mechanical mitral valve replacement in 1990, CABG, chronic atrial fibrillation, on Coumadin, chronic systolic congestive heart failure with most recent echo showing an ejection fraction of less than 20%, recent non-ST elevation [place] in June of this year at which time he underwent cardiac catheterization which revealed 80% lesion of the ostial LAD, 100% occlusion of the mid LAD, 2 good-sized diagonal branches which are proximally diffusely diseased with long diffuse stenosis of about 80% to 90%, ostial stenosis of the circumflex with a long segment of diffuse disease with multiple areas of 70-80% stenosis, graft to the obtuse marginal branch is occluded, and RCA calcified with stenosis of 80-85% in the mid RCA, and patent PATEL to the LAD with good filling of the distal LAD. He subsequently underwent arthrectomy of the mid RCA as well as stenting of the RCA. 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 Mr. Madsen presents this admission for complaints of dizziness. He resides at [facility] for rehab. He apparently got up into a wheelchair for therapy and after about a half an hour in a wheelchair he developed some dizziness. No syncope or near syncope. He's also been complaining of some lower extremity edema that is somewhat worsened since previous discharge as well as some dyspnea on exertion. He does have a loose cough which he is unable to expectorate sputum. Denies orthopnea or PND. No further signs of GI bleed. EKG on admission showed atrial fibrillation with occasional PVCs and marked ST abnormalities similar to previous EKG. Chest x-ray on admission showed bilateral consolidation and pleural effusion, correlate for CHF, more localized area of consolidation in the left upper lobe on previous exam is stable, may represent confluent pulmonary edema or pneumonia. Recommended to follow to resolution to exclude underlying neoplasm. He has been afebrile. Vital signs are relatively stable. Does have a drop in O2 saturation with activity from about 94 at rest to 87 with standing. Orthostatic vital signs showed a supine blood pressure of around 125/60 and a standing blood pressure of around 105/50 and increase in heart rate from 58 to 90 with complaints of dizziness with each position change. Laboratory values show a hemoglobin of 10.4, INR 1.6, BUN 29, creatinine 1.39, and troponins of 0.053, 0.052 and 0.055 with last troponin on June 05. NT proBNP is not available. Most recent echocardiogram in June of this year showed severely impaired LV systolic function with an ejection fraction less than 20%, markedly dilated left atrium, moderately enlarged right atrium, mild mitral regurgitation with a mechanical mitral valve, mild to moderate tricuspid regurgitation and mild pulmonary hypertension. 07/13/18 Laboratory values were reviewed today. Potassium 3.5, BUN 26 and creatinine 1.37. Patient's INR is 1.9 he did receive 5 mg of Coumadin yesterday. NT proBNP did come back to be elevated at 27,800. This is the highest NT proBNP patient has had compared to previous admissions. Patient's vital signs are stable with a heart rate of 61 and blood pressure 119/67. Oxygen saturation of 96% on 5 L via nasal cannula. Overall the patient is feeling a bit better today. Feels that he is breathing better. 07/14/18 The patient was seen and examined today. Laboratory values show INR 2.8, BUN 27 and creatinine 1.34. Overall, Mr. Madsen feels better today. His breathing and edema have improved. He remains on lasix drip at 10mg /hr. Objective - Vital Signs Vital signs: Vital Signs Temp 97.4 F L 07/14/18 11:24 Pulse 61 07/14/18 11:24 Resp 18 07/14/18 11:24 BP 119/62 07/14/18 11:24 Pulse Ox 99 07/14/18 11:24 Intake & Output 07/13/18 07/14/18 07/14/18 18:59 06:59 18:59 Intake Total 657.833 64.667 808.833 Output Total 900 900 Balance -242.167 -835.333 808.833 Weight 79.6 kg Intake: Intake, IV Titration 177.833 64.667 88.833 Amount Furosemide 100 mg In 177.833 64.667 88.833 Sodium Chloride 0.9% 90 ml @ 10 MG/HR 10 mls/hr IV .Q10H [facility] Rx#: [id number] Oral 480 720 Output: Urine 900 900 Other: Voiding Method Urinal # Bowel Movements 1 - Exam HEENT: Head is atraumatic, normocephalic. Pupils equal, round. Neck is supple. There is elevated jugular venous pressure. HEART EXAMINATION: Heart sounds irregularly irregular, S1 and S2 with a systolic murmur. CHEST EXAMINATION: Lungs reveal few faint crackles the bilateral bases. No chest wall tenderness is noted on palpation or with deep breathing. ABDOMEN: Distended, nontender. Bowel sounds are heard. No organomegaly noted. EXTREMITIES: 1+ peripheral pulses with evidence of 1+ left ankle and pedal edema and no edema to right lower extremity and no calf tenderness noted. NEUROLOGIC patient is awake, alert and oriented x3. - Labs CBC & Chem 7: 07/11/18 11:57 07/14/18 06:01 Labs: Abnormal Lab Results - Last 24 Hours (Table) 07/14/18 07/14/18 Range/Units 06:01 06:01 PT 26.8 H (9.0-12.0) sec INR 2.8 H (<1.2) Carbon Dioxide 34 H (22-30) mmol/L BUN 27 H (9-20) mg/dL Creatinine 1.34 H (0.66-1.25) mg/dL Calcium 8.3 L (8.4-10.2) mg/dL Microbiology - Last 24 Hours (Table) 07/11/18 15:30 Urine Culture - Final Urine,Voided Enterococcus faecalis Assessment and Plan Assessment: #1 acute on chronic systolic congestive heart failure #2 symptoms of dizziness, likely secondary to both mild orthostatic hypotension and decreased oxygen saturation with activity, improved #3 chronic atrial fibrillation, on Coumadin #4 recent non-ST elevation [place] with stenting of the RCA #5 history of mechanical mitral valve replacement #6 history of CABG #7 recent GI bleed with AV formation with argon plasma coagulation #8 chronic kidney disease #9 hypertension #10 hyperlipidemia Plan: From cardiology's perspective, we will decrease lasix. Continue coumadin to keep INR 2.5-3.5. Continue to monitor renal function, electrolytes, and daily weights. We will continue to follow the patient and provide further recommendations accordingly. KICK BOXER note has been reviewed, I agree with a documented findings and plan of care. Patient was seen and examined.
[2018-07-14] MEDS: WARFARIN 2.5 MG TAB PO SCH (17:26)
[2018-07-14] MEDS: MULTIVITAMINS, THERA 1 EACH TAB PO SCH (17:26)
[2018-07-14] MEDS: ASPIRIN 81 MG PO SCH (17:26)
--- NOTE | 2018-07-14 19:51 | PN ---
PROGRESS NOTE DATE OF SERVICE: 07/14/18. PRESENTING COMPLAINT: Short of breath. INTERVAL HISTORY: Patient admitted with CHF exacerbation. Also has mechanical mitral valve on Coumadin and acute hypoxic respiratory failure. The patient is on Lasix drip until this morning. Switched to IV bolus Lasix by Cardiology earlier today. Eating some, though feels tired. Sitting up in a chair. Family is visiting. Short of breath. REVIEW OF SYSTEMS: Done for constitutional, cardiovascular, GI, pulmonary; relevant findings as above. CURRENT MEDICATIONS: Reviewed that include IV Lasix 40 mg q.12. EXAMINATION: Temperature 97.7, pulse 50, respiratory 18, blood pressure 122/60, pulse ox 94 percent on 4 L. GENERAL: Sitting up in a chair, tired-appearing, awake. EYES: Pupils equal. Conjunctivae pale. NECK: JVD unable to assess. Mass not palpable. RESPIRATORY: Effort increased. LUNGS: Diminished breath sounds. CARDIOVASCULAR: Heart sounds irregular, edema present. ABDOMEN: Soft, nontender. Liver is not palpable. PSYCHIATRY: Alert and oriented x3. Mood and affect tired-appearing. INVESTIGATIONS: INR 2.8, potassium 3.6, BUN 27, creatinine 1.34. ASSESSMENT: 1. Acute on chronic congestive heart failure exacerbation from systolic dysfunction, EF less than 20% from underlying coronary artery disease, slow to respond. 2. Coronary artery disease with recent myocardial infarction. 3. Chronic kidney disease stage 3 from nephrosclerosis. 4. Persistent atrial fibrillation chronically on Coumadin. 5. Essential hypertension with chronic kidney disease. 6. Hyperlipidemia. 7. Obstructive sleep apnea uses CPAP. 8. Mechanical mitral valve, chronically on Coumadin. 9. Coumadin monitoring. 10.Chronic medical debility uses a wheelchair. 11.Acute hypoxic respiratory failure, requiring 6 L oxygen now down to 4 L, slow to respond. 12.Acute on chronic pleural effusion from congestive heart failure, right greater than left. 13.FULL CODE. PLAN: Patient is on IV Lasix bolus 40. Care was discussed with the patient and family at the bedside. Prognosis remains guarded. Follow with Cardiology. Repeat a chest x-ray tomorrow morning. MMODL / IJN: [id number] /
[2018-07-14] MEDS: FUROSEMIDE 10 MG/ML 4 ML VIAL IV SCH (20:20)
[2018-07-14] MEDS: PRAVASTATIN SODIUM 40 MG TAB PO SCH (20:20)
[2018-07-14] MEDS: FINASTERIDE 5 MG TAB PO SCH (20:20)
[2018-07-14] MEDS: PSYLLIUM HUSK 100% 6 GM PACKET PO SCH (20:27)
[2018-07-15 03:14] LABS: Anisocytosis Slight; HCT 31.3 % (39.0-53.0); HGB 9.5 gm/dL (13.0-17.5); Hypochromasia Marked; MCH 31.2 pg (25.0-35.0); MCHC 30.3 g/dL (31.0-37.0); MCV 102.9 fL (80.0-100.0); Macrocytosis Moderate; Mean Platelet Volume 7.7; Platelet Count 125 k/uL (150-450); RBC 3.04 m/uL (4.30-5.90); RDW 18.1 % (11.5-15.5); WBC 5.1 k/uL (3.8-10.6)
[2018-07-15 03:35] LABS: Calcium 8.4 mg/dL (8.4-10.2); Potassium 3.6 mmol/L (3.5-5.1)
[2018-07-15 06:39] LABS: INR 3.7 (<1.2); Prothrombin Time 35.4 sec (9.0-12.0)
[2018-07-15] MEDS: DIGOXIN 125 MCG TAB PO SCH (06:40)
[2018-07-15] MEDS: FAMOTIDINE 20 MG TAB PO SCH (06:40)
--- NOTE | 2018-07-15 08:19 | XR ---
EXAMINATION TYPE: XR chest 2V DATE OF EXAM: 07/15/2018 COMPARISON: Prior chest x-ray 07/13/2018 HISTORY: Congestive heart failure, abnormal chest x-ray TECHNIQUE: Frontal and lateral views of the chest are obtained. FINDINGS: Patient is post median sternotomy and rotated. There are cardiac leads. No evident pneumot horax. Heart is stable. Bibasilar effusions and associated atelectasis versus edema suspected. Centra l vascularity and interstitium are increased. There are coronary artery calcifications. Aorta is dens e. IMPRESSION: Findings suggest congestive heart failure with pleural effusions.
[2018-07-15] MEDS: FUROSEMIDE 10 MG/ML 4 ML VIAL IV SCH ×2 (08:20→22:34)
[2018-07-15] MEDS: CARVEDILOL 3.125 MG TAB PO SCH ×2 (08:20→17:54)
[2018-07-15] MEDS: CLOPIDOGREL 75 MG TAB PO SCH (08:20)
[2018-07-15] MEDS: LACTULOSE 20 GM/30 ML CUP PO SCH ×2 (08:20→22:34)
[2018-07-15] MEDS: FERROUS SULFATE 325 MG TAB PO SCH ×2 (08:20→17:54)
[2018-07-15] MEDS: PSYLLIUM HUSK 100% 6 GM PACKET PO SCH (08:21)
--- NOTE | 2018-07-15 15:12 | P.PN ---
Subjective Progress Note Date: 07/15/18 This is a pleasant 83-year-old gentleman who follows with Dr. VC Rodriguez in the office. He has a known history of chronic atrial fibrillation, severe MR and severe MR, status post mechanical mitral valve replacement in 1990, CABG, chronic atrial fibrillation, on Coumadin, chronic systolic congestive heart failure with most recent echo showing an ejection fraction of less than 20%, recent non-ST elevation [place] in June of this year at which time he underwent cardiac catheterization which revealed 80% lesion of the ostial LAD, 100% occlusion of the mid LAD, 2 good-sized diagonal branches which are proximally diffusely diseased with long diffuse stenosis of about 80% to 90%, ostial stenosis of the circumflex with a long segment of diffuse disease with multiple areas of 70-80% stenosis, graft to the obtuse marginal branch is occluded, and RCA calcified with stenosis of 80-85% in the mid RCA, and patent PATEL to the LAD with good filling of the distal LAD. He subsequently underwent arthrectomy of the mid RCA as well as stenting of the RCA. 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 Mr. Madsen presents this admission for complaints of dizziness.No syncope or near syncope. He's also been complaining of some lower extremity edema that is somewhat worsened since previous discharge as well as some dyspnea on exertion. He does have a loose cough which he is unable to expectorate sputum. Denies orthopnea or PND. No further signs of GI bleed. EKG on admission showed atrial fibrillation with occasional PVCs and marked ST abnormalities similar to previous EKG. Chest x-ray on admission showed bilateral consolidation and pleural effusion, correlate for CHF, more localized area of consolidation in the left upper lobe on previous exam is stable, may represent confluent pulmonary edema or pneumonia. Recommended to follow to resolution to exclude underlying neoplasm. He has been afebrile. Vital signs are relatively stable. Patient was noted to have a significantly elevated BNP level and was initiated on IV Lasix. Repeat chest x-ray continues to soak CHF with pleural effusions. INR today 3.7, BUN 31 and creatinine 1.3, magnesium 2.5. Hemoglobin 9.5. Patient was noted on the monitor to have a run of 21 nonsustained ventricular tachycardia. Overall the patient does state that he's feeling better today. Currently on 40 mg of IV Lasix twice a day. Objective - Vital Signs Vital signs: Vital Signs Temp 97.4 F L 07/15/18 11:02 Pulse 58 L 07/15/18 11:02 Resp 18 07/15/18 11:02 BP 113/54 07/15/18 11:02 Pulse Ox 97 07/15/18 11:02 Intake & Output 07/14/18 07/15/18 07/15/18 18:59 06:59 18:59 Intake Total 8429.134 7704 Balance 6534.481 0721 Weight 79.9 kg Intake: Intake, IV Titration 88.833 Amount Furosemide 100 mg In 88.833 Sodium Chloride 0.9% 90 ml @ 10 MG/HR 10 mls/hr IV .Q10H [facility] Rx#: [id number] Oral 1200 1080 Other: Voiding Method Urinal # Bowel Movements 1 - Exam HEENT: Head is atraumatic, normocephalic. Pupils equal, round. Neck is supple. There is elevated jugular venous pressure. HEART EXAMINATION: Heart sounds irregularly irregular, S1 and S2 with a systolic murmur. CHEST EXAMINATION: Lungs reveal few faint crackles the bilateral bases. No chest wall tenderness is noted on palpation or with deep breathing. ABDOMEN: Distended, nontender. Bowel sounds are heard. No organomegaly noted. EXTREMITIES: 1+ peripheral pulses with evidence of 1+ left ankle and pedal edema and no edema to right lower extremity and no calf tenderness noted. NEUROLOGIC patient is awake, alert and oriented x3. - Labs CBC & Chem 7: 07/15/18 03:00 07/15/18 03:00 Labs: Abnormal Lab Results - Last 24 Hours (Table) 07/15/18 07/15/18 07/15/18 Range/Units 03:00 03:00 03:00 RBC 3.04 L (4.30-5.90) m/uL Hgb 9.5 L (13.0-17.5) gm/dL Hct 31.3 L (39.0-53.0) % MCV 102.9 H (80.0-100.0) fL MCHC 30.3 L (31.0-37.0) g/dL RDW 18.1 H (11.5-15.5) % Plt Count 125 L (150-450) k/uL PT (9.0-12.0) sec INR (<1.2) Carbon Dioxide 32 H (22-30) mmol/L BUN 31 H (9-20) mg/dL Creatinine 1.35 H (0.66-1.25) mg/dL Glucose 109 H (74-99) mg/dL Magnesium 2.5 H (1.6-2.3) mg/dL 07/15/18 Range/Units 05:45 RBC (4.30-5.90) m/uL Hgb (13.0-17.5) gm/dL Hct (39.0-53.0) % MCV (80.0-100.0) fL MCHC (31.0-37.0) g/dL RDW (11.5-15.5) % Plt Count (150-450) k/uL PT 35.4 H (9.0-12.0) sec INR 3.7 H (<1.2) Carbon Dioxide (22-30) mmol/L BUN (9-20) mg/dL Creatinine (0.66-1.25) mg/dL Glucose (74-99) mg/dL Magnesium (1.6-2.3) mg/dL Assessment and Plan Plan: Assessment: #1 acute on chronic systolic congestive heart failure #2 symptoms of dizziness, likely secondary to both mild orthostatic hypotension and decreased oxygen saturation with activity, improved #3 chronic atrial fibrillation, on Coumadin #4 recent non-ST elevation [place] with stenting of the RCA #5 history of mechanical mitral valve replacement #6 history of CABG #7 recent GI bleed with AV formation with argon plasma coagulation #8 chronic kidney disease #9 hypertension #10 hyperlipidemia ' ' ' Plan Cardiology's perspective we will continue current dose of Lasix. INR today is 3.5. Patient relates he 1.25 mg of Coumadin today. Check daily lytes BUN and creatinine as well as daily INRs. DNP note has been reviewed, I agree with a documented findings and plan of care. Patient was seen and examined.
--- NOTE | 2018-07-15 16:55 | PN ---
PROGRESS NOTE DATE OF SERVICE: 07/15/2018 PRESENTING COMPLAINT: Short of breath. INTERVAL HISTORY: Patient was admitted with CHF exacerbation. He also has a mechanical mitral valve, on Coumadin. Patient is on diuresis, eating small amounts. He is tired, sitting up in a chair. He walked with Physical Therapy over 8 steps and got easily tired. REVIEW OF SYSTEMS: Done for constitutional, cardiovascular, GI, pulmonary; relevant findings as above. CURRENT MEDICATIONS: Reviewed. They include IV Lasix 40 mg q.12. PHYSICAL EXAMINATION: Temperature 97.4, pulse 70, respiration 22, blood pressure 113/54, pulse ox 97% on 4 L. GENERAL APPEARANCE: Sitting up in a chair, tired-appearing. Awake. EYES: Pupils equal. Conjunctivae pale. NECK: JVD unable to assess. Mass not palpable. RESPIRATORY: Effort increased. LUNGS: Diminished breath sounds. CARDIOVASCULAR: Heart sounds irregular. Some edema present. ABDOMEN: Soft, nontender. Liver and spleen not palpable. PSYCHIATRY: Answering questions appropriately. INVESTIGATIONS: White count 5.1, hemoglobin 9.5, INR 3.7, potassium 3.6, BUN 31, creatinine 1.35. Chest x-ray film, personally reviewed by me, shows significant right-sided pleural effusion with pulmonary edema. ASSESSMENT: 1. Acute on chronic congestive heart failure exacerbation from systolic dysfunction, ejection fraction less than 20%, with underlying coronary artery disease, slow to respond. Remains on IV Lasix. 2. Coronary artery disease with recent myocardial infarction. 3. Chronic kidney disease, stage III, from nephrosclerosis. 4. Persistent atrial fibrillation, chronically on Coumadin. 5. Essential hypertension with chronic kidney disease. 6. Hyperlipidemia. 7. Obstructive sleep apnea. Uses CPAP. 8. Mechanical mitral valve, chronically on Coumadin. 9. Coumadin monitoring. 10.Chronic medical debility. Uses a walker. 11.Acute hypoxic respiratory failure, requiring 6 liters of oxygen, now down to 4 liters, slow to respond. 12.Acute on chronic pleural effusion from congestive heart failure right greater than left. 13.CODE STATUS: FULL CODE. 14.Medical debility. PLAN: Continue patient on IV Lasix bolus. Prognosis remains guarded. Patient has still significant pleural effusion. A dose of Coumadin to be held back. Patient may benefit from a Lasix drip. Will let Cardiology make assessment of the same. MMODL / IJN: [id number] /
[2018-07-15] MEDS: WARFARIN 1.25 MG TAB PO SCH (17:03)
[2018-07-15] MEDS: MULTIVITAMINS, THERA 1 EACH TAB PO SCH (17:54)
[2018-07-15] MEDS: ASPIRIN 81 MG PO SCH (17:54)
[2018-07-15] MEDS: PRAVASTATIN SODIUM 40 MG TAB PO SCH (22:33)
[2018-07-15] MEDS: FINASTERIDE 5 MG TAB PO SCH (22:34)
[2018-07-16] MEDS: DIGOXIN 125 MCG TAB PO SCH (06:22)
[2018-07-16] MEDS: FAMOTIDINE 20 MG TAB PO SCH (06:22)
[2018-07-16 06:50] LABS: INR 3.5 (<1.2); Prothrombin Time 33.6 sec (9.0-12.0)
[2018-07-16] MEDS: CLOPIDOGREL 75 MG TAB PO SCH (08:30)
[2018-07-16] MEDS: CARVEDILOL 3.125 MG TAB PO SCH ×2 (08:30→17:18)
[2018-07-16] MEDS: FERROUS SULFATE 325 MG TAB PO SCH ×2 (08:30→17:18)
[2018-07-16] MEDS: LACTULOSE 20 GM/30 ML CUP PO SCH ×2 (08:30→20:44)
[2018-07-16] MEDS: PSYLLIUM HUSK 100% 6 GM PACKET PO SCH (08:30)
[2018-07-16] MEDS: FUROSEMIDE 10 MG/ML 4 ML VIAL IV SCH ×2 (08:31→20:44)
[2018-07-16 11:09] LABS: Calcium 8.7 mg/dL (8.4-10.2); Potassium 3.9 mmol/L (3.5-5.1)
--- NOTE | 2018-07-16 13:56 | P.PN ---
Subjective Progress Note Date: 07/16/18 This is a pleasant 83-year-old gentleman who follows with Dr. VC Rodriguez in the office. He has a known history of chronic atrial fibrillation, severe MR and severe MR, status post mechanical mitral valve replacement in 1990, CABG, chronic atrial fibrillation, on Coumadin, chronic systolic congestive heart failure with most recent echo showing an ejection fraction of less than 20%, recent non-ST elevation [place] in June of this year at which time he underwent cardiac catheterization which revealed 80% lesion of the ostial LAD, 100% occlusion of the mid LAD, 2 good-sized diagonal branches which are proximally diffusely diseased with long diffuse stenosis of about 80% to 90%, ostial stenosis of the circumflex with a long segment of diffuse disease with multiple areas of 70-80% stenosis, graft to the obtuse marginal branch is occluded, and RCA calcified with stenosis of 80-85% in the mid RCA, and patent PATEL to the LAD with good filling of the distal LAD. He subsequently underwent arthrectomy of the mid RCA as well as stenting of the RCA. 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 Mr. Madsen presents this admission for complaints of dizziness.No syncope or near syncope. He's also been complaining of some lower extremity edema that is somewhat worsened since previous discharge as well as some dyspnea on exertion. He does have a loose cough which he is unable to expectorate sputum. Denies orthopnea or PND. No further signs of GI bleed. EKG on admission showed atrial fibrillation with occasional PVCs and marked ST abnormalities similar to previous EKG. Chest x-ray on admission showed bilateral consolidation and pleural effusion, correlate for CHF, more localized area of consolidation in the left upper lobe on previous exam is stable, may represent confluent pulmonary edema or pneumonia. Recommended to follow to resolution to exclude underlying neoplasm. He has been afebrile. Vital signs are relatively stable. Patient was noted to have a significantly elevated BNP level and was initiated on IV Lasix. Repeat chest x-ray continues to soak CHF with pleural effusions. INR today 3.7, BUN 31 and creatinine 1.3, magnesium 2.5. Hemoglobin 9.5. Patient was noted on the monitor to have a run of 21 nonsustained ventricular tachycardia. Overall the patient does state that he's feeling better today. Currently on 40 mg of IV Lasix twice a day. 07/16/2018 Patient was seen and examined this morning, sitting up in the chair at bedside. Overall he's feeling better. Blood pressure 110/50 with a heart rate in the 60s, 98% on 4 L of oxygen. Pro time 33.6 with an INR 3.5, sodium 139, potassium 3.9, BUN 33 and creatinine 1.36. Objective - Vital Signs Vital signs: Vital Signs Temp 97.4 F L 07/16/18 11:46 Pulse 64 07/16/18 11:46 Resp 16 07/16/18 11:46 BP 111/55 07/16/18 11:46 Pulse Ox 98 07/16/18 11:46 Intake & Output 07/15/18 07/16/18 07/16/18 18:59 06:59 18:59 Intake Total 1560 840 Output Total 1350 Balance 1560 -1350 840 Weight 79.7 kg Intake: Oral 1560 840 Output: Urine 1350 Other: Voiding Method Urinal # Voids 2 0 # Bowel Movements 1 1 - Exam HEENT: Head is atraumatic, normocephalic. Pupils equal, round. Neck is supple. There is elevated jugular venous pressure. HEART EXAMINATION: Heart sounds irregularly irregular, S1 and S2 with a systolic murmur. CHEST EXAMINATION: Lungs reveal few faint crackles the bilateral bases. No chest wall tenderness is noted on palpation or with deep breathing. ABDOMEN: Distended, nontender. Bowel sounds are heard. No organomegaly noted. EXTREMITIES: 1+ peripheral pulses with evidence of 1+ left ankle and pedal edema and no edema to right lower extremity and no calf tenderness noted. NEUROLOGIC patient is awake, alert and oriented x3. - Labs CBC & Chem 7: 07/15/18 03:00 07/16/18 06:09 Labs: Abnormal Lab Results - Last 24 Hours (Table) 07/16/18 07/16/18 Range/Units 06:09 06:09 PT 33.6 H (9.0-12.0) sec INR 3.5 H (<1.2) Carbon Dioxide 33 H (22-30) mmol/L BUN 33 H (9-20) mg/dL Creatinine 1.36 H (0.66-1.25) mg/dL Glucose 108 H (74-99) mg/dL Assessment and Plan Plan: Assessment: #1 acute on chronic systolic congestive heart failure #2 symptoms of dizziness, likely secondary to both mild orthostatic hypotension and decreased oxygen saturation with activity, improved #3 chronic atrial fibrillation, on Coumadin #4 recent non-ST elevation [place] with stenting of the RCA #5 history of mechanical mitral valve replacement #6 history of CABG #7 recent GI bleed with AV formation with argon plasma coagulation #8 chronic kidney disease #9 hypertension #10 hyperlipidemia ' ' ' Plan Cardiology's perspective we will continue current dose of Lasix. Remove Moya. Check lytes BUN and creatinine in the morning. DNP note has been reviewed, I agree with a documented findings and plan of care. Patient was seen and examined.
[2018-07-16] MEDS: ASPIRIN 81 MG PO SCH (17:18)
[2018-07-16] MEDS: WARFARIN 1.25 MG TAB PO SCH (17:21)
[2018-07-16] MEDS: MULTIVITAMINS, THERA 1 EACH TAB PO SCH (17:21)
--- NOTE | 2018-07-16 19:04 | P.PN ---
Subjective This is a pleasant 83 years old male with past medical history of atrial fibrillation, congestive heart failure, CVA/TIA, GERD, GI plate, hyperlipidemia , hypertension, sleep apnea on CPAP/BiPAP. Presents with dyspnea and signs symptoms of acute systolic heart failure. he's been treated with diuretics and she feels improving. Other more comorbidities including chronic atrial fibrillation on Coumadin and his INR today is 3.5. Hemoglobin shows slight drop from 10.4 down to 9.5. He also has chronic kidney disease and mitral valve replacements. Patient currently on IV Lasix 40 mg twice a day, lactulose and digoxin. Also patient on warfarin with close follow-up of INR. Creatinine is stable at 1.3. Chest x-ray from yesterday showing pulmonary vascular congestion. Objective - Vital Signs Vital signs: Vital Signs Temp 97.2 F L 07/16/18 16:00 Pulse 66 07/16/18 16:00 Resp 16 07/16/18 16:00 BP 118/64 07/16/18 16:00 Pulse Ox 98 07/16/18 16:00 Intake & Output 07/15/18 07/16/18 07/16/18 18:59 06:59 18:59 Intake Total 1560 1860 Output Total 1350 1400 Balance 1560 -1350 460 Weight 79.7 kg Intake: Oral 1560 1860 Output: Urine 1350 1400 Other: Voiding Method Urinal # Voids 2 0 # Bowel Movements 1 1 - Exam GENERAL: The patient is alert and oriented x3, not in any acute distress. Well developed, well nourished. HEENT: Pupils are round and equally reacting to light. EOMI. No scleral icterus. No conjunctival pallor. Normocephalic, atraumatic. No pharyngeal erythema. No thyromegaly. CARDIOVASCULAR: S1 and S2 present. No murmurs, rubs, or gallops. -PULMONARY: Chest is clear to auscultation, bilateral basal in mental zone crepitation. ABDOMEN: Soft, nontender, nondistended, normoactive bowel sounds. No palpable organomegaly. MUSCULOSKELETAL: No joint swelling or deformity. EXTREMITIES: No cyanosis, clubbing, or pedal edema. NEUROLOGICAL: Gross neurological examination did not reveal any focal deficits. SKIN: No rashes. - Labs CBC & Chem 7: 07/15/18 03:00 07/16/18 06:09 Labs: Abnormal Lab Results - Last 24 Hours (Table) 07/16/18 07/16/18 Range/Units 06:09 06:09 PT 33.6 H (9.0-12.0) sec INR 3.5 H (<1.2) Carbon Dioxide 33 H (22-30) mmol/L BUN 33 H (9-20) mg/dL Creatinine 1.36 H (0.66-1.25) mg/dL Glucose 108 H (74-99) mg/dL Assessment and Plan Assessment: Acute on chronic systolic congestive heart failure Chronic arterial pleural effusion, on Coumadin Recent history of meniscectomy status post stent placement. Status post CABG. History of mitral valve replacement Chronic kidney disease. Anemia Plan: This is a pleasant 53 years old male who presents with acute CHF. Continue with diuretic and cardiology consultation is appreciated. Labs and medication were reviewed.. Continue same treatment. Continue with symptomatic treatment. Resume home medication. Monitor lytes and vitals. DVT and GI prophylaxis. Further recommendations of the clinical course of the patient DVT prophylaxis: Subcutaneous heparin GI Prophylaxis: Pepcid PT/OT: Evaluated patient and recommended subacute rehab. Prognosis is guarded
[2018-07-16] MEDS: FINASTERIDE 5 MG TAB PO SCH (20:44)
[2018-07-16] MEDS: PRAVASTATIN SODIUM 40 MG TAB PO SCH (20:44)
[2018-07-17 05:50] LABS: Anisocytosis Slight; Basophils % (A) 1 %; Eosinophils # (A) 0.1 k/uL (0-0.7); Eosinophils % (A) 2 %; HCT 31.2 % (39.0-53.0); HGB 9.6 gm/dL (13.0-17.5); Hypochromasia Marked; Lymphocytes # (A) 0.8 k/uL (1.0-4.8); Lymphocytes % (A) 14 %; MCH 31.5 pg (25.0-35.0); MCHC 30.6 g/dL (31.0-37.0); Macrocytosis Moderate; Mean Platelet Volume 7.3; Monocytes # (A) 0.7 k/uL (0-1.0); Monocytes % (A) 13 %; Neutrophils % (A) 69 %; Platelet Count 134 k/uL (150-450); RBC 3.03 m/uL (4.30-5.90); RDW 18.1 % (11.5-15.5); WBC 5.8 k/uL (3.8-10.6)
[2018-07-17 05:55] LABS: INR 2.8 (<1.2); Prothrombin Time 26.9 sec (9.0-12.0)
[2018-07-17 06:10] LABS: Calcium 8.6 mg/dL (8.4-10.2); Potassium 3.8 mmol/L (3.5-5.1)
[2018-07-17] MEDS: DIGOXIN 125 MCG TAB PO SCH (06:40)
[2018-07-17] MEDS: FAMOTIDINE 20 MG TAB PO SCH (06:40)
[2018-07-17] MEDS: CARVEDILOL 3.125 MG TAB PO SCH ×2 (09:08→16:27)
[2018-07-17] MEDS: FERROUS SULFATE 325 MG TAB PO SCH ×2 (09:09→16:27)
[2018-07-17] MEDS: FUROSEMIDE 10 MG/ML 4 ML VIAL IV SCH ×2 (09:09→20:05)
[2018-07-17] MEDS: LACTULOSE 20 GM/30 ML CUP PO SCH ×2 (09:09→20:04)
[2018-07-17] MEDS: CLOPIDOGREL 75 MG TAB PO SCH (09:09)
[2018-07-17] MEDS: PSYLLIUM HUSK 100% 6 GM PACKET PO SCH (09:09)
[2018-07-17 11:18] LABS: Glucose,Whole Blood 155 mg/dL (75-99)
--- NOTE | 2018-07-17 15:21 | P.PN ---
Subjective Progress Note Date: 07/17/18 This is a pleasant 83-year-old gentleman who follows with Dr. VC Rodriguez in the office. He has a known history of chronic atrial fibrillation, severe MR and severe MR, status post mechanical mitral valve replacement in 1990, CABG, chronic atrial fibrillation, on Coumadin, chronic systolic congestive heart failure with most recent echo showing an ejection fraction of less than 20%, recent non-ST elevation [place] in June of this year at which time he underwent cardiac catheterization which revealed 80% lesion of the ostial LAD, 100% occlusion of the mid LAD, 2 good-sized diagonal branches which are proximally diffusely diseased with long diffuse stenosis of about 80% to 90%, ostial stenosis of the circumflex with a long segment of diffuse disease with multiple areas of 70-80% stenosis, graft to the obtuse marginal branch is occluded, and RCA calcified with stenosis of 80-85% in the mid RCA, and patent PATEL to the LAD with good filling of the distal LAD. He subsequently underwent arthrectomy of the mid RCA as well as stenting of the RCA. 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 Mr. Madsen presents this admission for complaints of dizziness.No syncope or near syncope. He's also been complaining of some lower extremity edema that is somewhat worsened since previous discharge as well as some dyspnea on exertion. He does have a loose cough which he is unable to expectorate sputum. Denies orthopnea or PND. No further signs of GI bleed. EKG on admission showed atrial fibrillation with occasional PVCs and marked ST abnormalities similar to previous EKG. Chest x-ray on admission showed bilateral consolidation and pleural effusion, correlate for CHF, more localized area of consolidation in the left upper lobe on previous exam is stable, may represent confluent pulmonary edema or pneumonia. Recommended to follow to resolution to exclude underlying neoplasm. He has been afebrile. Vital signs are relatively stable. Patient was noted to have a significantly elevated BNP level and was initiated on IV Lasix. Repeat chest x-ray continues to soak CHF with pleural effusions. INR today 3.7, BUN 31 and creatinine 1.3, magnesium 2.5. Hemoglobin 9.5. Patient was noted on the monitor to have a run of 21 nonsustained ventricular tachycardia. Overall the patient does state that he's feeling better today. Currently on 40 mg of IV Lasix twice a day. 07/16/2018 Patient was seen and examined this morning, sitting up in the chair at bedside. Overall he's feeling better. Blood pressure 110/50 with a heart rate in the 60s, 98% on 4 L of oxygen. Pro time 33.6 with an INR 3.5, sodium 139, potassium 3.9, BUN 33 and creatinine 1.36. 07/17/2018 Patient was seen and examined this morning, overall doing better. Creatinine remaining at 1.3 today. Continues to be on IV Lasix. Hemodynamically he is stable. INR today is 2.8. Objective - Vital Signs Vital signs: Vital Signs Temp 97.9 F 07/17/18 11:29 Pulse 71 07/17/18 11:29 Resp 20 07/17/18 11:29 BP 126/60 07/17/18 11:29 Pulse Ox 95 07/17/18 11:29 Intake & Output 07/16/18 07/17/18 07/17/18 18:59 06:59 18:59 Intake Total 1860 518 Output Total 1400 600 200 Balance 460 -600 318 Weight 81.4 kg Intake: Oral 1860 518 Output: Urine 1400 600 200 Other: Voiding Method Urinal Urinal # Voids 0 # Bowel Movements 1 - Exam HEENT: Head is atraumatic, normocephalic. Pupils equal, round. Neck is supple. There is elevated jugular venous pressure. HEART EXAMINATION: Heart sounds irregularly irregular, S1 and S2 with a systolic murmur. CHEST EXAMINATION: Lungs reveal few faint crackles the bilateral bases. No chest wall tenderness is noted on palpation or with deep breathing. ABDOMEN: Distended, nontender. Bowel sounds are heard. No organomegaly noted. EXTREMITIES: 1+ peripheral pulses with evidence of 1+ left ankle and pedal edema and no edema to right lower extremity and no calf tenderness noted. NEUROLOGIC patient is awake, alert and oriented x3. - Labs CBC & Chem 7: 07/17/18 05:10 07/17/18 05:10 Labs: Abnormal Lab Results - Last 24 Hours (Table) 07/17/18 07/17/18 07/17/18 Range/Units 05:10 05:10 05:10 RBC 3.03 L (4.30-5.90) m/uL Hgb 9.6 L (13.0-17.5) gm/dL Hct 31.2 L (39.0-53.0) % MCV 103.0 H (80.0-100.0) fL MCHC 30.6 L (31.0-37.0) g/dL RDW 18.1 H (11.5-15.5) % Plt Count 134 L (150-450) k/uL Lymphocytes # 0.8 L (1.0-4.8) k/uL PT 26.9 H (9.0-12.0) sec INR 2.8 H (<1.2) Chloride 96 L (98-107) mmol/L Carbon Dioxide 33 H (22-30) mmol/L BUN 36 H (9-20) mg/dL Creatinine 1.33 H (0.66-1.25) mg/dL POC Glucose (mg/dL) (75-99) mg/dL 07/17/18 Range/Units 11:15 RBC (4.30-5.90) m/uL Hgb (13.0-17.5) gm/dL Hct (39.0-53.0) % MCV (80.0-100.0) fL MCHC (31.0-37.0) g/dL RDW (11.5-15.5) % Plt Count (150-450) k/uL Lymphocytes # (1.0-4.8) k/uL PT (9.0-12.0) sec INR (<1.2) Chloride (98-107) mmol/L Carbon Dioxide (22-30) mmol/L BUN (9-20) mg/dL Creatinine (0.66-1.25) mg/dL POC Glucose (mg/dL) 155 H (75-99) mg/dL Assessment and Plan Plan: Assessment: #1 acute on chronic systolic congestive heart failure #2 symptoms of dizziness, likely secondary to both mild orthostatic hypotension and decreased oxygen saturation with activity, improved #3 chronic atrial fibrillation, on Coumadin #4 recent non-ST elevation [place] with stenting of the RCA #5 history of mechanical mitral valve replacement #6 history of CABG #7 recent GI bleed with AV formation with argon plasma coagulation #8 chronic kidney disease #9 hypertension #10 hyperlipidemia ' ' ' Plan Cardiology's perspective we will continue current dose of Lasix. Check lytes BUN and creatinine in the morning. 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 DNP note has been reviewed, I agree with a documented findings and plan of care. Patient was seen and examined.
[2018-07-17] MEDS: ASPIRIN 81 MG PO SCH (16:27)
[2018-07-17] MEDS: WARFARIN 2.5 MG TAB PO SCH (16:27)
[2018-07-17] MEDS: MULTIVITAMINS, THERA 1 EACH TAB PO SCH (16:27)
[2018-07-17] MEDS: FINASTERIDE 5 MG TAB PO SCH (20:04)
[2018-07-17] MEDS: PRAVASTATIN SODIUM 40 MG TAB PO SCH (20:04)
--- NOTE | 2018-07-17 21:47 | P.PN ---
Subjective This is a pleasant 83 years old male with past medical history of atrial fibrillation, congestive heart failure, CVA/TIA, GERD, GI plate, hyperlipidemia , hypertension, sleep apnea on CPAP/BiPAP. Presents with dyspnea and signs symptoms of acute systolic heart failure. he's been treated with diuretics and she feels improving. Other more comorbidities including chronic atrial fibrillation on Coumadin and his INR today is 3.5. Hemoglobin shows slight drop from 10.4 down to 9.5. He also has chronic kidney disease and mitral valve replacements. Patient currently on IV Lasix 40 mg twice a day, lactulose and digoxin. Also patient on warfarin with close follow-up of INR. Creatinine is stable at 1.3. Chest x-ray from yesterday showing pulmonary vascular congestion. 07/17/2018 pt is seen in select units, lying in bed not in distress, dyspnea is improving. no chest pain , no dizziness. ablt to pee with no difficulties after the oro catheter was taken off. his repeat INR is 2.8 . pt is on lactulose , digosin and iv lasix. 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 pt may be changed to oral lasix tomorrrow . pt is going to ECF upon discharge . rest of labs are reviewed , sugar is stable as well as creatinine at 1.3. platelet is slightly improved to 134 Objective - Vital Signs Vital signs: Vital Signs Temp 98.0 F 07/17/18 20:00 Pulse 74 07/17/18 20:00 Resp 19 07/17/18 20:00 BP 104/57 07/17/18 20:00 Pulse Ox 94 L 07/17/18 20:00 Intake & Output 07/17/18 07/17/18 07/18/18 06:59 18:59 06:59 Intake Total 758 Output Total 600 325 100 Balance -600 433 -100 Weight 81.4 kg Intake: Oral 758 Output: Urine 600 325 100 Other: Voiding Method Urinal Urinal Urinal # Voids 1 # Bowel Movements 1 1 1 - Exam GENERAL: The patient is alert and oriented x3, not in any acute distress. Well developed, well nourished. HEENT: Pupils are round and equally reacting to light. EOMI. No scleral icterus. No conjunctival pallor. Normocephalic, atraumatic. No pharyngeal erythema. No thyromegaly. CARDIOVASCULAR: S1 and S2 present. No murmurs, rubs, or gallops. -PULMONARY: Chest is clear to auscultation, bilateral basal in mental zone crepitation. ABDOMEN: Soft, nontender, nondistended, normoactive bowel sounds. No palpable organomegaly. MUSCULOSKELETAL: No joint swelling or deformity. EXTREMITIES: No cyanosis, clubbing, or pedal edema. NEUROLOGICAL: Gross neurological examination did not reveal any focal deficits. SKIN: No rashes. - Labs CBC & Chem 7: 07/17/18 05:10 07/17/18 05:10 Labs: Abnormal Lab Results - Last 24 Hours (Table) 07/17/18 07/17/18 07/17/18 Range/Units 05:10 05:10 05:10 RBC 3.03 L (4.30-5.90) m/uL Hgb 9.6 L (13.0-17.5) gm/dL Hct 31.2 L (39.0-53.0) % MCV 103.0 H (80.0-100.0) fL MCHC 30.6 L (31.0-37.0) g/dL RDW 18.1 H (11.5-15.5) % Plt Count 134 L (150-450) k/uL Lymphocytes # 0.8 L (1.0-4.8) k/uL PT 26.9 H (9.0-12.0) sec INR 2.8 H (<1.2) Chloride 96 L (98-107) mmol/L Carbon Dioxide 33 H (22-30) mmol/L BUN 36 H (9-20) mg/dL Creatinine 1.33 H (0.66-1.25) mg/dL POC Glucose (mg/dL) (75-99) mg/dL 07/17/18 Range/Units 11:15 RBC (4.30-5.90) m/uL Hgb (13.0-17.5) gm/dL Hct (39.0-53.0) % MCV (80.0-100.0) fL MCHC (31.0-37.0) g/dL RDW (11.5-15.5) % Plt Count (150-450) k/uL Lymphocytes # (1.0-4.8) k/uL PT (9.0-12.0) sec INR (<1.2) Chloride (98-107) mmol/L Carbon Dioxide (22-30) mmol/L BUN (9-20) mg/dL Creatinine (0.66-1.25) mg/dL POC Glucose (mg/dL) 155 H (75-99) mg/dL Assessment and Plan Assessment: Acute on chronic systolic congestive heart failure Chronic arterial pleural effusion, on Coumadin Recent history of meniscectomy status post stent placement. Status post CABG. History of mitral valve replacement Chronic kidney disease. Anemia Plan: This is a pleasant 53 years old male who presents with acute CHF. Continue with diuretic and cardiology consultation is appreciated. Labs and medication were reviewed.. Continue same treatment. Continue with symptomatic treatment. Resume home medication. Monitor lytes and vitals. DVT and GI prophylaxis. Further recommendations of the clinical course of the patient DVT prophylaxis: Subcutaneous heparin GI Prophylaxis: Pepcid PT/OT: Evaluated patient and recommended subacute rehab. Prognosis is guarded
[2018-07-18] MEDS: DIGOXIN 125 MCG TAB PO SCH (06:32)
[2018-07-18] MEDS: FAMOTIDINE 20 MG TAB PO SCH (06:32)
[2018-07-18 06:51] LABS: Anisocytosis Slight; Basophils % (A) 0 %; Eosinophils # (A) 0.1 k/uL (0-0.7); Eosinophils % (A) 2 %; HCT 30.2 % (39.0-53.0); HGB 9.3 gm/dL (13.0-17.5); Hypochromasia Marked; Lymphocytes # (A) 0.8 k/uL (1.0-4.8); Lymphocytes % (A) 15 %; MCH 31.7 pg (25.0-35.0); MCHC 30.9 g/dL (31.0-37.0); MCV 102.5 fL (80.0-100.0); Macrocytosis Moderate; Mean Platelet Volume 7.3; Monocytes # (A) 0.6 k/uL (0-1.0); Monocytes % (A) 12 %; Neutrophils # (A) 3.5 k/uL (1.3-7.7); Neutrophils % (A) 68 %; Platelet Count 146 k/uL (150-450); RBC 2.95 m/uL (4.30-5.90); RDW 18.2 % (11.5-15.5); WBC 5.1 k/uL (3.8-10.6)
[2018-07-18 07:05] LABS: Calcium 8.6 mg/dL (8.4-10.2)
--- NOTE | 2018-07-18 08:52 | XR ---
EXAMINATION TYPE: XR chest 1V DATE OF EXAM: 07/18/2018 COMPARISON: Prior chest x-ray 07/15/2018 HISTORY: Abnormal chest x-ray, follow-up TECHNIQUE: Single frontal view of the chest is obtained. FINDINGS: Patient is rotated and post median sternotomy. Heart is enlarged and the aorta is dense. B ibasilar increased density with blunting the costophrenic angles persists, there is prominence of int erstitium in central vascularity. No evident pneumothorax. IMPRESSION: Correlate for congestive heart failure with pleural effusions. Pneumonia not excluded.
[2018-07-18] MEDS: LACTULOSE 20 GM/30 ML CUP PO SCH (09:11)
[2018-07-18] MEDS: FERROUS SULFATE 325 MG TAB PO SCH ×2 (09:12→17:00)
[2018-07-18] MEDS: CARVEDILOL 3.125 MG TAB PO SCH ×2 (09:12→17:00)
[2018-07-18] MEDS: CLOPIDOGREL 75 MG TAB PO SCH (09:12)
[2018-07-18] MEDS: PSYLLIUM HUSK 100% 6 GM PACKET PO SCH (09:13)
[2018-07-18] MEDS: FUROSEMIDE 10 MG/ML 4 ML VIAL IV SCH (11:24)
[2018-07-18 12:00] VITALS: RESP 18
[2018-07-18 12:17] LABS: INR 2.5 (<1.2); Prothrombin Time 23.8 sec (9.0-12.0)
--- NOTE | 2018-07-18 13:10 | P.PN ---
Subjective Progress Note Date: 07/18/18 This is a pleasant 83-year-old gentleman who follows with Dr. VC Rodriguez in the office. He has a known history of chronic atrial fibrillation, severe MR and severe MR, status post mechanical mitral valve replacement in 1990, CABG, chronic atrial fibrillation, on Coumadin, chronic systolic congestive heart failure with most recent echo showing an ejection fraction of less than 20%, recent non-ST elevation [place] in June of this year at which time he underwent cardiac catheterization which revealed 80% lesion of the ostial LAD, 100% occlusion of the mid LAD, 2 good-sized diagonal branches which are proximally diffusely diseased with long diffuse stenosis of about 80% to 90%, ostial stenosis of the circumflex with a long segment of diffuse disease with multiple areas of 70-80% stenosis, graft to the obtuse marginal branch is occluded, and RCA calcified with stenosis of 80-85% in the mid RCA, and patent PATEL to the LAD with good filling of the distal LAD. He subsequently underwent arthrectomy of the mid RCA as well as stenting of the RCA. 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 Mr. Madsen presents this admission for complaints of dizziness.No syncope or near syncope. He's also been complaining of some lower extremity edema that is somewhat worsened since previous discharge as well as some dyspnea on exertion. He does have a loose cough which he is unable to expectorate sputum. Denies orthopnea or PND. No further signs of GI bleed. EKG on admission showed atrial fibrillation with occasional PVCs and marked ST abnormalities similar to previous EKG. Chest x-ray on admission showed bilateral consolidation and pleural effusion, correlate for CHF, more localized area of consolidation in the left upper lobe on previous exam is stable, may represent confluent pulmonary edema or pneumonia. Recommended to follow to resolution to exclude underlying neoplasm. He has been afebrile. Vital signs are relatively stable. Patient was noted to have a significantly elevated BNP level and was initiated on IV Lasix. Repeat chest x-ray continues to soak CHF with pleural effusions. INR today 3.7, BUN 31 and creatinine 1.3, magnesium 2.5. Hemoglobin 9.5. Patient was noted on the monitor to have a run of 21 nonsustained ventricular tachycardia. Overall the patient does state that he's feeling better today. Currently on 40 mg of IV Lasix twice a day. 07/16/2018 Patient was seen and examined this morning, sitting up in the chair at bedside. Overall he's feeling better. Blood pressure 110/50 with a heart rate in the 60s, 98% on 4 L of oxygen. Pro time 33.6 with an INR 3.5, sodium 139, potassium 3.9, BUN 33 and creatinine 1.36. 07/17/2018 Patient was seen and examined this morning, overall doing better. Creatinine remaining at 1.3 today. Continues to be on IV Lasix. Hemodynamically he is stable. INR today is 2.8. 07/18/2018 Patient seen and examined this morning, blood pressure 112/50 with a heart rate in the 60s, 98% on 4 L of oxygen. BUN 37, creatinine 1.3. Objective - Vital Signs Vital signs: Vital Signs Temp 98.1 F 07/18/18 11:59 Pulse 65 07/18/18 11:59 Resp 18 07/18/18 11:59 BP 112/57 07/18/18 11:59 Pulse Ox 98 07/18/18 11:59 Intake & Output 07/17/18 07/18/18 07/18/18 18:59 06:59 18:59 Intake Total 758 Output Total 325 300 Balance 433 -300 Weight 62.5 kg Intake: Oral 758 Output: Urine 325 300 Other: Voiding Method Urinal Urinal Urinal # Voids 4 1 # Bowel Movements 1 1 1 - Exam HEENT: Head is atraumatic, normocephalic. Pupils equal, round. Neck is supple. There is elevated jugular venous pressure. HEART EXAMINATION: Heart sounds irregularly irregular, S1 and S2 with a systolic murmur. CHEST EXAMINATION: Lungs reveal few faint crackles the bilateral bases. No chest wall tenderness is noted on palpation or with deep breathing. ABDOMEN: Distended, nontender. Bowel sounds are heard. No organomegaly noted. EXTREMITIES: 1+ peripheral pulses with evidence of 1+ left ankle and pedal edema and no edema to right lower extremity and no calf tenderness noted. NEUROLOGIC patient is awake, alert and oriented x3. - Labs CBC & Chem 7: 07/18/18 05:51 07/18/18 05:51 Labs: Abnormal Lab Results - Last 24 Hours (Table) 07/18/18 07/18/18 07/18/18 Range/Units 05:51 05:51 11:07 RBC 2.95 L (4.30-5.90) m/uL Hgb 9.3 L (13.0-17.5) gm/dL Hct 30.2 L (39.0-53.0) % MCV 102.5 H (80.0-100.0) fL MCHC 30.9 L (31.0-37.0) g/dL RDW 18.2 H (11.5-15.5) % Plt Count 146 L (150-450) k/uL Lymphocytes # 0.8 L (1.0-4.8) k/uL PT 23.8 H (9.0-12.0) sec INR 2.5 H (<1.2) Chloride 96 L (98-107) mmol/L Carbon Dioxide 32 H (22-30) mmol/L BUN 37 H (9-20) mg/dL Creatinine 1.30 H (0.66-1.25) mg/dL Assessment and Plan Plan: Assessment: #1 acute on chronic systolic congestive heart failure #2 symptoms of dizziness, likely secondary to both mild orthostatic hypotension and decreased oxygen saturation with activity, improved #3 chronic atrial fibrillation, on Coumadin #4 recent non-ST elevation [place] with stenting of the RCA #5 history of mechanical mitral valve replacement #6 history of CABG #7 recent GI bleed with AV formation with argon plasma coagulation #8 chronic kidney disease #9 hypertension #10 hyperlipidemia ' ' ' Plan Cardiology's perspective we will continue current medications. Patient may be able to be discharged once cleared by primary. We will make a follow-up appointment in the office post discharge. DNP note has been reviewed, I agree with a documented findings and plan of care. Patient was seen and examined.
[2018-07-18] MEDS: ASPIRIN 81 MG PO SCH (17:00)
[2018-07-18] MEDS: MULTIVITAMINS, THERA 1 EACH TAB PO SCH (17:00)
[2018-07-18] MEDS: WARFARIN 1.25 MG TAB PO SCH (17:01)
[2018-07-18 17:13] VITALS: BP 125/63; PULSE 62; TEMP 97.5
--- NOTE | 2018-07-19 10:17 | P.DS ---
Providers Date of admission: 07/11/18 15:06 Attending physician: Javy Hall Consults: 07/11/18 15:06 Consult Physician Routine Consulting Provider: Delano Mariscal Consult Reason/Comments: ella Do you want consulting provider notified?: Yes Primary care physician: Vamshi Leiva Hospital Course: Dx Acute on chronic systolic congestive heart failure Chronic arterial fibrillation on Coumadin Recent history of NSTEMI status post stent placement in RCA. h/o CABG History of mitral valve replacement Chronic kidney disease. Anemia Hospital course This is a pleasant 83 years old male with past medical history of atrial fibrillation, congestive heart failure, CVA/TIA, GERD, GI plate, hyperlipidemia , hypertension, sleep apnea on CPAP/BiPAP. Presents with dyspnea and signs symptoms of acute systolic heart failure. he's been treated with diuretics and she feels improving. Other more comorbidities including chronic atrial fibrillation on Coumadin and his INR upon discharge is 2.5. Hemoglobin shows slight drop from 10.4, 9.5, 9.3. He also has chronic kidney disease and mitral valve replacements. Patient is discharged on Lasix 40 mg twice a day, lactulose and digoxin. Also patient on warfarin with close follow-up of INR. Creatinine is stable at 1.3. Chest x-ray from showing pulmonary vascular congestion. Patient feels better and desired to be discharged. He has little dyspnea with no chest pain. No coughing. Patient has been evaluated by registration manager and cleared him for discharge Plan patient was found stable and can be discharged to her ECF and guarded prognosis. However he needs follow-up as an outpatient. Gen: patient is a AAOx3, no distress CVS: S1-S2, RRR, no murmur Lungs: B/L CTA, no wheezing Abdomen: soft, no distention, no tenderness, positive bowel sounds Extremity: no leg edema or induration Time spent more than 35 minutes Patient Condition at Discharge: Good Plan - Discharge Summary Discharge Rx Participant: No New Discharge Prescriptions: New Acetaminophen Tab [Tylenol] 325 mg PO Q6HR PRN tab PRN Reason: Mild Pain Or Fever > 100.5 Continue Pravastatin Sodium [Pravachol] 40 mg PO HS@2100 Warfarin [Coumadin] 2.5 mg PO SUWESA@1700 Digoxin [Lanoxin] 125 mcg PO DAILY@0600 Aspirin 81 mg PO DAILY@1700 Ranitidine HCl [Zantac] 150 mg PO DAILY@0600 Finasteride [Proscar] 5 mg PO HS@2100 Multivitamins, Thera [Multivitamin (formulary)] 1 tab PO DAILY@1700 Warfarin [Coumadin] 1.25 mg PO MOTUTHFR@170 Melatonin 3 mg PO HS PRN tablet PRN Reason: Insomnia Nitroglycerin Sl Tabs [Nitrostat] 0.4 mg SUBLINGUAL Q5M PRN tab PRN Reason: Chest Pain Na Phos,M-B/Na Phos,Di-Ba [Fleet Adult] 133 ml RECTAL DAILY PRN PRN Reason: Constipation Lactose-Reduced Food [Ensure Plus] 120 ml PO TID@0800,1200,1700 Bisacodyl [Dulcolax] 10 mg RECTAL DAILY PRN PRN Reason: Constipation Lactulose 10 gm PO BID@0800,2100 Ferrous Sulfate [Iron (65 MG Elemental)] 325 mg PO BID@0800,1700 Magnesium Hydroxide [Milk of Magnesia] 2,400 mg PO DAILY PRN PRN Reason: Constipation Furosemide [Lasix] 40 mg PO BID@0600,1400 Clopidogrel [Plavix] 75 mg PO DAILY@0800 Carvedilol [Coreg] 3.125 mg PO BID@0800,1700 Discharge Medication List Aspirin 81 mg PO DAILY@169912/09/13 [History] Digoxin [Lanoxin] 125 mcg PO DAILY@0612/09/13 [History] Finasteride [Proscar] 5 mg PO HS@209912/09/13 [History] Pravastatin Sodium [Pravachol] 40 mg PO HS@209912/09/13 [History] Ranitidine HCl [Zantac] 150 mg PO DAILY@0612/09/13 [History] Warfarin [Coumadin] 2.5 mg PO SUWESA@169912/09/13 [History] Multivitamins, Thera [Multivitamin (formulary)] 1 tab PO DAILY@169906/04/18 [ History] Warfarin [Coumadin] 1.25 mg PO MOTUTHFR@169906/04/18 [History] Melatonin 3 mg PO HS PRN tablet 06/21/18 [Rx] Nitroglycerin Sl Tabs [Nitrostat] 0.4 mg SUBLINGUAL Q5M PRN tab 06/21/18 [Rx] Bisacodyl [Dulcolax] 10 mg RECTAL DAILY PRN 07/11/18 [History] Carvedilol [Coreg] 3.125 mg PO BID@0800,1700 07/11/18 [History] Clopidogrel [Plavix] 75 mg PO DAILY@0800 07/11/18 [History] Ferrous Sulfate [Iron (65 MG Elemental)] 325 mg PO BID@0800,1700 07/11/18 [ History] Furosemide [Lasix] 40 mg PO BID@0600,1400 07/11/18 [History] Lactose-Reduced Food [Ensure Plus] 120 ml PO TID@0800,1200,1700 07/11/18 [ History] Lactulose 10 gm PO BID@0800,2100 07/11/18 [History] Magnesium Hydroxide [Milk of Magnesia] 2,400 mg PO DAILY PRN 07/11/18 [History] Na Phos,M-B/Na Phos,Di-Ba [Fleet Adult] 133 ml RECTAL DAILY PRN 07/11/18 [ History] Acetaminophen Tab [Tylenol] 325 mg PO Q6HR PRN tab 07/18/18 [Rx] Follow up Appointment(s)/Referral(s): Vamshi Leiva MD [Primary Care Provider] - 07/19/18 11:00 am (Sunday) Activity/Diet/Wound Care/Special Instructions: Kimmy cardiac diet activity as tolerated Discharge Disposition: TRANSFER TO SNF/ECF
== END 2018-07-18 18:06 | DRG 291 ==
LOC: EC 11:44 → 3SCARD 15:06
PROVIDERS: ADMIT Hospitalist; ATTEND Hospitalist
DX: I13.0 Hypertensive heart and chronic kidney disease with heart failure and stage 1 through stage 4 chronic kidney disease, or unspecified chronic kidney disease (principal); I50.23 Acute on chronic systolic (congestive) heart failure; J96.01 Acute respiratory failure with hypoxia; I47.2 Ventricular tachycardia; I48.1 Persistent atrial fibrillation; N17.9 Acute kidney failure, unspecified; D64.9 Anemia, unspecified; E78.5 Hyperlipidemia, unspecified; G47.33 Obstructive sleep apnea (adult) (pediatric); I25.10 Atherosclerotic heart disease of native coronary artery without angina pectoris; I25.2 Old myocardial infarction; I27.20 Pulmonary hypertension, unspecified; I48.2 Chronic atrial fibrillation; I49.3 Ventricular premature depolarization; K21.9 Gastro-esophageal reflux disease without esophagitis; Z87.19 Personal history of other diseases of the digestive system; N18.3 Chronic kidney disease, stage 3 (moderate); N40.1 Benign prostatic hyperplasia with lower urinary tract symptoms; N39.498 Other specified urinary incontinence; Z79.01 Long term (current) use of anticoagulants; Z79.02 Long term (current) use of antithrombotics/antiplatelets; Z79.82 Long term (current) use of aspirin; Z79.899 Other long term (current) drug therapy; Z85.820 Personal history of malignant melanoma of skin; Z86.73 Personal history of transient ischemic attack (TIA), and cerebral infarction without residual deficits; Z87.891 Personal history of nicotine dependence; Z95.1 Presence of aortocoronary bypass graft; Z95.2 Presence of prosthetic heart valve; Z98.42 Cataract extraction status, left eye; R53.81 Other malaise; I08.1 Rheumatic disorders of both mitral and tricuspid valves; I95.1 Orthostatic hypotension; Z95.5 Presence of coronary angioplasty implant and graft
CPT/HCPCS: 36415; 70450; 71045; 71046; 80048; 80053; 81003; 82550; 82553; 83605; 83735; 83880; 84100; 84484; 85025; 85027; 85610; 85730; 86850; 86900; 86901; 87077; 87086; 87186; 93005; 96361; 96374; 99285